=== PATIENT | female | born 1965 | race Caucasian/White ===

== ENCOUNTER 2017-09-30 08:32 | Emergency (ER) | payer MEDICARE, OTHER ==
[~2017-09-30] VITALS: Ht 175.3 cm; Wt 81.0 kg
[~2017-09-30 08:32] MED LIST: BUDE3CAP5 PO; HYDR-3533 PO; METHO500 PO; PENT500C2 PO
[2017-09-30 08:37] VITALS: BP 105/59; PULSE 84; RESP 16; TEMP 98.1; O2SAT 99
[2017-09-30] MEDS ORDERED: PENT500C2 PO (08:51)
[2017-09-30] MEDS ORDERED: ENTO3CAP5 PO (08:51)
[2017-09-30] MEDS ORDERED: SODIUM CHLORID 0.9% 500 ML INJ 500 ML IV ONE (09:00)
[2017-09-30] MEDS ORDERED: ONDANSETRON HCL 4 MG/2 ML VIAL IV PUSH ONE ×2 (09:00→13:15)
[2017-09-30] MEDS ORDERED: DICYCLOMINE HCL 20 MG/2 ML VIAL IM ONE ×2 (09:00→11:45)
--- NOTE | 2017-09-30 09:00 | PD ---
HPI Chief Complaint: Cold / Flu Symptoms Time Seen by Provider: 08:55 Travel History International Travel<30 days: No Contact w/Intl Traveler<30days: No Traveled to known affect area: No History of Present Illness HPI Patient presents with complaints of nausea vomiting and diarrhea for 3 days. Denies any recent travel. Denies any recent antibiotics. Denies any camping. Patient is convinced she has Norovirus. Denies any blood per stool or emesis. Denies sick contacts. Denies new rash. Erratic historian, reports Crohn's disease with frequent diverticulitis treated with steroids. History of heart failure during her which she is not being treated for now. History of obesity. States her abdominal pannus is secondary to with a stillbirth at term. Reports recent neck discomfort with ear congestion which resolved with a quick turn of her neck. PFSH Past Medical History Gastrointestinal Disorders: Yes (Chron's, Colitis) Influenza Vaccination: Yes ?: Not Social History Alcohol Use: No Tobacco Use: Yes Substance Use: No Allergies-Medications (Allergen,Severity, Reaction): Coded Allergies: penicillin G (Unverified Allergy, Severe, Anaphylaxis, 09/30/17) Sulfa (Sulfonamide Antibiotics) (Unverified Adverse Reaction, Severe, Bleeding, 09/30/17) ibuprofen (Unverified Adverse Reaction, Severe, Bleeding, 09/30/17) Uncoded Allergies: RICOTTA CHEESE (Allergy, Severe, Anaphylaxis, 03/11/15) Reported Meds & Prescriptions Reported Meds & Active Scripts Active Reported Pentasa (Mesalamine) 500 Mg Caper 1,000 Mg PO QID Entocort EC (Budesonide) 3 Mg Capdr 3 Mg PO TID Review of Systems General / Constitutional: No: Fever Eyes: No: Visual changes HENT: No: Headaches Cardiovascular: No: Chest Pain or Discomfort Respiratory: No: Shortness of Breath Gastrointestinal: Positive: Nausea, Vomiting, Diarrhea, No: Abdominal Pain Genitourinary: No: Dysuria Musculoskeletal: No: Pain Skin: No Rash Neurologic: No: Weakness Psychiatric: No: Depression Endocrine: No: Polydipsia Hematologic/Lymphatic: No: Easy Bruising Physical Exam Narrative GENERAL: Well-nourished, well-developed patient. SKIN: Focused skin assessment warm/dry. HEAD: Normocephalic. EYES: No scleral icterus. No injection or drainage. NECK: Supple, trachea midline. No JVD or lymphadenopathy. CARDIOVASCULAR: Regular rate and rhythm without murmurs, gallops, or rubs. RESPIRATORY: Breath sounds equal bilaterally. No accessory muscle use. GASTROINTESTINAL: Abdomen soft, non-tender, mildly distended MUSCULOSKELETAL: No cyanosis, or edema. BACK: Nontender without obvious deformity. No CVA tenderness. Data Data Last Documented VS Vital Signs Date Time Temp Pulse Resp B/P (MAP) Pulse Ox O2 Delivery O2 Flow Rate FiO2 09/30/17 13:13 98.4 75 15 93/67 (76) 95 Room Air Orders Orders Sodium Chlorid 0.9% 500 Ml Inj (Ns 500 M (09/30/17 09:00) Ondansetron Inj (Zofran Inj) (09/30/17 09:00) Dicyclomine Inj (Bentyl Inj) (09/30/17 09:00) Urinalysis - C+S If Indicated (09/30/17 10:49) Ct Abd/Pel W Iv Contrast(Rout) (09/30/17 ) Dicyclomine Inj (Bentyl Inj) (09/30/17 11:45) Iohexol 350 Inj (Omnipaque 350 Inj) (09/30/17 12:12) Ondansetron Inj (Zofran Inj) (09/30/17 13:15) Labs Laboratory Tests Test 09/30/17 11:07 Urine Collection Type CLEAN CATCH Urine Color DARK-YELLOW Urine Turbidity CLEAR Urine pH 6.5 Urine Specific Dane 1.025 Urine Protein TRACE mg/dL Urine Glucose (UA) NEG mg/dL Urine Ketones TRACE mg/dL Urine Occult Blood NEG Urine Nitrite NEG Urine Bilirubin NEG Urine Leukocyte Esterase NEG Urine RBC 0-3 /hpf Urine WBC 3-5 /hpf Urine Squamous Epithelial Cells 0-5 /hpf Microscopic Urinalysis Comment CULT NOT INDICATED MDM Medical Decision Making Medical Screen Exam Complete: Yes Emergency Medical Condition: Yes Differential Diagnosis Viral gastroenteritis, Crohn's, UTI Narrative Course Assessment and plan discussed with daughter and at bedside. Urinalysis is normal, patient tolerated fluid challenge without difficulty. Complains of persistent bilateral lower abdominal pain. Last 72 hours Impressions Abdomen/Pelvis CT 09/30/17 0000 Signed Impressions: Service Date/Time: Saturday, September 30, 2017 11:58 - CONCLUSION: 1. Nonspecific colitis involving the transverse colon and proximal descending colon. 2. Hepatic steatosis. 3. Status post cholecystectomy. 4. Multiple bilateral renal masses likely representing cysts. Bilateral renal cortical calculi. Devonte Mcgregor MD Patient states the colitis is long-standing and refuses antibiotics. Diagnosis Primary Impression: Gastroenteritis Additional Impression: Colitis Patient Instructions: General Instructions Additional Instructions: Encouraged a bland high-fiber brat diet. Encouraged fluids. Encouraged to follow-up with PCP. Encouraged to return to emergency room with any onset of new symptoms. Med/Other Pt SpecificInfo: Prescription(s) given Scripts Hyoscyamine (Levsin) 0.125 Mg Tab 0.125 MG PO Q6H for Gastrointestinal disorders, #20 TAB 0 Refills Prov: Matty Wallace MD 09/30/17 Ondansetron Odt (Zofran Odt) 4 Mg Tab 4 MG SL Q6HR Y for Nausea/Vomiting, #20 TAB 0 Refills Prov: Matty Wallace MD 09/30/17 Disposition: 01 DISCHARGE HOME Condition: Good Matty Wallace MD Sep 30, 2017 09:00
[2017-09-30 10:53] VITALS: BP 89/59; PULSE 75; RESP 15; TEMP 98.4; O2SAT 95
[2017-09-30 11:14] LABS: BLOOD, URINE NEG (NEG); GLUCOSE,URINE NEG (NEG); KETONE, URINE TRACE mg/dL (NEG); NITRITE,URINE NEG (NEG); PH, URINE 6.5 (5.0-8.5)
[2017-09-30 11:22] LABS: COMMENT (UR) CULT NOT INDICATED; COMMENT2 (UR) MUCOUS PRESENT; CULTURE IF INDICATED CULT NOT INDICATED; METHOD OF COLLECTION CLEAN CATCH; RBC, URINE 0-3 /hpf (0-3); SQUAMOUS EPITHELIAL CELL URINE 0-5 /hpf (0-5); URINE COLOR DARK-YELLOW (YELLW/STRAW)
[2017-09-30] MEDS ORDERED: IOHEXOL 350 MG/ML 10 ML VIAL (for RAD DIAG) IVCONTRAST ONE (12:12)
[2017-09-30 12:23] VITALS: BP 89/52; PULSE 78; RESP 16; O2SAT 99
--- NOTE | 2017-09-30 12:43 | RADRPT ---
EXAM DATE/TIME: 09/30/2017 11:58 [facility] COMPARISON: No previous studies available for comparison. INDICATIONS : Abdominal pain. IV CONTRAST: 75 cc Omnipaque 350 (iohexol) IV ORAL CONTRAST: No oral contrast ingested. RADIATION DOSE: 18.79 CTDIvol (mGy) MEDICAL HISTORY : Crohn's disease. SURGICAL HISTORY : None. ENCOUNTER: Initial ACUITY: 1 day PAIN SCALE: 8/10 LOCATION: Bilateral lower abdomen, with chills. TECHNIQUE: Volumetric scanning of the abdomen and pelvis was performed. Using automated exposure control and ad justment of the mA and/or kV according to patient size, radiation dose was kept as low as reasonably achievable to obtain optimal diagnostic quality images. DICOM format image data is available electro nically for review and comparison. FINDINGS: LOWER LUNGS: Mild atelectasis at left lung base. LIVER: Diffuse moderate severity hepatic steatosis. No focal mass. Cholecystectomy clips. SPLEEN: Normal size without lesion. PANCREAS: Within normal limits. KIDNEYS: Multiple bilateral renal hypodense masses, likely representing cysts. The largest measures 3 cm and i s seen in the upper pole of the left kidney. 2 coarse cortical calcifications are seen in the lower l eft kidney. Punctate cortical calcification is seen in the midpole of the right kidney. No evidence o f hydronephrosis. No ureteral calculi ADRENAL GLANDS: Within normal limits. VASCULAR: Scattered aortic calcification. Aortic diameter are within normal limits. BOWEL/MESENTERY: Marked circumferential wall thickening and adjacent inflammatory change diffusely at the transverse c olon and proximal descending colon. No evidence of bowel wall pneumatosis. No free air. No free fluid . No bowel dilatation. Appendix within normal limits. ABDOMINAL WALL: 7.9 cm left-sided paramidline anterior abdominal wall fat containing hernia. RETROPERITONEUM: There is no lymphadenopathy. BLADDER: No wall thickening or mass. REPRODUCTIVE: Within normal limits. INGUINAL: There is no lymphadenopathy or hernia. MUSCULOSKELETAL: Within normal limits for patient age. CONCLUSION: 1. Nonspecific colitis involving the transverse colon and proximal descending colon. 2. Hepatic steatosis. 3. Status post cholecystectomy. 4. Multiple bilateral renal masses likely representing cysts. Bilateral renal cortical calculi. Devonte Mcgregor MD on September 30, 2017 at 12:31 Board Certified Radiologist. This report was verified electronically.
[2017-09-30 13:13] VITALS: BP 93/67; PULSE 75; RESP 15; TEMP 98.4; O2SAT 95
[2017-09-30] MEDS ORDERED: ZOFR4TAB3 SL (13:25)
[2017-09-30] MEDS ORDERED: LEVS0.123 PO (13:25)
[2017-09-30] MEDS ORDERED: TRAM50 PO (13:44)
[2017-09-30] MEDS ORDERED: HYDR-3516 PO (13:46)
== END 2017-09-30 13:54 | disposition home or self-care (01) ==
LOC: PHED 08:32
DX: K52.9 Noninfective gastroenteritis and colitis, unspecified (principal); K50.90 Crohn's disease, unspecified, without complications; Z72.0 Tobacco use; Z88.0 Allergy status to penicillin; Z79.899 Other long term (current) drug therapy
CPT/HCPCS: 74177; 81001; 96361; 96372; 96374; 96376; 99285; J0500; J2405; J7040; Q9967

== ENCOUNTER 2017-10-04 10:06 | Observation (INO) | payer MEDICARE, OTHER ==
[~2017-10-04] VITALS: Ht 174 cm; Wt 86.5 kg
[2017-10-04] VITALS (9 sets, daily range): BP systolic 82–96; BP diastolic 53–69; PULSE 75–99; RESP 16–20; TEMP 98–100.7; O2SAT 94–99
[~2017-10-04 10:06] MED LIST changes: -BUDE3CAP5 PO; +ENTO3CAP5 PO; +HYDR-3516 PO; -HYDR-3533 PO; +LEVS0.123 PO; -METHO500 PO; +ZOFR4TAB3 SL
[2017-10-04] MEDS ORDERED: ONDANSETRON HCL 4 MG/2 ML VIAL IV PUSH ONE (10:30)
[2017-10-04] MEDS ORDERED: SODIUM CHLOR 0.9% 1000 ML INJ 1,000 ML IV ONE (10:30)
--- NOTE | 2017-10-04 10:31 | PD ---
HPI Chief Complaint: GI Complaint Time Seen by Provider: 10:17 Travel History International Travel<30 days: No Contact w/Intl Traveler<30days: No Traveled to known affect area: No History of Present Illness HPI 52yo F with PMH of Crohns disease presents to the ED with c/o persistent vomiting and unable to keep anything down for 8 days. Pt was seen on 09/30/17 for vomiting and diarrhea. Pt had CT s/p that showed nonspecific colitis transverse colon and proximal descending colon. Pt was discharged with hyosyamine and zofran. Said she tried taking the medications but could not keep it down. Pt had UA that was negative but no blood work at the time. Still complaining of diffuse abdominal pain for 8 days. Said she has nonbloody loose stools. +Chills but no fever. Said she blacked out during vomiting but did not hit her head. Denies any chest pain, sob, dysuria, hematuria, vaginal bleeding or discharge, focal weakness or numbness. Pt follows with Dr. Lainez. [facility] Past Medical History Gastrointestinal Disorders: Yes (Chron's, Colitis) ?: Not Social History Alcohol Use: No Tobacco Use: Yes Substance Use: No Allergies-Medications (Allergen,Severity, Reaction): Coded Allergies: guaifenesin (Verified Allergy, Severe, Nausea/Vomiting, 09/30/17) penicillin G (Unverified Allergy, Severe, Anaphylaxis, 09/30/17) tramadol (Verified Allergy, Severe, Burning, 09/30/17) Leg burning ciprofloxacin (Verified Allergy, Intermediate, Nausea/Vomiting, 10/04/17) Sulfa (Sulfonamide Antibiotics) (Unverified Adverse Reaction, Severe, Bleeding, 09/30/17) ibuprofen (Unverified Adverse Reaction, Severe, Bleeding, 09/30/17) Uncoded Allergies: RICOTTA CHEESE (Allergy, Severe, Anaphylaxis, 03/11/15) Reported Meds & Prescriptions Reported Meds & Active Scripts Active Hydrocodone-Acetaminophen 5-325 mg Tab 1 Tab PO Q6H PRN Levsin (Hyoscyamine Sulfate) 0.125 Mg Tab 0.125 Mg PO Q6H Zofran Odt (Ondansetron Odt) 4 Mg Tab 4 Mg SL Q6HR PRN Reported Pentasa (Mesalamine) 500 Mg Caper 1,000 Mg PO QID Entocort EC (Budesonide) 3 Mg Capdr 3 Mg PO TID Review of Systems Except as stated in HPI: all other systems reviewed are Neg Physical Exam Narrative GENERAL: 52yo F in mild distress. SKIN: Focused skin assessment warm/dry. HEAD: Atraumatic. Normocephalic. EYES: Pupils equal and round. No scleral icterus. No injection or drainage. CARDIOVASCULAR: Regular rate and rhythm. No murmur appreciated. RESPIRATORY: No accessory muscle use. Clear to auscultation. Breath sounds equal bilaterally. GASTROINTESTINAL: Abdomen soft, +TTP suprapubic, epigastric, left lower abdomen. No rebound tenderness or guarding. MUSCULOSKELETAL: No obvious deformities. No clubbing. No cyanosis. No edema. NEUROLOGICAL: Awake and alert. No obvious cranial nerve deficits. Motor grossly within normal limits. Normal speech. PSYCHIATRIC: Appropriate mood and affect; insight and judgment normal. Data Data Last Documented VS Vital Signs Date Time Temp Pulse Resp B/P (MAP) Pulse Ox O2 Delivery O2 Flow Rate FiO2 10/04/17 12:10 16 10/04/17 11:40 81 96/69 (78) 96 Room Air 10/04/17 10:45 98.7 Orders Orders Complete Blood Count With Diff (10/04/17 10:25) Comprehensive Metabolic Panel (10/04/17 10:25) Lipase (10/04/17 10:25) Prothrombin Time / Inr (Pt) (10/04/17 10:25) Act Partial Throm Time (Ptt) (10/04/17 10:25) Urinalysis - C+S If Indicated (10/04/17 10:25) Electrocardiogram (10/04/17 10:25) Ed Urine Pregnancytest Poc (10/04/17 10:25) Sodium Chlor 0.9% 1000 Ml Inj (Ns 1000 M (10/04/17 10:30) Ondansetron Inj (Zofran Inj) (10/04/17 10:30) Ketorolac Inj (Toradol Inj) (10/04/17 11:15) Potassium Chlor 20 Meq Premix (Kcl 20 Me (10/04/17 12:15) Magnesium (Mg) (10/04/17 12:04) Metoclopramide Inj (Reglan Inj) (10/04/17 12:30) Admit Order (Ed Use Only) (10/04/17 12:23) Labs Laboratory Tests Test 10/04/17 10:47 White Blood Count 8.9 TH/MM3 Red Blood Count 4.45 MIL/MM3 Hemoglobin 12.2 GM/DL Hematocrit 36.9 % Mean Corpuscular Volume 82.8 FL Mean Corpuscular Hemoglobin 27.5 PG Mean Corpuscular Hemoglobin Concent 33.2 % Red Cell Distribution Width 13.4 % Platelet Count 424 TH/MM3 Mean Platelet Volume 6.7 FL Neutrophils (%) (Auto) 70.3 % Lymphocytes (%) (Auto) 16.1 % Monocytes (%) (Auto) 12.8 % Eosinophils (%) (Auto) 0.6 % Basophils (%) (Auto) 0.2 % Neutrophils # (Auto) 6.3 TH/MM3 Lymphocytes # (Auto) 1.4 TH/MM3 Monocytes # (Auto) 1.1 TH/MM3 Eosinophils # (Auto) 0.1 TH/MM3 Basophils # (Auto) 0.0 TH/MM3 CBC Comment DIFF FINAL Differential Comment Prothrombin Time 12.2 SEC Prothromb Time International Ratio 1.1 RATIO Activated Partial Thromboplast Time 23.2 SEC Blood Urea Nitrogen 9 MG/DL Creatinine 0.82 MG/DL Random Glucose 108 MG/DL Total Protein 6.0 GM/DL Albumin 1.8 GM/DL Calcium Level 7.7 MG/DL Alkaline Phosphatase 96 U/L Aspartate Amino Transf (AST/SGOT) 11 U/L Alanine Aminotransferase (ALT/SGPT) 16 U/L Total Bilirubin 0.5 MG/DL Sodium Level 137 MEQ/L Potassium Level 3.0 MEQ/L Chloride Level 102 MEQ/L Carbon Dioxide Level 26.4 MEQ/L Anion Gap 9 MEQ/L Estimat Glomerular Filtration Rate 74 ML/MIN Magnesium Level 2.0 MG/DL Troponin I LESS THAN 0.02 NG/ML Lipase 104 U/L [facility] Medical Decision Making Medical Screen Exam Complete: Yes Emergency Medical Condition: Yes Interpretation(s) EKG: NSR 81bpm. LAD. Mild ST depressionV3-V6. Differential Diagnosis Dehydration vs. sepsis from colitis vs. complications from colitis vs. intractable vomiting. Narrative Course 52yo F with crohns disease here with persistent vomiting even after attempting to take zofran that was prescribed on 09/30/17. Pt failed outpatient therapy. Will obtain labs, IV and given NS IVF, zofran. BP was low last visit as well with systolic in the 80s-low 100s. Labs reviewed, no leukocytosis. H/H normal. Hypokalemia at 3.0. Pt given zofran but states she still cant tolerate PO, so IV KCl ordered. Lipase normal. Troponin negative. Magnesium normal. Pt given toradol for pain which helped with the pain. However, pt still feels nauseous and still unable to tolerate anything PO. Reglan given. This is her second visit for these symptoms and have failed outpatient treatment so will admit for IV hydration and intractable nausea. Discussed with Dr. Faustin and accepted to his service. Diagnosis Primary Impression: Intractable nausea and vomiting Qualified Codes: R11.2 - Nausea with vomiting, unspecified Admitting Information Admitting Physician Requests: Trish Vera DO Oct 04, 2017 10:31
[2017-10-04 10:57] LABS: AUTOMATED NEUTROPHIL # 6.3 TH/MM3 (1.8-7.7); BASOPHIL % 0.2 % (0.0-2.0); EOSINOPHIL # 0.1 TH/MM3 (0-0.4); EOSINOPHIL % 0.6 % (0.0-4.0); HEMATOCRIT 36.9 % (35.0-46.0); HEMO FLAGS DIFF FINAL; LYMPH % 16.1 % (9.0-44.0); LYMPHOCYTE # 1.4 TH/MM3 (1.0-4.8); MEAN CELL VOLUME 82.8 FL (80.0-100.0); MEAN CORPUSCULAR HEMOGLOBIN 27.5 PG (27.0-34.0); MEAN CORPUSCULAR HGB CONC 33.2 % (32.0-36.0); MONO % 12.8 % (0.0-8.0); NEUT % 70.3 % (16.0-70.0); PLATELET COUNT 424 TH/MM3 (150-450); RED BLOOD COUNT 4.45 MIL/MM3 (4.00-5.30); RED CELL DISTRIBUTION WIDTH 13.4 % (11.6-17.2); WHITE BLOOD COUNT 8.9 TH/MM3 (4.0-11.0)
[2017-10-04 11:13] LABS: CHLORIDE 102 MEQ/L (98-107); SODIUM (NA) 137 MEQ/L (136-145)
[2017-10-04] MEDS ORDERED: KETOROLAC TROMETHAMINE 30 MG/ML (IVP) VIAL IV PUSH ONE (11:15)
[2017-10-04 11:17] LABS: ANION GAP 9 MEQ/L (5-15); BICARBONATE 26.4 MEQ/L (21.0-32.0); BLOOD UREA NITROGEN 9 MG/DL (7-18)
[2017-10-04 11:19] LABS: APTT (PATIENT) 23.2 SEC (24.3-30.1); INTERNATIONAL NORMALIZED RATIO 1.1 RATIO; PROTHROMBIN TIME - PATIENT 12.2 SEC (9.8-11.6)
[2017-10-04 11:20] LABS: ALT (GPT) 16 U/L (10-53); AST (GOT) 11 U/L (15-37); GLOMERULAR FILTRATION RATE 74 ML/MIN (>89)
[2017-10-04 11:21] LABS: TOTAL BILIRUBIN ADULT 0.5 MG/DL (0.2-1.0)
[2017-10-04 11:22] LABS: ALKALINE PHOSPHATASE 96 U/L (45-117)
[2017-10-04] MEDS ORDERED: POTASSIUM CHLOR 20 MEQ PREMIX 100 ML IV ONE (12:15)
[2017-10-04] MEDS ORDERED: METOCLOPRAMIDE INJ 10 MG in SODIUM CHLORIDE 0.9% INJ 50 ML IV ONE (12:30)
--- NOTE | 2017-10-04 13:12 | HHI.HP ---
[facility] No Primary Care Physician Admission Diagnosis Intractable vomiting and nausea, hypokalemia Diagnoses: (1) Intractable nausea and vomiting (2) Hypotension (3) History of Crohn's disease Chief Complaint: Intractable nausea and vomiting Travel History International Travel<30 Days: No Contact w/Intl Traveler <30 Da: No Traveled to Known Affected Are: No History of Present Illness 52Year-old female with a history of Crohn disease return to the ED for evaluation of intractable nausea and vomiting along with abdominal pain 8 days duration. She was seen in the ED 09/30/17 for diarrhea and vomiting, and at the time CT was ordered and showed nonspecific colitis as well as colon and proximal descending colon. She was discharged home on Zofran, however patient states this made her nausea worse. She returned today with intractable nausea and vomiting, and states had emesis 8 times per day. She denies any febrile episode Review of Systems Except as stated in HPI: all other systems reviewed are Neg Past Family Social History Past Medical History Crohn disease Colitis Past Surgical History Cholecystectomy Reported Medications Hydrocodone-Acetaminophen 5-325 mg Tab 1 Tab PO Q6H PRN Levsin (Hyoscyamine Sulfate) 0.125 Mg Tab 0.125 Mg PO Q6H Zofran Odt (Ondansetron Odt) 4 Mg Tab 4 Mg SL Q6HR PRN Pentasa (Mesalamine) 500 Mg Caper 1,000 Mg PO QID Entocort EC (Budesonide) 3 Mg Capdr 3 Mg PO TID Allergies: Coded Allergies: guaifenesin (Verified Allergy, Severe, Nausea/Vomiting, 09/30/17) penicillin G (Unverified Allergy, Severe, Anaphylaxis, 09/30/17) tramadol (Verified Allergy, Severe, Burning, 09/30/17) Leg burning ciprofloxacin (Verified Allergy, Intermediate, Nausea/Vomiting, 10/04/17) Sulfa (Sulfonamide Antibiotics) (Unverified Adverse Reaction, Severe, Bleeding, 09/30/17) ibuprofen (Unverified Adverse Reaction, Severe, Bleeding, 09/30/17) Uncoded Allergies: RICOTTA CHEESE (Allergy, Severe, Anaphylaxis, 03/11/15) Family History Mother with a history of hypothyroidism Father from complication of COPD Social History Alcohol Use: No Tobacco Use: Yes Substance Use: No Physical Exam Vital Signs Vital Signs Date Time Temp Pulse Resp B/P (MAP) Pulse Ox O2 Delivery O2 Flow Rate FiO2 10/04/17 12:42 75 16 94/61 (72) 96 Room Air 10/04/17 12:10 16 10/04/17 11:40 81 16 96/69 (78) 96 Room Air 10/04/17 10:45 98.7 89 18 86/62 (70) 95 Room Air 10/04/17 10:08 98.7 99 18 82/53 (63) 97 Physical Exam GENERAL: This is a well-nourished, well-developed patient, in no apparent distress. SKIN: No rashes, ecchymoses or lesions. Cool and dry. HEAD: Atraumatic. Normocephalic. No temporal or scalp tenderness. EYES: Pupils equal round and reactive. Extraocular motions intact. No scleral icterus. No injection or drainage. ENT: Nose without bleeding, purulent drainage or septal hematoma. Throat without erythema, tonsillar hypertrophy or exudate. Uvula midline. Airway patent. NECK: Trachea midline. No JVD or lymphadenopathy. Supple, nontender, no meningeal signs. CARDIOVASCULAR: Regular rate and rhythm without murmurs, gallops, or rubs. RESPIRATORY: Clear to auscultation. Breath sounds equal bilaterally. No wheezes , rales, or rhonchi. GASTROINTESTINAL: Abdomen soft, non-tender, nondistended. No hepato-splenomegaly , or palpable masses. No guarding. MUSCULOSKELETAL: Extremities without clubbing, cyanosis, or edema. No joint tenderness, effusion, or edema noted. No calf tenderness. Negative Homans sign bilaterally. NEUROLOGICAL: Awake and alert. Cranial nerves II through XII intact. Motor and sensory grossly within normal limits. Five out of 5 muscle strength in all muscle groups. Normal speech. Laboratory Laboratory Tests Test 10/04/17 10:47 White Blood Count 8.9 Red Blood Count 4.45 Hemoglobin 12.2 Hematocrit 36.9 Mean Corpuscular Volume 82.8 Mean Corpuscular Hemoglobin 27.5 Mean Corpuscular Hemoglobin Concent 33.2 Red Cell Distribution Width 13.4 Platelet Count 424 Mean Platelet Volume 6.7 Neutrophils (%) (Auto) 70.3 Lymphocytes (%) (Auto) 16.1 Monocytes (%) (Auto) 12.8 Eosinophils (%) (Auto) 0.6 Basophils (%) (Auto) 0.2 Neutrophils # (Auto) 6.3 Lymphocytes # (Auto) 1.4 Monocytes # (Auto) 1.1 Eosinophils # (Auto) 0.1 Basophils # (Auto) 0.0 CBC Comment DIFF FINAL Differential Comment Prothrombin Time 12.2 Prothromb Time International Ratio 1.1 Activated Partial Thromboplast Time 23.2 Blood Urea Nitrogen 9 Creatinine 0.82 Random Glucose 108 Total Protein 6.0 Albumin 1.8 Calcium Level 7.7 Alkaline Phosphatase 96 Aspartate Amino Transf (AST/SGOT) 11 Alanine Aminotransferase (ALT/SGPT) 16 Total Bilirubin 0.5 Sodium Level 137 Potassium Level 3.0 Chloride Level 102 Carbon Dioxide Level 26.4 Anion Gap 9 Estimat Glomerular Filtration Rate 74 Magnesium Level 2.0 Lipase 104 Result Diagram: 10/04/17 1047 10/04/17 1047 Caprini VTE Risk Assessment Caprini VTE Risk Assessment: No/Low Risk (score <= 1) Caprini Risk Assessment Model Point Value = 1 Point Value = 2 Point Value = 3 Point Value = 5 Age 41-60 Minor surgery BMI > 25 kg/m2 Swollen legs Varicose veins or History of unexplained or recurrent spontaneous Oral contraceptives or hormone replacement Sepsis (< 1 month) Serious lung disease, including pneumonia (< 1 month) Abnormal pulmonary function Acute myocardial infarction Congestive heart failure (< 1 month) History of inflammatory bowel disease Medical patient at bed rest Age 61-74 Arthroscopic surgery Major open surgery (> 45 min) Laparoscopic surgery (> 45 min) Malignancy Confined to bed (> 72 hours) Immobilizing plaster cast Central venous access Age >= 75 History of VTE Family history of VTE Factor V Leiden Prothrombin [id number] Lupus anticoagulant Anticardiolipin antibodies Elevated serum homocysteine Heparin-induced thrombocytopenia Other congenital or acquired thrombophilia Stroke (< 1 month) Elective arthroplasty Hip, pelvis, or leg fracture Acute spinal cord injury (< 1 month) Prophylaxis Regimen Total Risk Factor Score Risk Level Prophylaxis Regimen 0-1 Low Early ambulation 2 Moderate Order ONE of the following: *Sequential Compression Device (SCD) *Heparin 5000 units SQ BID 3-4 Higher Order ONE of the following medications: *Heparin 5000 units SQ TID *Enoxaparin/Lovenox 40 mg SQ daily (WT < 150 kg, CrCl > 30 mL/min) *Enoxaparin/Lovenox 30 mg SQ daily (WT < 150 kg, CrCl > 10-29 mL/min) *Enoxaparin/Lovenox 30 mg SQ BID (WT < 150 kg, CrCl > 30 mL/min) AND/OR *Sequential Compression Device (SCD) 5 or more Highest Order ONE of the following medications: *Heparin 5000 units SQ TID (Preferred with Epidurals) *Enoxaparin/Lovenox 40 mg SQ daily (WT < 150 kg, CrCl > 30 mL/min) *Enoxaparin/Lovenox 30 mg SQ daily (WT < 150 kg, CrCl > 10-29 mL/min) *Enoxaparin/Lovenox 30 mg SQ BID (WT < 150 kg, CrCl > 30 mL/min) AND *Sequential Compression Device (SCD) Assessment and Plan Problem List: (1) Intractable nausea and vomiting ICD Code: R11.2 - Nausea with vomiting, unspecified Status: Resolved (2) History of Crohn's disease ICD Code: Z87.19 - Personal history of other diseases of the digestive system Status: Chronic (3) Hypotension ICD Code: I95.9 - Hypotension, unspecified Assessment and Plan 52-year-old female with Intractable nausea and vomiting with abdominal pain Conservative treatment with IV fluid hydration, antiemetic Resume Levsin Pain management accordingly Hypotension Due to volume loss Continue with aggressive IV fluid hydration History of Crohn disease Resume Pentasa (Mesalamine) 500 Mg Caper 1,000 Mg PO QID Hypokalemia Replace electrolyte and monitor GI prophylaxis: PPI DT prophylaxis:b-SCDs Code Status Full code Discussed Condition With Patient, ED physician Problem Qualifiers (1) Intractable nausea and vomiting: Qualified Codes: R11.2 - Nausea with vomiting, unspecified Rayshawn Faustin MD Oct 04, 2017 13:12
[2017-10-04] MEDS ORDERED: ACETAMINOPHEN/HYDROcodone 325 MG/5 MG TAB PO PRN (13:15)
[2017-10-04] MEDS ORDERED: NALOXONE HCL 0.4 MG/ML AMP IV PUSH PRN (13:15)
[2017-10-04] MEDS ORDERED: ACETAMINOPHEN 325 MG TAB PO PRN ×2 (13:15)
[2017-10-04] MEDS ORDERED: SODIUM CHLORIDE 0.9% FLUSH 10 ML FLUSH IV FLUSH PRN (13:15)
[2017-10-04] MEDS ORDERED: ONDANSETRON HCL 4 MG/2 ML VIAL IVP PRN (13:15)
[2017-10-04] MEDS ORDERED: MAGNESIUM HYDROXIDE SUSP 30 ML CUP PO PRN (13:15)
[2017-10-04] MEDS ORDERED: RESP: ALBUTEROL 2.5 MG/IPRATROPIUM 0.5 MG NEB (PRN) NEB (13:15)
[2017-10-04 13:45] LABS: BLOOD, URINE MOD (NEG); GLUCOSE,URINE NEG (NEG); KETONE, URINE TRACE mg/dL (NEG); NITRITE,URINE NEG (NEG)
[2017-10-04 13:52] LABS: METHOD OF COLLECTION VOIDED
[2017-10-04 13:53] LABS: BACTERIA, URINE FEW /hpf; COMMENT (UR) CULT NOT INDICATED; CULTURE IF INDICATED CULT NOT INDICATED; MUCUS URINE MOD /lpf (OCC); RBC, URINE 0-3 /hpf (0-3); URINE COLOR DARK-YELLOW (YELLW/STRAW); WBC, URINE 0-2 /hpf (0-5)
[2017-10-04] MEDS ORDERED: POTASSIUM CHLORIDE 25 MEQ EFFERVESCENT TAB PO ONE (14:00)
[2017-10-04] MEDS: HYOSCYAMINE 0.125 MG TAB PO SCH ×2 (14:43→19:15)
[2017-10-04] MEDS: SODIUM CHLOR 0.9% 1000 ML INJ 1,000 ML IV SCH ×2 (14:44→22:47)
[2017-10-04] MEDS: MESALAMINE 250 MG CAP PO SCH ×2 (17:25→21:00)
[2017-10-04] MEDS: MORPHINE SULFATE 4 MG/ML INJ IV PUSH PRN ×2 (17:32→22:08)
[2017-10-04] MEDS ORDERED: BUDESONIDE 3 MG PO SCH ×2 (18:00)
[2017-10-04] MEDS: SODIUM CHLORIDE 0.9% FLUSH 10 ML FLUSH IV FLUSH SCH (22:08)
[2017-10-05] MEDS: HYOSCYAMINE 0.125 MG TAB PO SCH ×2 (01:15→06:53)
[2017-10-05] MEDS: MORPHINE SULFATE 4 MG/ML INJ IV PUSH PRN ×2 (04:51→09:15)
[2017-10-05] MEDS: SODIUM CHLOR 0.9% 1000 ML INJ 1,000 ML IV SCH (06:53)
[2017-10-05 07:58] LABS: AUTOMATED NEUTROPHIL # 4.6 TH/MM3 (1.8-7.7); BASOPHIL % 0.2 % (0.0-2.0); EOSINOPHIL # 0.1 TH/MM3 (0-0.4); EOSINOPHIL % 1.2 % (0.0-4.0); HEMATOCRIT 31.8 % (35.0-46.0); HEMO FLAGS DIFF FINAL; LYMPHOCYTE # 1.7 TH/MM3 (1.0-4.8); MEAN CELL VOLUME 83.7 FL (80.0-100.0); MEAN CORPUSCULAR HEMOGLOBIN 27.2 PG (27.0-34.0); MEAN CORPUSCULAR HGB CONC 32.5 % (32.0-36.0); MONO % 14.7 % (0.0-8.0); NEUT % 60.9 % (16.0-70.0); PLATELET COUNT 410 TH/MM3 (150-450); RED CELL DISTRIBUTION WIDTH 13.2 % (11.6-17.2); WHITE BLOOD COUNT 7.5 TH/MM3 (4.0-11.0)
[2017-10-05 08:00] VITALS: BP 100/55; PULSE 66; RESP 16; TEMP 99.3; O2SAT 98
[2017-10-05 08:00] LABS: POTASSIUM 3.5 MEQ/L (3.5-5.1)
[2017-10-05 08:18] LABS: BICARBONATE 25.6 MEQ/L (21.0-32.0); CALCIUM-PROTEIN CORRECTED 8.2 MG/DL (8.5-10.1); TOTAL BILIRUBIN ADULT 0.5 MG/DL (0.2-1.0)
[2017-10-05] MEDS ORDERED: PANTOPRAZOLE SODIUM 40 MG VIAL IV PUSH SCH (09:00)
[2017-10-05] MEDS ORDERED: BUDESONIDE PO SCH (09:00)
[2017-10-05] MEDS: SODIUM CHLORIDE 0.9% FLUSH 10 ML FLUSH IV FLUSH SCH (09:00)
[2017-10-05] MEDS: MESALAMINE 250 MG CAP PO SCH (09:05)
--- NOTE | 2017-10-05 10:44 | HHI.PR ---
Subjective Remarks Follow-up intractable nausea and vomiting 10/05/17-patient seen and examined, tolerated clear liquids without any competition nausea and vomiting since admission. Objective Vitals Vital Signs Date Time Temp Pulse Resp B/P (MAP) Pulse Ox O2 Delivery O2 Flow Rate FiO2 10/05/17 08:00 99.3 66 16 100/55 (70) 98 10/05/17 05:51 20 10/04/17 23:59 99.0 85 20 92/62 (72) 95 10/04/17 20:00 100.7 87 18 92/61 (71) 94 10/04/17 15:50 99.1 80 20 92/58 (69) 99 10/04/17 13:37 98.0 80 20 96/56 (69) 95 10/04/17 13:15 77 17 92/63 (73) 96 10/04/17 12:42 75 16 94/61 (72) 96 Room Air 10/04/17 12:10 16 10/04/17 11:40 81 16 96/69 (78) 96 Room Air 10/04/17 10:45 98.7 89 18 86/62 (70) 95 Room Air I/O 10/04/17 10/04/17 10/04/17 10/05/17 10/05/17 10/05/17 07:00 15:00 23:00 07:00 15:00 23:00 Intake Total 1152 ml 1310 ml 1800 ml Output Total 150 ml Balance 1152 ml 1310 ml 1800 ml -150 ml Intake Oral 310 ml 800 ml IV Total 1152 ml 1000 ml 1000 ml Output Urine Total 150 ml # Voids 3 3 # Bowel Movements 2 Result Diagram: 10/05/17 0700 10/05/17 0700 Objective Remarks GENERAL: NAD SKIN: Warm and dry. HEAD: Normocephalic. EYES: No scleral icterus. No injection or drainage. NECK: Supple, trachea midline. No JVD or lymphadenopathy. CARDIOVASCULAR: Regular rate and rhythm without murmurs, gallops, or rubs. RESPIRATORY: Breath sounds equal bilaterally. No accessory muscle use. GASTROINTESTINAL: Abdomen soft, non-tender, nondistended. MUSCULOSKELETAL: No cyanosis, or edema. BACK: Nontender without obvious deformity. No CVA tenderness. A/P Problem List: (1) Intractable nausea and vomiting ICD Code: R11.2 - Nausea with vomiting, unspecified Status: Resolved (2) Hypotension ICD Code: I95.9 - Hypotension, unspecified (3) History of Crohn's disease ICD Code: Z87.19 - Personal history of other diseases of the digestive system Status: Chronic Assessment and Plan 52-year-old female with Intractable nausea and vomiting with abdominal pain-improved Continue Conservative treatment with IV fluid hydration, antiemetic Continue Levsin Pain management accordingly Hypotension Due to volume loss Continue with aggressive IV fluid hydration History of Crohn disease Continue Pentasa (Mesalamine) 500 Mg Caper 1,000 Mg PO QID Hypokalemia Resolved GI prophylaxis: PPI DT prophylaxis:b-SCDs Discharge Planning Discharge patient to home Condition on discharge: Improved Regular Diet as tolerated Ad Judy activity Rx written:None Follow-up with primary care physician in 1week Problem Qualifiers (1) Intractable nausea and vomiting: Qualified Codes: R11.2 - Nausea with vomiting, unspecified Rayshawn Faustin MD Oct 05, 2017 10:44
[2017-10-05] MEDS ORDERED: PROT40TA PO (10:46)
[2017-10-05 12:00] VITALS: BP 99/60; PULSE 71; RESP 16; TEMP 98.8; O2SAT 98
--- NOTE | 2017-10-06 08:41 | EKG ---
Date Performed: 10/04/2017 Time Performed: 10:50:53 PTAGE: 52 years EKG: Sinus rhythm PATTERN CONSISTENT WITH PULMONARY DISEASE LEFT ANTERIOR FASCICULAR BLOCK INFERIOR MYOCARDIAL INFARCT ION ABNORMAL ECG NO PREVIOUS TRACING DOCTOR: Blas Cárdenas Interpretating Date/Time 10/06/2017 08:40:37
== END 2017-10-05 12:14 | disposition home or self-care (01) ==
LOC: PHED 10:06 → PHEDA 12:24 → PH3B 13:23
PROVIDERS: ADMIT Hospitalist; ATTEND Hospitalist
DX: R11.2 Nausea with vomiting, unspecified (principal); R10.84 Generalized abdominal pain; I95.9 Hypotension, unspecified; E87.6 Hypokalemia; I44.4 Left anterior fascicular block; R94.31 Abnormal electrocardiogram [ECG] [EKG]; Z79.899 Other long term (current) drug therapy; Z87.19 Personal history of other diseases of the digestive system; Z72.0 Tobacco use
CPT/HCPCS: 80053; 81001; 83690; 83735; 84484; 84703; 85025; 85610; 85730; 93005; 96361; 96365; 96366; 96368; 96375; 96376; 99285; C9113; G0378; J1885; J2270; J2405; J2765; J3480; J7030

== ENCOUNTER 2017-10-09 11:24 | Inpatient (IN) | payer MEDICARE, OTHER ==
[~2017-10-09 11:24] MED LIST changes: +PROT40TA PO
[2017-10-09 11:32] VITALS: BP 102/89; PULSE 97; RESP 18; TEMP 98.4; O2SAT 99
--- NOTE | 2017-10-09 11:53 | PD ---
HPI Chief Complaint: Abdominal Pain Time Seen by Provider: 11:32 Travel History International Travel<30 days: No Contact w/Intl Traveler<30days: No Traveled to known affect area: No History of Present Illness HPI This 52-year-old female presents with complaint of abdominal pain, vomiting and diarrhea. She says she's been having these symptoms for about 2 weeks. She was admitted to this hospital on the and discharged on the . She had a CT scan on September 30 which showed some nonspecific colitis of the transverse and descending colons. She says she has a history of ulcerative colitis and Crohn's disease for 17 years. This is diagnosed in [place] by endoscopy. She has been on mesalamine and steroids. She says she's been having 2-3 episodes of diarrhea per day and has been vomiting 2-3 times per day. She has had C. difficile in the past. She says that her abdomen has been distended for 8 years since she had a full-term miscarriage. She says that the abdominal pain started 2 weeks ago after vigorous examination in a physician's office [facility] Past Medical History Arthritis: Yes (left foot, knee, hip) Heart Rhythm Problems: No Cancer: No Cardiovascular Problems: Yes High Cholesterol: No Chest Pain: No Congestive Heart Failure: Yes (2006 because doctor gave to much potasium) Cerebrovascular Accident: No Diabetes: No Diminished Hearing: No Endocrine: No Gastrointestinal Disorders: Yes (Crohns, Colitis) GERD: Yes Genitourinary: Yes Hiatal Hernia: No Immune Disorder: No Kidney Stones: Yes Musculoskeletal: Yes Neurologic: Yes Psychiatric: No Reproductive: No Respiratory: No Seizures: Yes (as child) Thyroid Disease: No Ulcer: Yes ?: Not Past Surgical History Abdominal Surgery: Yes (gallbladder removed 2004, ERCP in 2004) AICD: No Arteriovenous Shunt: No Cardiac Surgery: No Cholecystectomy: Yes Ear Surgery: No Endocrine Surgery: No Eye Surgery: No Genitourinary Surgery: No Gynecologic Surgery: Yes (C-sec in 1999 and 2006) Insulin Pump: No Joint Replacement: No Oral Surgery: Yes (T & A when pt was very young) Pacemaker: No Thoracic Surgery: No Tonsillectomy: Yes Other Surgery: Yes Social History Alcohol Use: No Tobacco Use: No (quit 8 days ago) Substance Use: No Allergies-Medications (Allergen,Severity, Reaction): Coded Allergies: guaifenesin (Verified Allergy, Severe, Nausea/Vomiting, 10/09/17) mesalamine (Verified Allergy, Severe, Nausea/Vomiting, 10/09/17) ondansetron (Verified Allergy, Severe, Nausea/Vomiting, 10/09/17) penicillin G (Unverified Allergy, Severe, Anaphylaxis, 10/09/17) tramadol (Verified Allergy, Severe, Burning, 10/09/17) Leg burning ciprofloxacin (Verified Allergy, Intermediate, Nausea/Vomiting, 10/09/17) Sulfa (Sulfonamide Antibiotics) (Unverified Adverse Reaction, Severe, Bleeding, 10/09/17) ibuprofen (Unverified Adverse Reaction, Severe, Bleeding, 10/09/17) Uncoded Allergies: RICOTTA CHEESE (Allergy, Severe, Anaphylaxis, 03/11/15) Reported Meds & Prescriptions Reported Meds & Active Scripts Active Protonix (Pantoprazole Sodium) 40 Mg Tab 40 Mg PO DAILY Hydrocodone-Acetaminophen 5-325 mg Tab 1 Tab PO Q6H PRN Levsin (Hyoscyamine Sulfate) 0.125 Mg Tab 0.125 Mg PO Q6H Zofran Odt (Ondansetron Odt) 4 Mg Tab 4 Mg SL Q6HR PRN Reported Pentasa (Mesalamine) 500 Mg Caper 1,000 Mg PO QID Entocort EC (Budesonide) 3 Mg Capdr 3 Mg PO TID Review of Systems General / Constitutional: No: Fever, Chills Eyes: No: Diploplia, Blurred Vision HENT: No: Headaches, Vertigo Cardiovascular: No: Chest Pain or Discomfort, Palpitations Respiratory: No: Cough, Shortness of Breath Gastrointestinal: Positive: Nausea, Vomiting, Diarrhea, Abdominal Pain Genitourinary: No: Frequency, Dysuria Musculoskeletal: No: Myalgias, Arthralgias Skin: No Rash, No Itching Neurologic: No: Weakness Hematologic/Lymphatic: No: Easy Bruising Physical Exam Narrative GENERAL: Well-developed female SKIN: Focused skin assessment warm/dry. HEAD: Atraumatic. Normocephalic. EYES: Pupils equal and round. No scleral icterus. No injection or drainage. ENT: No nasal bleeding or discharge. Mucous membranes pink and moist. NECK: Trachea midline. No JVD. CARDIOVASCULAR: Regular rate and rhythm. No murmur appreciated. RESPIRATORY: No accessory muscle use. Clear to auscultation. Breath sounds equal bilaterally. GASTROINTESTINAL: Abdomen soft, there is mid abdominal tenderness without guarding or rigidity nondistended. Hepatic and splenic margins not palpable. Bowel sounds present MUSCULOSKELETAL: No obvious deformities. No clubbing. No cyanosis. No edema. NEUROLOGICAL: Awake and alert. No obvious cranial nerve deficits. Motor grossly within normal limits. Normal speech. PSYCHIATRIC: Appropriate mood and affect; Data Data Last Documented VS Vital Signs Date Time Temp Pulse Resp B/P (MAP) Pulse Ox O2 Delivery O2 Flow Rate FiO2 10/09/17 14:22 80 18 100/59 (73) 99 Room Air 10/09/17 11:32 98.4 Orders Orders Complete Blood Count With Diff (10/09/17 11:47) Comprehensive Metabolic Panel (10/09/17 11:47) Lipase (10/09/17 11:47) Urinalysis - C+S If Indicated (10/09/17 11:47) Enteric Path (Stool) (10/09/17 11:47) C Diff Toxin Pcr (10/09/17 11:47) Sodium Chlor 0.9% 1000 Ml Inj (Ns 1000 M (10/09/17 12:00) Prochlorperazine Inj (Compazine Inj) (10/09/17 12:00) Hydromorphone Pf Inj (Dilaudid Pf Inj) (10/09/17 12:00) Potassium Chlor 20 Meq Premix (Kcl 20 Me (10/09/17 13:00) Ct Abd/Pel W Iv Contrast(Rout) (10/09/17 13:17) Potassium Chloride (Kcl) (10/09/17 13:45) Iohexol 350 Inj (Omnipaque 350 Inj) (10/09/17 14:06) Labs Laboratory Tests Test 10/09/17 11:55 White Blood Count 7.1 TH/MM3 Red Blood Count 4.38 MIL/MM3 Hemoglobin 11.6 GM/DL Hematocrit 35.9 % Mean Corpuscular Volume 82.0 FL Mean Corpuscular Hemoglobin 26.5 PG Mean Corpuscular Hemoglobin Concent 32.3 % Red Cell Distribution Width 13.9 % Platelet Count 579 TH/MM3 Mean Platelet Volume 6.8 FL Neutrophils (%) (Auto) 58.0 % Lymphocytes (%) (Auto) 29.5 % Monocytes (%) (Auto) 9.8 % Eosinophils (%) (Auto) 2.1 % Basophils (%) (Auto) 0.6 % Neutrophils # (Auto) 4.2 TH/MM3 Lymphocytes # (Auto) 2.1 TH/MM3 Monocytes # (Auto) 0.7 TH/MM3 Eosinophils # (Auto) 0.1 TH/MM3 Basophils # (Auto) 0.0 TH/MM3 CBC Comment DIFF FINAL Differential Comment Blood Urea Nitrogen 5 MG/DL Creatinine 0.67 MG/DL Random Glucose 102 MG/DL Total Protein 5.5 GM/DL Albumin 1.7 GM/DL Calcium Level 7.6 MG/DL Alkaline Phosphatase 97 U/L Aspartate Amino Transf (AST/SGOT) 13 U/L Alanine Aminotransferase (ALT/SGPT) 19 U/L Total Bilirubin 0.3 MG/DL Sodium Level 137 MEQ/L Potassium Level 2.6 MEQ/L Chloride Level 101 MEQ/L Carbon Dioxide Level 26.7 MEQ/L Anion Gap 9 MEQ/L Estimat Glomerular Filtration Rate 93 ML/MIN Lipase 69 U/L [facility] Medical Decision Making Medical Screen Exam Complete: Yes Emergency Medical Condition: Yes Medical Record Reviewed: Yes Differential Diagnosis Differential includes colitis, ulcerative colitis, Crohn's disease gastroenteritis Narrative Course Hemoglobin is 11.6 with a white count of 7.1. CT scan was repeated and shows marked colitis without abscess or free air involving most of the colon, sparing the cecum and distal sigmoid. Patient will be admitted for further treatment and evaluation. Her potassium is 2.6 Diagnosis Primary Impression: Colitis Additional Impression: Hypokalemia Admitting Information Admitting Physician Requests: Admit Pan He MD Oct 09, 2017 11:53
[2017-10-09] MEDS ORDERED: SODIUM CHLOR 0.9% 1000 ML INJ 1,000 ML IV ONE (12:00)
[2017-10-09] MEDS ORDERED: PROCHLORPERAZINE INJ 10 MG/2 ML VIAL IV PUSH ONE (12:00)
[2017-10-09] MEDS ORDERED: HYDROmorphone HCL PF 0.5 MG/0.5 ML SYRINGE IV PUSH ONE (12:00)
[2017-10-09 12:13] LABS: AUTOMATED NEUTROPHIL # 4.2 TH/MM3 (1.8-7.7); BASOPHIL % 0.6 % (0.0-2.0); EOSINOPHIL # 0.1 TH/MM3 (0-0.4); EOSINOPHIL % 2.1 % (0.0-4.0); HEMATOCRIT 35.9 % (35.0-46.0); HEMO FLAGS DIFF FINAL; LYMPH % 29.5 % (9.0-44.0); LYMPHOCYTE # 2.1 TH/MM3 (1.0-4.8); MEAN CORPUSCULAR HEMOGLOBIN 26.5 PG (27.0-34.0); MEAN CORPUSCULAR HGB CONC 32.3 % (32.0-36.0); MONO % 9.8 % (0.0-8.0); PLATELET COUNT 579 TH/MM3 (150-450); RED BLOOD COUNT 4.38 MIL/MM3 (4.00-5.30); RED CELL DISTRIBUTION WIDTH 13.9 % (11.6-17.2); WHITE BLOOD COUNT 7.1 TH/MM3 (4.0-11.0)
[2017-10-09 12:37] LABS: ALKALINE PHOSPHATASE 97 U/L (45-117); ALT (GPT) 19 U/L (10-53); ANION GAP 9 MEQ/L (5-15); AST (GOT) 13 U/L (15-37); BICARBONATE 26.7 MEQ/L (21.0-32.0); BLOOD UREA NITROGEN 5 MG/DL (7-18); CHLORIDE 101 MEQ/L (98-107); GLOMERULAR FILTRATION RATE 93 ML/MIN (>89); SODIUM (NA) 137 MEQ/L (136-145); TOTAL BILIRUBIN ADULT 0.3 MG/DL (0.2-1.0)
[2017-10-09 12:38] LABS: POTASSIUM 2.6 MEQ/L (3.5-5.1)
[2017-10-09 12:55] VITALS: BP 90/61; PULSE 90; RESP 18; O2SAT 99
[2017-10-09] MEDS ORDERED: POTASSIUM CHLOR 20 MEQ PREMIX 100 ML IV ONE (13:00)
[2017-10-09] MEDS ORDERED: POTASSIUM CHLORIDE 10 MEQ CAP PO ONE (13:45)
[2017-10-09] MEDS ORDERED: IOHEXOL 350 MG/ML 10 ML VIAL (for RAD DIAG) IVCONTRAST ONE (14:06)
[2017-10-09 14:22] VITALS: BP 100/59; PULSE 80; RESP 18; O2SAT 99
--- NOTE | 2017-10-09 14:25 | RADRPT ---
EXAM DATE/TIME: 10/09/2017 13:57 [place] COMPARISON: CT ABDOMEN & PELVIS W CONTRAST, September 30, 2017, 11:58. INDICATIONS : Diffuse abdominal pain with nausea, vomiting and diarrhea. Worseing pain since last recent hospital visit. IV CONTRAST: 95 cc Omnipaque 350 (iohexol) IV ORAL CONTRAST: No oral contrast ingested. RADIATION DOSE: 21.05 CTDIvol (mGy) MEDICAL HISTORY : Crohn's disease. Ulcerative colitis. Renal calculi. SURGICAL HISTORY : Cholecystectomy. section. ENCOUNTER: Sequela ACUITY: 2 weeks PAIN SCALE: 8/10 LOCATION: abdomen TECHNIQUE: Volumetric scanning of the abdomen and pelvis was performed. Using automated exposure control and adjustment of the mA and/or kV according to patient size, radiation dose was kept as low as reasonably achievable to obtain optimal diagnostic quality images. DICOM format image data is av ailable electronically for review and comparison. FINDINGS: The lung base is are clear. There is moderate fatty replacement to the liver. The spleen, pancreas and adrenals unremarkable Right kidney: 2.5 cm cyst upper pole. 3 mm stone midpole. 1 CM cyst lower pole. Left kidney: Multiple cysts in the left kidney, the largest measuring 2.6 cm. 2 areas of parenchymal calcification probably associated associated with renal cyst, Marked colitis beginning in the mid descending colon extending into the sigmoid. There is no free air or free fluid There is no abscess Pelvic contents are unremarkable The abdominal wall contains the small hernia with only fat. CONCLUSION: Marked colitis without abscess or free air involving most of the colon, sparing the cecum and distal sigmoid Marked fatty replacement of the liver Renal cysts bilaterally parenchymal calcifications on the left Progression from 09/30/17. Radu Gonzalez MD FACR on October 09, 2017 at 14:17 Board Certified Radiologist. This report was verified electronically.
[2017-10-09] MEDS ORDERED: NALOXONE HCL 0.4 MG/ML AMP IV PUSH PRN (15:30)
[2017-10-09] MEDS ORDERED: MAGNESIUM HYDROXIDE SUSP 30 ML CUP PO PRN (15:30)
[2017-10-09] MEDS ORDERED: POTASSIUM CHLORIDE 25 MEQ EFFERVESCENT TAB PO ONE (15:30)
[2017-10-09] MEDS ORDERED: ACETAMINOPHEN 325 MG TAB PO PRN ×2 (15:30)
[2017-10-09] MEDS ORDERED: ONDANSETRON HCL 4 MG/2 ML VIAL IVP PRN (15:30)
[2017-10-09] MEDS ORDERED: HYDROmorphone HCL PF 1 MG/ML VIAL IV PUSH PRN (15:30)
[2017-10-09] MEDS ORDERED: SODIUM CHLORIDE 0.9% FLUSH 10 ML FLUSH IV FLUSH PRN (15:30)
--- NOTE | 2017-10-09 15:32 | HHI.HP ---
HPI Service [facility] Primary Care Physician No Primary Care Physician Admission Diagnosis COLITIS, HYPOKALEMIA Diagnoses: (1) Colitis (2) Hypokalemia (3) Hypotension (4) History of Crohn's disease Chief Complaint: Nausea and vomiting along with abdominal pain Travel History International Travel<30 Days: No Contact w/Intl Traveler <30 Da: No Traveled to Known Affected Are: No History of Present Illness 52Year-old female with a history of Crohn disease return to the ED for evaluation of intractable nausea and vomiting along with abdominal pain rated over 7 in intensity. Over the past 10 days, patient has been seen in the ED and subsequently admitted once already in hospital. She was recently discharged on 10/05/17 after a 23 hours observation in stable condition for the above mentioned complaints. Patient states, this time around to discharge she says she has been having 2-3 episodes of diarrhea per day and has been vomiting 2-3 times per day.she complains of being constant pain and requesting more narcotics at this time.She denies any febrile episode during Review of Systems Except as stated in HPI: all other systems reviewed are Neg Past Family Social History Past Medical History Crohn disease Colitis Past Surgical History Cholecystectomy Reported Medications Protonix (Pantoprazole Sodium) 40 Mg Tab 40 Mg PO DAILY Hydrocodone-Acetaminophen 5-325 mg Tab 1 Tab PO Q6H PRN Levsin (Hyoscyamine Sulfate) 0.125 Mg Tab 0.125 Mg PO Q6H Zofran Odt (Ondansetron Odt) 4 Mg Tab 4 Mg SL Q6HR PRN Pentasa (Mesalamine) 500 Mg Caper 1,000 Mg PO QID Entocort EC (Budesonide) 3 Mg Capdr 3 Mg PO TID Allergies: Coded Allergies: guaifenesin (Verified Allergy, Severe, Nausea/Vomiting, 10/09/17) mesalamine (Verified Allergy, Severe, Nausea/Vomiting, 10/09/17) ondansetron (Verified Allergy, Severe, Nausea/Vomiting, 10/09/17) penicillin G (Unverified Allergy, Severe, Anaphylaxis, 10/09/17) tramadol (Verified Allergy, Severe, Burning, 10/09/17) Leg burning ciprofloxacin (Verified Allergy, Intermediate, Nausea/Vomiting, 10/09/17) Sulfa (Sulfonamide Antibiotics) (Unverified Adverse Reaction, Severe, Bleeding, 10/09/17) ibuprofen (Unverified Adverse Reaction, Severe, Bleeding, 10/09/17) Uncoded Allergies: RICOTTA CHEESE (Allergy, Severe, Anaphylaxis, 03/11/15) Family History Mother with a history of hypothyroidism Father from complication of COPD Social History Alcohol Use: No Tobacco Use: Yes Substance Use: No Physical Exam Vital Signs Vital Signs Date Time Temp Pulse Resp B/P (MAP) Pulse Ox O2 Delivery O2 Flow Rate FiO2 10/09/17 15:01 10/09/17 14:22 80 18 100/59 (73) 99 Room Air 10/09/17 12:55 90 18 90/61 (71) 99 Room Air 10/09/17 12:55 18 10/09/17 11:32 98.4 97 18 102/89 (93) 99 Physical Exam GENERAL: This is a well-nourished, well-developed patient, in no apparent distress. SKIN: No rashes, ecchymoses or lesions. Cool and dry. HEAD: Atraumatic. Normocephalic. No temporal or scalp tenderness. EYES: Pupils equal round and reactive. Extraocular motions intact. No scleral icterus. No injection or drainage. ENT: Nose without bleeding, purulent drainage or septal hematoma. Throat without erythema, tonsillar hypertrophy or exudate. Uvula midline. Airway patent. NECK: Trachea midline. No JVD or lymphadenopathy. Supple, nontender, no meningeal signs. CARDIOVASCULAR: Regular rate and rhythm without murmurs, gallops, or rubs. RESPIRATORY: Clear to auscultation. Breath sounds equal bilaterally. No wheezes , rales, or rhonchi. GASTROINTESTINAL: Abdomen soft, non-tender, nondistended. No hepato-splenomegaly , or palpable masses. No guarding. MUSCULOSKELETAL: Extremities without clubbing, cyanosis, or edema. No joint tenderness, effusion, or edema noted. No calf tenderness. Negative Homans sign bilaterally. NEUROLOGICAL: Awake and alert. Cranial nerves II through XII intact. Motor and sensory grossly within normal limits. Five out of 5 muscle strength in all muscle groups. Normal speech. Laboratory Laboratory Tests Test 10/09/17 11:55 White Blood Count 7.1 Red Blood Count 4.38 Hemoglobin 11.6 Hematocrit 35.9 Mean Corpuscular Volume 82.0 Mean Corpuscular Hemoglobin 26.5 Mean Corpuscular Hemoglobin Concent 32.3 Red Cell Distribution Width 13.9 Platelet Count 579 Mean Platelet Volume 6.8 Neutrophils (%) (Auto) 58.0 Lymphocytes (%) (Auto) 29.5 Monocytes (%) (Auto) 9.8 Eosinophils (%) (Auto) 2.1 Basophils (%) (Auto) 0.6 Neutrophils # (Auto) 4.2 Lymphocytes # (Auto) 2.1 Monocytes # (Auto) 0.7 Eosinophils # (Auto) 0.1 Basophils # (Auto) 0.0 CBC Comment DIFF FINAL Differential Comment Blood Urea Nitrogen 5 Creatinine 0.67 Random Glucose 102 Total Protein 5.5 Albumin 1.7 Calcium Level 7.6 Alkaline Phosphatase 97 Aspartate Amino Transf (AST/SGOT) 13 Alanine Aminotransferase (ALT/SGPT) 19 Total Bilirubin 0.3 Sodium Level 137 Potassium Level 2.6 Chloride Level 101 Carbon Dioxide Level 26.7 Anion Gap 9 Estimat Glomerular Filtration Rate 93 Lipase 69 Result Diagram: 10/09/17 1155 10/09/17 115 Caprini VTE Risk Assessment Caprini VTE Risk Assessment: No/Low Risk (score <= 1) Caprini Risk Assessment Model Point Value = 1 Point Value = 2 Point Value = 3 Point Value = 5 Age 41-60 Minor surgery BMI > 25 kg/m2 Swollen legs Varicose veins or History of unexplained or recurrent spontaneous Oral contraceptives or hormone replacement Sepsis (< 1 month) Serious lung disease, including pneumonia (< 1 month) Abnormal pulmonary function Acute myocardial infarction Congestive heart failure (< 1 month) History of inflammatory bowel disease Medical patient at bed rest Age 61-74 Arthroscopic surgery Major open surgery (> 45 min) Laparoscopic surgery (> 45 min) Malignancy Confined to bed (> 72 hours) Immobilizing plaster cast Central venous access Age >= 75 History of VTE Family history of VTE Factor V Leiden Prothrombin [id number] Lupus anticoagulant Anticardiolipin antibodies Elevated serum homocysteine Heparin-induced thrombocytopenia Other congenital or acquired thrombophilia Stroke (< 1 month) Elective arthroplasty Hip, pelvis, or leg fracture Acute spinal cord injury (< 1 month) Prophylaxis Regimen Total Risk Factor Score Risk Level Prophylaxis Regimen 0-1 Low Early ambulation 2 Moderate Order ONE of the following: *Sequential Compression Device (SCD) *Heparin 5000 units SQ BID 3-4 Higher Order ONE of the following medications: *Heparin 5000 units SQ TID *Enoxaparin/Lovenox 40 mg SQ daily (WT < 150 kg, CrCl > 30 mL/min) *Enoxaparin/Lovenox 30 mg SQ daily (WT < 150 kg, CrCl > 10-29 mL/min) *Enoxaparin/Lovenox 30 mg SQ BID (WT < 150 kg, CrCl > 30 mL/min) AND/OR *Sequential Compression Device (SCD) 5 or more Highest Order ONE of the following medications: *Heparin 5000 units SQ TID (Preferred with Epidurals) *Enoxaparin/Lovenox 40 mg SQ daily (WT < 150 kg, CrCl > 30 mL/min) *Enoxaparin/Lovenox 30 mg SQ daily (WT < 150 kg, CrCl > 10-29 mL/min) *Enoxaparin/Lovenox 30 mg SQ BID (WT < 150 kg, CrCl > 30 mL/min) AND *Sequential Compression Device (SCD) Assessment and Plan Problem List: (1) Colitis ICD Code: K52.9 - Noninfective gastroenteritis and colitis, unspecified Status: Acute (2) History of Crohn's disease ICD Code: Z87.19 - Personal history of other diseases of the digestive system Status: Chronic (3) Hypotension ICD Code: I95.9 - Hypotension, unspecified (4) Hypokalemia ICD Code: E87.6 - Hypokalemia Status: Acute Assessment and Plan 52-year-old female with Intractable nausea and vomiting with abdominal pain Colitis CT abdomen and pelvis noted and review by me with finding of marked colitis without abscess or free air elbow involving mostly the colon Will hold on starting any antibiotic however will consult gastroenterology due to patient's history of Crohn disease and recurrent exacerbation of colitis Conservative treatment with IV fluid hydration, antiemetic Pain management accordingly Hypotension Continue with aggressive IV fluid hydration History of Crohn disease Resume Pentasa (Mesalamine) 500 Mg Caper 1,000 Mg PO QID Hypokalemia Replace electrolyte and monitor GI prophylaxis: PPI DT prophylaxis:b-SCDs Code Status Full code Discussed Condition With Patient, ED physician Rayshawn Faustin MD Oct 09, 2017 15:32
[2017-10-09 16:00] VITALS: BP 103/64; PULSE 93; RESP 16; TEMP 99.2; O2SAT 98
[2017-10-09] MEDS: SODIUM CHLOR 0.9% 1000 ML INJ 1,000 ML IV SCH (16:31)
[2017-10-09] MEDS: HYDROmorphone HCL PF 1 MG/ML VIAL IV PUSH PRN (16:40)
[2017-10-09] MEDS: MESALAMINE 250 MG CAP PO SCH ×2 (16:51→21:06)
[2017-10-09] MEDS ORDERED: PROCHLORPERAZINE MALEATE 5 MG TAB PO PRN (17:00)
[2017-10-09] MEDS: PROCHLORPERAZINE INJ 10 MG/2 ML VIAL IV PUSH PRN (17:19)
[2017-10-09] MEDS ORDERED: ENTOCORT 3 MG PO SCH (18:00)
[2017-10-09 19:57] LABS: GLUCOSE,URINE NEG (NEG); KETONE, URINE NEG (NEG); NITRITE,URINE NEG (NEG)
[2017-10-09 20:00] VITALS: BP_SYST 52; BP_SYST 92; BP_DIAS 52; PULSE 75; RESP 18; TEMP 98.6; O2SAT 96
[2017-10-09 20:00] LABS: BLOOD, URINE TRACE (NEG)
[2017-10-09 20:06] LABS: URINE COLOR YELLOW (YELLW/STRAW)
[2017-10-09 20:07] LABS: COMMENT (UR) CULT NOT INDICATED; CULTURE IF INDICATED CULT NOT INDICATED; RBC, URINE 0-3 /hpf (0-3); SQUAMOUS EPITHELIAL CELL URINE 0-5 /hpf (0-5); WBC, URINE 0-2 /hpf (0-5)
[2017-10-09] MEDS: DOCUSATE SODIUM 50 MG/SENNA 8.6 MG TAB PO SCH (21:00)
[2017-10-09] MEDS: SODIUM CHLORIDE 0.9% FLUSH 10 ML FLUSH IV FLUSH SCH (21:06)
[2017-10-10] VITALS: BP 109/61; PULSE 84; RESP 19; TEMP 97.5; O2SAT 97
[2017-10-10] MEDS: PROCHLORPERAZINE INJ 10 MG/2 ML VIAL IV PUSH PRN ×4 (00:03→20:49)
[2017-10-10] MEDS: HYDROmorphone HCL PF 1 MG/ML VIAL IV PUSH PRN ×5 (00:08→21:31)
[2017-10-10] MEDS: SODIUM CHLOR 0.9% 1000 ML INJ 1,000 ML IV SCH ×4 (00:12→23:46)
[2017-10-10 08:27] VITALS: BP 95/65; PULSE 80; RESP 16; TEMP 95.7; O2SAT 96
[2017-10-10] MEDS: SODIUM CHLORIDE 0.9% FLUSH 10 ML FLUSH IV FLUSH SCH ×2 (09:00→20:49)
[2017-10-10] MEDS: DOCUSATE SODIUM 50 MG/SENNA 8.6 MG TAB PO SCH (09:00)
[2017-10-10] MEDS ORDERED: ENTOCORT 3 MG PO SCH ×2 (09:00→12:00)
[2017-10-10] MEDS: MESALAMINE 250 MG CAP PO SCH ×4 (09:11→20:48)
[2017-10-10 09:18] LABS: AUTOMATED NEUTROPHIL # 3.7 TH/MM3 (1.8-7.7); BASOPHIL % 0.4 % (0.0-2.0); EOSINOPHIL # 0.1 TH/MM3 (0-0.4); EOSINOPHIL % 2.3 % (0.0-4.0); HEMATOCRIT 32.8 % (35.0-46.0); HEMO FLAGS DIFF FINAL; LYMPH % 31.8 % (9.0-44.0); LYMPHOCYTE # 2.1 TH/MM3 (1.0-4.8); MEAN CELL VOLUME 84.3 FL (80.0-100.0); MEAN CORPUSCULAR HEMOGLOBIN 27.5 PG (27.0-34.0); MEAN CORPUSCULAR HGB CONC 32.6 % (32.0-36.0); MONO % 9.4 % (0.0-8.0); NEUT % 56.1 % (16.0-70.0); PLATELET COUNT 468 TH/MM3 (150-450); RED CELL DISTRIBUTION WIDTH 14.2 % (11.6-17.2); WHITE BLOOD COUNT 6.5 TH/MM3 (4.0-11.0)
[2017-10-10 10:06] LABS: BICARBONATE 26.2 MEQ/L (21.0-32.0); TOTAL BILIRUBIN ADULT 0.3 MG/DL (0.2-1.0)
[2017-10-10 10:07] LABS: CALCIUM-PROTEIN CORRECTED 8.1 MG/DL (8.5-10.1)
[2017-10-10 10:10] LABS: POTASSIUM 2.8 MEQ/L (3.5-5.1)
[2017-10-10] MEDS ORDERED: CALCIUM GLUCONATE 500 MG TAB PO SCH (10:45)
--- NOTE | 2017-10-10 10:46 | HHI.PR ---
Subjective Remarks In follow-up for abdominal pain. Patient with known inflammatory bowel disease and colitis. Patient reports improvement with pain with IV Dilaudid Objective Vitals Vital Signs Date Time Temp Pulse Resp B/P (MAP) Pulse Ox O2 Delivery O2 Flow Rate FiO2 10/10/17 08:27 95.7 80 16 95/65 (75) 96 10/10/17 00:00 97.5 84 19 109/61 (77) 97 10/09/17 20:00 98.6 75 18 92/52 (65) 96 10/09/17 20:00 98.6 75 18 92/52 (65) 96 10/09/17 16:00 99.2 93 16 103/64 (77) 98 10/09/17 15:01 10/09/17 14:22 80 18 100/59 (73) 99 Room Air 10/09/17 12:55 90 18 90/61 (71) 99 Room Air 10/09/17 12:55 18 10/09/17 11:32 98.4 97 18 102/89 (93) 99 I/O 10/09/17 10/09/17 10/09/17 10/10/17 10/10/17 10/10/17 07:00 15:00 23:00 07:00 15:00 23:00 Intake Total 1000 ml 320 ml 1645 ml 300 ml Output Total 600 ml Balance 1000 ml 320 ml 1045 ml 300 ml Intake Oral 120 ml 120 ml IV Total 1000 ml 200 ml 1525 ml 300 ml Output Urine Total 600 ml # Voids 2 2 # Bowel Movements 1 2 Result Diagram: 10/10/17 0910 10/10/17 0910 Imaging Last Impressions Abdomen/Pelvis CT 10/09/17 1317 Signed Impressions: Service Date/Time: Monday, October 09, 2017 13:57 - CONCLUSION: Marked colitis without abscess or free air involving most of the colon, sparing the cecum and distal sigmoid Marked fatty replacement of the liver Renal cysts bilaterally parenchymal calcifications on the left Progression from 09/30/17. Radu Gonzalez MD FACR Objective Remarks GENERAL: This is a well-nourished, well-developed patient, in no apparent distress. CARDIOVASCULAR: Regular rate and rhythm without murmurs, gallops, or rubs. RESPIRATORY: Clear to auscultation. Breath sounds equal bilaterally. No wheezes , rales, or rhonchi. GASTROINTESTINAL: Abdomen soft, mildly tender, nondistended, hypoactive bowel sounds MUSCULOSKELETAL: Extremities without clubbing, cyanosis, or edema. NEURO: Alert & Oriented x4 to person, place, time, situation. Moves all ext x4 A/P Problem List: (1) Colitis ICD Code: K52.9 - Noninfective gastroenteritis and colitis, unspecified Status: Acute Plan: Continue IV Dilaudid IV fluids Clear liquid diet Alinia every 12 Follow stool studies gi consult pending (2) Hypokalemia ICD Code: E87.6 - Hypokalemia Status: Acute Plan: Potassium 2.8 today, we'll check mag and continue to replace (3) Hypotension ICD Code: I95.9 - Hypotension, unspecified Plan: am cortisol ivf (4) History of Crohn's disease ICD Code: Z87.19 - Personal history of other diseases of the digestive system Status: Chronic Plan: on levsin pentasa budesonide Annel Kelly MD Oct 10, 2017 10:46
[2017-10-10 12:01] LABS: C. DIFF EPI 027 PRESUMPTIVE NEGATIVE (NEGATIVE)
[2017-10-10] MEDS ORDERED: NITAZOXANIDE 500 MG TAB PO SCH ×2 (13:00→15:00)
[2017-10-10] MEDS: CALCIUM CARBONATE 1.25 GM (CA 500 MG) TAB PO SCH (13:41)
[2017-10-10] MEDS: POTASSIUM CHLORIDE 10 MEQ CONTROLLED RELEASE TAB PO ONE ×2 (16:45→18:12)
[2017-10-10] MEDS ORDERED: MAGNESIUM SULFATE 1 GM PREMIX 100 ML IV ONE (16:45)
[2017-10-10] MEDS: POTASSIUM CHLORIDE 10 MEQ CONTROLLED RELEASE TAB PO SCH (20:48)
--- NOTE | 2017-10-10 21:24 | MB ---
cc: FAWAD MCQUEEN MD Corrected Copy: 10/11/17 DATE OF CONSULTATION 10/10/[address] Kelly REASON FOR REFERRAL Diarrhea, nausea and vomiting. HISTORY OF PRESENT ILLNESS Thank you for the consultation. A pleasant 52-year-old lady who has history of Crohn'S disease and Crohn'S colitis. The patient had been seen in the GI office about a month ago. She was doing okay and she came complaining of nausea, vomiting and abdominal discomfort with diarrhea in the last 5-7 days. Her symptoms started about 10 days ago, came to the hospital. In the emergency room was done was put in observation. She was stable and she was discharged, but then she came back because of 2-3 episodes of the diarrhea with vomiting. She denied any other complaint. No hematemesis. No hematochezia. This is new onset of her symptom in the last week or so. The patient laying in bed comfortably. She complained of general abdominal ache but no other issues that can report at this time. PAST MEDICAL HISTORY 1. Crohn's colitis 2. Cholecystectomy 3. Hypothyroidism 4. Chronic obstructive pulmonary disease MEDICATIONS Listed in the chart. ALLERGIES Multiple including MESALAMINE ZOFRAN PENICILLIN TRAMADOL CIPRO SULFA IBUPROFEN RICOTTA CHEESE FAMILY HISTORY Significant for hypothyroidism and COPD. SOCIAL HISTORY Positive for tobacco, no alcohol or drugs. PHYSICAL EXAMINATION GENERAL: Alert, [id number] acute distress. VITAL SIGNS: Stable. No fever. HEENT: Pupils round, reactive to light. NECK: Supple. CHEST: Clear to auscultation and percussion. CARDIAC: Regular rate and rhythm. No murmur or gallop. ABDOMEN: Soft, mild discomfort throughout the abdomen, obese. Positive bowel sounds. No masses. EXTREMITIES: No edema, clubbing or cyanosis. NEUROLOGIC: Intact. PSYCHIATRIC: Psychologically appropriate. LABORATORY DATA White count 6.5, hemoglobin 10.7, platelet 468, sodium 142, potassium 2.9, BUN six, creatinine 0.64. Liver function tests are normal. Lipase 69. IMAGING STUDIES CT scan showed mild colitis without abscess or free air involving most of the colon sparing the cecum and distal sigmoid. Fatty replacement of the liver. ASSESSMENT/PLAN A 52-year-old lady with Crohn's colitis. The patient had nausea, vomiting and diarrhea most likely gastroenteritis unlikely to be Crohn's disease exacerbation with the nausea, vomiting and acute NSAIDS. We will plan on getting stool cultures for C diff and we will see how she is doing. If the patient continues to have symptoms then we might need to do a colonoscopy. Meanwhile we will continue supportive care. Continue medication. She is already on medication for Crohn's disease where she is taking mesalamine. We might consider antibiotic such as Flagyl if there is any suspicion for bacterial infection. We will see how she is doing tomorrow. We will replace her potassium. Further plan to follow. MD TJ Truong/ /7:22 PM /8:26 AM
[2017-10-10] MEDS ORDERED: POTASSIUM CHLORIDE 25 MEQ EFFERVESCENT TAB PO ONE (22:45)
[2017-10-11 00:12] VITALS: BP 85/63; PULSE 78; RESP 20; TEMP 98.7; O2SAT 94
[2017-10-11] MEDS: POTASSIUM CHLOR 20 MEQ PREMIX 100 ML IV SCH ×2 (03:30→05:30)
[2017-10-11 06:42] LABS: AUTOMATED NEUTROPHIL # 3.7 TH/MM3 (1.8-7.7); BASOPHIL % 0.4 % (0.0-2.0); EOSINOPHIL # 0.1 TH/MM3 (0-0.4); EOSINOPHIL % 1.7 % (0.0-4.0); HEMATOCRIT 30.3 % (35.0-46.0); HEMO FLAGS DIFF FINAL; LYMPH % 26.6 % (9.0-44.0); LYMPHOCYTE # 1.5 TH/MM3 (1.0-4.8); MEAN CELL VOLUME 82.8 FL (80.0-100.0); MEAN CORPUSCULAR HGB CONC 32.6 % (32.0-36.0); MONO % 9.1 % (0.0-8.0); NEUT % 62.2 % (16.0-70.0); PLATELET COUNT 384 TH/MM3 (150-450); RED BLOOD COUNT 3.66 MIL/MM3 (4.00-5.30); RED CELL DISTRIBUTION WIDTH 13.5 % (11.6-17.2); WHITE BLOOD COUNT 5.8 TH/MM3 (4.0-11.0)
[2017-10-11 07:26] LABS: BICARBONATE 23.1 MEQ/L (21.0-32.0)
[2017-10-11 07:35] LABS: POTASSIUM 2.9 MEQ/L (3.5-5.1)
[2017-10-11 07:55] LABS: CALCIUM-PROTEIN CORRECTED 8.2 MG/DL (8.5-10.1)
[2017-10-11 08:00] VITALS: BP 117/73; PULSE 83; RESP 16; TEMP 98.7; O2SAT 97
[2017-10-11] MEDS: POTASSIUM CHLORIDE 10 MEQ CONTROLLED RELEASE TAB PO SCH (08:03)
[2017-10-11] MEDS: CALCIUM CARBONATE 1.25 GM (CA 500 MG) TAB PO SCH (08:09)
[2017-10-11] MEDS ORDERED: NITAZOXANIDE 500 MG TAB PO SCH (09:00)
[2017-10-11] MEDS: MESALAMINE 250 MG CAP PO SCH (09:36)
[2017-10-11] MEDS ORDERED: PROM25TA10 PO (10:46)
[2017-10-11] MEDS ORDERED: ALIN500T PO (10:46)
--- NOTE | 2017-10-11 10:47 | HHI.DCPOC ---
Discharge Care Plan Diagnosis: (1) History of Crohn's disease (2) Hypokalemia Goals to Promote Your Health * To prevent worsening of your condition and complications * To maintain your health at the optimal level Directions to Meet Your Goals Take your medications as prescribed Follow your dietary instruction Follow activity as directed Keep your appointments as scheduled Take your immunizations and boosters as scheduled If your symptoms worsen call your PCP, if no PCP go to Urgent Care Center or Emergency Room Smoking is Dangerous to Your Health. Avoid second hand smoke Call the 24-hour hour crisis hotline for domestic abuse at Annel Kelly MD Oct 11, 2017 10:47
--- NOTE | 2017-10-11 10:50 | HHI.DS ---
cc: Jamar Wilson MD Discharge Summary Admission Date Oct 10, 2017 at 10:38 Discharge Date: Oct 11, 2017 Admitting Diagnosis COLITIS, HYPOKALEMIA (1) Colitis ICD Code: K52.9 - Noninfective gastroenteritis and colitis, unspecified Status: Acute (2) Hypokalemia ICD Code: E87.6 - Hypokalemia Status: Acute (3) Hypotension ICD Code: I95.9 - Hypotension, unspecified (4) History of Crohn's disease ICD Code: Z87.19 - Personal history of other diseases of the digestive system Status: Chronic Procedures none Brief History - From Admission 52Year-old female with a history of Crohn disease return to the ED for evaluation of intractable nausea and vomiting along with abdominal pain rated over 7 in intensity. Over the past 10 days, patient has been seen in the ED and subsequently admitted once already in hospital. She was recently discharged on 10/05/17 after a 23 hours observation in stable condition for the above mentioned complaints. Patient states, this time around to discharge she says she has been having 2-3 episodes of diarrhea per day and has been vomiting 2-3 times per day.she complains of being constant pain and requesting more narcotics at this time.She denies any febrile episode during CBC/BMP: 10/11/17 0555 10/11/17 0555 Significant Findings Laboratory Tests Test 10/09/17 11:55 10/09/17 19:45 10/09/17 23:10 10/10/17 09:10 Mean Corpuscular Hemoglobin 26.5 PG (27.0-34.0) Platelet Count 579 TH/MM3 (150-450) 468 TH/MM3 (150-450) Mean Platelet Volume 6.8 FL (7.0-11.0) 6.2 FL (7.0-11.0) Monocytes (%) (Auto) 9.8 % (0.0-8.0) 9.4 % (0.0-8.0) Blood Urea Nitrogen 5 MG/DL (7-18) 6 MG/DL (7-18) Total Protein 5.5 GM/DL (6.4-8.2) 4.9 GM/DL (6.4-8.2) Albumin 1.7 GM/DL (3.4-5.0) 1.5 GM/DL (3.4-5.0) Calcium Level 7.6 MG/DL (8.5-10.1) 6.9 MG/DL (8.5-10.1) Aspartate Amino Transf (AST/SGOT) 13 U/L (15-37) Potassium Level 2.6 MEQ/L (3.5-5.1) 2.8 MEQ/L (3.5-5.1) Lipase 69 U/L (73-393) Urine Specific [place] GREATER THAN 1.035 Urine Occult Blood TRACE (NEG) Red Blood Count 3.90 MIL/MM3 (4.00-5.30) Hemoglobin 10.7 GM/DL (11.6-15.3) Hematocrit 32.8 % (35.0-46.0) Chloride Level 108 MEQ/L (98-107) Protein Corrected Calcium 8.1 MG/DL (8.5-10.1) Test 10/11/17 05:55 Red Blood Count 3.66 MIL/MM3 (4.00-5.30) Hemoglobin 9.9 GM/DL (11.6-15.3) Hematocrit 30.3 % (35.0-46.0) Mean Platelet Volume 6.8 FL (7.0-11.0) Monocytes (%) (Auto) 9.1 % (0.0-8.0) Blood Urea Nitrogen 5 MG/DL (7-18) Creatinine 0.43 MG/DL (0.50-1.00) Total Protein 4.3 GM/DL (6.4-8.2) Calcium Level 6.7 MG/DL (8.5-10.1) Potassium Level 2.9 MEQ/L (3.5-5.1) Chloride Level 109 MEQ/L (98-107) Protein Corrected Calcium 8.2 MG/DL (8.5-10.1) Imaging Last Impressions Abdomen/Pelvis CT 10/09/17 3917 Signed Impressions: Service Date/Time: Monday, October 09, 2017 13:57 - CONCLUSION: Marked colitis without abscess or free air involving most of the colon, sparing the cecum and distal sigmoid Marked fatty replacement of the liver Renal cysts bilaterally parenchymal calcifications on the left Progression from 09/30/17. Radu Gonzalez MD FACR PE at Discharge GENERAL: This is a well-nourished, well-developed patient, in no apparent distress. CARDIOVASCULAR: Regular rate and rhythm without murmurs, gallops, or rubs. RESPIRATORY: Clear to auscultation. Breath sounds equal bilaterally. No wheezes , rales, or rhonchi. GASTROINTESTINAL: Abdomen soft, mildly tender, nondistended, hypoactive bowel sounds MUSCULOSKELETAL: Extremities without clubbing, cyanosis, or edema. NEURO: Alert & Oriented x4 to person, place, time, situation. Moves all ext x4 Pt update on day of discharge Patient seen today in follow-up for colitis. Feeling better Patient has refused her potassium. Tolerating current diet. Discharge plans discussed with patient, spouse and nursing team Hospital Course Page is a 52-year-old female with known history of inflammatory bowel disease/ Crohn's. Patient had a flare of abdominal pain with inflammation. She was treated for colitis with antibiotics. She had some significant hypokalemia but refused multiple times to take potassium saying that it was induced by her steroid. Patient actually did well and continue with hydration measures and supportive care addition to her medical treatment plans. She was discharged home Pt Condition on Discharge: Good Discharge Disposition: Discharge Home Discharge Time: <= 30 minutes Discharge Instructions DIET: Follow Instructions for: As Tolerated, No Restrictions Activities you can perform: Regular-No Restrictions Follow up Referrals: Gastroenterology - 1 Week with Jaamr Wilson MD New Medications: Promethazine (Phenergan) 25 Mg Tablet 25 MG PO Q6H PRN for NAUSEA OR VOMITING, #90 TAB 0 Refills Nitazoxanide (Alinia) 500 Mg Tab 500 MG PO Q12HR for Infection, #14 TAB Continued Medications: Budesonide DR (Entocort EC) 3 Mg Capdr 3 MG PO TID, #90 CAP 0 Refills Hydrocodone-Acetaminophen (Hydrocodone-Acetaminophen) 5-325 mg Tab 1 TAB PO Q6H PRN for PAIN, #20 TAB 0 Refills Hyoscyamine (Levsin) 0.125 Mg Tab 0.125 MG PO Q6H for Gastrointestinal disorders, #20 TAB 0 Refills Mesalamine ER (Pentasa) 500 Mg Caper 1000 MG PO QID for Ulcerative Colitis, CAP 0 Refills Ondansetron Odt (Zofran Odt) 4 Mg Tab 4 MG SL Q6HR PRN for Nausea/Vomiting, #20 TAB 0 Refills Pantoprazole (Protonix) 40 Mg Tab 40 MG PO DAILY for Reflux, #30 TAB 3 Refills Annel Kelly MD Oct 11, 2017 10:50
[2017-10-11] MEDS ORDERED: POTASSIUM CHLORIDE 10 MEQ CONTROLLED RELEASE TAB PO SCH ×2 (21:00)
== END 2017-10-11 12:05 | disposition home or self-care (01) | DRG 392 ==
LOC: PHED 11:24 → PHEDA 14:36 → INTOOBSV 14:36 → PH3B 15:04 → OBSVTOIN 10-10 10:38
PROVIDERS: ADMIT Hospitalist; ATTEND Hospitalist
DX: K52.9 Noninfective gastroenteritis and colitis, unspecified (principal); I95.9 Hypotension, unspecified; K50.10 Crohn's disease of large intestine without complications; J44.9 Chronic obstructive pulmonary disease, unspecified; E03.9 Hypothyroidism, unspecified; E87.6 Hypokalemia; Z87.891 Personal history of nicotine dependence
CPT/HCPCS: 74177; 80048; 80053; 81001; 82533; 83690; 83735; 84155; 84443; 85025; 87493; 87506; 96361; 96365; 96366; 96375; J1170; J0348; J0780; J3475; J3480; J7030; Q9967

== ENCOUNTER 2017-11-22 14:47 | Inpatient (IN) | payer MEDICARE, OTHER ==
[~2017-11-22] VITALS: Ht 172.7 cm; Wt 89.5 kg
[2017-11-22] VITALS (14 sets, daily range): BP systolic 91–104; BP diastolic 50–71; PULSE 90–109; RESP 18–22; TEMP 97.8–98.7; O2SAT 98–100
[~2017-11-22 14:47] MED LIST changes: +ALIN500T PO; +PROM25TA10 PO
[2017-11-22] MEDS ORDERED: PENT500C2 PO (17:08)
--- NOTE | 2017-11-22 17:08 | PD ---
HPI Chief Complaint: General Weakness Time Seen by Provider: 16:59 Travel History International Travel<30 days: No Contact w/Intl Traveler<30days: No Traveled to known affect area: No History of Present Illness HPI The patient was seen and examined in the presence of the nurse. This patient has been having abdominal pain and nausea and bloating. She has history of Crohn's disease. She was in the office of who called me and referred her here. He recommended admitting her for IV fluid hydration and nausea control and he will need to do scoping of her in the hospital. He says she is not able to do bowel prep outpatient. Symptoms severity is moderate. Duration one week. No alleviating factors. Symptoms exacerbated by her chronic inflammatory bowel disease PFSH Past Medical History Arthritis: Yes (left foot, knee, hip) Heart Rhythm Problems: No Cancer: No Cardiovascular Problems: Yes High Cholesterol: No Chest Pain: No Congestive Heart Failure: Yes Cerebrovascular Accident: No Diabetes: No Diminished Hearing: No Endocrine: No Gastrointestinal Disorders: Yes (Crohns, Colitis) GERD: Yes Genitourinary: Yes Hiatal Hernia: No Immune Disorder: No Kidney Stones: Yes Musculoskeletal: Yes Neurologic: Yes Psychiatric: No Reproductive: No Respiratory: No Immunizations Current: Yes Seizures: Yes (as child) Thyroid Disease: No Ulcer: Yes Tetanus Vaccination: > 5 Years Influenza Vaccination: Yes ?: Not Past Surgical History Abdominal Surgery: Yes (gallbladder removed 2004, ERCP in 2004) AICD: No Arteriovenous Shunt: No Cardiac Surgery: No Cholecystectomy: Yes Ear Surgery: No Endocrine Surgery: No Eye Surgery: No Genitourinary Surgery: No Gynecologic Surgery: Yes (C-sec in 1999 and 2006) Insulin Pump: No Joint Replacement: No Oral Surgery: Yes (T & A teeth) Pacemaker: No Thoracic Surgery: No Tonsillectomy: Yes Other Surgery: Yes Social History Alcohol Use: No Tobacco Use: No (quit 8 days ago) Substance Use: No Allergies-Medications (Allergen,Severity, Reaction): Coded Allergies: guaifenesin (Verified Allergy, Severe, Nausea/Vomiting, 11/22/17) mesalamine (Verified Allergy, Severe, Nausea/Vomiting, 11/22/17) ondansetron (Verified Allergy, Severe, Nausea/Vomiting, 11/22/17) penicillin G (Unverified Allergy, Severe, Anaphylaxis, 11/22/17) tramadol (Verified Allergy, Severe, Burning, 11/22/17) Leg burning ciprofloxacin (Verified Allergy, Intermediate, Nausea/Vomiting, 11/22/17) Sulfa (Sulfonamide Antibiotics) (Unverified Adverse Reaction, Severe, Bleeding, 11/22/17) ibuprofen (Unverified Adverse Reaction, Severe, Bleeding, 11/22/17) Uncoded Allergies: RICOTTA CHEESE (Allergy, Severe, Anaphylaxis, 03/11/15) Reported Meds & Prescriptions Reported Meds & Active Scripts Active Reported Entocort EC (Budesonide) 3 Mg Capdr 9 Mg PO DAILY Review of Systems General / Constitutional: No: Fever Eyes: No: Visual changes HENT: No: Headaches Cardiovascular: No: Chest Pain or Discomfort Respiratory: No: Shortness of Breath Gastrointestinal: Positive: Nausea, Abdominal Pain Genitourinary: No: Dysuria Musculoskeletal: No: Pain Skin: No Rash Neurologic: No: Weakness Psychiatric: No: Depression Endocrine: No: Polydipsia Hematologic/Lymphatic: No: Easy Bruising Physical Exam Narrative GENERAL: Pale, Well-nourished, well-developed patient with abdominal pain and nausea . SKIN: Focused skin assessment reveals no rash and nodules. Skin is Warm and dry. HEAD: Atraumatic. Normocephalic. EYES: Pupils equal and round. No scleral icterus. No injection or drainage. ENT: No nasal bleeding or discharge. Mucous membranes pink and moist. NECK: Trachea midline. No JVD. CARDIOVASCULAR: Regular rate and rhythm. No murmur appreciated. RESPIRATORY: No accessory muscle use. Clear to auscultation. Breath sounds equal bilaterally. GASTROINTESTINAL: Abdomen soft, non-tender, nondistended. Hepatic and splenic margins not palpable. MUSCULOSKELETAL: No obvious deformities. No clubbing. No cyanosis. Mild symmetric feet and ankle edema . NEUROLOGICAL: Awake and alert. No obvious cranial nerve deficits. Motor grossly within normal limits. Normal speech. PSYCHIATRIC: Appropriate mood and affect; insight and judgment normal. Data Data Last Documented VS Vital Signs Date Time Temp Pulse Resp B/P (MAP) Pulse Ox O2 Delivery O2 Flow Rate FiO2 11/22/17 18:10 100 20 104/67 (79) 99 Room Air 11/22/17 15:33 98.0 Orders Orders Complete Blood Count With Diff (11/22/17 17:03) Comprehensive Metabolic Panel (11/22/17 17:03) Lipase (11/22/17 17:03) Iv Access Insert/Monitor (11/22/17 17:03) Ecg Monitoring (11/22/17 17:03) Oximetry (11/22/17 17:03) NPO (11/22/17 17:03) Ondansetron Inj (Zofran Inj) (11/22/17 17:15) Sodium Chloride 0.9% Flush (Ns Flush) (11/22/17 17:15) Sodium Chlor 0.9% 1000 Ml Inj (Ns 1000 M (11/22/17 17:15) Type And Screen (11/22/17 18:03) Sodium Chlor 0.9% 1000 Ml Inj (Ns 1000 M (11/22/17 18:15) Admit Order (Ed Use Only) (11/22/17 18:13) Labs Laboratory Tests Test 11/22/17 17:00 White Blood Count 13.5 TH/MM3 Red Blood Count 3.02 MIL/MM3 Hemoglobin 7.0 GM/DL Hematocrit 22.6 % Mean Corpuscular Volume 74.6 FL Mean Corpuscular Hemoglobin 23.1 PG Mean Corpuscular Hemoglobin Concent 31.0 % Red Cell Distribution Width 19.0 % Platelet Count 761 TH/MM3 Mean Platelet Volume 6.8 FL Neutrophils (%) (Auto) 64.8 % Lymphocytes (%) (Auto) 22.0 % Monocytes (%) (Auto) 9.2 % Eosinophils (%) (Auto) 3.1 % Basophils (%) (Auto) 0.9 % Neutrophils # (Auto) 8.8 TH/MM3 Lymphocytes # (Auto) 3.0 TH/MM3 Monocytes # (Auto) 1.2 TH/MM3 Eosinophils # (Auto) 0.4 TH/MM3 Basophils # (Auto) 0.1 TH/MM3 CBC Comment AUTO DIFF Blood Urea Nitrogen 11 MG/DL Creatinine 0.81 MG/DL Random Glucose 95 MG/DL Total Protein 6.4 GM/DL Albumin 1.4 GM/DL Calcium Level 8.3 MG/DL Alkaline Phosphatase 116 U/L Aspartate Amino Transf (AST/SGOT) 22 U/L Alanine Aminotransferase (ALT/SGPT) 24 U/L Total Bilirubin 0.2 MG/DL Sodium Level 129 MEQ/L Potassium Level 3.2 MEQ/L Chloride Level 92 MEQ/L Carbon Dioxide Level 29.5 MEQ/L Anion Gap 8 MEQ/L Estimat Glomerular Filtration Rate 75 ML/MIN Lipase 285 U/L MDM Medical Decision Making Medical Screen Exam Complete: Yes Emergency Medical Condition: Yes Medical Record Reviewed: Yes Differential Diagnosis Crohn's disease flare, ileus, colitis Narrative Course I have reviewed the patient's electronic medical record. Her labs are reviewed. As well as CT from 6 weeks ago. Her last hemoglobin was 10 IV placed I gave her IV Zofran and 1 L normal saline IV bolus Computer listed an allergy to Zofran. I discussed this with her. It caused her diarrhea once but she did not have allergy and she will take it now Abdomen is soft and benign without rebound or guarding CBC shows hemoglobin of 7.0 Metabolic profile shows hypokalemia and hyponatremia LFTs are normal Lipase is normal Blood pressure dropped down to 78 systolic upon arrival Patient has hypotension with GI bleed and anemia I gave her a liter of normal saline IV Blood pressure came up to 100 I'm giving her 2 units of emergency release blood Giving her a second liter normal saline IV Case reviewed with social services manager Dr. Leonardo who will admit and needs transfer to the main hospital ICU I'm paging GI physician to make them aware the situation Critical Care Narrative Aggregate critical care time was 50 minutes. Time to perform other separately billable procedures was not included in the critical care time. My time did not include minutes spent treating any other patients simultaneously or on activities that did not directly contribute to the patient's treatment. The services I provided to this patient were to treat and/or prevent clinically significant deterioration that could result in: Cardiopulmonary arrest, hemorrhagic shock I provided critical care services requiring my management, as noted below: Chart data review, documentation time, medication orders and management, vital sign assessments/reviewing monitor data, ordering and reviewing lab tests, ordering and interpreting/reviewing x-rays and diagnostic studies, care of the patient and discussion of the patient with the admitting physicians. Diagnosis Primary Impression: GI bleed Qualified Codes: K62.5 - Hemorrhage of anus and rectum Additional Impressions: Anemia Qualified Codes: D64.9 - Anemia, unspecified Colitis Hypotension Qualified Codes: I95.9 - Hypotension, unspecified Admitting Information Admitting Physician Requests: Admit Gilbert Puri MD Nov 22, 2017 17:07
[2017-11-22] MEDS ORDERED: ONDANSETRON HCL 4 MG/2 ML VIAL IVP ONE (17:15)
[2017-11-22] MEDS ORDERED: SODIUM CHLORIDE 0.9% FLUSH 10 ML FLUSH IV FLUSH PRN (17:15)
[2017-11-22] MEDS ORDERED: SODIUM CHLOR 0.9% 1000 ML INJ 1,000 ML IV ONE ×2 (17:15→18:15)
[2017-11-22 17:36] LABS: CHLORIDE 92 MEQ/L (98-107); SODIUM (NA) 129 MEQ/L (136-145)
[2017-11-22 17:39] LABS: CALCIUM 8.3 MG/DL (8.5-10.1)
[2017-11-22 17:40] LABS: ALBUMIN 1.4 GM/DL (3.4-5.0); BICARBONATE 29.5 MEQ/L (21.0-32.0); BLOOD UREA NITROGEN 11 MG/DL (7-18); GLUCOSE,RANDOM 95 MG/DL (74-106); LIPASE 285 U/L (73-393)
[2017-11-22 17:41] LABS: AUTOMATED NEUTROPHIL # 8.8 TH/MM3 (1.8-7.7); BASOPHIL # 0.1 TH/MM3 (0-0.2); BASOPHIL % 0.9 % (0.0-2.0); EOSINOPHIL # 0.4 TH/MM3 (0-0.4); EOSINOPHIL % 3.1 % (0.0-4.0); HEMATOCRIT 22.6 % (35.0-46.0); MEAN CELL VOLUME 74.6 FL (80.0-100.0); MEAN CORPUSCULAR HEMOGLOBIN 23.1 PG (27.0-34.0); MEAN PLATELET VOLUME 6.8 FL (7.0-11.0); MONO % 9.2 % (0.0-8.0); MONOCYTE # 1.2 TH/MM3 (0-0.9); NEUT % 64.8 % (16.0-70.0); PLATELET COUNT 761 TH/MM3 (150-450); RED BLOOD COUNT 3.02 MIL/MM3 (4.00-5.30); WHITE BLOOD COUNT 13.5 TH/MM3 (4.0-11.0)
[2017-11-22 17:43] LABS: ALT (GPT) 24 U/L (10-53); AST (GOT) 22 U/L (15-37); CREATININE 0.81 MG/DL (0.50-1.00); GLOMERULAR FILTRATION RATE 75 ML/MIN (>89)
[2017-11-22 17:44] LABS: TOTAL BILIRUBIN ADULT 0.2 MG/DL (0.2-1.0)
[2017-11-22 17:45] LABS: TOTAL PROTEIN 6.4 GM/DL (6.4-8.2)
[2017-11-22 17:46] LABS: ALKALINE PHOSPHATASE 116 U/L (45-117)
[2017-11-22 18:48] LABS: STOMATOCYTES 1+ (NORMAL)
--- NOTE | 2017-11-22 20:44 | HHI.HP ---
HPI Service Critical Care Medicine Primary Care Physician Dionna Angulo MD Admission Diagnosis GI bleed, colitis,anemia,hypotension Diagnosis: Travel History International Travel<30 Days: No Contact w/Intl Traveler <30 Da: No Traveled to Known Affected Are: No History of Present Illness 52-year-old very pleasant female presents for evaluation of abdominal pain and nausea and bloating. She has history of Crohn's disease. She was in the office of referred her to emergency department. He recommended admitting her for IV fluid hydration and nausea control and he will need to do scoping of her in the hospital. He says she is not able to do bowel prep outpatient. Due to severe dehydration borderline anemia, and requirement of blood transfusions the patient has been admitted to ICU. Review of Systems Constitutional: COMPLAINS OF: Diaphoretic episodes, DENIES: Fatigue, Fever, Weight gain, Weight loss, Chills, Dizziness, Change in appetite, Night Sweats Endocrine: DENIES: Abnorml menstrual pattern, Heat/cold intolerance, Polydipsia , Polyuria, Polyphagia Eyes: DENIES: Blurred vision, Diplopia, Eye inflammation, Eye pain, Vision loss , Photosensitivity, Double Vision Ears, nose, mouth, throat: DENIES: Tinnitus, Hearing loss, Vertigo, Nasal discharge, Oral lesions, Throat pain, Hoarseness, Ear Pain, Running Nose, Epistaxis, Sinus Pain, Toothache, Odynophagia Respiratory: DENIES: Apneas, Cough, Snoring, Wheezing, Hemoptysis, Sputum production, Shortness of breath Cardiovascular: DENIES: Chest pain, Palpitations, Syncope, Dyspnea on Exertion , PND, Lower Extremity Edema, Orthopnea, Claudication Gastrointestinal: COMPLAINS OF: Abdominal pain, Bloody stools, Nausea, Vomiting , Anorexia, DENIES: Black stools, Constipation, Diarrhea, Difficulty Swallowing Genitourinary: DENIES: Abnormal vaginal bleeding, Dysmenorrhea, Dyspareunia, Sexual dysfunction, Urinary frequency, Urinary incontinence, Urgency, Hematuria , Dysuria, Nocturia, Vaginal discharge Musculoskeletal: DENIES: Joint pain, Muscle aches, Stiffness, Joint Swelling, Back pain, Neck pain Integumentary: DENIES: Abnormal pigmentation, Pruritus, Rash, Nail changes, Breast masses, Breast skin changes, Nipple discharge Hematologic/lymphatic: DENIES: Bruising, Lymphadenopathy Immunologic/allergic: DENIES: Eczema, Urticaria Neurologic: DENIES: Abnormal gait, Headache, Localized weakness, Paresthesias, Seizures, Speech Problems, Tremor, Poor Balance Psychiatric: DENIES: Anxiety, Confusion, Mood changes, Depression, Hallucinations, Agitation, Suicidal Ideation, Homicidal Ideation, Delusions Past Family Social History Allergies: Coded Allergies: guaifenesin (Verified Allergy, Severe, Nausea/Vomiting, 11/22/17) mesalamine (Verified Allergy, Severe, Nausea/Vomiting, 11/22/17) ondansetron (Verified Allergy, Severe, Nausea/Vomiting, 11/22/17) penicillin G (Unverified Allergy, Severe, Anaphylaxis, 11/22/17) tramadol (Verified Allergy, Severe, Burning, 11/22/17) Leg burning ciprofloxacin (Verified Allergy, Intermediate, Nausea/Vomiting, 11/22/17) Sulfa (Sulfonamide Antibiotics) (Unverified Adverse Reaction, Severe, Bleeding, 11/22/17) ibuprofen (Unverified Adverse Reaction, Severe, Bleeding, 11/22/17) Uncoded Allergies: RICOTTA CHEESE (Allergy, Severe, Anaphylaxis, 03/11/15) Past Medical History Crohn disease Colitis Past Surgical History Cholecystectomy Reported Medications Reported Meds & Active Scripts Active Reported Pentasa (Mesalamine) 500 Mg Caper 1,000 Mg PO QID Entocort EC (Budesonide) 3 Mg Capdr 9 Mg PO DAILY Active Ordered Medications Current Medications Medications (Trade) Dose Ordered Sig/June Route PRN Reason Start Time Stop Time Status Last Admin Dose Admin Sodium Chloride (NS Flush) 2 ml UNSCH PRN IV FLUSH FLUSH AFTER USING IV ACCESS 11/22/17 17:15 Patient Own Medication PT OWN MED: (Budeson... DAILY PO 11/23/17 09:00 Mesalamine (Pentasa Sr) 1,000 mg QID PO 11/22/17 21:00 Sodium Chloride 1,000 ml @ 124 mls/hr Q8H4M IV 11/22/17 21:00 Sodium Chloride (NS Flush) 2 ml UNSCH PRN IV FLUSH FLUSH AFTER USING IV ACCESS 11/22/17 20:45 Sodium Chloride (NS Flush) 2 ml BID IV FLUSH 11/22/17 21:00 Acetaminophen (Tylenol) 650 mg Q6H PRN PO PAIN 1-5 AND/OR FEVER >101F 11/22/17 20:45 Morphine Sulfate (Morphine Inj) 2 mg Q2H PRN IV PAIN 6-10 11/22/17 21:00 Famotidine (Pepcid Inj) 20 mg Q12HR IV PUSH 11/22/17 21:00 Ondansetron HCl (Zofran Inj) 4 mg Q6H PRN IV PUSH NAUSEA OR VOMITING 11/22/17 20:45 Zolpidem Tartrate (Ambien) 5 mg HS PRN PO INSOMNIA 11/22/17 20:45 Albuterol/ Ipratropium (Duoneb Neb) 1 ampule Q2HR NEB PRN INH WHEEZING 11/22/17 20:45 Miscellaneous Information 1 Q361D XX 11/22/17 20:45 Chlorhexidine Gluconate (Chlorhexidine 2% Cloth) 3 pack Taper DAILY@04 TOP 11/23/17 04:00 11/19/18 03:59 Chlorhexidine Gluconate (Chlorhexidine 2% Cloth) 3 pack UNSCH PRN TOP HYGIENIC CARE 11/22/17 20:45 Senna/Docusate Sodium (Licha-Colace) 1 tab BID PO 11/22/17 21:00 Magnesium Hydroxide (Milk Of Magnesia Liq) 30 ml Q12H PRN PO Mild constipation 11/22/17 20:45 Sennosides (Senokot) 17.2 mg Q12H PRN PO Moderate constipation 11/22/17 20:45 Bisacodyl (Dulcolax Supp) 10 mg DAILY PRN RECTAL SEVERE CONSITIPATION 11/22/17 20:45 Lactulose (Lactulose Liq) 30 ml DAILY PRN PO SEVERE CONSITIPATION 11/22/17 20:45 Family History Mother with a history of hypothyroidism Father from complication of COPD Social History Alcohol Use: No Tobacco Use: Yes Substance Use: No Physical Exam Vital Signs Vital Signs Date Time Temp Pulse Resp B/P (MAP) Pulse Ox O2 Delivery O2 Flow Rate FiO2 11/22/17 19:50 11/22/17 19:43 98.5 11/22/17 19:29 98 18 94/71 98 11/22/17 18:58 98.6 101 18 103/50 (67) 100 Room Air 11/22/17 18:58 98.6 101 18 103/50 100 11/22/17 18:39 98.5 102 18 98/58 100 11/22/17 18:33 98.5 101 18 100/60 (73) 100 Room Air 11/22/17 18:24 98.5 101 18 100/60 100 11/22/17 18:19 98.6 105 18 104/67 100 11/22/17 18:10 100 20 104/67 (79) 99 Room Air 11/22/17 17:09 100 Room Air 11/22/17 17:00 104 18 91/59 (70) 100 Room Air 11/22/17 17:00 103 18 100 Room Air 11/22/17 15:33 98.0 109 20 99 Physical Exam GENERAL: Pale, Well-nourished, well-developed patient with abdominal pain and nausea . SKIN: Focused skin assessment reveals no rash and nodules. Skin is Warm and dry. HEAD: Atraumatic. Normocephalic. EYES: Pupils equal and round. No scleral icterus. No injection or drainage. ENT: No nasal bleeding or discharge. Mucous membranes pink and moist. NECK: Trachea midline. No JVD. CARDIOVASCULAR: Regular rate and rhythm. No murmur appreciated. RESPIRATORY: No accessory muscle use. Clear to auscultation. Breath sounds equal bilaterally. GASTROINTESTINAL: Abdomen soft, non-tender, nondistended. Hepatic and splenic margins not palpable. MUSCULOSKELETAL: No obvious deformities. No clubbing. No cyanosis. Mild symmetric feet and ankle edema . NEUROLOGICAL: Awake and alert. No obvious cranial nerve deficits. Motor grossly within normal limits. Normal speech. Laboratory Laboratory Tests Test 11/22/17 17:00 White Blood Count 13.5 Red Blood Count 3.02 Hemoglobin 7.0 Hematocrit 22.6 Mean Corpuscular Volume 74.6 Mean Corpuscular Hemoglobin 23.1 Mean Corpuscular Hemoglobin Concent 31.0 Red Cell Distribution Width 19.0 Platelet Count 761 Mean Platelet Volume 6.8 Neutrophils (%) (Auto) 64.8 Lymphocytes (%) (Auto) 22.0 Monocytes (%) (Auto) 9.2 Eosinophils (%) (Auto) 3.1 Basophils (%) (Auto) 0.9 Neutrophils # (Auto) 8.8 Lymphocytes # (Auto) 3.0 Monocytes # (Auto) 1.2 Eosinophils # (Auto) 0.4 Basophils # (Auto) 0.1 CBC Comment AUTO DIFF Differential Comment AUTO DIFF CONFIRMED Platelet Estimate HIGH Ovalocytes Stomatocytes 1+ Blood Urea Nitrogen 11 Creatinine 0.81 Random Glucose 95 Total Protein 6.4 Albumin 1.4 Calcium Level 8.3 Alkaline Phosphatase 116 Aspartate Amino Transf (AST/SGOT) 22 Alanine Aminotransferase (ALT/SGPT) 24 Total Bilirubin 0.2 Sodium Level 129 Potassium Level 3.2 Chloride Level 92 Carbon Dioxide Level 29.5 Anion Gap 8 Estimat Glomerular Filtration Rate 75 Lipase 285 Result Diagram: 11/22/17169911/22/171699 Septic Shock Reassessment Septic shock perfusion: reassessment completed Caprini VTE Risk Assessment Caprini VTE Risk Assessment: Mod/High Risk (score >= 2) VTE Pharm Contraindication: Hemorrhage Caprini Risk Assessment Model Point Value = 1 Point Value = 2 Point Value = 3 Point Value = 5 Age 41-60 Minor surgery BMI > 25 kg/m2 Swollen legs Varicose veins or History of unexplained or recurrent spontaneous Oral contraceptives or hormone replacement Sepsis (< 1 month) Serious lung disease, including pneumonia (< 1 month) Abnormal pulmonary function Acute myocardial infarction Congestive heart failure (< 1 month) History of inflammatory bowel disease Medical patient at bed rest Age 61-74 Arthroscopic surgery Major open surgery (> 45 min) Laparoscopic surgery (> 45 min) Malignancy Confined to bed (> 72 hours) Immobilizing plaster cast Central venous access Age >= 75 History of VTE Family history of VTE Factor V Leiden Prothrombin [id number] Lupus anticoagulant Anticardiolipin antibodies Elevated serum homocysteine Heparin-induced thrombocytopenia Other congenital or acquired thrombophilia Stroke (< 1 month) Elective arthroplasty Hip, pelvis, or leg fracture Acute spinal cord injury (< 1 month) Prophylaxis Regimen Total Risk Factor Score Risk Level Prophylaxis Regimen 0-1 Low Early ambulation 2 Moderate Order ONE of the following: *Sequential Compression Device (SCD) *Heparin 5000 units SQ BID 3-4 Higher Order ONE of the following medications: *Heparin 5000 units SQ TID *Enoxaparin/Lovenox 40 mg SQ daily (WT < 150 kg, CrCl > 30 mL/min) *Enoxaparin/Lovenox 30 mg SQ daily (WT < 150 kg, CrCl > 10-29 mL/min) *Enoxaparin/Lovenox 30 mg SQ BID (WT < 150 kg, CrCl > 30 mL/min) AND/OR *Sequential Compression Device (SCD) 5 or more Highest Order ONE of the following medications: *Heparin 5000 units SQ TID (Preferred with Epidurals) *Enoxaparin/Lovenox 40 mg SQ daily (WT < 150 kg, CrCl > 30 mL/min) *Enoxaparin/Lovenox 30 mg SQ daily (WT < 150 kg, CrCl > 10-29 mL/min) *Enoxaparin/Lovenox 30 mg SQ BID (WT < 150 kg, CrCl > 30 mL/min) AND *Sequential Compression Device (SCD) Assessment and Plan Assessment and Plan Bright red blood per rectum - Crohn's disease exacerbation - Treatment per gastroenterology - Mesalamine outpatient dose - Nothing by mouth Anemia - Blood loss anemia - Transfuse to keep hemoglobin above 8 - Series of H&H Hyponatremia - Severe dehydration - Aggressive IV fluid replacement DVT GI prophylaxis - Teds SCDs - No pharmacological DVT prophylaxis due to active GI bleed - Protonix IV twice a day Critical Care: The total critical care time was 35 minutes. Time to perform other separately billable procedures was not included in the critical care time. Noe Leonardo MD Nov 22, 2017 20:44
[2017-11-22] MEDS ORDERED: RESP: ALBUTEROL 2.5 MG/IPRATROPIUM 0.5 MG NEB (PRN) INH (20:45)
[2017-11-22] MEDS ORDERED: MISCELLANEOUS NURSING INFORMATION XX SCH (20:45)
[2017-11-22] MEDS ORDERED: ONDANSETRON HCL 4 MG/2 ML VIAL IV PUSH PRN (20:45)
[2017-11-22] MEDS ORDERED: MAGNESIUM HYDROXIDE SUSP 30 ML CUP PO PRN (20:45)
[2017-11-22] MEDS ORDERED: CHLORHEXIDINE GLUCONATE 2 % 1 PACK (2 CLOTHS) TOP PRN (20:45)
[2017-11-22] MEDS ORDERED: BISACODYL 10 MG SUPP RECTAL PRN (20:45)
[2017-11-22] MEDS ORDERED: SENNOSIDES 8.6 MG TAB PO PRN (20:45)
[2017-11-22] MEDS ORDERED: LACTULOSE SYRUP 20 GM/30 ML CUP PO PRN (20:45)
[2017-11-22] MEDS: DOCUSATE SODIUM 50 MG/SENNA 8.6 MG TAB PO SCH (21:00)
[2017-11-22] MEDS: SODIUM CHLOR 0.9% 1000 ML INJ 1,000 ML IV SCH (21:00)
[2017-11-22] MEDS: SODIUM CHLORIDE 0.9% FLUSH 10 ML FLUSH IV FLUSH SCH (21:00)
[2017-11-22] MEDS ORDERED: FAMOTIDINE 20 MG/2 ML VIAL IV PUSH SCH (21:00)
[2017-11-22] MEDS: MESALAMINE 250 MG CAP PO SCH (21:00)
[2017-11-22] MEDS: PANTOPRAZOLE SODIUM 40 MG VIAL IV PUSH SCH (23:00)
[2017-11-23] VITALS (12 sets, daily range): BP systolic 87–97; BP diastolic 53–56; PULSE 81–95; RESP 16–23; TEMP 97.8–99.1; O2SAT 95–100
[2017-11-23] MEDS: MORPHINE SULFATE 2 MG/ML INJ IV PRN ×2 (02:43→13:11)
[2017-11-23] MEDS: CHLORHEXIDINE GLUCONATE 2 % 1 PACK (2 CLOTHS) TOP SCH (04:00)
[2017-11-23 04:24] LABS: AUTOMATED NEUTROPHIL # 5.5 TH/MM3 (1.8-7.7); BASOPHIL # 0.1 TH/MM3 (0-0.2); BASOPHIL % 0.9 % (0.0-2.0); EOSINOPHIL # 0.4 TH/MM3 (0-0.4); HEMATOCRIT 23.8 % (35.0-46.0); HEMOGLOBIN 7.9 GM/DL (11.6-15.3); MEAN CELL VOLUME 77.5 FL (80.0-100.0); MEAN CORPUSCULAR HEMOGLOBIN 25.7 PG (27.0-34.0); MEAN CORPUSCULAR HGB CONC 33.1 % (32.0-36.0); MEAN PLATELET VOLUME 6.2 FL (7.0-11.0); MONO % 10.9 % (0.0-8.0); NEUT % 61.2 % (16.0-70.0); PLATELET COUNT 447 TH/MM3 (150-450); RED BLOOD COUNT 3.07 MIL/MM3 (4.00-5.30)
[2017-11-23 04:48] LABS: BICARBONATE 27.8 MEQ/L (21.0-32.0); CALCIUM 6.4 MG/DL (8.5-10.1); CALCIUM-PROTEIN CORRECTED 7.6 MG/DL (8.5-10.1); CREATININE 0.59 MG/DL (0.50-1.00); MAGNESIUM 1.4 MG/DL (1.5-2.5); PHOSPHORUS 3.1 MG/DL (2.5-4.9); TOTAL BILIRUBIN ADULT 0.4 MG/DL (0.2-1.0); TOTAL PROTEIN 4.6 GM/DL (6.4-8.2)
[2017-11-23] MEDS ORDERED: GLUCAGON 1 MG/ML VIAL OTHER PRN (07:30)
[2017-11-23] MEDS ORDERED: MAGNESIUM SULFATE INJ 2 GM in SODIUM CHLORIDE 0.9% INJ 96 ML IV PRN (07:30)
[2017-11-23] MEDS ORDERED: POTASSIUM PHOSPHATE MONOBASIC 500 MG TAB PO/TUBE PRN (07:30)
[2017-11-23] MEDS ORDERED: POTASSIUM CHLORIDE 25 MEQ EFFERVESCENT TAB PO PRN (07:30)
[2017-11-23] MEDS ORDERED: POTASSIUM PHOSPHATE MONOBASIC 500 MG TAB PO PRN (07:30)
[2017-11-23] MEDS ORDERED: SODIUM PHOSPHATE INJ 30 MMOL in SODIUM CHLOR 0.9% 250 ML INJ 240 ML IV PRN (07:30)
[2017-11-23] MEDS ORDERED: MAGNESIUM SULFATE INJ 4 GM in SODIUM CHLORIDE 0.9% INJ 92 ML IV PRN (07:30)
[2017-11-23] MEDS ORDERED: POTASSIUM CHLOR 40 MEQ PREMIX 100 ML IV PRN ×2 (07:30)
[2017-11-23] MEDS ORDERED: POTASSIUM CHLOR 20 MEQ PREMIX 100 ML IV PRN (07:30)
[2017-11-23] MEDS ORDERED: DEXTROSE 50% IN WATER 50 ML VIAL(D50) IV PUSH PRN (07:30)
[2017-11-23] MEDS ORDERED: MAGNESIUM OXIDE 400 MG TAB PO PRN (07:30)
--- NOTE | 2017-11-23 07:35 | HHI.CCPN ---
Subjective Remarks/Hospital Course 52-year-old very pleasant female presents for evaluation of abdominal pain and nausea and bloating. She has history of Crohn's disease. She was in the office of referred her to emergency department. He recommended admitting her for IV fluid hydration and nausea control and he will need to do scoping of her in the hospital. He says she is not able to do bowel prep outpatient. Due to severe dehydration borderline anemia, and requirement of blood transfusions the patient has been admitted to ICU. 11/23 Patient is lying in bed in NAD. On room air oxygen. s/p 2units PRBC transfusion in ED. Objective Vital Signs Date Time Temp Pulse Resp B/P (MAP) Pulse Ox O2 Delivery O2 Flow Rate FiO2 11/23/17 02:00 88 11/23/17 00:00 99.0 20 97/53 (68) 96 11/22/17 18:58 Room Air Result Diagram: 11/23/17 0350 11/23/17 0350 Other Results Laboratory Tests Test 11/22/17 17:00 11/22/17 20:40 11/23/17 03:50 White Blood Count 13.5 TH/MM3 9.0 TH/MM3 Red Blood Count 3.02 MIL/MM3 3.07 MIL/MM3 Hemoglobin 7.0 GM/DL 7.9 GM/DL Hematocrit 22.6 % 23.8 % Mean Corpuscular Volume 74.6 FL 77.5 FL Mean Corpuscular Hemoglobin 23.1 PG 25.7 PG Mean Corpuscular Hemoglobin Concent 31.0 % 33.1 % Red Cell Distribution Width 19.0 % 19.0 % Platelet Count 761 TH/MM3 447 TH/MM3 Mean Platelet Volume 6.8 FL 6.2 FL Neutrophils (%) (Auto) 64.8 % 61.2 % Lymphocytes (%) (Auto) 22.0 % 22.0 % Monocytes (%) (Auto) 9.2 % 10.9 % Eosinophils (%) (Auto) 3.1 % 5.0 % Basophils (%) (Auto) 0.9 % 0.9 % Neutrophils # (Auto) 8.8 TH/MM3 5.5 TH/MM3 Lymphocytes # (Auto) 3.0 TH/MM3 2.0 TH/MM3 Monocytes # (Auto) 1.2 TH/MM3 1.0 TH/MM3 Eosinophils # (Auto) 0.4 TH/MM3 0.4 TH/MM3 Basophils # (Auto) 0.1 TH/MM3 0.1 TH/MM3 CBC Comment AUTO DIFF DIFF FINAL Differential Comment AUTO DIFF CONFIRMED Platelet Estimate HIGH Ovalocytes Stomatocytes 1+ Blood Urea Nitrogen 11 MG/DL 9 MG/DL Creatinine 0.81 MG/DL 0.59 MG/DL Random Glucose 95 MG/DL 77 MG/DL Total Protein 6.4 GM/DL 4.6 GM/DL Albumin 1.4 GM/DL 1.0 GM/DL Calcium Level 8.3 MG/DL 6.4 MG/DL Alkaline Phosphatase 116 U/L 87 U/L Aspartate Amino Transf (AST/SGOT) 22 U/L 18 U/L Alanine Aminotransferase (ALT/SGPT) 24 U/L 21 U/L Total Bilirubin 0.2 MG/DL 0.4 MG/DL Sodium Level 129 MEQ/L 138 MEQ/L Potassium Level 3.2 MEQ/L 2.8 MEQ/L Chloride Level 92 MEQ/L 103 MEQ/L Carbon Dioxide Level 29.5 MEQ/L 27.8 MEQ/L Anion Gap 8 MEQ/L 7 MEQ/L Estimat Glomerular Filtration Rate 75 ML/MIN 108 ML/MIN Lipase 285 U/L Nasal Screen MRSA (PCR) MRSA NOT DETECTED Phosphorus Level 3.1 MG/DL Magnesium Level 1.4 MG/DL Protein Corrected Calcium 7.6 MG/DL Objective Remarks GENERAL: Pale, Well-nourished, well-developed patient with abdominal pain and nausea . SKIN: Focused skin assessment reveals no rash and nodules. Skin is Warm and dry. HEAD: Atraumatic. Normocephalic. EYES: Pupils equal and round. No scleral icterus. No injection or drainage. ENT: No nasal bleeding or discharge. Mucous membranes pink and moist. NECK: Trachea midline. No JVD. CARDIOVASCULAR: Regular rate and rhythm. No murmur appreciated. RESPIRATORY: No accessory muscle use. Clear to auscultation. Breath sounds equal bilaterally. GASTROINTESTINAL: Abdomen soft, non-tender, nondistended. Hepatic and splenic margins not palpable. MUSCULOSKELETAL: No obvious deformities. No clubbing. No cyanosis. Mild symmetric feet and ankle edema . NEUROLOGICAL: Awake and alert. No obvious cranial nerve deficits. Motor grossly within normal limits. Normal speech. A/P Assessment and Plan Crohn's disease exacerbation Anemia Hyponatremia Dehydration Leukocytosis..trending down Plan Neuro: Awake and alert Pulm: Oxygen PRN keep sat >92% CV: Monitor HR and BP keep MAP>65mmHg Continue with IVF. : Monitor renal function, electrolytes replacement per protocol. Will need K, Mag replacement today. Decrease IVF NS@75ml/hr GI: Keep NPO, continue with Protonix 40mg BID. For possible colonoscopy today Check CT abdomen/pelvis ID: Monitor for signs of infections ( Fever, WBC) Heme: Monitor CBC s/p transfusion 2units PRBC in ED ENdo: SSI if needed for glycemic control GI Prophylaxis- on Prootnix DVT prophylaxis- SCD, not on chemical AC due to anemia /GI bleed Level 3 Abel Weinberg MD Nov 23, 2017 07:35
[2017-11-23] MEDS: INSULIN NovoLIN REGULAR SUPPLEMENTAL SCALE SQ SCH ×4 (08:00→20:00)
[2017-11-23] MEDS ORDERED: DIATRIZOATE MEGLUM/DIATRIZOATE SOD 9 ML CUP PO ONE (08:30)
[2017-11-23] MEDS: DOCUSATE SODIUM 50 MG/SENNA 8.6 MG TAB PO SCH ×2 (09:00→21:00)
[2017-11-23] MEDS: SODIUM CHLORIDE 0.9% FLUSH 10 ML FLUSH IV FLUSH SCH (09:00)
[2017-11-23] MEDS: BUDESONIDE 3 MG PO SCH (09:00)
[2017-11-23] MEDS ORDERED: IOHEXOL 350 MG/ML 10 ML VIAL (for RAD DIAG) IVCONTRAST ONE (09:50)
--- NOTE | 2017-11-23 10:01 | RADRPT ---
EXAM DATE/TIME: 11/23/2017 09:34 [facility] COMPARISON: CT ABDOMEN & PELVIS W CONTRAST, October 09, 2017, 13:57. INDICATIONS : Abdominal pain, history of Crohn's disease and colitis IV CONTRAST: 95 cc Omnipaque 350 (iohexol) IV ORAL CONTRAST: No oral contrast ingested. RADIATION DOSE: 13.95 CTDIvol (mGy) MEDICAL HISTORY : Congestive heart failure. Crohns disease. SURGICAL HISTORY : Cholecystectomy. ENCOUNTER: Initial ACUITY: 1 day PAIN SCALE: 5/10 LOCATION: diffuse abdomen TECHNIQUE: Volumetric scanning of the abdomen and pelvis was performed. Using automated exposure control and ad justment of the mA and/or kV according to patient size, radiation dose was kept as low as reasonably achievable to obtain optimal diagnostic quality images. DICOM format image data is available electro nically for review and comparison. FINDINGS: LOWER LUNGS: The visualized lower lungs are clear except for scarring and or atelectasis left lung base. LIVER: Homogeneous density without lesion. There is no dilation of the biliary tree. No calcified gallston es. There is severe hepatic steatosis. Patient is status post cholecystectomy. SPLEEN: Normal size without lesion. PANCREAS: Within normal limits. KIDNEYS: Normal in size and shape. There is no solid mass or hydronephrosis. Multiple bilateral renal cysts a re again noted. There are stable calcifications in the left kidney. ADRENAL GLANDS: Within normal limits. VASCULAR: There is no aortic aneurysm. BOWEL/MESENTERY: No oral contrast was given limiting the sensitivity of the exam. There is fairly diffuse mild wall th ickening involving the colon with multiple loops of nondilated air containing small bowel. There monica ral air-fluid levels with no free air. There is small amount of fluid in the right side of the pelvis . ABDOMINAL WALL: Within normal limits. RETROPERITONEUM: There is no lymphadenopathy. BLADDER: No wall thickening or mass. REPRODUCTIVE: Within normal limits. INGUINAL: There is no lymphadenopathy or hernia. MUSCULOSKELETAL: Within normal limits for patient age. CONCLUSION: 1. Abnormal nonobstructive bowel gas pattern with fairly diffuse colonic thickening. There is small a mount of fluid in the right side of the pelvis. 2. Severe hepatic steatosis. 3. Stable appearance of kidneys with cysts and calcifications the left kidney. 4. Status post cholecystectomy. Jorge Pardo MD on November 23, 2017 at 9:53 Board Certified Radiologist. This report was verified electronically.
--- NOTE | 2017-11-23 10:48 | PD.CONS ---
HPI History of Present Illness This is a 52 year old female with hx Crohn's sent by Dr Wilson after seeing him in the office. She has been having abd pain, nausea, vomiting and diarrhea for the last 2 months. She cites having had norovirus at one point but cannot provide further details or how this was verified. She admits BRBPR when she wipes, cannot provide further details. SHe admits loss 40lbs in 2 months. She was evaluated by our service 10/10/17 and stool studies at that admission were negative for enteric pathogens. CT 10/09/[address] 11/23/17 shows abnormal nonobstructive bowel gas pattern with colonic thickening, small amt fluid right side pelvis, fatty liver. She takes pentasa QID, and entocort for her Crohn's. She last had EGD and colonoscopy she thinks 2011 in [place] , EGD no abnormal findings and colonoscopy showed Crohn's and polyps. Limited historian. (Mary Jane Villanueva) PFSH Past Medical History ?CHF Crohn's hip dysplasia OA Past Surgical History cholecystectomy ERCP 2004 dental surgery tonsillectomty (Mary Jane Villanueva) Coded Allergies: guaifenesin (Verified Allergy, Severe, Nausea/Vomiting, 11/22/17) mesalamine (Verified Allergy, Severe, Nausea/Vomiting, 11/22/17) ondansetron (Verified Allergy, Severe, Nausea/Vomiting, 11/22/17) penicillin G (Unverified Allergy, Severe, Anaphylaxis, 11/22/17) tramadol (Verified Allergy, Severe, Burning, 11/22/17) Leg burning ciprofloxacin (Verified Allergy, Intermediate, Nausea/Vomiting, 11/22/17) Sulfa (Sulfonamide Antibiotics) (Unverified Adverse Reaction, Severe, Bleeding, 11/22/17) ibuprofen (Unverified Adverse Reaction, Severe, Bleeding, 11/22/17) Uncoded Allergies: RICOTTA CHEESE (Allergy, Severe, Anaphylaxis, 03/11/15) Family History none Social History denies toxic habits (Mary Jane Villanueva) Review of Systems Constitutional: COMPLAINS OF: Weight loss Endocrine: DENIES: Polydipsia Eyes: DENIES: Blurred vision Ears, nose, mouth, throat: DENIES: Hearing loss Respiratory: DENIES: Cough Cardiovascular: DENIES: Chest pain Gastrointestinal: COMPLAINS OF: Abdominal pain, Bloody stools, Diarrhea, Nausea , Vomiting, DENIES: Black stools, Constipation, Hematemesis Genitourinary: DENIES: Hematuria Musculoskeletal: DENIES: Muscle aches Integumentary: DENIES: Abnormal pigmentation Hematologic/lymphatic: DENIES: Bruising Immunologic/allergic: DENIES: Eczema Neurologic: DENIES: Abnormal gait Psychiatric: DENIES: Confusion (Mary Jane Villanueva) GI Exam Vitals I&O Vital Signs Date Time Temp Pulse Resp B/P (MAP) Pulse Ox O2 Delivery O2 Flow Rate FiO2 11/23/17 07:54 99 21 11/23/17 06:00 81 11/23/17 04:00 97.8 81 16 87/54 (65) 98 11/23/17 02:00 88 11/23/17 00:00 88 11/23/17 00:00 99.0 95 20 97/53 (68) 96 11/23/17 00:00 97.9 88 20 97/53 (68) 95 11/22/17 22:00 90 11/22/17 22:00 97.8 98 22 99/63 98 11/22/17 21:00 90 11/22/17 20:38 98.7 98 20 99/53 (68) 98 11/22/17 19:50 11/22/17 19:43 98.5 11/22/17 19:29 98 18 94/71 98 11/22/17 18:58 98.6 101 18 103/50 (67) 100 Room Air 11/22/17 18:58 98.6 101 18 103/50 100 11/22/17 18:39 98.5 102 18 98/58 100 11/22/17 18:33 98.5 101 18 100/60 (73) 100 Room Air 11/22/17 18:24 98.5 101 18 100/60 100 11/22/17 18:19 98.6 105 18 104/67 100 11/22/17 18:10 100 20 104/67 (79) 99 Room Air 11/22/17 17:09 100 Room Air 11/22/17 17:00 104 18 91/59 (70) 100 Room Air 11/22/17 17:00 103 18 100 Room Air 11/22/17 15:33 98.0 109 20 99 I/O 11/22/17 11/22/17 11/22/17 11/23/17 11/23/17 11/23/17 07:00 15:00 23:00 07:00 15:00 23:00 Intake Total 1030 ml 1710 ml Output Total 250 ml Balance 1030 ml 1460 ml Intake IV Total 1000 ml 1260 ml Packed Cells 400 ml Blood Product IV Normal Saline Flush 30 ml 50 ml Output Urine Total 250 ml # Bowel Movements 6 Imaging Last Impressions Abdomen/Pelvis CT 11/23/17 0000 Signed Impressions: Service Date/Time: November 09:34 - CONCLUSION: 1. Abnormal nonobstructive bowel gas pattern with fairly diffuse colonic thickening. There is small amount of fluid in the right side of the pelvis. 2. Severe hepatic steatosis. 3. Stable appearance of kidneys with cysts and calcifications the left kidney. 4. Status post cholecystectomy. Jorge Pardo MD Laboratory Test 11/22/17 17:00 11/22/17 20:40 11/23/17 03:50 White Blood Count 13.5 TH/MM3 9.0 TH/MM3 Red Blood Count 3.02 MIL/MM3 3.07 MIL/MM3 Hemoglobin 7.0 GM/DL 7.9 GM/DL Hematocrit 22.6 % 23.8 % Mean Corpuscular Volume 74.6 FL 77.5 FL Mean Corpuscular Hemoglobin 23.1 PG 25.7 PG Mean Corpuscular Hemoglobin Concent 31.0 % 33.1 % Red Cell Distribution Width 19.0 % 19.0 % Platelet Count 761 TH/MM3 447 TH/MM3 Mean Platelet Volume 6.8 FL 6.2 FL Neutrophils (%) (Auto) 64.8 % 61.2 % Lymphocytes (%) (Auto) 22.0 % 22.0 % Monocytes (%) (Auto) 9.2 % 10.9 % Eosinophils (%) (Auto) 3.1 % 5.0 % Basophils (%) (Auto) 0.9 % 0.9 % Neutrophils # (Auto) 8.8 TH/MM3 5.5 TH/MM3 Lymphocytes # (Auto) 3.0 TH/MM3 2.0 TH/MM3 Monocytes # (Auto) 1.2 TH/MM3 1.0 TH/MM3 Eosinophils # (Auto) 0.4 TH/MM3 0.4 TH/MM3 Basophils # (Auto) 0.1 TH/MM3 0.1 TH/MM3 CBC Comment AUTO DIFF DIFF FINAL Differential Comment AUTO DIFF CONFIRMED Platelet Estimate HIGH Ovalocytes Stomatocytes 1+ Blood Urea Nitrogen 11 MG/DL 9 MG/DL Creatinine 0.81 MG/DL 0.59 MG/DL Random Glucose 95 MG/DL 77 MG/DL Total Protein 6.4 GM/DL 4.6 GM/DL Albumin 1.4 GM/DL 1.0 GM/DL Calcium Level 8.3 MG/DL 6.4 MG/DL Alkaline Phosphatase 116 U/L 87 U/L Aspartate Amino Transf (AST/SGOT) 22 U/L 18 U/L Alanine Aminotransferase (ALT/SGPT) 24 U/L 21 U/L Total Bilirubin 0.2 MG/DL 0.4 MG/DL Sodium Level 129 MEQ/L 138 MEQ/L Potassium Level 3.2 MEQ/L 2.8 MEQ/L Chloride Level 92 MEQ/L 103 MEQ/L Carbon Dioxide Level 29.5 MEQ/L 27.8 MEQ/L Anion Gap 8 MEQ/L 7 MEQ/L Estimat Glomerular Filtration Rate 75 ML/MIN 108 ML/MIN Lipase 285 U/L Nasal Screen MRSA (PCR) MRSA NOT DETECTED Phosphorus Level 3.1 MG/DL Magnesium Level 1.4 MG/DL Protein Corrected Calcium 7.6 MG/DL Physical Examination HEENT: PERRL; normocephalic; atraumatic; no jaundice. CHEST: CTA CARDIAC: RRR ABDOMEN: Soft, mildly distended, nontender; no hepatosplenomegaly; bowel sounds are present in all four quadrants. EXTREMITIES: No clubbing, cyanosis, RLE edema SKIN: Normal; no rash; no jaundice. 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 hx crohn's, on pentasa and entocort. flareup vs infectious cause. questionable hx norovirus, do not see this in EMR. CT 10/09/17 showed colitis; CT 11/23/17 shows abnormal gas pattern, no obstruction, diffuse colonic thickening. last colonoscopy and EGD 2011 findings Crohn's, polyps. - BRBPR - report of this, pt admits seeing some blood on wipe after BM, no further details. - anemia - hypochromic, microcytic, hgb 7 on admission and up to 7.9 s/p 1 x PRBC PLAN - EGD/colonoscopy tomorrow - obtain consent - clear liquids today - mg citrate prep - NPO after MN - IV solumedrol - stool studies & c diff - monitor labs - further recs to follow This pt seen by myself and Dr Rausch and this note is on her behalf (Mary Jane Villanueva) Physician Comments seen, examined agree with above (Nano Rausch MD) Mary Jane Villanueva Nov 23, 2017 10:48 Nano Rausch MD Nov 23, 2017 17:03
[2017-11-23] MEDS: PANTOPRAZOLE SODIUM 40 MG VIAL IV PUSH SCH ×2 (11:00→22:53)
[2017-11-23] MEDS: POTASSIUM CHLOR 20 MEQ PREMIX 100 ML IV PRN (11:20)
[2017-11-23] MEDS: methylPREDNISolone SOD SUCC 40 MG/1 ML VIAL IV PUSH SCH (12:18)
[2017-11-23] MEDS: MESALAMINE 250 MG CAP PO SCH ×3 (12:18→21:00)
[2017-11-23] MEDS ORDERED: BISACODYL EC 5 MG TABEC PO ONE (14:30)
[2017-11-23] MEDS ORDERED: MAGNESIUM CITRATE SOLN 300 ML BTL PO ONE ×2 (16:00→18:00)
[2017-11-24] VITALS (11 sets, daily range): BP systolic 95–102; BP diastolic 52–57; PULSE 85–108; RESP 21–38; TEMP 98.5–99.2; O2SAT 96–100
[2017-11-24] MEDS: ZOLPIDEM TARTRATE 5 MG TAB PO PRN ×2 (01:41→21:32)
[2017-11-24] MEDS: MORPHINE SULFATE 2 MG/ML INJ IV PRN ×3 (01:46→21:33)
[2017-11-24] MEDS: CHLORHEXIDINE GLUCONATE 2 % 1 PACK (2 CLOTHS) TOP SCH (04:00)
[2017-11-24] MEDS: INSULIN NovoLIN REGULAR SUPPLEMENTAL SCALE SQ SCH ×4 (08:00→23:28)
--- NOTE | 2017-11-24 08:10 | HHI.CCPN ---
Subjective Remarks/Hospital Course 52-year-old very pleasant female presents for evaluation of abdominal pain and nausea and bloating. She has history of Crohn's disease. She was in the office of referred her to emergency department. He recommended admitting her for IV fluid hydration and nausea control and he will need to do scoping of her in the hospital. He says she is not able to do bowel prep outpatient. Due to severe dehydration borderline anemia, and requirement of blood transfusions the patient has been admitted to ICU. 11/23 Patient is lying in bed in NAD. On room air oxygen. s/p 2units PRBC transfusion in ED. 11/24 No events overnight. Patient refused labs this morning . For panendoscopy today. Afebrile. Objective Vital Signs Date Time Temp Pulse Resp B/P (MAP) Pulse Ox O2 Delivery O2 Flow Rate FiO2 11/24/17 06:00 85 11/24/17 04:00 98.8 22 95/52 (66) 96 11/23/17 07:54 21 11/22/17 18:58 Room Air Intake and Output 11/24/17 11/24/17 11/25/17 08:00 16:00 00:00 Intake Total 1970 ml Output Total 450 ml Balance 1520 ml Result Diagram: 11/23/17 0350 11/23/17 0350 Other Results Laboratory Tests Test 11/23/17 14:25 11/23/17 15:06 11/23/17 18:23 Stool C. difficile Toxin (PCR) NEGATIVE Stl C. difficile Toxin Epiderm 027 PRESUMPTIVE NEGATIVE Phosphorus Level 1.9 MG/DL Erythrocyte Sedimentation Rate 30 mm/hr Imaging Last Impressions Abdomen/Pelvis CT 11/23/17 0000 Signed Impressions: Service Date/Time: November 09:34 - CONCLUSION: 1. Abnormal nonobstructive bowel gas pattern with fairly diffuse colonic thickening. There is small amount of fluid in the right side of the pelvis. 2. Severe hepatic steatosis. 3. Stable appearance of kidneys with cysts and calcifications the left kidney. 4. Status post cholecystectomy. Jorge Pardo MD Objective Remarks GENERAL: Patient is lying in bed in NAD SKIN: Focused skin assessment reveals no rash and nodules. Skin is Warm and dry. HEAD: Atraumatic. Normocephalic. EYES: Pupils equal and round. No scleral icterus. No injection or drainage. ENT: No nasal bleeding or discharge. Mucous membranes pink and moist. NECK: Trachea midline. No JVD. CARDIOVASCULAR: Regular rate and rhythm. No murmur appreciated. RESPIRATORY: No accessory muscle use. Clear to auscultation. Breath sounds equal bilaterally. GASTROINTESTINAL: Abdomen soft, non-tender, nondistended. Hepatic and splenic margins not palpable. MUSCULOSKELETAL: No obvious deformities. No clubbing. No cyanosis. Mild symmetric feet and ankle edema . NEUROLOGICAL: Awake and alert. No obvious cranial nerve deficits. Motor grossly within normal limits. Normal speech. A/P Assessment and Plan Crohn's disease exacerbation Anemia Hyponatremia Dehydration Leukocytosis..trending down Plan Neuro: Awake and alert Pulm: Oxygen PRN keep sat >92% CV: Monitor HR and BP keep MAP>65mmHg Continue with IVF. : Monitor renal function, electrolytes replacement per protocol. Will need K, Mag replacement today. IVF NS@75ml/hr GI: Keep NPO, continue with Protonix 40mg BID. For panendoscopy today On Mesalamine and Solumederol 40mg daily for her Crohn disease CT abdomen/pelvis: Abnormal nonobstructive bowel gas pattern with fairly diffuse colonic thickening. There is small amount of fluid in the right side of the pelvis. Severe hepatic steatosis. 3. Stable appearance of kidneys with cysts and calcifications the left kidney. Status post cholecystectomy. ID: Monitor for signs of infections ( Fever, WBC) Heme: Monitor CBC s/p transfusion 2units PRBC in ED ENdo: SSI if needed for glycemic control GI Prophylaxis- on Prootnix DVT prophylaxis- SCD, not on chemical AC due to anemia /GI bleed Patient refused labs this morning Level 2 Abel Weinberg MD Nov 24, 2017 08:10
[2017-11-24] MEDS: MESALAMINE 250 MG CAP PO SCH ×3 (09:00→21:32)
[2017-11-24] MEDS: BUDESONIDE 3 MG PO SCH (09:00)
[2017-11-24] MEDS: DOCUSATE SODIUM 50 MG/SENNA 8.6 MG TAB PO SCH ×2 (09:00→21:00)
[2017-11-24] MEDS: SODIUM CHLORIDE 0.9% FLUSH 10 ML FLUSH IV FLUSH SCH ×3 (11:43→21:37)
[2017-11-24] MEDS: methylPREDNISolone SOD SUCC 40 MG/1 ML VIAL IV PUSH SCH (11:44)
[2017-11-24] MEDS: PANTOPRAZOLE SODIUM 40 MG VIAL IV PUSH SCH ×2 (11:45→23:22)
[2017-11-24 12:56] LABS: AUTOMATED NEUTROPHIL # 9.4 TH/MM3 (1.8-7.7); BASOPHIL # 0.1 TH/MM3 (0-0.2); BASOPHIL % 0.6 % (0.0-2.0); EOSINOPHIL # 0.3 TH/MM3 (0-0.4); EOSINOPHIL % 2.1 % (0.0-4.0); HEMATOCRIT 29.3 % (35.0-46.0); HEMOGLOBIN 9.4 GM/DL (11.6-15.3); LYMPH % 16.8 % (9.0-44.0); LYMPHOCYTE # 2.3 TH/MM3 (1.0-4.8); MEAN CELL VOLUME 80.2 FL (80.0-100.0); MEAN CORPUSCULAR HEMOGLOBIN 25.7 PG (27.0-34.0); MEAN CORPUSCULAR HGB CONC 32.1 % (32.0-36.0); MONO % 11.2 % (0.0-8.0); MONOCYTE # 1.5 TH/MM3 (0-0.9); NEUT % 69.3 % (16.0-70.0); PLATELET COUNT 518 TH/MM3 (150-450); RED BLOOD COUNT 3.66 MIL/MM3 (4.00-5.30); RED CELL DISTRIBUTION WIDTH 19.7 % (11.6-17.2); WHITE BLOOD COUNT 13.6 TH/MM3 (4.0-11.0)
[2017-11-24 13:17] LABS: BICARBONATE 19.6 MEQ/L (21.0-32.0); CALCIUM 6.3 MG/DL (8.5-10.1); CREATININE 0.87 MG/DL (0.50-1.00); MAGNESIUM 2.1 MG/DL (1.5-2.5); PHOSPHORUS 1.3 MG/DL (2.5-4.9)
[2017-11-24 13:36] LABS: TOTAL PROTEIN 6.3 GM/DL (6.4-8.2)
[2017-11-24 14:20] LABS: CALCIUM-PROTEIN CORRECTED 6.7 MG/DL (8.5-10.1)
[2017-11-24] MEDS ORDERED: CALCIUM GLUCONATE INJ 1 GM in SODIUM CHLORIDE 0.9% INJ 100 ML IV ONE (14:30)
[2017-11-24 15:41] LABS: ANA SCREEN POS (NEG)
[2017-11-24] MEDS: POTASSIUM CHLOR 20 MEQ PREMIX 100 ML IV PRN ×2 (16:44→20:59)
[2017-11-24] MEDS: POTASSIUM PHOSPHATE INJ 30 MMOL in SODIUM CHLOR 0.9% 250 ML INJ 250 ML IV PRN (16:45)
[2017-11-24] MEDS: SODIUM CHLOR 0.9% 1000 ML INJ 1,000 ML IV SCH (19:23)
--- NOTE | 2017-11-24 22:21 | HHI.GIFU ---
GI Follow-up Note Consult Follow-up Subjective: Patient , was scheduled for egd/colonoscopy, came to GI lab, she refused scopes today, she statesd she wanted to get stronger .She also is requesting to go home .She was advised that at this time I do not think she is stable.Length discussion about necessity of egd/choloscopy.Nausea, vomiting improved.diarrhea better.complaining of dry skin, itchy skin on her legs Objective: PHYSICAL EXAMINATION: Vitals signs stable No fever HEENT: Pupils round and reactive to light; normocephalic; atraumatic; no jaundice. Throat is clear, pale NECK: Neck is supple, no JVD, no lymphadenopathy. CHEST: Chest is clear to auscultation and percussion. CARDIAC: Regular rate and rhythm with no murmur gallop or rubs. ABDOMEN: Soft, nondistended, nontender; no hepatosplenomegaly; bowel sounds are present in all four quadrants. EXTREMITIES: No clubbing, cyanosis, or edema. SKIN: Normal; rash on lowe extremities; no jaundice. 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 Available Data (labs, X- Rays, Procedues) : Laboratory Tests Test 11/23/17 03:50 11/23/17 14:25 11/23/17 15:06 11/23/17 18:23 White Blood Count 9.0 TH/MM3 Red Blood Count 3.07 MIL/MM3 Hemoglobin 7.9 GM/DL Hematocrit 23.8 % Mean Corpuscular Volume 77.5 FL Mean Corpuscular Hemoglobin 25.7 PG Mean Corpuscular Hemoglobin Concent 33.1 % Red Cell Distribution Width 19.0 % Platelet Count 447 TH/MM3 Mean Platelet Volume 6.2 FL Neutrophils (%) (Auto) 61.2 % Lymphocytes (%) (Auto) 22.0 % Monocytes (%) (Auto) 10.9 % Eosinophils (%) (Auto) 5.0 % Basophils (%) (Auto) 0.9 % Neutrophils # (Auto) 5.5 TH/MM3 Lymphocytes # (Auto) 2.0 TH/MM3 Monocytes # (Auto) 1.0 TH/MM3 Eosinophils # (Auto) 0.4 TH/MM3 Basophils # (Auto) 0.1 TH/MM3 CBC Comment DIFF FINAL Differential Comment Blood Urea Nitrogen 9 MG/DL Creatinine 0.59 MG/DL Random Glucose 77 MG/DL Total Protein 4.6 GM/DL Albumin 1.0 GM/DL Calcium Level 6.4 MG/DL Phosphorus Level 3.1 MG/DL 1.9 MG/DL Magnesium Level 1.4 MG/DL Alkaline Phosphatase 87 U/L Aspartate Amino Transf (AST/SGOT) 18 U/L Alanine Aminotransferase (ALT/SGPT) 21 U/L Total Bilirubin 0.4 MG/DL Sodium Level 138 MEQ/L Potassium Level 2.8 MEQ/L Chloride Level 103 MEQ/L Carbon Dioxide Level 27.8 MEQ/L Anion Gap 7 MEQ/L Estimat Glomerular Filtration Rate 108 ML/MIN Protein Corrected Calcium 7.6 MG/DL Stool C. difficile Toxin (PCR) NEGATIVE Stl C. difficile Toxin Epiderm 027 PRESUMPTIVE NEGATIVE Erythrocyte Sedimentation Rate 30 mm/hr Anti-Nuclear Antibody Screen POS Test 11/24/17 12:15 White Blood Count 13.6 TH/MM3 Red Blood Count 3.66 MIL/MM3 Hemoglobin 9.4 GM/DL Hematocrit 29.3 % Mean Corpuscular Volume 80.2 FL Mean Corpuscular Hemoglobin 25.7 PG Mean Corpuscular Hemoglobin Concent 32.1 % Red Cell Distribution Width 19.7 % Platelet Count 518 TH/MM3 Mean Platelet Volume 6.0 FL Neutrophils (%) (Auto) 69.3 % Lymphocytes (%) (Auto) 16.8 % Monocytes (%) (Auto) 11.2 % Eosinophils (%) (Auto) 2.1 % Basophils (%) (Auto) 0.6 % Neutrophils # (Auto) 9.4 TH/MM3 Lymphocytes # (Auto) 2.3 TH/MM3 Monocytes # (Auto) 1.5 TH/MM3 Eosinophils # (Auto) 0.3 TH/MM3 Basophils # (Auto) 0.1 TH/MM3 CBC Comment DIFF FINAL Differential Comment Blood Urea Nitrogen 8 MG/DL Creatinine 0.87 MG/DL Random Glucose 95 MG/DL Total Protein 6.3 GM/DL Calcium Level 6.3 MG/DL Phosphorus Level 1.3 MG/DL Magnesium Level 2.1 MG/DL Sodium Level 139 MEQ/L Potassium Level 3.1 MEQ/L Chloride Level 107 MEQ/L Carbon Dioxide Level 19.6 MEQ/L Anion Gap 12 MEQ/L Estimat Glomerular Filtration Rate 69 ML/MIN Protein Corrected Calcium 6.7 MG/DL ASSESSMENT/PLAN: anemia most likely Crohn's disease severe colitis, most likely secondary Crohn's disease nausea, vomiting resolved weight loss, dehydration sectary the above Recommendations egd/colon if agrees in vs op, in patient recommended fu stool studies Solumedrol iv tsh, celiac panel supportive care It was a pleasure seeing eKlly Garsia. Thank you for this consult. Entered by: Nano Guillermo MD Nov 24, 2017 22:21
[2017-11-25] VITALS (12 sets, daily range): BP systolic 88–103; BP diastolic 54–59; PULSE 78–106; RESP 17–27; TEMP 98.4–99.7; O2SAT 96–100
[2017-11-25] MEDS: POTASSIUM CHLOR 20 MEQ PREMIX 100 ML IV PRN ×2 (01:05→04:40)
[2017-11-25] MEDS: MORPHINE SULFATE 2 MG/ML INJ IV PRN ×3 (01:06→17:02)
[2017-11-25] MEDS: CHLORHEXIDINE GLUCONATE 2 % 1 PACK (2 CLOTHS) TOP SCH (03:23)
[2017-11-25] MEDS: INSULIN NovoLIN REGULAR SUPPLEMENTAL SCALE SQ SCH ×5 (03:35→20:00)
[2017-11-25 05:42] LABS: BASOPHIL # 0.1 TH/MM3 (0-0.2); BASOPHIL % 0.6 % (0.0-2.0); EOSINOPHIL # 0.2 TH/MM3 (0-0.4); EOSINOPHIL % 1.6 % (0.0-4.0); HEMOGLOBIN 8.8 GM/DL (11.6-15.3); LYMPH % 17.5 % (9.0-44.0); LYMPHOCYTE # 2.3 TH/MM3 (1.0-4.8); MEAN CORPUSCULAR HEMOGLOBIN 25.4 PG (27.0-34.0); MEAN CORPUSCULAR HGB CONC 31.4 % (32.0-36.0); MEAN PLATELET VOLUME 6.1 FL (7.0-11.0); MONO % 10.6 % (0.0-8.0); MONOCYTE # 1.4 TH/MM3 (0-0.9); NEUT % 69.7 % (16.0-70.0); PLATELET COUNT 415 TH/MM3 (150-450); RED BLOOD COUNT 3.45 MIL/MM3 (4.00-5.30)
[2017-11-25 06:13] LABS: BICARBONATE 19.4 MEQ/L (21.0-32.0); CALCIUM 5.9 MG/DL (8.5-10.1); CREATININE 0.72 MG/DL (0.50-1.00); MAGNESIUM 1.8 MG/DL (1.5-2.5); PHOSPHORUS 1.6 MG/DL (2.5-4.9)
[2017-11-25 06:30] LABS: TOTAL PROTEIN 5.2 GM/DL (6.4-8.2)
[2017-11-25 06:36] LABS: CALCIUM-PROTEIN CORRECTED 6.7 MG/DL (8.5-10.1)
[2017-11-25] MEDS: DOCUSATE SODIUM 50 MG/SENNA 8.6 MG TAB PO SCH ×2 (08:01→20:43)
[2017-11-25] MEDS: MESALAMINE 250 MG CAP PO SCH ×4 (08:45→21:00)
[2017-11-25] MEDS: methylPREDNISolone SOD SUCC 40 MG/1 ML VIAL IV PUSH SCH ×2 (08:45→20:48)
[2017-11-25] MEDS: SODIUM CHLORIDE 0.9% FLUSH 10 ML FLUSH IV FLUSH SCH ×2 (08:46→20:46)
[2017-11-25] MEDS: BUDESONIDE 3 MG PO SCH (09:00)
[2017-11-25] MEDS: PANTOPRAZOLE SODIUM 40 MG VIAL IV PUSH SCH ×2 (09:56→23:00)
[2017-11-25] MEDS: ACETAMINOPHEN 325 MG TAB PO PRN ×3 (09:56→23:59)
--- NOTE | 2017-11-25 13:09 | HHI.GIFU ---
Subjective Remarks Pt resting in bed, in no apparent distress. Denies nausea, vomiting. Reports BM an hour ago, improvement in stool consistency since being started on steroids. Denies blood in stool. Pt still refusing any GI procedures while inpatient. States she wants to go home. (Marcia Rodriguez) Objective Vitals I&O Vital Signs Date Time Temp Pulse Resp B/P (MAP) Pulse Ox O2 Delivery O2 Flow Rate FiO2 11/25/17 08:00 99.0 101 20 91/54 (66) 99 11/25/17 06:00 97 11/25/17 04:00 100 11/25/17 04:00 98.8 100 26 99/55 (70) 98 11/25/17 02:00 100 11/25/17 01:11 16 11/25/17 00:00 98.7 95 17 88/59 (69) 96 11/25/17 00:00 95 11/24/17 22:00 94 11/24/17 20:00 98.9 96 30 97/56 (70) 98 11/24/17 20:00 96 11/24/17 18:00 96 11/24/17 18:00 99.1 96 25 100 11/24/17 16:00 98.5 96 30 102/55 (71) 99 11/24/17 16:00 96 11/24/17 14:00 102 I/O 11/24/17 11/24/17 11/24/17 11/25/17 11/25/17 11/25/17 06:59 14:59 22:59 06:59 14:59 22:59 Intake Total 1970 ml 1760 ml 1700 ml Output Total 450 ml Balance 1520 ml 1760 ml 1700 ml Intake Oral 150 ml 650 ml 1440 ml IV Total 1820 ml 1110 ml 260 ml Output Urine Total 250 ml Stool Total 200 ml # Voids 2 # Bowel Movements 6 Laboratory Laboratory Tests Test 11/25/17 03:37 White Blood Count 13.0 Red Blood Count 3.45 Hemoglobin 8.8 Hematocrit 28.0 Mean Corpuscular Volume 81.0 Mean Corpuscular Hemoglobin 25.4 Mean Corpuscular Hemoglobin Concent 31.4 Red Cell Distribution Width 20.0 Platelet Count 415 Mean Platelet Volume 6.1 Neutrophils (%) (Auto) 69.7 Lymphocytes (%) (Auto) 17.5 Monocytes (%) (Auto) 10.6 Eosinophils (%) (Auto) 1.6 Basophils (%) (Auto) 0.6 Neutrophils # (Auto) 9.0 Lymphocytes # (Auto) 2.3 Monocytes # (Auto) 1.4 Eosinophils # (Auto) 0.2 Basophils # (Auto) 0.1 CBC Comment DIFF FINAL Differential Comment Blood Urea Nitrogen 8 Creatinine 0.72 Random Glucose 77 Total Protein 5.2 Calcium Level 5.9 Phosphorus Level 1.6 Magnesium Level 1.8 Sodium Level 140 Potassium Level 3.5 Chloride Level 110 Carbon Dioxide Level 19.4 Anion Gap 11 Estimat Glomerular Filtration Rate 86 Protein Corrected Calcium 6.7 Vitamin B12 Level 1649 Thyroid Stimulating Hormone 3rd Gen 4.870 Date/Time Source Procedure Growth Status 11/23/17 18:40 Stool Stool Cryptosporidium Exam Pending Received 11/23/17 18:40 Stool Stool Giardia Antigen (PIETER) Pending Received Imaging Last Impressions Abdomen/Pelvis CT 11/23/17 0000 Signed Impressions: Service Date/Time: November 09:34 - CONCLUSION: 1. Abnormal nonobstructive bowel gas pattern with fairly diffuse colonic thickening. There is small amount of fluid in the right side of the pelvis. 2. Severe hepatic steatosis. 3. Stable appearance of kidneys with cysts and calcifications the left kidney. 4. Status post cholecystectomy. Jorge Pardo MD Physical Exam HEENT: Normocephalic; atraumatic CHEST: Even/unlabored CARDIAC: RRR ABDOMEN: Distended, soft, mild diffuse tenderness, bowel sounds active EXTREMITIES: No clubbing, cyanosis, or edema. SKIN: Normal; no rash; no jaundice. 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 (Marcia Rodriguez) Assessment and Plan Plan ASSESSMENT - Crohn's disease- acute flare- on Pentasa and Entocort outpatient. Last colonoscopy in 2011, findings consistent with Crohns. Pts initial complaints included nausea, vomiting, abdominal pain and diarrhea. Today she denies any N/V. Abdominal pain is improving, still mild tenderness with palpation. Reports stool consistency is improving since starting steroids. Recommended EGD and colonoscopy, pt refused both procedures stating she would like to have them done outpatient when she is rehydrated. Dr. Rausch spoke with the pt in length regarding risks of not having procedures done. Pt verbalizes understanding of risks. On Sulumedrol - Diarrhea- most likely secondary to Crohns flare. Stool culture negative for enteric pathogens. C. Diff negative. Cryptosporidium and Giardia pending. TSH elevated- 4.8. - BRBPR - reports of some on toilet paper after wiping, denies any more episodes since being in the hospital. - Anemia - Microcytic, hypochromic. H/H currently 8.8/28 S/P 2 U PRBCs transfused Nov 22. CT abdomen and pelvis W IV contrast (11/23) noted --> Abdominal nonobstructive bowel gas pattern with fairy diffuse colonic thickening. There is small amount of fluid in the right side of the pelvis. Severe hepatic steatosis. Stable appearance of kidneys with cysts and calcifications in the left kidney. Status post cholecystectomy. PLAN - Continue Solumedrol - Monitor stool count - Notify GI of any active GI bleeding - Please notify GI if pt decides to have EGD/colonoscopy - Giardia and Cryptosporidium pending - Monitor H/H - Transfuse as needed - Continue Protonix - Supportive care Pt has been seen and examined by myself and Dr. Rausch and this note is written on her behalf (Marcia Rodriguez) Physician Comments seen, examined agree with above MRA abdomen/pelvis -evaluate vasculitis , mesenteric ischemia may agree with egd/colon on Monday we will review chart from office elevated KECIA-await final results hepatic steatosis we will send liver work-up (Nano Rausch MD) Marcia Rodriguez Nov 25, 2017 13:09 Nano Rausch MD Nov 25, 2017 17:28
[2017-11-25] MEDS ORDERED: CALCIUM GLUCONATE INJ 2 GM in SODIUM CHLORIDE 0.9% INJ 100 ML IV ONE (17:30)
[2017-11-25] MEDS ORDERED: POTASSIUM CHLORIDE 10 MEQ CONTROLLED RELEASE TAB PO ONE (17:30)
[2017-11-25] MEDS ORDERED: RESP: ALBUTEROL 2.5 MG/3 ML NEB (PRN) NEB (17:30)
[2017-11-25] MEDS ORDERED: ALBUMIN 5% INJ 500 ML IV ONE (17:30)
--- NOTE | 2017-11-25 17:42 | HHI.CCPN ---
Subjective Remarks/Hospital Course 52-year-old very pleasant female presents for evaluation of abdominal pain and nausea and bloating. She has history of Crohn's disease. She was in the office of referred her to emergency department. He recommended admitting her for IV fluid hydration and nausea control and he will need to do scoping of her in the hospital. He says she is not able to do bowel prep outpatient. Due to severe dehydration borderline anemia, and requirement of blood transfusions the patient has been admitted to ICU. 11/23 Patient is lying in bed in NAD. On room air oxygen. s/p 2units PRBC transfusion in ED. 11/24 No events overnight. Patient refused labs this morning . For panendoscopy today. Afebrile. Subjective 11/25: Resting in bed in no acute distress. On 2 L nasal cannula. Plan for endoscopy on Monday. Complaining of anxiety. Requesting CT brain. Objective Vital Signs Date Time Temp Pulse Resp B/P (MAP) Pulse Ox O2 Delivery O2 Flow Rate FiO2 11/25/17 08:00 99.0 101 20 91/54 (66) 99 11/23/17 07:54 21 11/22/17 18:58 Room Air Intake and Output 11/25/17 11/25/17 11/26/17 08:00 16:00 00:00 Intake Total 1440 ml Balance 1440 ml Result Diagram: 11/25/17 0337 11/25/17 0337 Other Results Microbiology Date/Time Source Procedure Growth Status 11/23/17 18:40 Stool Stool Cryptosporidium Exam Pending Received 11/23/17 18:40 Stool Stool Giardia Antigen (PIETER) Pending Received Imaging Last Impressions Abdomen/Pelvis CT 11/23/17 0000 Signed Impressions: Service Date/Time: November 09:34 - CONCLUSION: 1. Abnormal nonobstructive bowel gas pattern with fairly diffuse colonic thickening. There is small amount of fluid in the right side of the pelvis. 2. Severe hepatic steatosis. 3. Stable appearance of kidneys with cysts and calcifications the left kidney. 4. Status post cholecystectomy. Jorge Pardo MD Objective Remarks GENERAL: 52-year-old female currently resting in bed in no acute distress SKIN: Warm and dry. No rash HEAD: Atraumatic. Normocephalic. EYES: Pupils equal and round about 3 Ríos's bilaterally and reactive. No scleral icterus. No injection or drainage. ENT: No nasal bleeding or discharge. Mucous membranes pink and moist. NECK: Trachea midline. No JVD. CARDIOVASCULAR: Regular rate and rhythm. No murmur appreciated. RESPIRATORY: No accessory muscle use. Clear to auscultation. Breath sounds equal bilaterally. GASTROINTESTINAL: Abdomen soft, non-tender, nondistended. Hepatic and splenic margins not palpable. MUSCULOSKELETAL: No obvious deformities. No significant peripheral edema. NEUROLOGICAL: Awake and alert. No obvious cranial nerve deficits. Motor grossly within normal limits. Normal speech. A/P Assessment and Plan Neuro/Psych: Anxiety disorder NOS Acetaminophen 650 mg by mouth every 6 hours fever/pain 1-5 Currently on morphine sulfate 2 mg every 2 hours. Pain Awake and alert Psychiatry consulted by my colleague CT brain ordered Pulm: Oxygen PRN keep sat >92% Incentive spirometry while awake CV: Monitor HR and BP keep MAP>65mmHg Continue with IVF. FEN/Renal/: Hypocalcemia Hypophosphatemia Left renal cyst/calcification 2 g calcium gluconate, 30 mmol sodium phosphate and 2 g mag sulfate IV 1 now. Follow-up electrolytes in a.m. Monitor urine output Accurate I's and O's IVF NS@75ml/hr GI: Crohn's disease exacerbation Hepatic steatosis Hypoalbuminemia Continue pantoprazole 40mg BID. For panendoscopy on Monday 11/27 On Mesalamine 1 g 4 times a day and methylprednisolone 40mg twice daily for her Crohn disease Also on budesonide 9 mg daily/home medication CT abdomen/pelvis: Abnormal nonobstructive bowel gas pattern with fairly diffuse colonic thickening. There is small amount of fluid in the right side of the pelvis. Severe hepatic steatosis. 3. Stable appearance of kidneys with cysts and calcifications left kidney. Status post cholecystectomy. ID: Monitor for signs of infections ( Fever, WBC) Heme: Leukocytosis Normocytic anemia Monitor CBC s/p transfusion 2units PRBC in ED No indications for transfusion of blood proximal at this time Endo: Elevated TSH Sliding scale insulin with Novulin R with Accu-Cheks to maintain euglycemia/low regimen every 4 hours TSH is 4.87. Check free T4/T3 MSK: Osteoarthritis Hip dysplasia PT evaluate and treat GI Prophylaxis- on pantoprazole twice a day DVT prophylaxis- SCD, not on pharmacological anticoagulation due to anemia /GI bleed Level 2 Rafi Leon MD Nov 25, 2017 17:42
[2017-11-25] MEDS ORDERED: SODIUM PHOSPHATE INJ 30 MMOL in SODIUM CHLOR 0.9% 250 ML INJ 250 ML IV ONE (18:00)
[2017-11-25] MEDS: MAGNESIUM SULFATE 1 GM PREMIX 100 ML IV SCH ×2 (19:00→19:31)
[2017-11-25 19:03] LABS: FERRITIN 10 NG/ML (8-252)
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
[2017-11-25] MEDS: SODIUM CHLOR 0.9% 1000 ML INJ 1,000 ML IV SCH (22:03)
--- NOTE | 2017-11-25 23:30 | RADRPT ---
EXAM DATE/TIME: 11/25/2017 23:18 [facility] COMPARISON: No previous studies available for comparison. INDICATIONS : Altered mental status. RADIATION DOSE: 35.61 CTDIvol (mGy) MEDICAL HISTORY : Hypertension. SURGICAL HISTORY : None. ENCOUNTER: Initial ACUITY: 1 day PAIN SCALE: 0/10 LOCATION: cranial TECHNIQUE: Multiple contiguous axial images were obtained of the head. Using automated exposure control and adj ustment of the mA and/or kV according to patient size, radiation dose was kept as low as reasonably a chievable to obtain optimal diagnostic quality images. DICOM format image data is available electro nically for review and comparison. FINDINGS: CEREBRUM: The ventricles are normal for age. No evidence of midline shift, mass lesion, hemorrhage or acute in farction. No extra-axial fluid collections are seen. POSTERIOR FOSSA: The cerebellum and brainstem are intact. The 4th ventricle is midline. The cerebellopontine angle i s unremarkable. EXTRACRANIAL: The visualized portion of the orbits is intact. Chronic sinus disease in the left maxillary sinus. SKULL: The calvaria is intact. No evidence of skull fracture. CONCLUSION: Normal examination for a patient of this age. Chronic left maxillary sinus disease. Jaswinder Dao MD on November 25, 2017 at 23:28 Board Certified Radiologist. This report was verified electronically.
[2017-11-26] VITALS (16 sets, daily range): BP systolic 94–109; BP diastolic 55–66; PULSE 73–105; RESP 18–25; TEMP 97.8–98.7; O2SAT 97–100
[2017-11-26] MEDS: INSULIN NovoLIN REGULAR SUPPLEMENTAL SCALE SQ SCH ×6 (04:00→20:00)
[2017-11-26] MEDS: CHLORHEXIDINE GLUCONATE 2 % 1 PACK (2 CLOTHS) TOP SCH (04:00)
[2017-11-26] MEDS: SODIUM CHLOR 0.9% 1000 ML INJ 1,000 ML IV SCH ×2 (04:32→11:23)
[2017-11-26 05:03] LABS: AUTOMATED NEUTROPHIL # 5.6 TH/MM3 (1.8-7.7); BASOPHIL % 0.4 % (0.0-2.0); EOSINOPHIL % 0.1 % (0.0-4.0); HEMATOCRIT 22.8 % (35.0-46.0); HEMOGLOBIN 7.4 GM/DL (11.6-15.3); LYMPH % 17.4 % (9.0-44.0); LYMPHOCYTE # 1.3 TH/MM3 (1.0-4.8); MEAN CELL VOLUME 80.1 FL (80.0-100.0); MEAN CORPUSCULAR HEMOGLOBIN 26.1 PG (27.0-34.0); MEAN CORPUSCULAR HGB CONC 32.6 % (32.0-36.0); MEAN PLATELET VOLUME 6.3 FL (7.0-11.0); MONO % 7.2 % (0.0-8.0); MONOCYTE # 0.5 TH/MM3 (0-0.9); NEUT % 74.9 % (16.0-70.0); PLATELET COUNT 393 TH/MM3 (150-450); RED BLOOD COUNT 2.85 MIL/MM3 (4.00-5.30); RED CELL DISTRIBUTION WIDTH 20.7 % (11.6-17.2); WHITE BLOOD COUNT 7.5 TH/MM3 (4.0-11.0)
[2017-11-26 05:42] LABS: BICARBONATE 21.8 MEQ/L (21.0-32.0); CALCIUM 5.9 MG/DL (8.5-10.1); CREATININE 0.6 MG/DL (0.50-1.00); FREE T3 1.01 PG/ML (2.18-3.98); FREE T4 0.9 NG/DL (0.76-1.46); MAGNESIUM 1.9 MG/DL (1.5-2.5); PHOSPHORUS 2.2 MG/DL (2.5-4.9); TOTAL BILIRUBIN ADULT 0.1 MG/DL (0.2-1.0); TOTAL PROTEIN 4.8 GM/DL (6.4-8.2)
[2017-11-26 05:52] LABS: CALCIUM-PROTEIN CORRECTED 6.9 MG/DL (8.5-10.1)
[2017-11-26] MEDS: methylPREDNISolone SOD SUCC 40 MG/1 ML VIAL IV PUSH SCH ×2 (08:15→20:57)
[2017-11-26] MEDS: MESALAMINE 250 MG CAP PO SCH ×4 (08:15→20:58)
[2017-11-26] MEDS: SODIUM CHLORIDE 0.9% FLUSH 10 ML FLUSH IV FLUSH SCH ×2 (08:15→20:57)
[2017-11-26] MEDS: DOCUSATE SODIUM 50 MG/SENNA 8.6 MG TAB PO SCH ×2 (08:17→20:58)
[2017-11-26] MEDS ORDERED: ALBUMIN 5% INJ 500 ML IV ONE (08:30)
[2017-11-26] MEDS: BUDESONIDE 3 MG PO SCH (09:00)
[2017-11-26] MEDS: PANTOPRAZOLE SODIUM 40 MG VIAL IV PUSH SCH ×2 (09:21→09:27)
[2017-11-26] MEDS: MORPHINE SULFATE 2 MG/ML INJ IV PRN ×4 (09:22→21:10)
[2017-11-26] MEDS: POTASSIUM PHOSPHATE INJ 30 MMOL in SODIUM CHLOR 0.9% 250 ML INJ 250 ML IV PRN (10:11)
--- NOTE | 2017-11-26 10:40 | HHI.GIFU ---
Subjective Remarks Pt resting in bed, in no apparent distress. States diarrhea now only once a day. Still refusing EGD/colonoscopy tomorrow. States she wants to leave. (Marcia Rodriguez) Objective Vitals I&O Vital Signs Date Time Temp Pulse Resp B/P (MAP) Pulse Ox O2 Delivery O2 Flow Rate FiO2 11/26/17 06:00 73 11/26/17 04:00 98.2 84 25 95/55 (68) 100 11/26/17 04:00 84 11/26/17 02:00 88 11/26/17 01:19 100 21 11/26/17 00:00 97.8 87 24 94/60 (71) 99 11/26/17 00:00 87 11/25/17 22:00 78 11/25/17 20:00 78 11/25/17 20:00 99.1 85 27 102/59 (73) 100 11/25/17 18:00 106 11/25/17 16:00 98.4 99 21 103/56 (72) 97 11/25/17 16:00 99 11/25/17 14:00 95 11/25/17 12:00 96 11/25/17 12:00 99.7 96 20 102/58 (73) 98 I/O 11/25/17 11/25/17 11/25/17 11/26/17 11/26/17 11/26/17 07:00 15:00 23:00 07:00 15:00 23:00 Intake Total 1700 ml 950 ml 1606 ml Output Total 5 ml Balance 1700 ml 945 ml 1606 ml Intake Oral 1440 ml 480 ml 650 ml IV Total 260 ml 470 ml 956 ml Stool Total 5 ml # Voids 2 5 5 # Bowel Movements 6 4 Laboratory Laboratory Tests Test 11/25/17 16:40 11/26/17 04:05 Random Cortisol 5.3 White Blood Count 7.5 Red Blood Count 2.85 Hemoglobin 7.4 Hematocrit 22.8 Mean Corpuscular Volume 80.1 Mean Corpuscular Hemoglobin 26.1 Mean Corpuscular Hemoglobin Concent 32.6 Red Cell Distribution Width 20.7 Platelet Count 393 Mean Platelet Volume 6.3 Neutrophils (%) (Auto) 74.9 Lymphocytes (%) (Auto) 17.4 Monocytes (%) (Auto) 7.2 Eosinophils (%) (Auto) 0.1 Basophils (%) (Auto) 0.4 Neutrophils # (Auto) 5.6 Lymphocytes # (Auto) 1.3 Monocytes # (Auto) 0.5 Eosinophils # (Auto) 0.0 Basophils # (Auto) 0.0 CBC Comment DIFF FINAL Differential Comment Blood Urea Nitrogen 8 Creatinine 0.60 Random Glucose 126 Total Protein 4.8 Albumin 1.0 Calcium Level 5.9 Phosphorus Level 2.2 Magnesium Level 1.9 Alkaline Phosphatase 94 Aspartate Amino Transf (AST/SGOT) 16 Alanine Aminotransferase (ALT/SGPT) 24 Total Bilirubin 0.1 Sodium Level 138 Potassium Level 3.4 Chloride Level 109 Carbon Dioxide Level 21.8 Anion Gap 7 Estimat Glomerular Filtration Rate 106 Protein Corrected Calcium 6.9 Free Thyroxine 0.90 Free Triiodothyronine (T3) pg/dL 1.01 Date/Time Source Procedure Growth Status 11/23/17 18:40 Stool Stool Cryptosporidium Exam Pending Received 11/23/17 18:40 Stool Stool Giardia Antigen (PIETER) Pending Received Imaging Last Impressions Head CT 11/25/17 0000 Signed Impressions: Service Date/Time: Saturday, November 25, 2017 23:18 - CONCLUSION: Normal examination for a patient of this age. Chronic left maxillary sinus disease. Jaswinder Dao MD Abdomen/Pelvis CT 11/23/17 0000 Signed Impressions: Service Date/Time: November 09:34 - CONCLUSION: 1. Abnormal nonobstructive bowel gas pattern with fairly diffuse colonic thickening. There is small amount of fluid in the right side of the pelvis. 2. Severe hepatic steatosis. 3. Stable appearance of kidneys with cysts and calcifications the left kidney. 4. Status post cholecystectomy. Jorge Pardo MD Physical Exam HEENT: Normocephalic; atraumatic CHEST: Even/unlabored CARDIAC: RRR ABDOMEN: Distended, soft, nontender, bowel sounds active EXTREMITIES: No clubbing, cyanosis, or edema. SKIN: Normal; no rash; no jaundice. REGIONAL PSYCHIATRIC DIRECTOR: No focal deficits; alert and oriented times three. (Marcia Rodriguez) Assessment and Plan Plan ASSESSMENT - Crohn's disease- acute flare- on Pentasa and Entocort outpatient. Last colonoscopy in 2011, findings consistent with Crohns. Pts initial complaints included nausea, vomiting, abdominal pain and diarrhea. Today she denies any N/V. Abdominal pain is improving, still mild tenderness with palpation. Reports stool consistency is improving since starting steroids. Recommended EGD and colonoscopy, pt refused both procedures stating she would like to have them done outpatient when she is rehydrated. Dr. Rausch spoke with the pt in length regarding risks of not having procedures done. Pt verbalizes understanding of risks. On Sulumedrol - Diarrhea- most likely secondary to Crohns flare. Stool culture negative for enteric pathogens. C. Diff negative. Cryptosporidium and Giardia pending. TSH elevated- 4.8. - BRBPR - reports of some on toilet paper after wiping, denies any more episodes since being in the hospital. - Anemia - Microcytic, hypochromic. H/H currently 8.8/28 S/P 2 U PRBCs transfused Nov 22. CT abdomen and pelvis W IV contrast (11/23) noted --> Abdominal nonobstructive bowel gas pattern with fairy diffuse colonic thickening. There is small amount of fluid in the right side of the pelvis. Severe hepatic steatosis. Stable appearance of kidneys with cysts and calcifications in the left kidney. Status post cholecystectomy. (11/26)- Pt has no GI complaints at this time- states diarrhea now only once a day and becoming more formed. Still refusing EGD/colonoscopy tomorrow. KECIA positive- titer, pattern and interpretation pending. ASMA, AMA celiac pane, IgA, hepatitis panel still pending. H/H dropped to 7.4/22.8. PT denies BRBPR and melena, still refusing procedures. PLAN - Continue Solumedrol - Monitor stool count - Notify GI of any active GI bleeding - Please notify GI if pt decides to have EGD/colonoscopy - Giardia and Cryptosporidium pending - Monitor H/H - Transfuse as needed - Continue Protonix - Supportive care Pt has been seen and examined by myself and Dr. Rausch and this note is written on her behalf (Marcia Rodriguez) Physician Comments seen, examined increase in pedal edema -echocardiogram flight of ideas, muscle weakness,occasional numbness neuro consult please egd/colon when ready albumin iv one dose of Lasix 10 mg vitamin levels (Nano Rausch MD) Marcia Rodriguez Nov 26, 2017 10:40 Nano Rausch MD Nov 26, 2017 15:07
[2017-11-26] MEDS ORDERED: MAGNESIUM SULFATE 1 GM PREMIX 100 ML IV ONE (13:45)
--- NOTE | 2017-11-26 13:51 | HHI.CCPN ---
Subjective Remarks/Hospital Course 52-year-old very pleasant female presents for evaluation of abdominal pain and nausea and bloating. She has history of Crohn's disease. She was in the office of referred her to emergency department. He recommended admitting her for IV fluid hydration and nausea control and he will need to do scoping of her in the hospital. He says she is not able to do bowel prep outpatient. Due to severe dehydration borderline anemia, and requirement of blood transfusions the patient has been admitted to ICU. 11/23 Patient is lying in bed in NAD. On room air oxygen. s/p 2units PRBC transfusion in ED. 11/24 No events overnight. Patient refused labs this morning . For panendoscopy today. Afebrile. 11/25: Resting in bed in no acute distress. On 2 L nasal cannula. Plan for endoscopy on Monday. Complaining of anxiety. Requesting CT brain. Subjective 11/26: Currently on room air. Plan for MRA abdomen today. 4 bowel movement overnight. Currently having left leg pain replaced. CT brain revealed no acute intracranial findings overnight. Started on quetiapine tonight per psychiatric recommendations. Objective Vital Signs Date Time Temp Pulse Resp B/P (MAP) Pulse Ox O2 Delivery O2 Flow Rate FiO2 11/26/17 06:00 73 11/26/17 04:00 98.2 25 95/55 (68) 100 11/26/17 01:19 21 11/22/17 18:58 Room Air Intake and Output 11/26/17 11/26/17 11/27/17 08:00 16:00 00:00 Intake Total 1606 ml Balance 1606 ml Result Diagram: 11/26/17 0405 11/26/17 0405 Other Results Microbiology Date/Time Source Procedure Growth Status 11/23/17 18:40 Stool Stool Cryptosporidium Exam Pending Received 11/23/17 18:40 Stool Stool Giardia Antigen (PIETER) Pending Received Imaging Last Impressions Head CT 11/25/17 0000 Signed Impressions: Service Date/Time: Saturday, November 25, 2017 23:18 - CONCLUSION: Normal examination for a patient of this age. Chronic left maxillary sinus disease. Jaswinder Dao MD Abdomen/Pelvis CT 11/23/17 0000 Signed Impressions: Service Date/Time: November 09:34 - CONCLUSION: 1. Abnormal nonobstructive bowel gas pattern with fairly diffuse colonic thickening. There is small amount of fluid in the right side of the pelvis. 2. Severe hepatic steatosis. 3. Stable appearance of kidneys with cysts and calcifications the left kidney. 4. Status post cholecystectomy. Jorge Pardo MD Objective Remarks GENERAL: 52-year-old female currently resting in bed in no acute distress SKIN: Warm and dry. No rash HEAD: Atraumatic. Normocephalic. EYES: Pupils equal and round about 3 millimeters bilaterally and reactive. No scleral icterus. No injection or drainage. ENT: No nasal bleeding or discharge. Mucous membranes pink and moist. NECK: Trachea midline. No JVD. CARDIOVASCULAR: Regular rate and rhythm. No murmur appreciated. RESPIRATORY: No accessory muscle use. Clear to auscultation. Breath sounds equal bilaterally. GASTROINTESTINAL: Abdomen soft, non-tender, nondistended. Hepatic and splenic margins not palpable. MUSCULOSKELETAL: No obvious deformities. No significant peripheral edema. NEUROLOGICAL: Awake and alert. No obvious cranial nerve deficits. Motor grossly within normal limits. Normal speech. A/P Assessment and Plan Neuro/Psych: Anxiety disorder NOS Acetaminophen 650 mg by mouth every 6 hours fever/pain 1-5 Currently on morphine sulfate 2 mg every 2 hours. Pain Awake and alert Psychiatry consulted by my colleague. Possible ICU delirium. We'll start on quetiapine [address] brain 11/25 revealed left ethmoid sinusitis otherwise no acute intracranial abnormalities Pulm: Oxygen PRN keep sat >92% Incentive spirometry while awake CV: Monitor HR and BP keep MAP>65mmHg Continue with IVF. Normal saline at 75 cc an hour FEN/Renal/: Hypocalcemia Hypophosphatemia Left renal cyst/calcification 1 g calcium chloride, 30 mmol potassium phosphate and 1 g mag sulfate IV 1 now. Follow-up electrolytes in a.m. Monitor urine output Accurate I's and O's IVF NS@75ml/hr GI: Crohn's disease exacerbation Hepatic steatosis Hypoalbuminemia Continue pantoprazole 40mg BID. Currently refusing panendoscopy. Staying now she'll do it as an outpatient "next Monday" 12/04 Follow-up on MRA abdomen ordered 11/25 On Mesalamine 1 g 4 times a day and methylprednisolone 40mg twice daily for her Crohn disease Also on budesonide 9 mg daily/home medication CT abdomen/pelvis: Abnormal nonobstructive bowel gas pattern with fairly diffuse colonic thickening. There is small amount of fluid in the right side of the pelvis. Severe hepatic steatosis. 3. Stable appearance of kidneys with cysts and calcifications left kidney. Status post cholecystectomy. ID: Monitor for signs of infections ( Fever, WBC) Heme: Leukocytosis Normocytic anemia Monitor CBC s/p transfusion 2units PRBC in ED No indications for transfusion of blood proximal at this time Endo: Elevated TSH KECIA positive. Pending confirmatory results Sliding scale insulin with Novulin R with Accu-Cheks to maintain euglycemia/low regimen every 4 hours TSH is 4.87. Free T4 normal. Low free T3. Likely benefit from low-dose levothyroxine 25 mg daily. MSK: Osteoarthritis Hip dysplasia PT evaluate and treat GI Prophylaxis- on pantoprazole twice a day DVT prophylaxis- SCD, not on pharmacological anticoagulation due to anemia /GI bleed Level 2. Patient is stable from a critical care medicine standpoint. Assign care to hospitalist in a.m. 11/27. Transfer from ICU. Rafi Leon MD Nov 26, 2017 13:51
[2017-11-26] MEDS ORDERED: CALCIUM CHLORIDE INJ 1 GM in SODIUM CHLORIDE 0.9% INJ 100 ML IV ONE (15:00)
[2017-11-26] MEDS ORDERED: FUROSEMIDE 20 MG TAB PO ONE (15:30)
[2017-11-26] MEDS: ALBUMIN 25% INJ 100 ML IV SCH (20:57)
[2017-11-26] MEDS: QUEtiapine FUMARATE 25 MG TAB PO SCH (20:58)
[2017-11-27] VITALS (11 sets, daily range): BP systolic 98–121; BP diastolic 54–70; PULSE 73–106; RESP 16–34; TEMP 98.3–98.8; O2SAT 94–100
[2017-11-27] MEDS: PANTOPRAZOLE SODIUM 40 MG VIAL IV PUSH SCH ×3 (00:34→20:14)
[2017-11-27] MEDS: SODIUM CHLOR 0.9% 1000 ML INJ 1,000 ML IV SCH (00:35)
[2017-11-27] MEDS: CHLORHEXIDINE GLUCONATE 2 % 1 PACK (2 CLOTHS) TOP SCH (04:00)
[2017-11-27] MEDS: INSULIN NovoLIN REGULAR SUPPLEMENTAL SCALE SQ SCH ×5 (04:00→20:00)
[2017-11-27 07:10] LABS: ALBUMIN 1.7 GM/DL (3.4-5.0); BICARBONATE 21.1 MEQ/L (21.0-32.0); CALCIUM 6.6 MG/DL (8.5-10.1); CREATININE 0.53 MG/DL (0.50-1.00); DIRECT BILIRUBIN ADULT 0.1 MG/DL (0.0-0.2); INDIRECT BILIRUBIN 0.1 MG/DL (0.0-0.8); MAGNESIUM 2.1 MG/DL (1.5-2.5); PHOSPHORUS 1.7 MG/DL (2.5-4.9); TOTAL BILIRUBIN ADULT 0.2 MG/DL (0.2-1.0); TOTAL PROTEIN 5.4 GM/DL (6.4-8.2)
[2017-11-27 07:12] LABS: AUTOMATED NEUTROPHIL # 5.6 TH/MM3 (1.8-7.7); BASOPHIL % 0.1 % (0.0-2.0); EOSINOPHIL % 0.1 % (0.0-4.0); HEMATOCRIT 23.5 % (35.0-46.0); HEMOGLOBIN 7.6 GM/DL (11.6-15.3); LYMPH % 17.2 % (9.0-44.0); LYMPHOCYTE # 1.3 TH/MM3 (1.0-4.8); MEAN CELL VOLUME 80.5 FL (80.0-100.0); MEAN CORPUSCULAR HEMOGLOBIN 26.2 PG (27.0-34.0); MEAN CORPUSCULAR HGB CONC 32.5 % (32.0-36.0); MEAN PLATELET VOLUME 6.6 FL (7.0-11.0); MONOCYTE # 0.5 TH/MM3 (0-0.9); NEUT % 75.6 % (16.0-70.0); PLATELET COUNT 442 TH/MM3 (150-450); RED BLOOD COUNT 2.92 MIL/MM3 (4.00-5.30); RED CELL DISTRIBUTION WIDTH 20.5 % (11.6-17.2); WHITE BLOOD COUNT 7.4 TH/MM3 (4.0-11.0)
[2017-11-27 08:12] LABS: CALCIUM-PROTEIN CORRECTED 7.4 MG/DL (8.5-10.1)
--- NOTE | 2017-11-27 08:26 | HHI.CCPN ---
Subjective Remarks/Hospital Course 52-year-old very pleasant female presents for evaluation of abdominal pain and nausea and bloating. She has history of Crohn's disease. She was in the office of referred her to emergency department. He recommended admitting her for IV fluid hydration and nausea control and he will need to do scoping of her in the hospital. He says she is not able to do bowel prep outpatient. Due to severe dehydration borderline anemia, and requirement of blood transfusions the patient has been admitted to ICU. 11/23 Patient is lying in bed in NAD. On room air oxygen. s/p 2units PRBC transfusion in ED. 11/24 No events overnight. Patient refused labs this morning . For panendoscopy today. Afebrile. 11/25: Resting in bed in no acute distress. On 2 L nasal cannula. Plan for endoscopy on Monday. Complaining of anxiety. Requesting CT brain. Subjective 11/26: Currently on room air. Plan for MRA abdomen today. 4 bowel movement overnight. Currently having left leg pain replaced. CT brain revealed no acute intracranial findings overnight. Started on quetiapine tonight per psychiatric recommendations. 11/27/17. Lying in bed, no acute distress, MRA abdomen pending. Hb 7.6 today. Abdominal pain improving Objective Vital Signs Date Time Temp Pulse Resp B/P (MAP) Pulse Ox O2 Delivery O2 Flow Rate FiO2 11/27/17 08:00 92 11/27/17 08:00 98.4 23 112/70 (84) 99 11/26/17 19:06 21 Intake and Output 11/27/17 11/27/17 11/28/17 08:00 16:00 00:00 Intake Total 240 ml Balance 240 ml Result Diagram: 11/27/17 0430 11/27/17 0430 Imaging Last Impressions Head CT 11/25/17 0000 Signed Impressions: Service Date/Time: Saturday, November 25, 2017 23:18 - CONCLUSION: Normal examination for a patient of this age. Chronic left maxillary sinus disease. Jaswinder Dao MD Abdomen/Pelvis CT 11/23/17 0000 Signed Impressions: Service Date/Time: November 09:34 - CONCLUSION: 1. Abnormal nonobstructive bowel gas pattern with fairly diffuse colonic thickening. There is small amount of fluid in the right side of the pelvis. 2. Severe hepatic steatosis. 3. Stable appearance of kidneys with cysts and calcifications the left kidney. 4. Status post cholecystectomy. Jorge Pardo MD Objective Remarks GENERAL: 52-year-old female currently resting in bed in no acute distress SKIN: Warm and dry. No rash HEAD: Atraumatic. Normocephalic. EYES: Pupils equal and round about 3 millimeters bilaterally and reactive. No scleral icterus. No injection or drainage. ENT: No nasal bleeding or discharge. Mucous membranes pink and moist. NECK: Trachea midline. No JVD. CARDIOVASCULAR: Regular rate and rhythm. No murmur appreciated. RESPIRATORY: No accessory muscle use. Clear to auscultation. Breath sounds equal bilaterally. GASTROINTESTINAL: Abdomen soft, non-tender, nondistended. Hepatic and splenic margins not palpable. MUSCULOSKELETAL: No obvious deformities. No significant peripheral edema. NEUROLOGICAL: Awake and alert. No obvious cranial nerve deficits. Motor grossly within normal limits. Normal speech. A/P Assessment and Plan Neuro/Psych: Anxiety disorder NOS Acetaminophen 650 mg by mouth every 6 hours fever/pain 1-5 Currently on morphine sulfate 2 mg every 2 hours. Pain Awake and alert Psychiatry consulted. Possible ICU delirium. Started on quetiapine [address] brain 11/25 revealed left ethmoid sinusitis otherwise no acute intracranial abnormalities Pulm: Oxygen PRN keep sat >92% Incentive spirometry while awake CV: Monitor HR and BP keep MAP>65mmHg Continue with IVF. Normal saline at 75 cc an hour FEN/Renal/: Hypocalcemia Hypophosphatemia Left renal cyst/calcification s/p 1 g calcium chloride, 30 mmol potassium phosphate and 1 g mag sulfate IV 1 now. Follow-up electrolytes in a.m. Monitor urine output Accurate I's and O's IVF NS@75ml/hr GI: Crohn's disease exacerbation Hepatic steatosis Hypoalbuminemia Continue pantoprazole 40mg BID. Currently refusing panendoscopy. Staying now she'll do it as an outpatient "next Monday" 12/04 Follow-up on MRA abdomen ordered 11/25, not done yet On Mesalamine 1 g 4 times a day and methylprednisolone 40mg twice daily for her Crohn disease Also on budesonide 9 mg daily/home medication CT abdomen/pelvis: Abnormal nonobstructive bowel gas pattern with fairly diffuse colonic thickening. There is small amount of fluid in the right side of the pelvis. Severe hepatic steatosis. 3. Stable appearance of kidneys with cysts and calcifications left kidney. Status post cholecystectomy. ID: Monitor for signs of infections ( Fever, WBC) Heme: Leukocytosis Normocytic anemia Monitor CBC s/p transfusion 2units PRBC in ED No indications for transfusion of blood proximal at this time Endo: Elevated TSH KECIA positive. Pending confirmatory results Sliding scale insulin with Novolin R with Accu-Cheks to maintain euglycemia/low regimen every 4 hours TSH is 4.87. Free T4 normal. Low free T3. Likely benefit from low-dose levothyroxine 25 mg daily. MSK: Osteoarthritis Hip dysplasia PT evaluate and treat GI Prophylaxis- on pantoprazole twice a day DVT prophylaxis- SCD, not on pharmacological anticoagulation due to anemia /GI bleed Level 2. Patient is stable from a critical care medicine standpoint. Hospitalist for 11/27. Transfer from ICU when bed available. Paul Wells MD Nov 27, 2017 08:26
[2017-11-27] MEDS: MORPHINE SULFATE 2 MG/ML INJ IV PRN ×6 (08:42→23:25)
[2017-11-27] MEDS: methylPREDNISolone SOD SUCC 40 MG/1 ML VIAL IV PUSH SCH ×2 (08:43→20:13)
[2017-11-27] MEDS: MESALAMINE 250 MG CAP PO SCH ×4 (08:43→20:14)
[2017-11-27] MEDS: ALBUMIN 25% INJ 100 ML IV SCH ×2 (08:43→20:13)
[2017-11-27] MEDS: SODIUM CHLORIDE 0.9% FLUSH 10 ML FLUSH IV FLUSH SCH ×2 (08:44→20:13)
[2017-11-27] MEDS: BUDESONIDE 3 MG PO SCH (08:44)
[2017-11-27] MEDS: DOCUSATE SODIUM 50 MG/SENNA 8.6 MG TAB PO SCH ×2 (08:44→20:14)
[2017-11-27 09:01] LABS: BANDS 19 % (0-6); LYMPHOCYTES 10 % (9-44); MONOCYTES 5 % (0-8); MYELOCYTES 1 % (0-0); NEUTROPHIL # MANUAL DIFF 6.3 TH/MM3 (1.8-7.7); POLYCHROMASIA 2.3 % (0.0-1.9); POLYS (SEG NEUTROPHILS) 65 % (16-70)
[2017-11-27 09:02] LABS: ACANTHOCYTES OCC (NORMAL); TOXIC GRANULATION 1+ (NORMAL)
[2017-11-27] MEDS: SODIUM CHLORIDE 0.9% FLUSH 10 ML FLUSH IV FLUSH PRN (10:39)
[2017-11-27 10:46] LABS: HEPATITIS A AB IGM NEGATIVE (NEGATIVE); HEPATITIS B CORE AB IGM NEGATIVE (NEGATIVE); HEPATITIS B SURFACE ANTIGEN NEGATIVE (NEGATIVE); HEPATITIS C AB IgG NEGATIVE (NEGATIVE)
[2017-11-27] MEDS ORDERED: GADODIAMIDE PF 287 MG/ML 10 ML VIAL (for RAD MRI) IV PUSH ONE (13:28)
--- NOTE | 2017-11-27 14:52 | RADRPT ---
EXAM DATE/TIME: 11/27/2017 11:12 [facility] COMPARISON: CT ABDOMEN & PELVIS W CONTRAST, November 23, 2017, 9:34. INDICATIONS : Abdominal pain. Vasculitis. CONTRAST: 30 cc Omniscan (gadodiamide) IV MEDICAL HISTORY : Crohn's disease. SURGICAL HISTORY : Cholecystectomy. Tonsillectomy. Left foot. ENCOUNTER: Initial ACUITY: 1 week PAIN SCORE: 4/10 LOCATION: abdomen TECHNIQUE: Bolus infused MR angiography was performed. The data was postprocessed with a variety of visualizati on algorithms including full-volume maximum-intensity projection, multiplanar sliding thin slab refor mation, and curved planar reformation. FINDINGS: ABDOMINAL AORTA: The lumen is smooth without significant narrowing or aneurysmal dilatation. The proximal celiac and s uperior mesenteric arteries are patent and normal in diameter. RENAL ARTERIES: There are solitary renal arteries bilaterally. No evidence of ostial or segmental stenosis. KIDNEYS: There is symmetric renal size. There is homogeneous enhancement in the parenchyma. There are simple cysts within the kidneys bilaterally. BIFURCATION: Normal. RIGHT PELVIS: The right common iliac, internal iliac, and external iliac vessels are patent without luminal irregul arity. LEFT PELVIS: The left common iliac, internal iliac, and external iliac vessels are patent and without luminal irre gularity. RETROPERITONEUM: The adrenal glands are unremarkable. No adenopathy seen. CONCLUSION: 1. The celiac SMA and DEEPTI are well visualized in their proximal segments and are widely patent. 2. The limited portion of colon visualized appears diffusely thickening suggesting a colitis Watson Gonzalez MD on November 27, 2017 at 14:46 Board Certified Radiologist. This report was verified electronically.
--- NOTE | 2017-11-27 15:09 | ECHRPT ---
Indication: Pedal Edema CONCLUSIONS The left ventricular systolic function is normal with an estimated ejection fraction in the range of 60-65%. Normal left ventricular size. Wall thickness is normal. No regional wall motion abnormalities are present. Trace mitral valve regurgitation. BP: 121 / 58 HR: 97 Rhythm: MEASUREMENTS (Male / Female) Normal Values Technical Quality:Excellent 2D ECHO LV Diastolic Diameter PLAX 4.5 cm 4.2 - 5.9 / 3.9 - 5.3 cm LV Systolic Diameter PLAX 3.0 cm IVS Diastolic Thickness 0.9 cm 0.6 - 1.0 / 0.6 - 0.9 cm LVPW Diastolic Thickness 0.9 cm 0.6 - 1.0 / 0.6 - 0.9 cm LV Relative Wall Thickness 0.4 RV Internal Dim ED PLAX 2.5 cm LVOT Diameter 2.1 cm LA Systolic Diameter LX 3.3 cm 3.0 - 4.0 / 2.7 - 3.8 cm LV Ejection Fraction MOD 4C 63.6 % LV Cardiac Index MOD 4C 3219.5 cm/minm LV Ejection Fraction 4C AL 64.6 % LV Cardiac Index 4C AL 3385.3 cm/minm M-MODE Aortic Root Diameter MM 3.1 cm AV Cusp Separation MM 1.7 cm DOPPLER AV Peak Velocity 147.0 cm/s AV Peak Gradient 8.6 mmHg LVOT Peak Velocity 108.0 cm/s LVOT Peak Gradient 4.7 mmHg AV Area Cont Eq pk 2.5 cm MV Area PHT 4.9 cm Mitral E Point Velocity 103.0 cm/s Mitral A Point Velocity 77.5 cm/s Mitral E to A Ratio 1.3 LV E' Lateral Velocity 15.3 cm/s Mitral E to LV E' Lateral Ratio 6.7 LV E' Septal Velocity 11.9 cm/s Mitral E to LV E' Septal Ratio 8.7 PV Peak Velocity 106.0 cm/s PV Peak Gradient 4.5 mmHg FINDINGS LEFT VENTRICLE The left ventricular systolic function is normal with an estimated ejection fraction in the range of 60-65%. Normal left ventricular size. Wall thickness is normal. No regional wall motion abnormalities are present. RIGHT VENTRICLE Normal right ventricular size and systolic function. LEFT ATRIUM The left atrial size is normal. RIGHT ATRIUM The right atrial size is normal. ATRIAL SEPTUM Normal atrial septal thickness without atrial level shunting by limited color doppler interrogation. AORTA The aortic root and proximal ascending aorta are normal in size on limited imaging. MITRAL VALVE Structurally normal mitral valve. Trace mitral valve regurgitation. AORTIC VALVE Trileaflet aortic valve. No aortic valve stenosis or regurgitation. TRICUSPID VALVE Structurally normal tricuspid valve. No tricuspid valve stenosis or regurgitation. PULMONARY VALVE The pulmonary valve is not well visualized. VESSELS The inferior vena cava is normal in size. PERICARDIUM No pericardial effusion. Walker Matute MD (Electronically Signed) Final Date:27 November 2017 15:09
[2017-11-27 15:26] LABS: ANA PATTERN DIFFUSE
--- NOTE | 2017-11-27 15:42 | HHI.GIFU ---
Subjective Remarks Pt on bedside commode. Reports resolution of diarrhea. She is angry that she is still in the hospital and has not been released to go home. Per pt she wants to start taking Entocort, she is aware hospital does not have this medication in stock and she plans on her bringing it in. Tolerating diet. Denies nausea, vomiting, abdominal pain. (Marcia Rodriguez) Objective Vitals I&O Vital Signs Date Time Temp Pulse Resp B/P (MAP) Pulse Ox O2 Delivery O2 Flow Rate FiO2 11/27/17 08:00 92 11/27/17 08:00 98.4 92 23 112/70 (84) 99 11/27/17 07:37 98 11/27/17 06:00 73 11/27/17 04:00 98.3 97 17 121/58 (79) 100 11/27/17 04:00 97 11/27/17 02:00 97 11/27/17 00:00 95 11/27/17 00:00 98.5 95 16 100/63 (75) 99 11/26/17 22:00 90 11/26/17 21:15 18 11/26/17 20:00 105 11/26/17 20:00 98.4 105 18 109/61 (77) 100 11/26/17 19:06 99 21 11/26/17 18:00 82 11/26/17 16:00 89 11/26/17 16:00 89 24 100 I/O 11/26/17 11/26/17 11/26/17 11/27/17 11/27/17 11/27/17 07:00 15:00 23:00 07:00 15:00 23:00 Intake Total 1606 ml 580 ml 240 ml Balance 1606 ml 580 ml 240 ml Intake Oral 650 ml 480 ml 240 ml IV Total 956 ml 100 ml # Voids 5 2 2 # Bowel Movements 4 1 2 Laboratory Laboratory Tests Test 11/26/17 19:40 11/27/17 04:30 25-Hydroxy Vitamin D Total 12.0 White Blood Count 7.4 Red Blood Count 2.92 Hemoglobin 7.6 Hematocrit 23.5 Mean Corpuscular Volume 80.5 Mean Corpuscular Hemoglobin 26.2 Mean Corpuscular Hemoglobin Concent 32.5 Red Cell Distribution Width 20.5 Platelet Count 442 Mean Platelet Volume 6.6 Neutrophils (%) (Auto) 75.6 Lymphocytes (%) (Auto) 17.2 Monocytes (%) (Auto) 7.0 Eosinophils (%) (Auto) 0.1 Basophils (%) (Auto) 0.1 Neutrophils # (Auto) 5.6 Lymphocytes # (Auto) 1.3 Monocytes # (Auto) 0.5 Eosinophils # (Auto) 0.0 Basophils # (Auto) 0.0 CBC Comment AUTO DIFF Differential Total Cells Counted 100 Neutrophils % (Manual) 65 Band Neutrophils % 19 Lymphocytes % 10 Monocytes % 5 Neutrophils # (Manual) 6.3 Myelocytes 1 Differential Comment FINAL DIFF MANUAL Toxic Granulation 1+ Platelet Estimate NORMAL Platelet Morphology Comment NORMAL Polychromasia 2.3 Acanthocytes OCC Blood Urea Nitrogen 6 Creatinine 0.53 Random Glucose 93 Total Protein 5.4 Albumin 1.7 Calcium Level 6.6 Phosphorus Level 1.7 Magnesium Level 2.1 Alkaline Phosphatase 96 Aspartate Amino Transf (AST/SGOT) 14 Alanine Aminotransferase (ALT/SGPT) 24 Total Bilirubin 0.2 Direct Bilirubin 0.1 Sodium Level 140 Potassium Level 3.7 Chloride Level 111 Carbon Dioxide Level 21.1 Anion Gap 8 Estimat Glomerular Filtration Rate 122 Protein Corrected Calcium 7.4 Indirect Bilirubin 0.1 Date/Time Source Procedure Growth Status 11/23/17 18:40 Stool Stool Cryptosporidium Exam - Final NEGATIVE - NO CRYPTOSPORIDIUM ANTIGEN... Complete 11/23/17 18:40 Stool Stool Giardia Antigen (PIETER) - Final NEGATIVE - NO GIARDIA ANTIGEN DETECTE... Complete Imaging Last Impressions Abdomen Magnetic Resonance Angio 11/27/17 0000 Signed Impressions: Service Date/Time: Monday, November 27, 2017 11:12 - CONCLUSION: 1. The celiac SMA and DEEPTI are well visualized in their proximal segments and are widely patent. 2. The limited portion of colon visualized appears diffusely thickening suggesting a colitis Watson Gonzalez MD Head CT 11/25/17 0000 Signed Impressions: Service Date/Time: Saturday, November 25, 2017 23:18 - CONCLUSION: Normal examination for a patient of this age. Chronic left maxillary sinus disease. Jaswinder Dao MD Abdomen/Pelvis CT 11/23/17 0000 Signed Impressions: Service Date/Time: November 09:34 - CONCLUSION: 1. Abnormal nonobstructive bowel gas pattern with fairly diffuse colonic thickening. There is small amount of fluid in the right side of the pelvis. 2. Severe hepatic steatosis. 3. Stable appearance of kidneys with cysts and calcifications the left kidney. 4. Status post cholecystectomy. Jorge Pardo MD Physical Exam HEENT: Normocephalic; atraumatic CHEST: Even/unlabored CARDIAC: RRR ABDOMEN: Distended, soft, nontender, bowel sounds active EXTREMITIES: No clubbing, cyanosis, or edema. SKIN: Normal; no rash; no jaundice. FURNACE TENDER: No focal deficits; alert and oriented times three. (Marcia Rodriguez ROTARY ENGRAVER) Assessment and Plan Plan ASSESSMENT - Crohn's disease- acute flare- on Pentasa and Entocort outpatient. Last colonoscopy in 2011, findings consistent with Crohns. Pts initial complaints included nausea, vomiting, abdominal pain and diarrhea. Today she denies any N/V. Abdominal pain is improving, still mild tenderness with palpation. Reports stool consistency is improving since starting steroids. Recommended EGD and colonoscopy, pt refused both procedures stating she would like to have them done outpatient when she is rehydrated. Dr. Rausch spoke with the pt in length regarding risks of not having procedures done. Pt verbalizes understanding of risks. On Sulumedrol - Diarrhea- most likely secondary to Crohns flare. Stool culture negative for enteric pathogens. C. Diff negative. Cryptosporidium and Giardia pending. TSH elevated- 4.8. - BRBPR - reports of some on toilet paper after wiping, denies any more episodes since being in the hospital. - Anemia - Microcytic, hypochromic. H/H currently 8.8/28 S/P 2 U PRBCs transfused Nov 22. CT abdomen and pelvis W IV contrast (11/23) noted --> Abdominal nonobstructive bowel gas pattern with fairy diffuse colonic thickening. There is small amount of fluid in the right side of the pelvis. Severe hepatic steatosis. Stable appearance of kidneys with cysts and calcifications in the left kidney. Status post cholecystectomy. (11/26)- Pt has no GI complaints at this time- states diarrhea now only once a day and becoming more formed. Still refusing EGD/colonoscopy tomorrow. KECIA positive- titer, pattern and interpretation pending. ASMA, AMA celiac pane, IgA, hepatitis panel still pending. H/H dropped to 7.4/22.8. PT denies BRBPR and melena, still refusing procedures. (11/27)- Diarrhea resolved. MRA abdomen W contrast (11/27) --> The celiac SMA and DEEPTI are well visualized in their proximal segments and are widely patent. The limited portion of colon visualized appears diffusely thickening suggesting a colitis. Pt still refusing procedures, no GI complaints. She states her will be bringing in her Entocort because she does not want to be on Solumedrol anymore. KECIA positive- titer 1:40. Celiac panel , AMA, ASMA pending. PLAN - Continue Solumedrol - Monitor stool count - Notify GI of any active GI bleeding - Please notify GI if pt decides to have EGD/colonoscopy - Monitor H/H - Transfuse as needed - Continue Protonix - Supportive care Pt has been seen and examined by myself and Dr. Jacobs and this note is written on his behalf (Marcia Rodriguez) Physician Comments Patient seen and examined Agree with above Continue with current supportive care Monitor labs (Yonny Jacobs MD) Marcia Rodriguez Nov 27, 2017 15:42 Yonny Jacobs MD Nov 28, 2017 01:32
[2017-11-27] MEDS: QUEtiapine FUMARATE 25 MG TAB PO SCH (20:14)
[2017-11-28] VITALS (13 sets, daily range): BP systolic 94–115; BP diastolic 50–66; PULSE 69–108; RESP 16–20; TEMP 98.3–99.3; O2SAT 95–100
[2017-11-28] MEDS: SODIUM CHLOR 0.9% 1000 ML INJ 1,000 ML IV SCH ×2 (03:23→08:54)
[2017-11-28] MEDS: MORPHINE SULFATE 2 MG/ML INJ IV PRN ×3 (03:23→22:32)
[2017-11-28] MEDS: CHLORHEXIDINE GLUCONATE 2 % 1 PACK (2 CLOTHS) TOP SCH ×2 (03:23→20:37)
[2017-11-28] MEDS: INSULIN NovoLIN REGULAR SUPPLEMENTAL SCALE SQ SCH ×5 (03:33→20:00)
[2017-11-28 03:50] LABS: ENDOMYSIAL AB SCREEN ND (NEGATIVE); ENDOMYSIAL AB TITER ND (<1:5)
[2017-11-28] MEDS: ALBUMIN 25% INJ 100 ML IV SCH ×2 (08:51→22:29)
[2017-11-28] MEDS: methylPREDNISolone SOD SUCC 40 MG/1 ML VIAL IV PUSH SCH ×2 (08:51→20:39)
[2017-11-28] MEDS: BUDESONIDE 3 MG PO SCH (08:53)
[2017-11-28] MEDS: MESALAMINE 250 MG CAP PO SCH ×4 (08:53→22:28)
[2017-11-28] MEDS: DOCUSATE SODIUM 50 MG/SENNA 8.6 MG TAB PO SCH ×2 (08:53→20:37)
[2017-11-28] MEDS: SODIUM CHLORIDE 0.9% FLUSH 10 ML FLUSH IV FLUSH SCH ×2 (09:00→21:00)
[2017-11-28] MEDS: PANTOPRAZOLE SODIUM 40 MG VIAL IV PUSH SCH ×2 (11:00→22:29)
--- NOTE | 2017-11-28 12:09 | HHI.CCPN ---
Subjective Remarks/Hospital Course 52-year-old very pleasant female presents for evaluation of abdominal pain and nausea and bloating. She has history of Crohn's disease. She was in the office of referred her to emergency department. He recommended admitting her for IV fluid hydration and nausea control and he will need to do scoping of her in the hospital. He says she is not able to do bowel prep outpatient. Due to severe dehydration borderline anemia, and requirement of blood transfusions the patient has been admitted to ICU. 11/23 Patient is lying in bed in NAD. On room air oxygen. s/p 2units PRBC transfusion in ED. 11/24 No events overnight. Patient refused labs this morning . For panendoscopy today. Afebrile. 11/25: Resting in bed in no acute distress. On 2 L nasal cannula. Plan for endoscopy on Monday. Complaining of anxiety. Requesting CT brain. Subjective 11/26: Currently on room air. Plan for MRA abdomen today. 4 bowel movement overnight. Currently having left leg pain replaced. CT brain revealed no acute intracranial findings overnight. Started on quetiapine tonight per psychiatric recommendations. 11/27/17. Lying in bed, no acute distress, MRA abdomen pending. Hb 7.6 today. Abdominal pain improving 11/28/17: Abdominal pain and diarrhea is improving. Patient received IV Solu- Medrol in the morning but willing to take now. Hemoglobin ordered pending Objective Vital Signs Date Time Temp Pulse Resp B/P (MAP) Pulse Ox O2 Delivery O2 Flow Rate FiO2 11/28/17 06:00 86 11/28/17 04:00 98.7 16 100/58 (72) 97 11/26/17 19:06 21 Intake and Output 11/28/17 11/28/17 11/29/17 08:00 16:00 00:00 Intake Total 2110 ml Balance 2110 ml Result Diagram: 11/27/17 0430 11/27/17 0430 Imaging Last Impressions Head CT 11/25/17 0000 Signed Impressions: Service Date/Time: Saturday, November 25, 2017 23:18 - CONCLUSION: Normal examination for a patient of this age. Chronic left maxillary sinus disease. Jaswinder Dao MD Abdomen/Pelvis CT 11/23/17 0000 Signed Impressions: Service Date/Time: November 09:34 - CONCLUSION: 1. Abnormal nonobstructive bowel gas pattern with fairly diffuse colonic thickening. There is small amount of fluid in the right side of the pelvis. 2. Severe hepatic steatosis. 3. Stable appearance of kidneys with cysts and calcifications the left kidney. 4. Status post cholecystectomy. Jorge Pardo MD Objective Remarks GENERAL: 52-year-old female currently resting in bed in no acute distress SKIN: Warm and dry. No rash HEAD: Atraumatic. Normocephalic. EYES: Pupils equal and round about 3 millimeters bilaterally and reactive. No scleral icterus. No injection or drainage. ENT: No nasal bleeding or discharge. Mucous membranes pink and moist. NECK: Trachea midline. No JVD. CARDIOVASCULAR: Regular rate and rhythm. No murmur appreciated. RESPIRATORY: No accessory muscle use. Clear to auscultation. Breath sounds equal bilaterally. GASTROINTESTINAL: Abdomen soft, non-tender, nondistended. Hepatic and splenic margins not palpable. MUSCULOSKELETAL: No obvious deformities. No significant peripheral edema. NEUROLOGICAL: Awake and alert. No obvious cranial nerve deficits. Motor grossly within normal limits. Normal speech. A/P Assessment and Plan Neuro/Psych: Anxiety disorder NOS Acetaminophen 650 mg by mouth every 6 hours fever/pain 1-5 Currently on morphine sulfate 2 mg every 2 hours. Pain Psychiatry consulted. Possible ICU delirium. Started on quetiapine [address] brain 11/25 revealed left ethmoid sinusitis otherwise no acute intracranial abnormalities Pulm: Oxygen PRN keep sat >92% Incentive spirometry while awake CV: Monitor HR and BP keep MAP>65mmHg Continue with IVF. Normal saline at 75 cc an hour FEN/Renal/: Hypocalcemia Hypophosphatemia Left renal cyst/calcification s/p 1 g calcium chloride, 30 mmol potassium phosphate and 1 g mag sulfate IV 1 now. Follow-up electrolytes in a.m. Monitor urine output Accurate I's and O's IVF NS@75ml/hr GI: Crohn's disease exacerbation Hepatic steatosis Hypoalbuminemia Continue pantoprazole 40mg BID. On Mesalamine 1 g 4 times a day and methylprednisolone 40mg twice daily for her Crohn disease Also on budesonide 9 mg daily/home medication Currently refusing panendoscopy. Staying now she'll do it as an outpatient "next Monday" 1/22 Follow-up on MRA abdomen ordered 11/25, done yesterday no evidence of mesenteric ischemia CT abdomen/pelvis: Abnormal nonobstructive bowel gas pattern with fairly diffuse colonic thickening. There is small amount of fluid in the right side of the pelvis. Severe hepatic steatosis. Stable appearance of kidneys with cysts and calcifications left kidney. Status post cholecystectomy. ID: Monitor for signs of infections ( Fever, WBC) Heme: Leukocytosis Normocytic anemia Monitor CBC s/p transfusion 2units PRBC in ED No indications for transfusion of blood products at this time Endo: Elevated TSH KECIA positive. Sliding scale insulin with Novolin R with Accu-Cheks to maintain euglycemia/low regimen every 4 hours TSH is 4.87. Free T4 normal. Low free T3. Likely benefit from low-dose levothyroxine 25 mg daily. MSK: Osteoarthritis Hip dysplasia PT evaluate and treat GI Prophylaxis- on pantoprazole twice a day DVT prophylaxis- SCD, not on pharmacological anticoagulation due to anemia /GI bleed Level 2. Patient is stable from a critical care medicine standpoint. Hospitalist consult ordered for 11/27. Transfer from ICU when bed available. Paul Wells MD Nov 28, 2017 12:09
--- NOTE | 2017-11-28 12:41 | HHI.PYPN ---
Subjective Remarks Patient was seen today for psychiatric reevaluation. Patient was found in the ICU, no agitation, no behavioral dysregulation observed, however the patient is very talkative, at times becomes very disorganized, she is states that she wants to live this floor because her and the nurses have a constipation against her to keep her here. He says that the nurse gave her medication for abdominal pain "but I don't know if she really gave some kind of poison and I am very concerned". Patient reports poor sleep, decreased level of concentration, but denies anhedonia, denies hopelessness, denies helplessness, she appears to be confused and internally stimulated, but she is oriented 3. As per conversation with nursing charge, the patient has been making multiple accusatory statements, talking nonsense, very disorganized. However the patient has not been agitated or aggressive. She is compliant with medications , no significant side effects. Review of Systems Except as stated in HPI: all other systems reviewed are Neg Mental Status Examination Appearance: Appropriate Consciousness: Alert Orientation: Person, Place, Date/Time Speech: Unremarkable Language: Adequate Fund of Knowledge: Inadequate Attention and Concentration: Adequate Memory: Impaired Mood: Sad Affect: Labile Thought Process & Associations: Tangential Thought Content: Appropriate Hallucination Type: None Delusion Type: Paranoid Suicidal Ideation: No Suicidal Plan: No Suicidal Intention: No Homicidal Ideation: No Homicidal Plan: No Homicidal Intention: No Insight: Fair Judgment: Impulsive Results Labs Date/Time Source Procedure Growth Status 11/23/17 18:40 Stool Stool Cryptosporidium Exam - Final NEGATIVE - NO CRYPTOSPORIDIUM ANTIGEN... Complete 11/23/17 18:40 Stool Stool Giardia Antigen (PIETER) - Final NEGATIVE - NO GIARDIA ANTIGEN DETECTE... Complete Vitals/IOs Vital Signs Date Time Temp Pulse Resp B/P (MAP) Pulse Ox O2 Delivery O2 Flow Rate FiO2 11/28/17 12:00 98.5 11/28/17 06:00 86 11/28/17 04:00 16 97 11/26/17 19:06 21 Intake and Output 11/28/17 11/28/17 11/29/17 08:00 16:00 00:00 Intake Total 2110 ml Balance 2110 ml Assessment & Plan Problem List: (1) Delirium due to general medical condition ICD Codes: F05 - Delirium due to known physiological condition (2) GI bleed ICD Codes: K92.2 - Gastrointestinal hemorrhage, unspecified Status: Acute Assessment & Plan: Patient continues to be disorganized, paranoid, will increase Seroquel to 50 g twice a day. I will follow up. Source of psychosis unclear at the moment. Steroids might be related with this presentation. Assessment & Plan Estimated LOS: days Justification for Cont. Inpt. Patient may need psychiatric admission and psychosis persist beyond medical clearance. Problem Qualifiers (1) GI bleed: Qualified Codes: K62.5 - Hemorrhage of anus and rectum Ino Carrasco MD Nov 28, 2017 12:41
[2017-11-28 12:47] LABS: SMOOTH MUSCLE TOTAL AUTOABS Negative (Negative)
[2017-11-28] MEDS: SODIUM CHLORIDE 0.9% FLUSH 10 ML FLUSH IV FLUSH PRN (13:07)
[2017-11-28 14:10] LABS: ALPHA-1-ANTITRYPSIN 173 mg/dL (100 - 190)
[2017-11-28] MEDS: QUEtiapine FUMARATE 25 MG TAB PO SCH (20:40)
[2017-11-29] VITALS (11 sets, daily range): BP systolic 108–128; BP diastolic 58–72; PULSE 78–97; RESP 16–20; TEMP 98–99.6; O2SAT 95–100
[2017-11-29] MEDS: MORPHINE SULFATE 2 MG/ML INJ IV PRN ×6 (01:46→22:51)
[2017-11-29] MEDS ORDERED: ACETAMINOPHEN/HYDROcodone 325 MG/5 MG TAB PO ONE (02:30)
--- NOTE | 2017-11-29 02:59 | RADRPT ---
EXAM DATE/TIME: 11/29/2017 02:38 [facility] COMPARISON: No previous studies available for comparison. INDICATIONS : Right elbow pain, no known trauma. MEDICAL HISTORY : None. SURGICAL HISTORY : None. ENCOUNTER: Initial ACUITY: 1 day PAIN SCORE: 10/10 LOCATION: Right elbow FINDINGS: No fractures seen. The elbow is normally aligned. There is minimal hypertrophic change of the posteri or olecranon. A significant effusion is not seen. There is soft tissue swelling seen at the dorsal as pect of the elbow which can suggest olecranon bursitis. CONCLUSION: Soft tissue swelling posteriorly which could represent olecranon bursitis. Russell Rudd MD on November 29, 2017 at 2:56 Board Certified Radiologist. This report was verified electronically.
[2017-11-29] MEDS: INSULIN NovoLIN REGULAR SUPPLEMENTAL SCALE SQ SCH ×6 (04:00→20:00)
[2017-11-29] MEDS: SODIUM CHLOR 0.9% 1000 ML INJ 1,000 ML IV SCH (04:58)
[2017-11-29] MEDS: BUDESONIDE 3 MG PO SCH (08:05)
[2017-11-29] MEDS: MESALAMINE 250 MG CAP PO SCH ×4 (08:06→22:49)
[2017-11-29] MEDS: QUEtiapine FUMARATE 25 MG TAB PO SCH ×3 (08:06→22:49)
[2017-11-29] MEDS: ALBUMIN 25% INJ 100 ML IV SCH (08:06)
[2017-11-29] MEDS: methylPREDNISolone SOD SUCC 40 MG/1 ML VIAL IV PUSH SCH (08:07)
[2017-11-29] MEDS: DOCUSATE SODIUM 50 MG/SENNA 8.6 MG TAB PO SCH ×2 (08:09→21:00)
--- NOTE | 2017-11-29 10:47 | HHI.PR ---
Subjective Remarks Patient reports feeling 10 times better since receiving the transfusion overnight. She refused Solu-Medrol. States she is having normal bowel movements. She is still refusing endoscopy. She states she will have it done as outpatient. Patient complaint of right upper extremity pain and swelling today. Labs pending this morning. Objective Vitals Vital Signs Date Time Temp Pulse Resp B/P (MAP) Pulse Ox O2 Delivery O2 Flow Rate FiO2 11/29/17 08:59 98.7 85 20 114/67 (83) 98 11/29/17 06:46 98.8 95 16 108/66 98 11/29/17 06:44 98.3 78 18 98 11/29/17 03:59 99.2 96 18 110/65 98 11/29/17 03:40 98.5 97 20 114/67 97 11/29/17 01:15 98.0 87 18 110/58 (75) 100 11/28/17 22:19 99.3 88 16 104/66 98 11/28/17 20:46 99.1 86 18 106/60 (75) 100 11/28/17 18:53 99.1 88 18 94/50 100 11/28/17 18:20 98.9 94 18 101/59 99 11/28/17 16:41 98.3 108 20 115/58 (77) 96 11/28/17 12:50 98.7 102 20 112/53 (72) 100 11/28/17 12:00 98.5 I/O 11/28/17 11/28/17 11/28/17 11/29/17 11/29/17 11/29/17 07:00 15:00 23:00 07:00 15:00 23:00 Intake Total 2110 ml 410 ml 1640 ml Balance 2110 ml 410 ml 1640 ml Intake Oral 960 ml 240 ml IV Total 1150 ml 100 ml Packed Cells 400 ml 400 ml Blood Product IV Normal Saline Flush 10 ml 900 ml # Voids 5 1 5 # Bowel Movements 4 2 2 Result Diagram: 11/28/17 1335 11/27/17 0430 Objective Remarks GENERAL: Obese female, in no apparent distress. CARDIOVASCULAR: Normal rate and regular rhythm without murmurs, gallops, or rubs. RESPIRATORY: Good respiratory efforts. Breath sounds equal and clear to auscultation bilaterally. GASTROINTESTINAL: Abdomen soft, non-tender, non-distended. Normal active bowel sounds MUSCULOSKELETAL: Right upper extremity is swollen from below the wrist up to above the elbow joint. It is tender to palpation. Range of motion somewhat limited secondary to pain NEURO: Alert & Oriented x4 to person, place, time, situation. Moves all ext x4. Generalized weakness PSYCH: Calm A/P Assessment and Plan 52-year-old female admitted with GI bleeding, colitis likely related to Crohn's disease, hypotension: Crohn's disease exacerbation Hepatic steatosis Hypoalbuminemia GI following - Patient is refusing Solu-Medrol. Discontinue. She resumed her home dose Entocort. On Mesalamine 1 g 4 times a day for her Crohn disease Also on budesonide 9 mg daily/home medication Currently refusing panendoscopy. Patient states she will have the procedure outpatient. Follow-up on MRA abdomen ordered 11/25, done yesterday no evidence of mesenteric ischemia CT abdomen/pelvis: Abnormal nonobstructive bowel gas pattern with fairly diffuse colonic thickening. There is small amount of fluid in the right side of the pelvis. Severe hepatic steatosis. Stable appearance of kidneys with cysts and calcifications left kidney. Status post cholecystectomy. 11/29 symptoms resolved. Continue home dose medications. Delirium: Probably related to steroids. - Appreciate psychiatry following. - Started on quetiapine [address] brain 11/25 revealed left ethmoid sinusitis otherwise no acute intracranial abnormalities 11/29 mental status seems to have returned to baseline. Solu-Medrol discontinued. Right upper extremity swelling and pain: - X-ray negative for fracture, questionable olecranon bursitis. Unclear if she had IV infiltration. - Obtain right upper extremity Doppler to rule out DVT. Coy wrap to help with swelling. - Pain control. Hypocalcemia Hypophosphatemia Left renal cyst/calcification s/p 1 g calcium chloride, 30 mmol potassium phosphate Follow-up electrolytes. Labs pending. Monitor urine output Leukocytosis Normocytic anemia Monitor CBC s/p transfusion 2units PRBC in ED No indications for transfusion of blood products at this time Elevated TSH KECIA positive. Sliding scale insulin with Novolin R with Accu-Cheks to maintain euglycemia/low regimen every 4 hours TSH is 4.87. Free T4 normal. Low free T3. Advise outpatient repeat thyroid studies. Osteoarthritis Hip dysplasia Continue physical therapy. GI Prophylaxis-switch to Pepcid twice a day. Patient reports a history of colitis with PPI. DVT prophylaxis- SCD, not on pharmacological anticoagulation due to anemia /GI bleed Discharge Planning PT to re eval. to see if the patient can go home with HH PT vs rehab. If hemoglobin remains stable tomorrow, will probably be ready for discharge. Jose Alfredo Carr MD Nov 29, 2017 10:47
[2017-11-29] MEDS: SODIUM CHLORIDE 0.9% FLUSH 10 ML FLUSH IV FLUSH SCH ×2 (11:42→22:50)
--- NOTE | 2017-11-29 12:31 | HHI.GIFU ---
Subjective Remarks Pt resting in bed in NAD. c/o RUE pain and swelling. No GI complaints. says her diarrhea is improved, abd pain imiproved. Taking entocort from home. her hgb dropped last night and she is s/p 1 unit blood. She still refuses EGD and colonoscopy (Mary Jane Villanueva) Objective Vitals I&O Vital Signs Date Time Temp Pulse Resp B/P (MAP) Pulse Ox O2 Delivery O2 Flow Rate FiO2 11/29/17 12:22 99.1 95 20 120/62 (81) 99 11/29/17 11:10 98 11/29/17 08:59 98.7 85 20 114/67 (83) 98 11/29/17 08:06 18 11/29/17 06:46 98.8 95 16 108/66 98 11/29/17 06:44 98.3 78 18 98 11/29/17 03:59 99.2 96 18 110/65 98 11/29/17 03:40 98.5 97 20 114/67 97 11/29/17 01:15 98.0 87 18 110/58 (75) 100 11/28/17 22:19 99.3 88 16 104/66 98 11/28/17 20:46 99.1 86 18 106/60 (75) 100 11/28/17 18:53 99.1 88 18 94/50 100 11/28/17 18:20 98.9 94 18 101/59 99 11/28/17 16:41 98.3 108 20 115/58 (77) 96 11/28/17 12:50 98.7 102 20 112/53 (72) 100 I/O 11/28/17 11/28/17 11/28/17 11/29/17 11/29/17 11/29/17 07:00 15:00 23:00 07:00 15:00 23:00 Intake Total 2110 ml 410 ml 1640 ml Balance 2110 ml 410 ml 1640 ml Intake Oral 960 ml 240 ml IV Total 1150 ml 100 ml Packed Cells 400 ml 400 ml Blood Product IV Normal Saline Flush 10 ml 900 ml # Voids 5 1 5 # Bowel Movements 4 2 2 Laboratory Laboratory Tests Test 11/28/17 13:35 Hemoglobin 6.9 Date/Time Source Procedure Growth Status 11/23/17 18:40 Stool Stool Cryptosporidium Exam - Final NEGATIVE - NO CRYPTOSPORIDIUM ANTIGEN... Complete 11/23/17 18:40 Stool Stool Giardia Antigen (PIETER) - Final NEGATIVE - NO GIARDIA ANTIGEN DETECTE... Complete Imaging Last Impressions Elbow X-Ray 11/29/17 0000 Signed Impressions: Service Date/Time: Wednesday, November 29, 2017 02:38 - CONCLUSION: Soft tissue swelling posteriorly which could represent olecranon bursitis. Russell Rudd MD Abdomen Magnetic Resonance Angio 11/27/17 0000 Signed Impressions: Service Date/Time: Monday, November 27, 2017 11:12 - CONCLUSION: 1. The celiac SMA and DEEPTI are well visualized in their proximal segments and are widely patent. 2. The limited portion of colon visualized appears diffusely thickening suggesting a colitis Watson Gonzalez MD Head CT 11/25/17 0000 Signed Impressions: Service Date/Time: Saturday, November 25, 2017 23:18 - CONCLUSION: Normal examination for a patient of this age. Chronic left maxillary sinus disease. Jaswinder Dao MD Abdomen/Pelvis CT 11/23/17 0000 Signed Impressions: Service Date/Time: November 09:34 - CONCLUSION: 1. Abnormal nonobstructive bowel gas pattern with fairly diffuse colonic thickening. There is small amount of fluid in the right side of the pelvis. 2. Severe hepatic steatosis. 3. Stable appearance of kidneys with cysts and calcifications the left kidney. 4. Status post cholecystectomy. Jorge Pardo MD Physical Exam HEENT: Normocephalic; atraumatic CHEST: Even/unlabored CARDIAC: RRR ABDOMEN: Distended, soft, nontender, bowel sounds active EXTREMITIES: No clubbing, cyanosis, or edema. SKIN: Normal; no rash; no jaundice. LMFT: alert, seems mildly confused (Mary Jane VillanuevaP) Assessment and Plan Plan ASSESSMENT - Crohn's disease- acute flare- on Pentasa and Entocort outpatient. Last colonoscopy in 2011, findings consistent with Crohns. Pts initial complaints included nausea, vomiting, abdominal pain and diarrhea. Today she denies any N/V. Abdominal pain is improving, still mild tenderness with palpation. Reports stool consistency is improving since starting steroids. Recommended EGD and colonoscopy, pt refused both procedures stating she would like to have them done outpatient when she is rehydrated. Dr. Rausch spoke with the pt in length regarding risks of not having procedures done. Pt verbalizes understanding of risks. On Sulumedrol - Diarrhea- most likely secondary to Crohns flare. Stool culture negative for enteric pathogens. C. Diff negative. Cryptosporidium and Giardia pending. TSH elevated- 4.8. - BRBPR - reports of some on toilet paper after wiping, denies any more episodes since being in the hospital. - Anemia - Microcytic, hypochromic. H/H currently 8.8/28 S/P 2 U PRBCs transfused Nov 22. CT abdomen and pelvis W IV contrast (11/23) noted --> Abdominal nonobstructive bowel gas pattern with fairy diffuse colonic thickening. There is small amount of fluid in the right side of the pelvis. Severe hepatic steatosis. Stable appearance of kidneys with cysts and calcifications in the left kidney. Status post cholecystectomy. (11/26)- Pt has no GI complaints at this time- states diarrhea now only once a day and becoming more formed. Still refusing EGD/colonoscopy tomorrow. KECIA positive- titer, pattern and interpretation pending. ASMA, AMA celiac pane, IgA, hepatitis panel still pending. H/H dropped to 7.4/22.8. PT denies BRBPR and melena, still refusing procedures. (11/27)- Diarrhea resolved. MRA abdomen W contrast (11/27) --> The celiac SMA and DEEPTI are well visualized in their proximal segments and are widely patent. The limited portion of colon visualized appears diffusely thickening suggesting a colitis. Pt still refusing procedures, no GI complaints. She states her will be bringing in her Entocort because she does not want to be on Solumedrol anymore. KECIA positive- titer 1:40. Celiac panel , AMA, ASMA pending. 11/29/17 - Pt with no GI complaints. On entocort from home. Still refusing procedures. decrease Hgb last night was 6.9, s/p 1 x PRBC, will check HH. PLAN - rck HH - Continue Solumedrol - Monitor stool count - Notify GI of any active GI bleeding - Please notify GI if pt decides to have EGD/colonoscopy - Monitor H/H - Transfuse as needed - Continue Protonix - Supportive care Pt has been seen and examined by myself and Dr. Jacobs and this note is written on his behalf (Mary Jane Villanueva) Physician Comments Patient seen and examined Agree with above Continue with current supportive care Monitor labs Not much to add at this point from a GI standpoint therefore we will sign off Please reconsult as needed (Yonny Jacobs MD) Mary Jane Villanueva Nov 29, 2017 12:31 Yonny Jacobs MD Nov 29, 2017 23:46
[2017-11-29 14:44] LABS: AUTOMATED NEUTROPHIL # 6.1 TH/MM3 (1.8-7.7); BASOPHIL % 0.3 % (0.0-2.0); EOSINOPHIL % 0.4 % (0.0-4.0); HEMATOCRIT 29.6 % (35.0-46.0); LYMPH % 19.8 % (9.0-44.0); LYMPHOCYTE # 1.7 TH/MM3 (1.0-4.8); MEAN CELL VOLUME 80.3 FL (80.0-100.0); MEAN CORPUSCULAR HEMOGLOBIN 27.2 PG (27.0-34.0); MEAN CORPUSCULAR HGB CONC 33.9 % (32.0-36.0); MEAN PLATELET VOLUME 6.6 FL (7.0-11.0); MONO % 7.1 % (0.0-8.0); MONOCYTE # 0.6 TH/MM3 (0-0.9); NEUT % 72.4 % (16.0-70.0); PLATELET COUNT 327 TH/MM3 (150-450); RED BLOOD COUNT 3.69 MIL/MM3 (4.00-5.30); RED CELL DISTRIBUTION WIDTH 19.3 % (11.6-17.2); WHITE BLOOD COUNT 8.4 TH/MM3 (4.0-11.0)
--- NOTE | 2017-11-29 14:48 | RADRPT ---
EXAM DATE/TIME: 11/29/2017 13:58 [facility] COMPARISON: No previous studies available for comparison. INDICATIONS : Right arm swelling. MEDICAL HISTORY : Ulcers. Gastroesophageal reflux disease. CHF. UTI. Kidney stones. Arthritis. Osteoporosis. SURGICAL HISTORY : Tonsillectomy. Cholecystectomy. Blood transfusions. ENCOUNTER: Initial ACUITY: 2 day PAIN SCORE: 10/10 LOCATION: Right arm. FINDINGS: There are abnormal intraluminal echoes within the distal cephalic vein and in the distal basilic vein . These vessels also demonstrate lack of normal blood flow. The remaining veins of the right upper ex tremity including the internal jugular vein are patent. CONCLUSION: 1. There is venous thrombosis of the distal right cephalic and basilic veins. 2. The deep veins of the right upper extremity including the internal jugular vein are patent. Russell Antoine MD on November 29, 2017 at 14:43 Board Certified Radiologist. This report was verified electronically.
[2017-11-29 15:07] LABS: ALBUMIN 3.1 GM/DL (3.4-5.0); BICARBONATE 22.6 MEQ/L (21.0-32.0); CALCIUM 6.1 MG/DL (8.5-10.1); CREATININE 0.51 MG/DL (0.50-1.00)
[2017-11-29 15:11] LABS: TOTAL PROTEIN 6.1 GM/DL (6.4-8.2)
[2017-11-29 15:26] LABS: CALCIUM-PROTEIN CORRECTED 6.6 MG/DL (8.5-10.1)
[2017-11-29] MEDS ORDERED: CALCIUM GLUCONATE INJ 1 GM in SODIUM CHLORIDE 0.9% INJ 90 ML IV ONE (16:30)
[2017-11-29 19:51] LABS: CERULOPLASMIN 17 mg/dL (18-53)
[2017-11-29] MEDS: ACETAMINOPHEN/HYDROcodone 325 MG/5 MG TAB PO PRN (19:56)
[2017-11-29] MEDS ORDERED: CALCIUM CARBONATE 500 MG CHEWABLE TAB CHEW SCH (21:00)
[2017-11-29] MEDS: FAMOTIDINE 20 MG TAB PO SCH (22:49)
[2017-11-29] MEDS: CHLORHEXIDINE GLUCONATE 2 % 1 PACK (2 CLOTHS) TOP SCH (22:51)
[2017-11-30 00:13] VITALS: BP 118/78; PULSE 94; RESP 17; TEMP 98.9; O2SAT 96
[2017-11-30] MEDS: INSULIN NovoLIN REGULAR SUPPLEMENTAL SCALE SQ SCH ×6 (04:00→20:00)
[2017-11-30 04:56] VITALS: BP 119/63; PULSE 90; RESP 17; TEMP 100.1; O2SAT 96
[2017-11-30] MEDS: MORPHINE SULFATE 2 MG/ML INJ IV PRN ×4 (05:50→18:34)
[2017-11-30 07:42] LABS: HEMATOCRIT 31.5 % (35.0-46.0); HEMOGLOBIN 10.5 GM/DL (11.6-15.3); MEAN CELL VOLUME 80.3 FL (80.0-100.0); MEAN CORPUSCULAR HEMOGLOBIN 26.7 PG (27.0-34.0); MEAN CORPUSCULAR HGB CONC 33.3 % (32.0-36.0); MEAN PLATELET VOLUME 6.6 FL (7.0-11.0); PLATELET COUNT 365 TH/MM3 (150-450); RED BLOOD COUNT 3.92 MIL/MM3 (4.00-5.30); RED CELL DISTRIBUTION WIDTH 19.1 % (11.6-17.2); WHITE BLOOD COUNT 10.5 TH/MM3 (4.0-11.0)
[2017-11-30 07:59] LABS: BICARBONATE 22.3 MEQ/L (21.0-32.0); CALCIUM 6.3 MG/DL (8.5-10.1); CREATININE 0.45 MG/DL (0.50-1.00)
[2017-11-30] MEDS: ACETAMINOPHEN/HYDROcodone 325 MG/5 MG TAB PO PRN ×2 (08:02→15:24)
[2017-11-30 08:15] LABS: TOTAL PROTEIN 5.5 GM/DL (6.4-8.2)
[2017-11-30 08:42] VITALS: BP 128/78; PULSE 91; RESP 20; TEMP 99.2; O2SAT 98
[2017-11-30] MEDS: MESALAMINE 250 MG CAP PO SCH ×4 (08:58→21:54)
[2017-11-30] MEDS: BUDESONIDE 3 MG PO SCH (09:00)
[2017-11-30] MEDS ORDERED: CALCIUM CARBONATE 1.25 GM (CA 500 MG) TAB PO SCH (09:00)
[2017-11-30] MEDS ORDERED: POTASSIUM CHLORIDE 10 MEQ CONTROLLED RELEASE TAB PO ONE (09:00)
[2017-11-30] MEDS: FAMOTIDINE 20 MG TAB PO SCH ×2 (09:00→21:54)
[2017-11-30] MEDS: DOCUSATE SODIUM 50 MG/SENNA 8.6 MG TAB PO SCH ×2 (09:00→21:56)
[2017-11-30] MEDS: QUEtiapine FUMARATE 25 MG TAB PO SCH ×2 (09:00→21:56)
[2017-11-30] MEDS ORDERED: CALCIUM GLUCONATE INJ 1 GM in SODIUM CHLORIDE 0.9% INJ 90 ML IV ONE (10:00)
[2017-11-30 11:56] VITALS: BP 106/55; PULSE 96; RESP 20; TEMP 100.3; O2SAT 99
[2017-11-30] MEDS: SODIUM CHLORIDE 0.9% FLUSH 10 ML FLUSH IV FLUSH SCH ×2 (12:31→21:55)
--- NOTE | 2017-11-30 13:21 | HHI.PR ---
Subjective Remarks Patient reports she is feeling better. Right arm swelling is about the same. She states she is overdue for vitamin B-12 that she normally gets outpatient. She reports her pain is not controlled and is requesting Lortab 7.5. She states she is unable to take oral potassium replacement. Patient is refusing SNF placement. She wants to return home. Objective Vitals Vital Signs Date Time Temp Pulse Resp B/P (MAP) Pulse Ox O2 Delivery O2 Flow Rate FiO2 11/30/17 11:56 100.3 96 20 106/55 (72) 99 11/30/17 08:42 99.2 91 20 128/78 (95) 98 11/30/17 04:56 100.1 90 17 119/63 (81) 96 11/30/17 00:13 98.9 94 17 118/78 (91) 96 11/29/17 20:31 95 21 11/29/17 20:30 99.6 95 17 128/71 (90) 96 11/29/17 15:38 99.5 85 20 114/72 (86) 98 11/29/17 14:10 18 I/O 11/29/17 11/29/17 11/29/17 11/30/17 11/30/17 11/30/17 07:00 15:00 23:00 07:00 15:00 23:00 Intake Total 1640 ml 720 ml 100 ml 720 ml Balance 1640 ml 720 ml 100 ml 720 ml Intake Oral 240 ml 720 ml 720 ml IV Total 100 ml 100 ml Packed Cells 400 ml Blood Product IV Normal Saline Flush 900 ml # Voids 5 4 7 # Bowel Movements 2 1 4 Result Diagram: 11/30/17 0610 11/30/17 0610 Objective Remarks GENERAL: Obese female, in no apparent distress. CARDIOVASCULAR: Normal rate and regular rhythm without murmurs, gallops, or rubs. RESPIRATORY: Good respiratory efforts. Breath sounds equal and clear to auscultation bilaterally. GASTROINTESTINAL: Abdomen soft, non-tender, non-distended. Normal active bowel sounds MUSCULOSKELETAL: Right upper extremity is swollen from below the wrist up to above the elbow joint. It is tender to palpation. Range of motion somewhat limited secondary to pain NEURO: Alert & Oriented x4 to person, place, time, situation. Moves all ext x4. Generalized weakness PSYCH: Calm A/P Assessment and Plan 52-year-old female admitted with GI bleeding, colitis likely related to Crohn's disease, hypotension: Crohn's disease exacerbation Hepatic steatosis Hypoalbuminemia GI following - Patient is refusing Solu-Medrol which was discontinued she resumed her home dose Entocort. On Mesalamine 1 g 4 times a day for her Crohn disease Also on budesonide 9 mg daily/home medication Currently refusing panendoscopy. Patient states she will have the procedure outpatient. Follow-up on MRA abdomen ordered 11/25, done yesterday no evidence of mesenteric ischemia CT abdomen/pelvis: Abnormal nonobstructive bowel gas pattern with fairly diffuse colonic thickening. There is small amount of fluid in the right side of the pelvis. Severe hepatic steatosis. Stable appearance of kidneys with cysts and calcifications left kidney. Status post cholecystectomy. 11/29 symptoms resolved. Continue home dose medications. Delirium: Probably related to steroids. - Appreciate psychiatry following. - Started on quetiapine [address] brain 11/25 revealed left ethmoid sinusitis otherwise no acute intracranial abnormalities 11/29 mental status seems to have returned to baseline. Solu-Medrol discontinued. Right upper extremity superficial thrombosis/phlebitis: Likely secondary to IV catheter. - X-ray negative for fracture, questionable olecranon bursitis. - Right upper extremity ultrasound revealed basilic and cephalic vein thrombosis. - Pain control. - Keep arm elevated and wrapped to help with swelling. Hypocalcemia Hypokalemia - Replace potassium and calcium. - Continue to monitor. Leukocytosis Normocytic anemia Monitor CBC s/p transfusion total of 3 units. H&H stable. Continue to monitor Elevated TSH KECIA positive. Sliding scale insulin with Novolin R with Accu-Cheks to maintain euglycemia/low regimen every 4 hours TSH is 4.87. Free T4 normal. Low free T3. Advise outpatient repeat thyroid studies. Osteoarthritis Hip dysplasia Continue physical therapy. - Pain control GI Prophylaxis-switch to Pepcid twice a day. Patient reports a history of colitis with PPI. DVT prophylaxis- SCD, not on pharmacological anticoagulation due to anemia /GI bleed Discharge Planning Colorectal electrolytes. Probable discharge tomorrow. Jose Alfredo Carr MD Nov 30, 2017 13:21
[2017-11-30] MEDS: POTASSIUM CHLOR 20 MEQ PREMIX 100 ML IV SCH ×2 (15:24→23:41)
[2017-11-30] MEDS: CALCIUM CARBONATE 500 MG CHEWABLE TAB CHEW SCH ×2 (15:25→21:55)
[2017-11-30 15:51] VITALS: BP 123/62; PULSE 99; RESP 20; TEMP 99.3; O2SAT 99
[2017-11-30] MEDS ORDERED: CYANOCOBALAMIN 1000 MCG/ML VIAL IM ONE (16:15)
[2017-11-30] MEDS ORDERED: POTASSIUM CHLORIDE 10 MEQ CONTROLLED RELEASE TAB PO SCH (21:00)
[2017-11-30 21:15] VITALS: BP 115/68; PULSE 93; RESP 18; TEMP 99.5; O2SAT 98
[2017-11-30] MEDS: ACETAMINOPHEN/HYDROcodone 325 MG/7.5 MG TAB PO PRN (21:58)
[2017-12-01] VITALS: BP 118/65; PULSE 89; RESP 19; TEMP 99; O2SAT 99
[2017-12-01 03:51] LABS: MITOCHONDRIAL ABS LESS THAN 20.0 U (<=20.0)
[2017-12-01] MEDS: CHLORHEXIDINE GLUCONATE 2 % 1 PACK (2 CLOTHS) TOP SCH (04:00)
[2017-12-01] MEDS: INSULIN NovoLIN REGULAR SUPPLEMENTAL SCALE SQ SCH ×4 (04:00→11:43)
[2017-12-01 04:30] VITALS: BP 114/64; PULSE 80; RESP 17; TEMP 98.1; O2SAT 99
[2017-12-01] MEDS: MORPHINE SULFATE 2 MG/ML INJ IV PRN ×2 (04:30→09:24)
[2017-12-01] MEDS: ACETAMINOPHEN/HYDROcodone 325 MG/7.5 MG TAB PO PRN ×2 (07:46→14:36)
[2017-12-01 08:00] VITALS: BP 126/74; PULSE 93; RESP 19; TEMP 98.4; O2SAT 100
--- NOTE | 2017-12-01 08:42 | HHI.FF ---
Face to Face Verification Diagnosis: (1) GI bleed (2) Hypotension (3) Delirium due to general medical condition (4) History of Crohn's disease (5) Colitis (6) Anemia Physical Therapy Order: Evaluate and Treat, Improve ambulation, Strength and gait training Home Health Nursing Order: Medical education Signs/symptoms of disease process Nursing assessment with vital signs I have seen patient Kelly Garsia on 12/01/17. My clinical findings support the need for the requested home health care services because: Deconditioned w/ increased weakness Need for psychosocial assistance I certify that my clinical findings support that this patient is homebound because: Need for psychosocial assistance Jose Alfredo Carr MD Dec 01, 2017 08:42
[2017-12-01] MEDS: SODIUM CHLORIDE 0.9% FLUSH 10 ML FLUSH IV FLUSH SCH (09:00)
[2017-12-01] MEDS: BUDESONIDE 3 MG PO SCH (09:00)
[2017-12-01] MEDS: DOCUSATE SODIUM 50 MG/SENNA 8.6 MG TAB PO SCH (09:00)
[2017-12-01] MEDS: FAMOTIDINE 20 MG TAB PO SCH (09:00)
[2017-12-01 09:07] LABS: HEMOGLOBIN 10.1 GM/DL (11.6-15.3); MEAN CELL VOLUME 80.4 FL (80.0-100.0); MEAN CORPUSCULAR HGB CONC 33.6 % (32.0-36.0); MEAN PLATELET VOLUME 6.5 FL (7.0-11.0); PLATELET COUNT 390 TH/MM3 (150-450); RED BLOOD COUNT 3.73 MIL/MM3 (4.00-5.30); RED CELL DISTRIBUTION WIDTH 19.6 % (11.6-17.2); WHITE BLOOD COUNT 10.2 TH/MM3 (4.0-11.0)
[2017-12-01] MEDS: POTASSIUM CHLOR 20 MEQ PREMIX 100 ML IV SCH (09:23)
[2017-12-01] MEDS: MESALAMINE 250 MG CAP PO SCH ×2 (09:40→13:26)
[2017-12-01] MEDS: CALCIUM CARBONATE 500 MG CHEWABLE TAB CHEW SCH (09:42)
[2017-12-01 09:49] LABS: CALCIUM 7.1 MG/DL (8.5-10.1); CREATININE 0.4 MG/DL (0.50-1.00)
[2017-12-01 10:25] LABS: CALCIUM-PROTEIN CORRECTED 8.2 MG/DL (8.5-10.1)
[2017-12-01] MEDS ORDERED: HYDR-3580 PO (11:42)
[2017-12-01] MEDS ORDERED: FAMO20TA2 PO (11:42)
[2017-12-01] MEDS ORDERED: Calcium Carbonate Chew CHEW (11:42)
--- NOTE | 2017-12-01 11:43 | HHI.DS ---
Discharge Summary Admission Date Nov 22, 2017 at 18:14 Discharge Date: Dec 01, 2017 Admitting Diagnosis GI bleed, colitis,anemia,hypotension (1) GI bleed ICD Code: K92.2 - Gastrointestinal hemorrhage, unspecified Status: Acute (2) Hypotension ICD Code: I95.9 - Hypotension, unspecified (3) Delirium due to general medical condition ICD Code: F05 - Delirium due to known physiological condition (4) History of Crohn's disease ICD Code: Z87.19 - Personal history of other diseases of the digestive system Status: Chronic (5) Colitis ICD Code: K52.9 - Noninfective gastroenteritis and colitis, unspecified Status: Acute (6) Anemia ICD Code: D64.9 - Anemia, unspecified Status: Acute Procedures None Brief History - From Admission 52-year-old very pleasant female presents for evaluation of abdominal pain and nausea and bloating. She has history of Crohn's disease. She was in the office of referred her to emergency department. He recommended admitting her for IV fluid hydration and nausea control and he will need to do scoping of her in the hospital. He says she is not able to do bowel prep outpatient. Due to severe dehydration borderline anemia, and requirement of blood transfusions the patient has been admitted to ICU. CBC/BMP: 12/01/17 0730 12/01/17 0730 Significant Findings Laboratory Tests Test 11/28/17 13:35 11/29/17 14:10 11/30/17 06:10 12/01/17 07:30 Hemoglobin 6.9 GM/DL (11.6-15.3) 10.0 GM/DL (11.6-15.3) 10.5 GM/DL (11.6-15.3) 10.1 GM/DL (11.6-15.3) Red Blood Count 3.69 MIL/MM3 (4.00-5.30) 3.92 MIL/MM3 (4.00-5.30) 3.73 MIL/MM3 (4.00-5.30) Hematocrit 29.6 % (35.0-46.0) 31.5 % (35.0-46.0) 30.0 % (35.0-46.0) Red Cell Distribution Width 19.3 % (11.6-17.2) 19.1 % (11.6-17.2) 19.6 % (11.6-17.2) Mean Platelet Volume 6.6 FL (7.0-11.0) 6.6 FL (7.0-11.0) 6.5 FL (7.0-11.0) Neutrophils (%) (Auto) 72.4 % (16.0-70.0) Blood Urea Nitrogen 5 MG/DL (7-18) 4 MG/DL (7-18) 5 MG/DL (7-18) Total Protein 6.1 GM/DL (6.4-8.2) 5.5 GM/DL (6.4-8.2) 5.0 GM/DL (6.4-8.2) Albumin 3.1 GM/DL (3.4-5.0) Calcium Level 6.1 MG/DL (8.5-10.1) 6.3 MG/DL (8.5-10.1) 7.1 MG/DL (8.5-10.1) Potassium Level 3.1 MEQ/L (3.5-5.1) 2.9 MEQ/L (3.5-5.1) 3.1 MEQ/L (3.5-5.1) Chloride Level 109 MEQ/L (98-107) 108 MEQ/L (98-107) Protein Corrected Calcium 6.6 MG/DL (8.5-10.1) 7.0 MG/DL (8.5-10.1) 8.2 MG/DL (8.5-10.1) Mean Corpuscular Hemoglobin 26.7 PG (27.0-34.0) Creatinine 0.45 MG/DL (0.50-1.00) 0.40 MG/DL (0.50-1.00) PE at Discharge GENERAL: Obese female, in no apparent distress. CARDIOVASCULAR: Normal rate and regular rhythm without murmurs, gallops, or rubs. RESPIRATORY: Good respiratory efforts. Breath sounds equal and clear to auscultation bilaterally. GASTROINTESTINAL: Abdomen soft, non-tender, non-distended. Normal active bowel sounds MUSCULOSKELETAL: Right upper extremity is swollen from below the wrist up to above the elbow joint. It is tender to palpation. Range of motion somewhat limited secondary to pain NEURO: Alert & Oriented x4 to person, place, time, situation. Moves all ext x4. Generalized weakness PSYCH: Calm Pt update on day of discharge Patient reports she is feeling okay. Right upper extremity swelling less tight. Wants to go home today. Hospital Course 52-year-old female admitted with GI bleeding, colitis likely related to Crohn's disease, hypotension. Evaluation and treatment course detailed below: Crohn's disease exacerbation Hepatic steatosis Hypoalbuminemia GI following - Patient was initially started on Solu-Medrol which she later refused. Home dose Entocort resumed. GI symptoms resolved. Continue on Mesalamine 1 g 4 times a day for her Crohn disease Also on budesonide 9 mg daily/home medication Patient was followed by GI. She refused panendoscopy. Patient states she will have the procedure outpatient. MRA abdomen showed no evidence of mesenteric ischemia CT abdomen/pelvis: Abnormal nonobstructive bowel gas pattern with fairly diffuse colonic thickening. There is small amount of fluid in the right side of the pelvis. Severe hepatic steatosis. Stable appearance of kidneys with cysts and calcifications left kidney. Status post cholecystectomy. The patient's GI symptoms resolved. She refused panendoscopy and reports she will have them done outpatient. Delirium: Probably related to steroids. -Patient was followed by psychiatry. CT brain 11/25 revealed left ethmoid sinusitis otherwise no acute intracranial abnormalities. She was started on Seroquel which the patient refused after a couple of doses. Solu-Medrol was discontinued and her symptoms completely resolved. Right upper extremity superficial thrombosis/phlebitis: Likely secondary to IV catheter. - X-ray negative for fracture, questionable olecranon bursitis. - Right upper extremity ultrasound revealed basilic and cephalic vein thrombosis. - Pain control. -Advised patient to keep arm elevated and wrapped to help with swelling. - Aspirin contraindicated given evidence of GI bleed. Hypocalcemia Hypokalemia -Electrolytes were replaced aggressively. Elevated TSH KECIA positive. TSH is 4.87. Free T4 normal. Low free T3. Advise outpatient repeat thyroid studies. Osteoarthritis Hip dysplasia Continue physical therapy. - Pain control Pt Condition on Discharge: Good Discharge Disposition: Disch w/ Home Health Serv Discharge Time: > 30 minutes Discharge Instructions DIET: Follow Instructions for: Heart Healthy Diet Activities you can perform: Regular-No Restrictions Other Activity Instructions: Use assistive device Follow up Referrals: Appointment for Follow Up Gastroenterology PCP Follow-up - 1 Week PCP Follow-up New Medications: Famotidine (Famotidine) 20 Mg Tab 20 MG PO BID, #60 TAB Hydrocodone/Acetaminophen (Hydrocodone-Acetamin 7.5-325) 7.5 Mg-325 Mg Tablet 1 TAB PO Q6H PRN for PAIN GREATER THAN 5, #20 [Calcium Carbonate Chew] () 500 MG CHEW 1000 MG CHEW Q12HR, #10 Continued Medications: Budesonide DR (Entocort EC) 3 Mg Capdr 9 MG PO DAILY, #90 CAP 0 Refills Mesalamine ER (Pentasa) 500 Mg Caper 1000 MG PO QID for Ulcerative Colitis, CAP 0 Refills Jose Alfredo Carr MD Dec 01, 2017 11:43
[2017-12-01 13:53] LABS: CRYOGLOBULIN QUALITATIVE NEGATIVE (NEGATIVE)
== END 2017-12-01 16:26 | disposition home health service (06) | DRG 386 ==
LOC: PHED 14:47 → PHEDA 18:14 → HIMW 20:25 → N05A 11-28 12:09
PROVIDERS: ADMIT Family Medicine; ATTEND Family Medicine
PROC: 30233N1 Transfusion of Nonautologous Red Blood Cells into Peripheral Vein, Percutaneous Approach (ICD-10-PCS; principal; 2017-11-22)
DX: K50.90 Crohn's disease, unspecified, without complications (principal); E87.1 Hypo-osmolality and hyponatremia; I95.9 Hypotension, unspecified; F05 Delirium due to known physiological condition; T38.0X5A Adverse effect of glucocorticoids and synthetic analogues, initial encounter; K76.0 Fatty (change of) liver, not elsewhere classified; I82.611 Acute embolism and thrombosis of superficial veins of right upper extremity; I80.8 Phlebitis and thrombophlebitis of other sites; T80.1XXA Vascular complications following infusion, transfusion and therapeutic injection, initial encounter; K62.5 Hemorrhage of anus and rectum; E88.09 Other disorders of plasma-protein metabolism, not elsewhere classified; D50.0 Iron deficiency anemia secondary to blood loss (chronic); E86.0 Dehydration; E87.6 Hypokalemia; E66.9 Obesity, unspecified; Z68.30 Body mass index [BMI] 30.0-30.9, adult; M16.10 Unilateral primary osteoarthritis, unspecified hip; R63.4 Abnormal weight loss; F41.9 Anxiety disorder, unspecified; E83.51 Hypocalcemia; E83.39 Other disorders of phosphorus metabolism; R76.8 Other specified abnormal immunological findings in serum; Z53.29 Procedure and treatment not carried out because of patient's decision for other reasons; Z72.0 Tobacco use
CPT/HCPCS: 36430; 70450; 73070; 74177; 76937; 80048; 80053; 80074; 80076; 82103; 82180; 82306; 82390; 82533; 82595; 82607; 82728; 82784; 82948; 83516; 83520; 83690; 83735; 84100; 84155; 84252; 84425; 84439; 84443; 84446; 84481; 84590; 84702; 85007; 85018; 85025; 85027; 85652; 86038; 86039; 86255; 86850; 86900; 86901; 86920; 87328; 87329; 87493; 87506; 87641; 93306; 93971; 94150; 96361; 96374; 99211; A9579; C8900; C9113; G0463; J0610; J2270; J2405; J2920; J3420; J3475; J3480; J7030; J7050; P9016; P9045; P9047; Q9963; Q9967

== ENCOUNTER 2017-12-05 09:02 | Emergency (ER) | payer MEDICARE, OTHER ==
[~2017-12-05] VITALS: Ht 172.7 cm; Wt 81.0 kg
[~2017-12-05 09:02] MED LIST changes: -ALIN500T PO; +Calcium Carbonate Chew CHEW; +FAMO20TA2 PO; -HYDR-3516 PO; +HYDR-3580 PO; -LEVS0.123 PO; -PROM25TA10 PO; -PROT40TA PO; -ZOFR4TAB3 SL
[2017-12-05 09:13] VITALS: BP 104/51; PULSE 96; RESP 20; TEMP 98.3; O2SAT 100
[2017-12-05 10:26] LABS: AUTOMATED NEUTROPHIL # 4.7 TH/MM3 (1.8-7.7); BASOPHIL % 0.4 % (0.0-2.0); EOSINOPHIL % 0.5 % (0.0-4.0); HEMATOCRIT 27.4 % (35.0-46.0); HEMOGLOBIN 9.1 GM/DL (11.6-15.3); LYMPH % 18.4 % (9.0-44.0); LYMPHOCYTE # 1.3 TH/MM3 (1.0-4.8); MEAN CELL VOLUME 81.9 FL (80.0-100.0); MEAN CORPUSCULAR HEMOGLOBIN 27.2 PG (27.0-34.0); MEAN CORPUSCULAR HGB CONC 33.1 % (32.0-36.0); MEAN PLATELET VOLUME 6.8 FL (7.0-11.0); MONOCYTE # 0.8 TH/MM3 (0-0.9); NEUT % 68.7 % (16.0-70.0); PLATELET COUNT 446 TH/MM3 (150-450); RED BLOOD COUNT 3.34 MIL/MM3 (4.00-5.30); RED CELL DISTRIBUTION WIDTH 22.1 % (11.6-17.2); WHITE BLOOD COUNT 6.8 TH/MM3 (4.0-11.0)
[2017-12-05 10:47] LABS: ALKALINE PHOSPHATASE 129 U/L (45-117); TOTAL BILIRUBIN ADULT 0.7 MG/DL (0.2-1.0); TOTAL PROTEIN 5.9 GM/DL (6.4-8.2)
[2017-12-05 10:56] LABS: ALBUMIN 2.2 GM/DL (3.4-5.0); ALT (GPT) 40 U/L (10-53); AST (GOT) 51 U/L (15-37); BICARBONATE 23.8 MEQ/L (21.0-32.0); BLOOD UREA NITROGEN 7 MG/DL (7-18); CALCIUM 7.9 MG/DL (8.5-10.1); CHLORIDE 103 MEQ/L (98-107); CREATININE 0.52 MG/DL (0.50-1.00); GLOMERULAR FILTRATION RATE 125 ML/MIN (>89); GLUCOSE,RANDOM 98 MG/DL (74-106); SODIUM (NA) 137 MEQ/L (136-145)
[2017-12-05 11:25] VITALS: PULSE 78; RESP 18; O2SAT 100
--- NOTE | 2017-12-05 11:38 | PD ---
HPI Chief Complaint: Pain: Acute or Chronic Time Seen by Provider: 09:19 Travel History International Travel<30 days: No Contact w/Intl Traveler<30days: No Traveled to known affect area: No History of Present Illness HPI 52-year-old female complains of right wrist pain. She reports a history of erythema about the wrist where she is noted to have a history of superficial thrombophlebitis. She denies fever. She reports the pain to be severe and throbbing. She was recently discharged following admission for pain colitis leading to an ultrasound of the right upper extremity the diagnosis described. She reports history of Crohn's disease and inability to take NSAIDs and aspirin at home. Pain is constant. It is moderately severe. Worse with palpation. PFSH Past Medical History Hx Anticoagulant Therapy: No Arthritis: Yes (left foot, knee, hip) Heart Rhythm Problems: No Cancer: No Cardiovascular Problems: Yes High Cholesterol: No Chest Pain: No Congestive Heart Failure: Yes Cerebrovascular Accident: No Diabetes: No Diminished Hearing: No Endocrine: No Gastrointestinal Disorders: Yes (Crohns, Colitis) GERD: Yes Genitourinary: Yes Hiatal Hernia: No Hypertension: No Immune Disorder: No Implanted Vascular Access Dvce: No Kidney Stones: Yes Medical other: Yes (anemia) Musculoskeletal: Yes Neurologic: Yes Psychiatric: No Reproductive: No Respiratory: No Immunizations Current: Yes Seizures: Yes (as child) Thyroid Disease: No Ulcer: Yes Tetanus Vaccination: < 5 Years Influenza Vaccination: Yes ?: Not Past Surgical History Abdominal Surgery: Yes (gallbladder removed 2004, ERCP in 2004) AICD: No Arteriovenous Shunt: No Cardiac Surgery: No Cholecystectomy: Yes Ear Surgery: No Endocrine Surgery: No Eye Surgery: No Genitourinary Surgery: No Gynecologic Surgery: Yes (C-sec in 1999 and 2006) Hysterectomy: Yes Insulin Pump: No Joint Replacement: No Neurologic Surgery: No Oral Surgery: Yes (T & A teeth) Pacemaker: No Thoracic Surgery: No Tonsillectomy: Yes Other Surgery: Yes Social History Alcohol Use: No Tobacco Use: No (quit 4 months ago) Substance Use: No Allergies-Medications (Allergen,Severity, Reaction): Coded Allergies: guaifenesin (Verified Allergy, Severe, Nausea/Vomiting, 11/22/17) mesalamine (Verified Allergy, Severe, Nausea/Vomiting, 11/22/17) ondansetron (Verified Allergy, Severe, Nausea/Vomiting, 11/22/17) penicillin G (Unverified Allergy, Severe, Anaphylaxis, 11/22/17) tramadol (Verified Allergy, Severe, Burning, 11/22/17) Leg burning ciprofloxacin (Verified Allergy, Intermediate, Nausea/Vomiting, 11/22/17) Sulfa (Sulfonamide Antibiotics) (Unverified Adverse Reaction, Severe, Bleeding, 11/22/17) ibuprofen (Unverified Adverse Reaction, Severe, Bleeding, 11/22/17) Uncoded Allergies: RICOTTA CHEESE (Allergy, Severe, Anaphylaxis, 03/11/15) Reported Meds & Prescriptions Reported Meds & Active Scripts Active Keflex (Cephalexin) 500 Mg Cap 500 Mg PO Q8H Famotidine 20 Mg Tab 20 Mg PO BID [Calcium Carbonate Chew] 500 MG Chew 1,000 Mg CHEW Q12HR Hydrocodone-Acetamin 7.5-325 (Hydrocodone/Acetaminophen) 7.5 Mg-325 Mg Tablet 1 Tab PO Q6H PRN Reported Pentasa (Mesalamine) 500 Mg Caper 1,000 Mg PO QID Entocort EC (Budesonide) 3 Mg Capdr 9 Mg PO DAILY Review of Systems Except as stated in HPI: all other systems reviewed are Neg General / Constitutional: No: Fever Physical Exam Narrative GENERAL: 52-year-old female pleasant well-nourished well-developed SKIN: Warm and dry. HEAD: Atraumatic. Normocephalic. EYES: Pupils equal and round. No scleral icterus. No injection or drainage. ENT: No nasal bleeding or discharge. Mucous membranes pink and moist. NECK: Trachea midline. No JVD. CARDIOVASCULAR: Regular rate and rhythm. RESPIRATORY: No accessory muscle use. Clear to auscultation. Breath sounds equal bilaterally. GASTROINTESTINAL: Abdomen soft, non-tender, nondistended. Hepatic and splenic margins not palpable. MUSCULOSKELETAL: Extremities without clubbing, cyanosis, or edema. No obvious deformities. Left upper extremity demonstrates confluent cellulitis from the proximal forearm through the proximal hand with erythema predominantly along the ulnar and dorsal aspects. NEUROLOGICAL: Awake and alert. No obvious cranial nerve deficits. Motor grossly within normal limits. Five out of 5 muscle strength in the arms and legs. Normal speech. PSYCHIATRIC: Appropriate mood and affect; insight and judgment normal. Data Data Last Documented VS Vital Signs Date Time Temp Pulse Resp B/P (MAP) Pulse Ox O2 Delivery O2 Flow Rate FiO2 12/05/17 11:25 78 18 100 12/05/17 09:13 98.3 104/51 (68) Vital signs reviewed Orders Orders Complete Blood Count With Diff (12/05/17 09:38) Comprehensive Metabolic Panel (12/05/17 09:38) Ed Discharge Order (12/05/17 11:31) Cephalexin (Keflex) (12/05/17 11:45) Oxycodone-Acetamin 7.5-325 Mg (Percocet (12/05/17 11:45) Labs Laboratory Tests Test 12/05/17 09:50 White Blood Count 6.8 TH/MM3 Red Blood Count 3.34 MIL/MM3 Hemoglobin 9.1 GM/DL Hematocrit 27.4 % Mean Corpuscular Volume 81.9 FL Mean Corpuscular Hemoglobin 27.2 PG Mean Corpuscular Hemoglobin Concent 33.1 % Red Cell Distribution Width 22.1 % Platelet Count 446 TH/MM3 Mean Platelet Volume 6.8 FL Neutrophils (%) (Auto) 68.7 % Lymphocytes (%) (Auto) 18.4 % Monocytes (%) (Auto) 12.0 % Eosinophils (%) (Auto) 0.5 % Basophils (%) (Auto) 0.4 % Neutrophils # (Auto) 4.7 TH/MM3 Lymphocytes # (Auto) 1.3 TH/MM3 Monocytes # (Auto) 0.8 TH/MM3 Eosinophils # (Auto) 0.0 TH/MM3 Basophils # (Auto) 0.0 TH/MM3 CBC Comment DIFF FINAL Differential Comment Blood Urea Nitrogen 7 MG/DL Creatinine 0.52 MG/DL Random Glucose 98 MG/DL Total Protein 5.9 GM/DL Albumin 2.2 GM/DL Calcium Level 7.9 MG/DL Alkaline Phosphatase 129 U/L Aspartate Amino Transf (AST/SGOT) 51 U/L Alanine Aminotransferase (ALT/SGPT) 40 U/L Total Bilirubin 0.7 MG/DL Sodium Level 137 MEQ/L Potassium Level 3.6 MEQ/L Chloride Level 103 MEQ/L Carbon Dioxide Level 23.8 MEQ/L Anion Gap 10 MEQ/L Estimat Glomerular Filtration Rate 125 ML/MIN MDM Medical Decision Making Medical Screen Exam Complete: Yes Emergency Medical Condition: Yes Medical Record Reviewed: Yes Differential Diagnosis Cellulitis, superficial thrombophlebitis, DVT, chronic pain Narrative Course The blood work is essentially unremarkable. There does appear to be a mild cellulitis about the right upper extremity where we know there is to be a superficial thrombophlebitis. I discussed with the patient had no treatment remedies. Unfortunately due to her history of Crohn's disease she cannot take NSAIDs or aspirin and experiences only minimal relief with Tylenol. Short course of opioids could predispose the patient to dependence type situation however single dose here is not unreasonable. Workup today is specifically as follows: CBC & BMP Diagram 12/05/17 09:50 Total Protein 5.9 #L, Albumin 2.2 L, Calcium Level 7.9 L, Alkaline Phosphatase 129 H, Aspartate Amino Transf (AST/SGOT) 51 H, Alanine Aminotransferase (ALT/ SGPT) 40, Total Bilirubin 0.7 Diagnosis Primary Impression: Cellulitis Qualified Codes: L03.113 - Cellulitis of right upper limb Additional Impression: Superficial thrombophlebitis Qualified Codes: I80.8 - Phlebitis and thrombophlebitis of other sites Med/Other Pt SpecificInfo: Prescription(s) given Scripts Cephalexin (Keflex) 500 Mg Cap 500 MG PO Q8H for Infection, #30 CAP 0 Refills Prov: Watson Diaz MD 12/05/17 Disposition: 01 DISCHARGE HOME Condition: Stable Watson Diaz MD Dec 05, 2017 11:38
[2017-12-05] MEDS ORDERED: CEPH-460 PO (11:41)
[2017-12-05] MEDS ORDERED: CEPHALEXIN MONOHYDRATE 500 MG CAP PO ONE (11:45)
[2017-12-05] MEDS ORDERED: oxyCODONE/ACETAMINOPHEN 7.5 MG/325 MG TAB PO ONE (11:45)
== END 2017-12-05 13:00 | disposition home or self-care (01) ==
LOC: NEPE 09:02
DX: L03.113 Cellulitis of right upper limb (principal); I80.8 Phlebitis and thrombophlebitis of other sites; K50.90 Crohn's disease, unspecified, without complications; K21.9 Gastro-esophageal reflux disease without esophagitis; I50.9 Heart failure, unspecified; Z87.891 Personal history of nicotine dependence
CPT/HCPCS: 80053; 85025; 99283

== ENCOUNTER 2017-12-09 10:41 | Emergency (ER) | payer MEDICARE, OTHER ==
[~2017-12-09] VITALS: Ht 175.3 cm; Wt 75.0 kg
[~2017-12-09 10:41] MED LIST changes: +CEPH-460 PO
[2017-12-09 10:46] VITALS: BP 96/51; PULSE 101; RESP 14; TEMP 98.3; O2SAT 99
[2017-12-09 11:02] VITALS: BP 99/61; PULSE 85; RESP 25; TEMP 98.1; O2SAT 99
[2017-12-09] MEDS ORDERED: MORPHINE SULFATE 4 MG/ML INJ IV PUSH ONE (11:15)
[2017-12-09] MEDS ORDERED: SODIUM CHLORIDE 0.9% FLUSH 10 ML FLUSH IV FLUSH PRN (11:15)
[2017-12-09] MEDS ORDERED: PROCHLORPERAZINE INJ 10 MG/2 ML VIAL IV PUSH ONE (11:15)
[2017-12-09] MEDS ORDERED: FUROSEMIDE 40 MG/4 ML VIAL IV PUSH ONE (11:15)
--- NOTE | 2017-12-09 11:19 | PD ---
HPI Chief Complaint: Edema Time Seen by Provider: 11:05 Travel History International Travel<30 days: No Contact w/Intl Traveler<30days: No Traveled to known affect area: No History of Present Illness HPI The patient is a 52-year-old female who presents to the emergency department via EMS for swelling and edema to the right arm. The patient states she was recently hospitalized, required a blood transfusion for Crohn's disease with hemorrhage and bleeding. The patient states while she was receiving a blood transfusion the attempted to place something to the IV "ALUM", and states that there apparently was a reaction, the patient did not tolerate that medicine well. The patient then complain of swelling to the right upper extremity and had an ultrasound which revealed thrombophlebitis. The patient was advised she cannot have aspirin or anticoagulant secondary to her bleeding. The patient was advised to have symptomatic treatment, elevate, apply heat to the affected area. The patient's subsequent discharged home, however, came back to the emergency department several days later was diagnosed with cellulitis of the right arm. The patient was placed on Keflex at that time and administered 1 dose of Percocet for pain. However, the patient now states she has increasing redness along the radial aspect, extensor surface, the right forearm. The patient now states that she has metal flakes coming out of the scan, took a picture with her friend. The patient also states she was advised to come back Monday to have an upper GI series by her previous hospitalist. The patient denies any current abdominal pain, does have mild nausea. She denies any chest pain or shortness of breath. PFSH Past Medical History Hx Anticoagulant Therapy: No Arthritis: Yes (left foot, knee, hip) Heart Rhythm Problems: No Cancer: No Cardiovascular Problems: Yes High Cholesterol: No Chest Pain: No Congestive Heart Failure: Yes Cerebrovascular Accident: No Diabetes: No Diminished Hearing: No Endocrine: No Gastrointestinal Disorders: Yes (Crohns, Colitis) GERD: Yes Genitourinary: Yes Hiatal Hernia: No Hypertension: No Immune Disorder: No Implanted Vascular Access Dvce: No Kidney Stones: Yes Musculoskeletal: Yes Neurologic: Yes Psychiatric: No Reproductive: No Respiratory: No Immunizations Current: Yes Seizures: Yes (as child) Thyroid Disease: No Ulcer: Yes ?: Not Past Surgical History Abdominal Surgery: Yes (gallbladder removed 2004, ERCP in 2004) AICD: No Arteriovenous Shunt: No Cardiac Surgery: No Cholecystectomy: Yes Ear Surgery: No Endocrine Surgery: No Eye Surgery: No Genitourinary Surgery: No Gynecologic Surgery: Yes (C-sec in 1999 and 2006) Hysterectomy: Yes Insulin Pump: No Joint Replacement: No Neurologic Surgery: No Oral Surgery: Yes (T & A teeth) Pacemaker: No Thoracic Surgery: No Tonsillectomy: Yes Other Surgery: Yes Social History Alcohol Use: No Tobacco Use: No Substance Use: No Allergies-Medications (Allergen,Severity, Reaction): Coded Allergies: guaifenesin (Verified Allergy, Severe, Nausea/Vomiting, 12/09/17) mesalamine (Verified Allergy, Severe, Nausea/Vomiting, 12/09/17) ondansetron (Verified Allergy, Severe, Nausea/Vomiting, 12/09/17) penicillin G (Unverified Allergy, Severe, Anaphylaxis, 12/09/17) tramadol (Verified Allergy, Severe, Burning, 12/09/17) Leg burning ciprofloxacin (Verified Allergy, Intermediate, Nausea/Vomiting, 12/09/17) Sulfa (Sulfonamide Antibiotics) (Unverified Adverse Reaction, Severe, Bleeding, 12/09/17) ibuprofen (Unverified Adverse Reaction, Severe, Bleeding, 12/09/17) Uncoded Allergies: RICOTTA CHEESE (Allergy, Severe, Anaphylaxis, 03/11/15) Reported Meds & Prescriptions Reported Meds & Active Scripts Active Famotidine 20 Mg Tab 20 Mg PO BID [Calcium Carbonate Chew] 500 MG Chew 1,000 Mg CHEW Q12HR Hydrocodone-Acetamin 7.5-325 (Hydrocodone/Acetaminophen) 7.5 Mg-325 Mg Tablet 1 Tab PO Q6H PRN Reported Pentasa (Mesalamine) 500 Mg Caper 1,000 Mg PO QID Entocort EC (Budesonide) 3 Mg Capdr 9 Mg PO DAILY Review of Systems Except as stated in HPI: all other systems reviewed are Neg General / Constitutional: No: Fever Cardiovascular: No: Chest Pain or Discomfort Respiratory: No: Shortness of Breath Gastrointestinal: Positive: Nausea, No: Vomiting, Abdominal Pain Musculoskeletal: Positive: Edema, Pain Skin: Positive Other (patient states she has metal flakes coming out of her skin.) Physical Exam Narrative GENERAL: Awake, alert, pleasant 52-year-old female who appears her stated age and is in no acute respiratory distress. SKIN: Focused skin assessment warm/dry. HEAD: Atraumatic. Normocephalic. EYES: Pupils equal and round. No scleral icterus. No injection or drainage. ENT: No nasal bleeding or discharge. Mucous membranes pink and moist. NECK: Trachea midline. No JVD. CARDIOVASCULAR: Regular rate and rhythm. No murmur appreciated. RESPIRATORY: No accessory muscle use. Clear to auscultation. Breath sounds equal bilaterally. GASTROINTESTINAL: Abdomen soft, non-tender, nondistended. MUSCULOSKELETAL: Dependent pitting edema from the knees inferiorly bilaterally. Mild edema noted over the extensor surface of the right forearm which courses just distal from the antecubital fossa down to the right wrist. Mild tenderness. I cannot visualize any actual metal flakes. Positive right radial pulse. NEUROLOGICAL: Awake and alert. No obvious cranial nerve deficits. Motor grossly within normal limits. Normal speech. Nonfocal. PSYCHIATRIC: Odd affect. Data Data Last Documented VS Vital Signs Date Time Temp Pulse Resp B/P (MAP) Pulse Ox O2 Delivery O2 Flow Rate FiO2 12/09/17 13:09 95 16 102/63 (76) 98 Room Air 12/09/17 11:02 98.1 Orders Orders Complete Blood Count With Diff (12/09/17 11:06) Comprehensive Metabolic Panel (12/09/17 11:06) Lipase (12/09/17 11:06) Lactic Acid (12/09/17 11:06) Prothrombin Time / Inr (Pt) (12/09/17 11:06) Act Partial Throm Time (Ptt) (12/09/17 11:06) Iv Access Insert/Monitor (12/09/17 11:06) Ecg Monitoring (12/09/17 11:06) Oximetry (12/09/17 11:06) Morphine Inj (Morphine Inj) (12/09/17 11:15) Sodium Chloride 0.9% Flush (Ns Flush) (12/09/17 11:15) Electrocardiogram (12/09/17 11:06) Furosemide Inj (Lasix Inj) (12/09/17 11:15) Prochlorperazine Inj (Compazine Inj) (12/09/17 11:15) Call Poison Control (12/09/17 11:19) Chest, Single Ap (12/09/17 ) Coy Bandage (12/09/17 12:07) Potassium Chloride (Kcl) (12/09/17 12:30) Potassium Chlor 20 Meq Premix (Kcl 20 Me (12/09/17 12:30) Potassium Chlor 20 Meq Premix (Kcl 20 Me (12/09/17 13:00) Promethazine (Phenergan) (12/09/17 13:45) Labs Laboratory Tests Test 12/09/17 11:25 White Blood Count 5.3 TH/MM3 Red Blood Count 3.68 MIL/MM3 Hemoglobin 9.8 GM/DL Hematocrit 30.1 % Mean Corpuscular Volume 81.9 FL Mean Corpuscular Hemoglobin 26.7 PG Mean Corpuscular Hemoglobin Concent 32.6 % Red Cell Distribution Width 24.5 % Platelet Count 613 TH/MM3 Mean Platelet Volume 6.3 FL Neutrophils (%) (Auto) 63.7 % Lymphocytes (%) (Auto) 26.4 % Monocytes (%) (Auto) 9.2 % Eosinophils (%) (Auto) 0.2 % Basophils (%) (Auto) 0.5 % Neutrophils # (Auto) 3.4 TH/MM3 Lymphocytes # (Auto) 1.4 TH/MM3 Monocytes # (Auto) 0.5 TH/MM3 Eosinophils # (Auto) 0.0 TH/MM3 Basophils # (Auto) 0.0 TH/MM3 CBC Comment DIFF FINAL Differential Comment Prothrombin Time 13.2 SEC Prothromb Time International Ratio 1.3 RATIO Activated Partial Thromboplast Time 25.3 SEC Blood Urea Nitrogen 8 MG/DL Creatinine 0.56 MG/DL Random Glucose 86 MG/DL Total Protein 6.9 GM/DL Albumin 2.4 GM/DL Calcium Level 8.0 MG/DL Alkaline Phosphatase 146 U/L Aspartate Amino Transf (AST/SGOT) 26 U/L Alanine Aminotransferase (ALT/SGPT) 32 U/L Total Bilirubin 0.6 MG/DL Sodium Level 137 MEQ/L Potassium Level 2.7 MEQ/L Chloride Level 103 MEQ/L Carbon Dioxide Level 25.2 MEQ/L Anion Gap 9 MEQ/L Estimat Glomerular Filtration Rate 115 ML/MIN Lactic Acid Level 2.0 mmol/L Lipase 76 U/L MDM Medical Decision Making Medical Screen Exam Complete: Yes Emergency Medical Condition: Yes Medical Record Reviewed: Yes Interpretation(s) EKG reveals normal sinus rhythm with a rate in 91. Low QRS voltage noted. Laboratory Tests Test 1/27/18 11:25 White Blood Count 5.3 TH/MM3 Red Blood Count 3.68 MIL/MM3 Hemoglobin 9.8 GM/DL Hematocrit 30.1 % Mean Corpuscular Volume 81.9 FL Mean Corpuscular Hemoglobin 26.7 PG Mean Corpuscular Hemoglobin Concent 32.6 % Red Cell Distribution Width 24.5 % Platelet Count 613 TH/MM3 Mean Platelet Volume 6.3 FL Neutrophils (%) (Auto) 63.7 % Lymphocytes (%) (Auto) 26.4 % Monocytes (%) (Auto) 9.2 % Eosinophils (%) (Auto) 0.2 % Basophils (%) (Auto) 0.5 % Neutrophils # (Auto) 3.4 TH/MM3 Lymphocytes # (Auto) 1.4 TH/MM3 Monocytes # (Auto) 0.5 TH/MM3 Eosinophils # (Auto) 0.0 TH/MM3 Basophils # (Auto) 0.0 TH/MM3 CBC Comment DIFF FINAL Differential Comment Prothrombin Time 13.2 SEC Prothromb Time International Ratio 1.3 RATIO Activated Partial Thromboplast Time 25.3 SEC Blood Urea Nitrogen 8 MG/DL Creatinine 0.56 MG/DL Random Glucose 86 MG/DL Total Protein 6.9 GM/DL Albumin 2.4 GM/DL Calcium Level 8.0 MG/DL Alkaline Phosphatase 146 U/L Aspartate Amino Transf (AST/SGOT) 26 U/L Alanine Aminotransferase (ALT/SGPT) 32 U/L Total Bilirubin 0.6 MG/DL Sodium Level 137 MEQ/L Potassium Level 2.7 MEQ/L Chloride Level 103 MEQ/L Carbon Dioxide Level 25.2 MEQ/L Anion Gap 9 MEQ/L Estimat Glomerular Filtration Rate 115 ML/MIN Lactic Acid Level 2.0 mmol/L Lipase 76 U/L Differential Diagnosis Differential diagnosis includes hypoalbuminemia, hyponatremia, volume overload, thrombophlebitis, medication side effect, cellulitis, infected wound. Narrative Course IV was established, labs are drawn and sent, and the patient was placed on cardiac telemetry monitoring and continuous pulse oximetry monitoring. Poison control was notified in regards to possible medication side effect with metal flakes on the right forearm. Nursing staff discussed the patient with poison control who states they do not suspect a significant heavy metal poisoning, the patient can follow up outpatient for 24-hour urine heavy metal screen with her primary physician. The patient is reevaluated 11:40 AM, requested ice water. The patient's potassium is 2.7, I originally ordered IV and oral replacement. However, the patient states she cannot tolerate oral potassium either the liquid or pill form, she requests the IV form. Therefore, the patient was ordered IV potassium chloride, however, she was advised it would take several hours to get the potassium chloride intravenously. The patient's albumin is 2.4 , may be contributing to her edema. Sodium is normal. Chest x-rays clear. The patient is advised to follow-up with her director environmental. The patient states that she has nausea and vomiting but taken oral potassium. Therefore, I ordered IV potassium. I placed an ultrasound-guided IV in the left upper extremity proximal to the ACF to help with the burning. However, the patient continued to complain of burning, therefore, we will try the oral route. Procedures Procedure Narrative I placed a 20-gauge ultrasound-guided IV in the left upper extremity with a linear probe. I placed a 1.88 inch 20-gauge IV, there was good blood return and the IV flowed easily. The patient tolerated the procedure without difficulty and there is no obvious complications. Diagnosis Primary Impression: Nausea and vomiting Qualified Codes: R11.2 - Nausea with vomiting, unspecified Additional Impressions: Hypokalemia Thrombophlebitis Patient Instructions: General Instructions Additional Instructions: Please provide the patient a copy of her records at discharge. Follow-up with her director environmental. Return if symptoms worsen or progress. Med/Other Pt SpecificInfo: Prescription(s) given Scripts Potassium Chloride ER (K-Tab) 20 Meq Tab 20 MEQ PO DAILY for Electrolyte Replacement for 4 Days, #4 TAB 0 Refills Prov: Timothy Elizabeth MD 12/09/17 Promethazine (Phenergan) 25 Mg Tablet 25 MG PO Q6H Y for NAUSEA OR VOMITING, #12 TAB 0 Refills Prov: Timothy Elizabeth MD 12/09/17 Disposition: 01 DISCHARGE HOME Condition: Stable Timothy Elizabeth MD Dec 09, 2017 11:19
[2017-12-09 11:32] VITALS: O2SAT 99
[2017-12-09 11:52] LABS: AUTOMATED NEUTROPHIL # 3.4 TH/MM3 (1.8-7.7); BASOPHIL % 0.5 % (0.0-2.0); EOSINOPHIL % 0.2 % (0.0-4.0); HEMATOCRIT 30.1 % (35.0-46.0); HEMOGLOBIN 9.8 GM/DL (11.6-15.3); LYMPH % 26.4 % (9.0-44.0); LYMPHOCYTE # 1.4 TH/MM3 (1.0-4.8); MEAN CELL VOLUME 81.9 FL (80.0-100.0); MEAN CORPUSCULAR HEMOGLOBIN 26.7 PG (27.0-34.0); MEAN CORPUSCULAR HGB CONC 32.6 % (32.0-36.0); MEAN PLATELET VOLUME 6.3 FL (7.0-11.0); MONO % 9.2 % (0.0-8.0); MONOCYTE # 0.5 TH/MM3 (0-0.9); NEUT % 63.7 % (16.0-70.0); PLATELET COUNT 613 TH/MM3 (150-450); RED BLOOD COUNT 3.68 MIL/MM3 (4.00-5.30); RED CELL DISTRIBUTION WIDTH 24.5 % (11.6-17.2); WHITE BLOOD COUNT 5.3 TH/MM3 (4.0-11.0)
[2017-12-09 12:00] LABS: INTERNATIONAL NORMALIZED RATIO 1.3 RATIO; PROTHROMBIN TIME - PATIENT 13.2 SEC (9.8-11.6)
--- NOTE | 2017-12-09 12:16 | RADRPT ---
EXAM DATE/TIME: 12/09/2017 11:48 [facility] COMPARISON: No previous studies available for comparison. INDICATIONS : Shortness of breath. MEDICAL HISTORY : None. SURGICAL HISTORY : None. ENCOUNTER: Initial ACUITY: 3 days PAIN SCORE: Non-responsive. LOCATION: chest FINDINGS: Single AP view of the chest. The lungs are clear. Cardiomediastinal silhouette within normal limits. No evidence of pleural effusion or pneumothorax. CONCLUSION: No acute cardiopulmonary disease identified. Devonte Mcgregor MD on December 09, 2017 at 12:13 Board Certified Radiologist. This report was verified electronically.
[2017-12-09 12:19] LABS: ALBUMIN 2.4 GM/DL (3.4-5.0); ALT (GPT) 32 U/L (10-53); AST (GOT) 26 U/L (15-37); BICARBONATE 25.2 MEQ/L (21.0-32.0); BLOOD UREA NITROGEN 8 MG/DL (7-18); CHLORIDE 103 MEQ/L (98-107); CREATININE 0.56 MG/DL (0.50-1.00); GLOMERULAR FILTRATION RATE 115 ML/MIN (>89); GLUCOSE,RANDOM 86 MG/DL (74-106); LIPASE 76 U/L (73-393); SODIUM (NA) 137 MEQ/L (136-145)
[2017-12-09 12:23] LABS: ALKALINE PHOSPHATASE 146 U/L (45-117); TOTAL BILIRUBIN ADULT 0.6 MG/DL (0.2-1.0); TOTAL PROTEIN 6.9 GM/DL (6.4-8.2)
[2017-12-09] MEDS ORDERED: POTASSIUM CHLOR 20 MEQ PREMIX 100 ML IV ONE ×2 (12:30→13:00)
[2017-12-09] MEDS ORDERED: POTASSIUM CHLORIDE 20 MEQ CONTROLLED RELEASE TAB PO ONE (12:30)
[2017-12-09 13:09] VITALS: BP 102/63; PULSE 95; RESP 16; O2SAT 98
[2017-12-09] MEDS ORDERED: PROMETHAZINE HCL 25 MG TAB PO ONE (13:45)
[2017-12-09] MEDS ORDERED: POTA1TAB4 PO (14:58)
[2017-12-09] MEDS ORDERED: PROM25TA10 PO (14:58)
[2017-12-09 15:28] VITALS: BP 122/61
--- NOTE | 2017-12-10 12:25 | EKG ---
Date Performed: 12/09/2017 Time Performed: 11:28:33 PTAGE: 52 years EKG: Sinus rhythm POSSIBLE LEFT ATRIAL ENLARGEMENT MARKED LEFT AXIS DEVIATION POSSIBLE RIGHT VENTRICULAR CONDUCTION DE LAY POSSIBLE ANTERIOR MYOCARDIAL INFARCTION Pattern consistent with pulmonary disease Since the prior tracing, there has been no significant change ABNORMAL ECG PREVIOUS TRACING : 10/04/2017 10.50 DOCTOR: Dameon Larson Interpretating Date/Time 12/10/2017 12:22:26
== END 2017-12-09 15:33 | disposition home or self-care (01) ==
LOC: NEPC 10:41
DX: R11.2 Nausea with vomiting, unspecified (principal); E87.6 Hypokalemia; I80.8 Phlebitis and thrombophlebitis of other sites; K50.90 Crohn's disease, unspecified, without complications
CPT/HCPCS: 71045; 80053; 83605; 83690; 85025; 85610; 85730; 93005; 96365; 96375; 99285; J0780; J1940; J2270; J3480; Q0169

== ENCOUNTER 2018-06-01 12:04 | Observation (INO) ==
--- NOTE | 2018-06-01 13:25 | ED ---
HPI General Chief complaint: GI Bleed Stated complaint: Sent by Primary Soham Mercedes Time Seen by Provider: 06/01/18 13:10 Source: patient Mode of arrival: ambulatory Limitations: no limitations History of Present Illness HPI narrative: 52yo F with PMH of Crohn's disease was sent to the ED by primary care physician because her hemoglobin was low at 7. Pt had routine blood work drawn 2 days ago. Has been having blood in stool for 2 weeks. Denies any fever , chest pain, sob, n/v, abdominal pain, focal weakness or numbness. 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 Follows with Dr. Lainez. Last colonoscopy was 2 years ago. Related Data Home Medications Medication Instructions Recorded Confirmed budesonide [Entocort EC] 9 mg PO DAILY 06/01/18 06/01/18 hydrocodone-acetaminophen [Fate] 1 tab PO Q6H PRN 06/01/18 06/01/18 mesalamine [Pentasa] 1,000 mg PO QID 06/01/18 06/01/18 Allergies Allergy/AdvReac Type Severity Reaction Status Date / Time guaifenesin Allergy Severe Nausea/Vomi Verified 06/01/18 16:08 ting ondansetron Allergy Severe Nausea/Vomi Verified 06/01/18 16:08 ting penicillin G Allergy Severe Anaphylaxis Verified 06/01/18 16:08 tramadol Allergy Severe Burning Verified 06/01/18 16:08 ciprofloxacin Allergy Intermediate Nausea/Vomi Verified 06/01/18 16:08 ting ibuprofen AdvReac Severe Bleeding Verified 06/01/18 16:08 Sulfa (Sulfonamide AdvReac Severe Bleeding Verified 06/01/18 16:08 Antibiotics) PROTONIX Allergy Severe Diarrhea Uncoded 06/01/18 12:19 RICOTTA CHEESE Allergy Severe Anaphylaxis Uncoded 06/01/18 12:19 Review of Systems ROS Unobtainable All other systems reviewed negative except as stated in HPI PMFSH Family History Family History Other Ulcerative colitis Social History Social History Substance History: No History of Abuse Second Hand Smoke Exposure: No Smoking Status: Former smoker How Often Do You Have a Drink Containing Alcohol: Never Recent Travel in [facility] within the Last 8 Weeks: No Recent Out of Country Travel within the Last 8 Weeks: No Immunization History Tetanus Immunization: Unsure Hx Influenza Vaccine This Season: Yes Exam Narrative Exam Narrative: GENERAL: 52yo F not in distress. SKIN: Focused skin assessment warm/dry. HEAD: Atraumatic. Normocephalic. EYES: Pupils equal and round. No scleral icterus. No injection or drainage. ENT: No nasal bleeding or discharge. Mucous membranes pink and moist. NECK: Trachea midline. No JVD. CARDIOVASCULAR: Mildly tachycardic. No murmur appreciated. RESPIRATORY: No accessory muscle use. Clear to auscultation. Breath sounds equal bilaterally. GASTROINTESTINAL: Abdomen soft, non-tender, nondistended. MUSCULOSKELETAL: No obvious deformities. No clubbing. No cyanosis. No edema. No ttp bilateral ankles on exam. FROM in both ankles. DP 2+. Sensation intact. NEUROLOGICAL: Awake and alert. No obvious cranial nerve deficits. Motor grossly within normal limits. Normal speech. PSYCHIATRIC: Appropriate mood and affect; insight and judgment normal. Procedures Hemaprompt Stool Procedural Steps Taken: specimen placed in appropriate test area Hemaprompt Stool Result: positive Course Initial Documented Vital Signs Temperature 98.8 F 06/01/18 12:20 Pulse Rate 104 H 06/01/18 12:20 Respiratory Rate 16 06/01/18 12:20 Blood Pressure 87/65 L 06/01/18 12:20 Pulse Oximetry 97 06/01/18 12:20 Last Documented Vital Signs Temperature 99.0 F 06/01/18 20:00 Pulse Rate 81 06/01/18 20:00 Respiratory Rate 18 06/01/18 20:00 Blood Pressure 94/51 L 06/01/18 20:00 Pulse Oximetry 96 06/01/18 20:00 Medical Decision Making [facility] Narrative Medical decision making narrative: 52yo F was sent here from primary care for low hemoglobin and GI bleed. Pt's initial blood pressure was low in triage but improved in the medical bed. Still mildly tachycardic. However, she is asymptomatic. Hemoccult positive. Will check blood and start pt on protonix drip for GI bleed. Pt was not given protonix since she said it makes her GI bleed worst. Labs reviewed, mild leukocytosis at 12.5. H/H low at 7.2/23.2. Elevated platelet at 559,000. Last hemoglobin was 9.8. Mild hyponatremia at 132. Pt is having active bleeding and tachycardia so will give 1 unit of PRBC and admit for observation overnight. Pt does have pain with walking but do not feel that patient has a fracture base on physical exam and no history of trauma. May need further evaluation as outpatient and physical therapy. Discussed with Dr. Ríos and accepted to his service. Differential Diagnosis Differential Diagnosis: GI bleed secondary to colitis vs. hemorrhoid vs. AV malformation vs. polyps Lab Data Result diagrams: 06/01/18 13:50 06/01/18 13:50 Lab Results 06/01/18 06/01/18 06/01/18 Range/Units 13:50 13:50 13:50 CBC w Diff Slide review pending WBC 12.5 H (4.0-11.0) th/mm3 RBC 3.85 L (4.00-5.30) mil/mm3 Hgb 7.2 L (11.6-15.3) gm/dL Hct 23.2 L (35.0-46.0) % MCV 60.3 L (80.0-100.0) fL MCH 18.8 L (27.0-34.0) pg MCHC 31.1 L (32.0-36.0) % RDW 19.5 H (11.6-17.2) % Plt Count 559 H (150-450) th/mm3 MPV 6.6 L (7.0-11.0) fL Neut % (Auto) 77.7 H (16.0-70.0) % Lymph % (Auto) 12.3 (9.0-44.0) % [place] % (Auto) 7.8 (0.0-8.0) % Eos % (Auto) 1.8 (0.0-4.0) % Baso % (Auto) 0.4 (0.0-2.0) % Neut # (Auto) 9.7 H (1.8-7.7) th/mm3 Lymph # (Auto) 1.5 (1.0-4.8) th/mm3 [place] # (Auto) 1.0 H (0.0-0.9) th/mm3 Eos # (Auto) 0.2 (0.0-0.4) th/mm3 Baso # (Auto) 0.1 (0.0-0.2) th/mm3 WBC Differential . Diff Scan Auto diff confirmed Differential Comment . Platelet Estimate High H (Normal) Platelet Morphology Normal (Normal) Ovalocytes 1+ H (None) Keratocytes Occ H (None) PT 10.7 (9.8-11.6) sec INR 1.1 Ratio APTT 22.2 L (24.3-30.1) sec Sodium 132 L (136-145) meq/L Potassium 4.0 (3.5-5.1) meq/L Chloride 100 (98-107) meq/L Carbon Dioxide 25.3 (21.0-32.0) meq/L Anion Gap 7 (5-15) meq/L BUN 12 (7-18) mg/dL Creatinine 0.72 (0.50-1.00) mg/dL Estimated GFR 86 L (>89) mL/min Random Glucose 111 H (74-106) mg/dL Calcium 8.5 (8.5-10.1) mg/dL Urine Color (Yellw/Straw) Urine Clarity (Clear) Urine pH (5.0-8.5) Ur Specific [place] (1.002-1.035) Urine Protein (Neg-Trace) mg/dL Urine Glucose (UA) (Negative) mg/dL Urine Ketones (Negative) mg/dL Urine Occult Blood (Negative) Urine Nitrate (Negative) Urine Bilirubin (Negative) Urine Urobilinogen (Less than 2) mg/dL Ur Leukocyte Esterase (Negative) Urine RBC (0-3) /hpf Urine WBC (0-5) /hpf Ur Squamous Epith Cells (0-5) /hpf Micro UA Comment Urine Culture Comments Blood Type Antibody Screen MTS Gel Crossmatch 06/01/18 06/01/18 06/01/18 Range/Units 13:50 13:50 16:54 CBC w Diff WBC (4.0-11.0) th/mm3 RBC (4.00-5.30) mil/mm3 Hgb (11.6-15.3) gm/dL Hct (35.0-46.0) % MCV (80.0-100.0) fL MCH (27.0-34.0) pg MCHC (32.0-36.0) % RDW (11.6-17.2) % Plt Count (150-450) th/mm3 MPV (7.0-11.0) fL Neut % (Auto) (16.0-70.0) % Lymph % (Auto) (9.0-44.0) % [place] % (Auto) (0.0-8.0) % Eos % (Auto) (0.0-4.0) % Baso % (Auto) (0.0-2.0) % Neut # (Auto) (1.8-7.7) th/mm3 Lymph # (Auto) (1.0-4.8) th/mm3 [place] # (Auto) (0.0-0.9) th/mm3 Eos # (Auto) (0.0-0.4) th/mm3 Baso # (Auto) (0.0-0.2) th/mm3 WBC Differential Diff Scan Differential Comment Platelet Estimate (Normal) Platelet Morphology (Normal) Ovalocytes (None) Keratocytes (None) PT (9.8-11.6) sec INR Ratio APTT (24.3-30.1) sec Sodium (136-145) meq/L Potassium (3.5-5.1) meq/L Chloride (98-107) meq/L Carbon Dioxide (21.0-32.0) meq/L Anion Gap (5-15) meq/L BUN (7-18) mg/dL Creatinine (0.50-1.00) mg/dL Estimated GFR (>89) mL/min Random Glucose (74-106) mg/dL Calcium (8.5-10.1) mg/dL Urine Color Yellow (Yellw/Straw) Urine Clarity Clear (Clear) Urine pH 6.5 (5.0-8.5) Ur Specific [place] 1.015 (1.002-1.035) Urine Protein Negative (Neg-Trace) mg/dL Urine Glucose (UA) Negative (Negative) mg/dL Urine Ketones Negative (Negative) mg/dL Urine Occult Blood Negative (Negative) Urine Nitrate Negative (Negative) Urine Bilirubin Negative (Negative) Urine Urobilinogen 0.2 (Less than 2) mg/dL Ur Leukocyte Esterase Trace H (Negative) Urine RBC 0-3 (0-3) /hpf Urine WBC 5-8 H (0-5) /hpf Ur Squamous Epith Cells 0-5 (0-5) /hpf Micro UA Comment Culture not ind Urine Culture Comments Culture not ind Blood Type A Positive Antibody Screen Negative MTS Gel Crossmatch See Detail Discharge Plan Discharge Disposition Patient Disposition: 30 Still Patient Physicians Team ED Provider: Trish Pineda Primary Care Provider: UNKNOWN, Attending Provider: Milo Ríos Status ED Status: Left Department Discharge Information Discharge Date/Time: 06/01/18 15:53
[2018-06-01 13:59] LABS: Baso # (Auto) 0.1 th/mm3 (0.0-0.2); Baso % (Auto) 0.4 % (0.0-2.0); Eos # (Auto) 0.2 th/mm3 (0.0-0.4); Eos % (Auto) 1.8 % (0.0-4.0); Hematocrit 23.2 % (35.0-46.0); Hemoglobin 7.2 gm/dL (11.6-15.3); Lymph # (Auto) 1.5 th/mm3 (1.0-4.8); Lymph % (Auto) 12.3 % (9.0-44.0); Mean Corpuscular HGB Conc 31.1 % (32.0-36.0); Mean Corpuscular Hemoglobin 18.8 pg (27.0-34.0); Mean Corpuscular Volume 60.3 fL (80.0-100.0); Mean Platelet Volume 6.6 fL (7.0-11.0); Mono % (Auto) 7.8 % (0.0-8.0); Neut # (Auto) 9.7 th/mm3 (1.8-7.7); Neut % (Auto) 77.7 % (16.0-70.0); Platelet Count 559 th/mm3 (150-450); Red Blood Count 3.85 mil/mm3 (4.00-5.30); Red Cell Distribution Width 19.5 % (11.6-17.2); White Blood Count 12.5 th/mm3 (4.0-11.0)
[2018-06-01] MEDS ORDERED: Pantoprazole Inj 80 MG in Sodium Chlor 0.9% Inj 100 ML IV.CONT SCH ×2 (14:00→15:00)
[2018-06-01 14:06] LABS: Calcium 8.5 mg/dL (8.5-10.1)
[2018-06-01 14:07] LABS: Carbon Dioxide 25.3 meq/L (21.0-32.0)
[2018-06-01 14:08] LABS: Activated Partial Thrombo Time 22.2 sec (24.3-30.1); INR 1.1 Ratio; Prothrombin Time 10.7 sec (9.8-11.6)
[2018-06-01 14:30] LABS: Ovalocytes 1+
[2018-06-01 14:31] LABS: Platelet Morphology Normal (Normal)
[2018-06-01] MEDS ORDERED: Sodium Chlor 0.9% Inj 250 ML IV.SIG SCH (15:00)
[2018-06-01] MEDS ORDERED: Acetaminophen 325 MG Tablet PO PRN (15:43)
--- NOTE | 2018-06-01 15:54 | P.HP ---
History of Present Illness Primary Care Physician: UNKNOWN History of Present Illness: 52-year-old female with history of Crohn's disease and clubfoot presents to the ER after being sent by her primary care doctor for treatment of anemia. The cascade of events began 2 weeks ago when she was prescribed Tylenol 3 4 worsening left foot pain. The Tylenol 3 made her constipated which aggravated her hemorrhoids and flared up her Crohn's disease. She had GI bleeding for approximately 1 week which resolved approximately 1 week ago. During her episode of bleeding she contacted her primary care and was fit into an appointment today. One lab work was reviewed she had a hemoglobin of 7 and it was suggested that she come to the ER for blood transfusion. She only complains of generalized weakness at this point, denies any bleeding. Review of Systems Constitutional: Denies anorexia, Denies body ache(s), Denies chills, Denies daytime sleepiness, Denies excessive sweating, Denies fatigue, Denies fever(s), Denies headache(s), Denies increased appetite, Denies lack of energy, Denies malaise, Denies night sweats, Denies weakness, Denies weight gain, Denies weight loss, Denies other Eyes: Denies blind spots, Denies blurry vision, Denies bulging eyes, Denies change in vision, Denies double vision, Denies discharge, Denies dry eyes, Denies floaters, Denies irritation, Denies itchy eyes, Denies loss of vision, Denies pain, Denies requires corrective lenses, Denies sensitivity to light, Denies other Ears, Nose, Mouth, and Throat: Denies abnormal hearing, Denies bleeding gums, Denies bad breath, Denies change in voice, Denies dental pain, Denies difficulty swallowing, Denies dizziness, Denies dry mouth, Denies ear discharge , Denies ear pain, Denies facial pain, Denies headache(s), Denies hearing loss, Denies hoarseness, Denies lip swelling, Denies nosebleed, Denies mouth lesions, Denies mouth pain, Denies nasal congestion, Denies nasal discharge, Denies nasal obstruction, Denies nasal trauma, Denies neck lump, Denies neck pain, Denies nose pain, Denies pain with swallowing, Denies poor balance, Denies post nasal drip, Denies ringing in the ears, Denies sinus pain, Denies sinus pressure , Denies sore throat, Denies throat swelling, Denies tongue swelling, Denies other Cardiovascular: Denies chest pain, Denies chest pain at rest, Denies chest pain with activity, Denies excessive sweating, Denies fainting, Denies fast heart rate, Denies foot swelling, Denies generalized swelling, Denies irregular heart rhythm, Denies leg pain with activity, Denies leg sores, Denies leg swelling, Denies lightheadedness, Denies radiating jaw, neck or arm pain, Denies rapid, pounding, or irregular heartbeat, Denies shortness of breath, Denies shortness of breath with activity, Denies shortness of breath when lying down, Denies shortness of breath causing sudden awakening, Denies slow heart rate, Denies other Respiratory: Denies change in phlegm color, Denies chest congestion, Denies cough, Denies coughing up blood, Denies excessive phlegm production, Denies pain on inspiration, Denies pain with cough, Denies shortness of breath, Denies shortness of breath with activity, Denies snoring, Denies stridor, Denies wheezing, Denies other Gastrointestinal: Denies black, tarry stools, Denies bloating, Denies bright, red blood in stools Genitourinary: Denies abnormal periods, Denies abnormal vaginal bleeding, Denies absent period, Denies bleeding between periods, Denies blood in urine, Denies difficulty starting urination, Denies difficulty urinating, Denies dribbling after urination, Denies frequent nighttime urination, Denies genital itching, Denies genital lesions, Denies heavy periods, Denies hot flashes, Denies light periods, Denies nipple discharge, Denies painful intercourse, Denies painful periods, Denies painful urination, Denies pelvic pain, Denies prolapse symptoms, Denies sexual problems, Denies side pain, Denies urinary incontinence, Denies urinary urgency, Denies vaginal discharge, Denies vaginal dryness, Denies vaginal odor, Denies vaginal itching, Denies other Musculoskeletal: Reports deformity, Reports joint pain Neurologic: Denies abnormal hearing, Denies abnormal movements, Denies abnormal speech, Denies abnormal walking, Denies behavioral changes, Denies burning sensations, Denies confusion, Denies dizziness, Denies fainting, Denies frequent falls, Denies headache(s), Denies lack of coordination, Denies localized weakness, Denies loss of vision, Denies memory loss, Denies numbness, Denies other visual disturbances, Denies radiating pain, Denies restless legs, Denies convulsions, Denies seizure-like activity, Denies sensory deficit, Denies tingling, Denies tingling/numbness/burning sensations, Denies tremor(s), Denies unsteadiness, Denies weakness, Denies other PMFSH - History History Provided By: Patient - Medical History Medical History: Medical History (Last Updated 06/01/18 @ 13:45 by Nina Alves, RN) Arthritis Bunion of left foot delivery delivered Cholecystectomy planned Crohn's disease - Surgical History Surgical History: Surgical History (Last Updated 06/01/18 @ 13:45 by Nina Alves, RN) Hx of tonsillectomy - Family History Family History: Family History (Last Updated 06/01/18 @ 15:50 by Milo Ríos MD) Other Ulcerative colitis - Tobacco History Smoking Status: Former smoker - Alcohol History How Often Do You Have a Drink Containing Alcohol: Never - Substance Use History Substance History: No History of Abuse - Travel History Recent Travel in the [place] Within the Last 8 Weeks: No Recent Travel Out of the Country Within the Last 8 Weeks: No - Immunization History Tetanus Immunization: Unsure Hx Influenza Vaccine This Season: Yes Medications and Allergies Active Medications: Active Medications Acetaminophen (Tylenol) 650 mg PO Q4H PRN PRN Reason: Temp > 100.4 Al Hydroxide/Mg Hydroxide (Milk Of Divina Liradha) 30 ml PO Q12H PRN PRN Reason: Mild Constipation Sodium Chloride (Ns Inj) 250 mls @ 15 mls/hr IV.SIG ONCE TIARA Stop: 06/02/18 07:39 Pantoprazole Sodium 80 mg/ (Sodium Chloride) 100 mls @ 10 mls/hr IV.CONT Q10H TIARA Last Admin: 06/01/18 15:05 Dose: Not Given Non-Formulary Medication (Budesonide [Entocort Ec]) 9 mg PO DAILY [facility] Non-Formulary Medication (Mesalamine [Pentasa]) 500 mg PO QID TIARA Ondansetron HCl (Zofran Inj) 4 mg IV.PUSH Q6H PRN PRN Reason: NAUSEA OR VOMITING Sodium Chloride (Ns Flush) 2 ml IV.FLUSH PRN PRN PRN Reason: FLUSH AFTER USING IV ACCESS Temazepam (Restoril) 15 mg PO HS PRN PRN Reason: INSOMNIA Allergies Allergy/AdvReac Type Severity Reaction Status Date / Time guaifenesin Allergy Severe Nausea/Vomi Verified 06/01/18 12:19 ting mesalamine Allergy Severe Nausea/Vomi Verified 06/01/18 12:19 ting ondansetron Allergy Severe Nausea/Vomi Verified 06/01/18 12:19 ting penicillin G Allergy Severe Anaphylaxis Unverified 06/01/18 12:19 tramadol Allergy Severe Burning Verified 06/01/18 12:19 ciprofloxacin Allergy Intermediate Nausea/Vomi Verified 06/01/18 12:19 ting ibuprofen AdvReac Severe Bleeding Unverified 06/01/18 12:19 Sulfa (Sulfonamide AdvReac Severe Bleeding Unverified 06/01/18 12:19 Antibiotics) PROTONIX Allergy Severe Diarrhea Uncoded 06/01/18 12:19 RICOTTA CHEESE Allergy Severe Anaphylaxis Uncoded 06/01/18 12:19 Home Medications Medication Instructions Recorded Confirmed Type acetaminophen-codeine 1 tab PO Q4-6H PRN 06/01/18 06/01/18 History [Tylenol-Codeine #3] budesonide [Entocort EC] 9 mg PO DAILY 06/01/18 06/01/18 History mesalamine [Pentasa] 500 mg PO QID 06/01/18 06/01/18 History Exam Vital signs: Vital Signs 06/01/18 12:20 06/01/18 12:23 06/01/18 13:21 Temperature 98.8 F Pulse Rate 104 H 100 H 100 H Respiratory Rate 16 18 Blood Pressure 87/65 L 117/57 L Pulse Oximetry 97 100 100 06/01/18 15:17 Temperature Pulse Rate Respiratory Rate Blood Pressure 113/62 Pulse Oximetry Intake & Output 05/31/18 06/01/18 06/01/18 18:59 06:59 18:59 Weight 74.5 kg Narrative: GENERAL: Alert and oriented 3, intelligent, talkative, no distress SKIN: Warm and dry. HEAD: Atraumatic. Normocephalic. EYES: Pupils equal and round. No scleral icterus. No injection or drainage. ENT: No nasal bleeding or discharge. Mucous membranes pink and moist. NECK: Trachea midline. No JVD. CARDIOVASCULAR: Regular rate and rhythm. RESPIRATORY: No accessory muscle use. Clear to auscultation. Breath sounds equal bilaterally. GASTROINTESTINAL: Abdomen soft, non-tender, nondistended. Hepatic and splenic margins not palpable. MUSCULOSKELETAL: Extremities without clubbing, cyanosis, or edema. Chronic left flatfoot (clubfoot deformity) NEUROLOGICAL: Awake and alert. No obvious cranial nerve deficits. Motor grossly within normal limits. Five out of 5 muscle strength in the arms and legs. Normal speech. PSYCHIATRIC: Appropriate mood and affect; insight and judgment normal. Results - Labs CBC & Chem 7: 06/01/18 13:50 06/01/18 13:50 Labs: Laboratory Results - last 24 hr 06/01/18 06/01/18 06/01/18 13:50 13:50 13:50 CBC w Diff Slide review pending WBC 12.5 H RBC 3.85 L Hgb 7.2 L Hct 23.2 L MCV 60.3 L MCH 18.8 L MCHC 31.1 L RDW 19.5 H Plt Count 559 H MPV 6.6 L Neut % (Auto) 77.7 H Lymph % (Auto) 12.3 [place] % (Auto) 7.8 Eos % (Auto) 1.8 Baso % (Auto) 0.4 Neut # (Auto) 9.7 H Lymph # (Auto) 1.5 [place] # (Auto) 1.0 H Eos # (Auto) 0.2 Baso # (Auto) 0.1 WBC Differential . Diff Scan Auto diff confirmed Differential Comment . Platelet Estimate High H Platelet Morphology Normal Ovalocytes 1+ H Keratocytes Occ H PT 10.7 INR 1.1 APTT 22.2 L Sodium 132 L Potassium 4.0 Chloride 100 Carbon Dioxide 25.3 Anion Gap 7 BUN 12 Creatinine 0.72 Estimated GFR 86 L Random Glucose 111 H Calcium 8.5 Blood Type Antibody Screen MTS Gel Crossmatch 06/01/18 06/01/18 13:50 13:50 CBC w Diff WBC RBC Hgb Hct MCV MCH MCHC RDW Plt Count MPV Neut % (Auto) Lymph % (Auto) [place] % (Auto) Eos % (Auto) Baso % (Auto) Neut # (Auto) Lymph # (Auto) [place] # (Auto) Eos # (Auto) Baso # (Auto) WBC Differential Diff Scan Differential Comment Platelet Estimate Platelet Morphology Ovalocytes Keratocytes PT INR APTT Sodium Potassium Chloride Carbon Dioxide Anion Gap BUN Creatinine Estimated GFR Random Glucose Calcium Blood Type A Positive Antibody Screen Negative MTS Gel Crossmatch See Detail Caprini VTE Risk Assessment Caprini VTE Risk Assessment: Moderate/High Risk (score >= 2) VTE Pharmacological Exception Reason: High risk for bleeding Caprini Risk Assessment Model: Point Value = 1 Point Value = 2 Point Value = 3 Point Value = 5 Age 41-60 Minor surgery BMI > 25 kg/m2 Swollen legs Varicose veins or History of unexplained or recurrent spontaneous Oral contraceptives or hormone replacement Sepsis (< 1 month) Serious lung disease, including pneumonia (< 1 month) Abnormal pulmonary function Acute myocardial infarction Congestive heart failure (< 1 month) History of inflammatory bowel disease Medical patient at bed rest Age 61-74 Arthroscopic surgery Major open surgery (> 45 min) Laparoscopic surgery (> 45 min) Malignancy Confined to bed (> 72 hours) Immobilizing plaster cast Central venous access Age >= 75 History of VTE Family history of VTE Factor V Leiden Prothrombin [id number] Lupus anticoagulant Anticardiolipin antibodies Elevated serum homocysteine Heparin-induced thrombocytopenia Other congenital or acquired thrombophilia Stroke (< 1 month) Elective arthroplasty Hip, pelvis, or leg fracture Acute spinal cord injury (< 1 month) Prophylaxis Regimen: Total Risk Factor Score Risk Level Prophylaxis Regimen 0-1 Low Early ambulation 2 Moderate Order ONE of the following: *Sequential Compression Device (SCD) *Heparin 5000 units SQ BID 3-4 Higher Order ONE of the following medications: *Heparin 5000 units SQ TID *Enoxaparin/Lovenox 40 mg SQ daily (WT < 150 kg, CrCl > 30 mL/min) *Enoxaparin/Lovenox 30 mg SQ daily (WT < 150 kg, CrCl > 10-29 mL/min) *Enoxaparin/Lovenox 30 mg SQ BID (WT < 150 kg, CrCl > 30 mL/min) AND/OR *Sequential Compression Device (SCD) 5 or more Highest Order ONE of the following medications: *Heparin 5000 units SQ TID (Preferred with Epidurals) *Enoxaparin/Lovenox 40 mg SQ daily (WT < 150 kg, CrCl > 30 mL/min) *Enoxaparin/Lovenox 30 mg SQ daily (WT < 150 kg, CrCl > 10-29 mL/min) *Enoxaparin/Lovenox 30 mg SQ BID (WT < 150 kg, CrCl > 30 mL/min) AND *Sequential Compression Device (SCD) Assessment and Plan - Plan Anemia Hemoglobin of 7.2 following GI bleeding which stopped 1 week ago Patient complains of generalized weakness and screening lab work revealed anemia at primary care office visit Transfused 2 units overnight Recheck CBC in the a.m. 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
[2018-06-01] MEDS: Morphine Inj 4 MG/ML Vial IV.PUSH PRN ×2 (16:29→22:42)
[2018-06-01] MEDS ORDERED: Mesalamine 250 MG Capsule ER PO SCH (18:00)
[2018-06-01] MEDS: Mesalamine 250 MG Capsule ER PO SCH ×2 (18:13→21:09)
[2018-06-01 19:03] LABS: Bilirubin,Urine Negative (Negative); Clarity,Urine Clear (Clear); Color,Urine Yellow (Yellw/Straw); Glucose,Urine (UA) Negative (Negative); Leukocyte Esterase,Urine Trace (Negative); Nitrite,Urine Negative (Negative); PH,Urine 6.5 (5.0-8.5); Specific Gravity,Urine 1.015 (1.002-1.035); Urobilinogen,Urine 0.2 mg/dL (Less than 2)
[2018-06-01 19:10] LABS: RBC,Urine 0-3 /hpf (0-3); Squamous Epithelial Cell,Urine 0-5 /hpf (0-5)
[2018-06-01] MEDS: Temazepam 15 MG Capsule PO PRN (21:09)
[2018-06-02] MEDS: Morphine Inj 4 MG/ML Vial IV.PUSH PRN (03:34)
[2018-06-02 06:28] LABS: Hematocrit 26.3 % (35.0-46.0); Hemoglobin 7.8 gm/dL (11.6-15.3); Mean Corpuscular Hemoglobin 19.1 pg (27.0-34.0); Mean Corpuscular Volume 64.1 fL (80.0-100.0); Mean Platelet Volume 6.7 fL (7.0-11.0); Platelet Count 524 th/mm3 (150-450); Red Blood Count 4.09 mil/mm3 (4.00-5.30); Red Cell Distribution Width 20.5 % (11.6-17.2); White Blood Count 10.3 th/mm3 (4.0-11.0)
[2018-06-02 06:33] LABS: Mean Corpuscular HGB Conc 29.8 % (32.0-36.0)
[2018-06-02 06:36] LABS: Potassium 3.5 meq/L (3.5-5.1)
[2018-06-02 06:39] LABS: Calcium 8.1 mg/dL (8.5-10.1); Carbon Dioxide 25.6 meq/L (21.0-32.0)
[2018-06-02] MEDS ORDERED: Sodium Chlor 0.9% Inj 250 ML IV.SIG SCH (08:00)
[2018-06-02] MEDS: ENTOCORT 9 MG PO SCH (08:38)
[2018-06-02] MEDS: Mesalamine 250 MG Capsule ER PO SCH ×4 (08:40→22:41)
[2018-06-02] MEDS ORDERED: ENTOCORT 9 MG PO SCH (09:00)
[2018-06-02 14:01] LABS: Hematocrit 23.8 % (35.0-46.0); Hemoglobin 7.3 gm/dL (11.6-15.3)
--- NOTE | 2018-06-02 15:18 | P.PN ---
Subjective Interval history: Patient has developed diarrhea following blood transfusion. She complains of sacroiliac joint pain but declines offer of steroids due to potential aggravation of her Crohn's disease. Physical Exam Vital signs: Vital Signs 06/01/18 15:17 06/01/18 16:00 06/01/18 17:22 Temperature 101.7 F H 100.6 F H Pulse Rate 100 H 97 H Respiratory Rate 18 18 Blood Pressure 113/62 110/65 116/69 Pulse Oximetry 95 97 06/01/18 17:39 06/01/18 19:58 06/01/18 20:00 Temperature 101.8 F H 99.0 F Pulse Rate 91 H 81 Respiratory Rate 18 18 Blood Pressure 109/65 94/51 L Pulse Oximetry 100 96 96 06/02/18 00:00 06/02/18 07:35 06/02/18 07:41 Temperature 98.7 F 100.3 F H Pulse Rate 82 96 H Respiratory Rate 18 20 Blood Pressure 92/63 L 99/59 L Pulse Oximetry 99 95 93 L 06/02/18 08:00 06/02/18 11:32 06/02/18 15:09 Temperature 99.6 F 99.2 F Pulse Rate 93 H 91 H Respiratory Rate 16 20 20 Blood Pressure 102/56 L 104/58 L Pulse Oximetry 96 96 Intake & Output 06/01/18 06/02/18 06/02/18 18:59 06:59 18:59 Intake Total 240 / 240 Balance 240 / 240 Weight 74.5 kg 74.3 kg Intake: Oral 240 / 240 Intake (Blood Product) Amt 0 / 0 Rbc As-3 Leukoreduced Unit 0 / 0 [id number] Other: # Voids 1 7 Date of Last Bowel Movement 06/01/18 06/01/18 Narrative: GENERAL: Alert and oriented 3, talkative SKIN: Warm and dry. HEAD: Normocephalic. EYES: No scleral icterus. No injection or drainage. NECK: Supple, trachea midline. No JVD or lymphadenopathy. CARDIOVASCULAR: Regular rate and rhythm without murmurs, gallops, or rubs. RESPIRATORY: Breath sounds equal bilaterally. No accessory muscle use. GASTROINTESTINAL: Abdomen soft, non-tender, nondistended. MUSCULOSKELETAL: No cyanosis, or edema. Flatfoot deformity of left foot BACK: Nontender without obvious deformity. No CVA tenderness. Sacroiliac tenderness Results - Labs CBC & Chem 7: 06/02/18 13:55 06/02/18 06:09 Laboratory Results - last 24 hr 06/01/18 06/01/18 06/01/18 13:50 13:50 16:54 WBC RBC Hgb Hct MCV MCH MCHC RDW Plt Count MPV Sodium Potassium Chloride Carbon Dioxide Anion Gap BUN Creatinine Estimated GFR Random Glucose Calcium Urine Color Yellow Urine Clarity Clear Urine pH 6.5 Ur Specific [place] 1.015 Urine Protein Negative Urine Glucose (UA) Negative Urine Ketones Negative Urine Occult Blood Negative Urine Nitrate Negative Urine Bilirubin Negative Urine Urobilinogen 0.2 Ur Leukocyte Esterase Trace H Urine RBC 0-3 Urine WBC 5-8 H Ur Squamous Epith Cells 0-5 Micro UA Comment Culture not ind Urine Culture Comments Culture not ind Blood Type A Positive Antibody Screen Negative MTS Gel Crossmatch See Detail 06/02/18 06/02/18 06/02/18 06:09 06:09 13:55 WBC 10.3 RBC 4.09 Hgb 7.8 L 7.3 L Hct 26.3 L 23.8 L MCV 64.1 L D MCH 19.1 L MCHC 29.8 L RDW 20.5 H Plt Count 524 H MPV 6.7 L Sodium 135 L Potassium 3.5 Chloride 101 Carbon Dioxide 25.6 Anion Gap 8 BUN 7 Creatinine 0.78 Estimated GFR 78 L Random Glucose 135 H Calcium 8.1 L Urine Color Urine Clarity Urine pH Ur Specific [place] Urine Protein Urine Glucose (UA) Urine Ketones Urine Occult Blood Urine Nitrate Urine Bilirubin Urine Urobilinogen Ur Leukocyte Esterase Urine RBC Urine WBC Ur Squamous Epith Cells Micro UA Comment Urine Culture Comments Blood Type Antibody Screen MTS Gel Crossmatch 06/02/18 14:10 WBC RBC Hgb Hct MCV MCH MCHC RDW Plt Count MPV Sodium Potassium Chloride Carbon Dioxide Anion Gap BUN Creatinine Estimated GFR Random Glucose Calcium Urine Color Urine Clarity Urine pH Ur Specific [place] Urine Protein Urine Glucose (UA) Urine Ketones Urine Occult Blood Urine Nitrate Urine Bilirubin Urine Urobilinogen Ur Leukocyte Esterase Urine RBC Urine WBC Ur Squamous Epith Cells Micro UA Comment Urine Culture Comments Blood Type Antibody Screen MTS Gel Crossmatch See Detail Assessment and Plan - Plan Anemia Hemoglobin of 7.2 on admission, 7.8 following first unit, repeat hemoglobin this afternoon was 7.3 Transfused 2 additional units overnight Recheck CBC in the a.m. GI bleed, Crohn's disease GI bleeding caused from constipation secondary to Tylenol 3 Bleeding resolved 1 week ago, no bleeding currently Patient is established with Diarrhea Following blood transfusions, patient blames transfusions mixed with her Crohn' s disease Patient has a history of Clostridium difficile Screen for C. 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 difficile toxin screen is negative
[2018-06-03] MEDS: metroNIDAZOLE 500 MG Tablet PO SCH ×2 (02:56→06:37)
[2018-06-03] MEDS: Temazepam 15 MG Capsule PO PRN (03:05)
[2018-06-03 06:25] LABS: Hematocrit 30.3 % (35.0-46.0); Hemoglobin 9.2 gm/dL (11.6-15.3); Mean Platelet Volume 6.3 fL (7.0-11.0); Platelet Count 576 th/mm3 (150-450); Red Blood Count 4.59 mil/mm3 (4.00-5.30); Red Cell Distribution Width 23.6 % (11.6-17.2); White Blood Count 11.3 th/mm3 (4.0-11.0)
[2018-06-03 06:27] LABS: Mean Corpuscular HGB Conc 30.3 % (32.0-36.0)
[2018-06-03 06:36] LABS: Potassium 3.4 meq/L (3.5-5.1)
[2018-06-03 06:42] LABS: Carbon Dioxide 23.2 meq/L (21.0-32.0)
[2018-06-03] MEDS: ENTOCORT 9 MG PO SCH (09:24)
[2018-06-03] MEDS: Mesalamine 250 MG Capsule ER PO SCH ×2 (09:24→13:30)
[2018-06-03 10:22] VITALS: RESP 18; TEMP 99.4
[2018-06-03 12:54] VITALS: BP 125/75; PULSE 97; O2SAT 100
--- NOTE | 2018-06-03 12:57 | P.DCO ---
- Physical Therapy Order: Evaluate and treat - Home Health Nursing Order: Medical education, Signs/symptoms of disease process, Nursing assessment with vital signs - Certification I have seen patient Kelly Garsia on 06/03/18. My clinical findings support the need for the requested home health care services because: Limited mobility due to disease progression, Deconditioned with increased weakness, Medication compliance is questionable, Limited ability to care for self, High risk of falls I certify that my clinical findings support that this patient is homebound because: Unsteady gait/balance, Unsafe to leave home unassisted, Unable to use public transportation
[2018-06-03] MEDS ORDERED: Morphine Sulfate Inj 2 MG/ML Vial IV.PUSH PRN (13:03)
--- NOTE | 2018-06-03 13:07 | P.DS ---
Date of admission: 06/01/18 15:09 Primary care physician: UNKNOWN Brief History from admission: 52-year-old female with history of Crohn's disease and clubfoot presents to the ER after being sent by her primary care doctor for treatment of anemia. The cascade of events began 2 weeks ago when she was prescribed Tylenol 3 4 worsening left foot pain. The Tylenol 3 made her constipated which aggravated her hemorrhoids and flared up her Crohn's disease. She had GI bleeding for approximately 1 week which resolved approximately 1 week ago. During her episode of bleeding she contacted her primary care and was fit into an appointment today. One lab work was reviewed she had a hemoglobin of 7 and it was suggested that she come to the ER for blood transfusion. She only complains of generalized weakness at this point, denies any bleeding. DS: Diagnosis - Discharge Diagnosis (1) Anemia Status: Acute (2) C. difficile diarrhea Status: Acute (3) Crohn disease Status: Acute (4) Arthritis Status: Acute DS: Medications - Discharge Medications Prescriptions: vancomycin 125 mg PO QID 14 Days each DS: Summary Hospital Course: 52-year-old female admitted for generalized weakness secondary to anemia. Her anemia was secondary to a flareup of Crohn's disease, she had bleeding 2 weeks ago but the bleeding stopped 1 week prior to admission. Follow-up with her primary care physician revealed the presence of anemia. She received 3 units of packed red blood cells while hospitalized in her hemoglobin is currently 9.6. She has no source of bleeding at this time so that levels expected to be stable. Recommended home health care check her blood work in 5-7 days to verify stability. During her hospitalization, after receiving blood transfusions, she developed diarrhea. Diarrhea was sent for C. difficile toxin came back positive. She has a distant history of being positive for C. difficile that her presentation to the hospital was not for that reason. She had a few episodes of diarrhea yesterday but today she has started forming solid stools. Given her p.o. vancomycin, due to her ability to form solid stools she can be discharged with bone infection potential. She will be followed by home health care nursing to monitor this condition. - Time Spent with Patient Total time spent providing and/or coordinating discharge services: - Quality: VTE Deep Vein Thrombosis/Pulmonary Embolism Present on Admission: No Exam Vital signs: Vital Signs 06/02/18 15:09 06/02/18 16:30 06/02/18 17:36 Temperature 99.2 F 99.4 F Pulse Rate 91 H 80 93 H Respiratory Rate 20 16 18 Blood Pressure 104/58 L 99/72 L 100/88 Pulse Oximetry 96 06/02/18 19:43 06/02/18 20:00 06/03/18 00:00 Temperature 97.3 F L 98.9 F Pulse Rate 80 82 Respiratory Rate 20 20 Blood Pressure 102/72 103/76 Pulse Oximetry 94 L 99 99 06/03/18 07:40 06/03/18 08:00 06/03/18 12:00 Temperature 99.4 F 99.4 F Pulse Rate 94 H 97 H Respiratory Rate 18 18 Blood Pressure 104/70 125/75 Pulse Oximetry 96 95 100 Intake & Output 06/02/18 06/03/18 06/03/18 18:59 06:59 18:59 Intake Total 960 / 960 640 / 640 Output Total 4 / 4 Balance 960 / 960 636 / 636 Weight 74.3 kg Intake: Oral 960 / 960 240 / 240 Intake (Blood Product) Amt 0 / 0 400 / 400 Rbc As-3 Leukoreduced Unit 0 / 0 400 / 400 [id number] Output: Urine 4 / 4 Other: # Voids 5 Date of Last Bowel Movement 06/01/18 # Bowel Movements 5 4 Results Procedures completed during hospitalization: none Labs on day of discharge: Labs from last 24 hours 06/03/18 06/03/18 06/02/18 06:16 06:16 20:33 WBC 11.3 H RBC 4.59 Hgb 9.2 L Hct 30.3 L MCV 66.0 L MCH 20.0 L MCHC 30.3 L RDW 23.6 H D Plt Count 576 H MPV 6.3 L Sodium 133 L Potassium 3.4 L Chloride 101 Carbon Dioxide 23.2 Anion Gap 9 BUN 8 Creatinine 0.73 Estimated GFR 84 L Random Glucose 120 H Calcium 8.0 L Stl C.difficile Tox PCR Positive H St C. diff Tox Epid 027 Negative MTS Gel Crossmatch 06/02/18 06/02/18 06/02/18 15:11 14:10 13:55 WBC RBC Hgb 7.3 L Hct 23.8 L MCV MCH MCHC RDW Plt Count MPV Sodium Potassium Chloride Carbon Dioxide Anion Gap BUN Creatinine Estimated GFR Random Glucose Calcium Stl C.difficile Tox PCR St C. diff Tox Epid 027 MTS Gel Crossmatch See Detail See Detail 06/01/18 13:50 WBC RBC Hgb Hct MCV MCH MCHC RDW Plt Count MPV Sodium Potassium Chloride Carbon Dioxide Anion Gap BUN Creatinine Estimated GFR Random Glucose Calcium Stl C.difficile Tox PCR St C. diff Tox Epid 027 MTS Gel Crossmatch See Detail Discharge Plan - Discharge Disposition Patient Disposition: Disch W/Home Health Service - Discharge Condition Condition: Fair - Discharge Order Discharge Orders: Discharge Order (Routine); Ordered 06/03/18 Ordered By: Milo Ríos - Physicians Team Primary Care Provider: UNKNOWN, Attending Provider: Milo Ríos
== END 2018-06-03 17:43 | disposition home health service (06) ==
LOC: PH3 12:04 → PHED 12:04 → PHEDA 12:04 → PH3 15:42
PROVIDERS: ADMIT Family Medicine; ATTEND Family Medicine

== ENCOUNTER 2018-06-07 16:30 | Observation (INO) ==
[2018-06-07] MEDS ORDERED: Acetaminophen 325 MG Tablet PO ONE (17:17)
--- NOTE | 2018-06-07 17:56 | ED ---
HPI General Chief complaint: Skin/Abscess/Foreign Body Stated complaint: lesion forearm Time Seen by Provider: 06/07/18 16:58 Source: patient Limitations: no limitations History of Present Illness HPI narrative: Patient is a 52-year-old female, past medical history significant for Crohn's disease on steroids, and recent Clostridium difficile infection, started on vancomycin approximately 2 days ago, who presents with complaint of skin lesions that she noticed since starting the vancomycin. She denies fever and chills. MD complaint: abscess/boil and lesion Onset (ago): day(s) Location: generalized Severity: moderate Quality: aching Pain Consistency: constant Relieving factors: none Exacerbating factors: palpation Context: recent antibiotic Associated symptoms: denies other symptoms Treatments prior to arrival: none Related Data Home Medications Medication Instructions Recorded Confirmed budesonide [Entocort EC] 9 mg PO DAILY 06/01/18 06/01/18 hydrocodone-acetaminophen [Wickett] 1 tab PO Q6H PRN 06/01/18 06/01/18 mesalamine [Pentasa] 1,000 mg PO QID 06/01/18 06/01/18 acetaminophen-codeine 1 tab PO Q4-6H PRN 06/07/18 06/07/18 [Tylenol-Codeine #3] Previous Rx's Medication Instructions Recorded vancomycin 125 mg PO QID 14 Days each 06/03/18 Allergies Allergy/AdvReac Type Severity Reaction Status Date / Time guaifenesin Allergy Severe Nausea/Vomi Verified 06/07/18 16:39 ting ondansetron Allergy Severe Nausea/Vomi Verified 06/07/18 16:39 ting penicillin G Allergy Severe Anaphylaxis Verified 06/07/18 16:39 tramadol Allergy Severe Burning Verified 06/07/18 16:39 ciprofloxacin Allergy Intermediate Nausea/Vomi Verified 06/07/18 16:39 ting ibuprofen AdvReac Severe Bleeding Verified 06/07/18 16:39 Sulfa (Sulfonamide AdvReac Severe Bleeding Verified 06/07/18 16:39 Antibiotics) PROTONIX Allergy Severe Diarrhea Uncoded 06/07/18 16:39 RICOTTA CHEESE Allergy Severe Anaphylaxis Uncoded 06/07/18 16:39 Review of Systems Except as stated in HPI: all other systems reviewed are negative Constitutional Denies chills and Denies fever(s) Eyes Denies blurry vision, Denies dry eyes and Denies itchy eyes ENT Denies bleeding gums, Denies epistaxis, Denies nasal congestion, Denies nose pain, Denies sore throat, Denies throat swelling and Denies tongue swelling Cardiovascular Denies chest pain Respiratory Denies dyspnea Gastrointestinal Denies abdominal pain and Denies vomiting Genitourinary Denies dysuria Musculoskeletal Denies back pain Integumentary/Breasts Reports new lesions Neurologic Denies headache(s) Psychiatric Denies confusion Endocrine Denies fatigue Hematologic/Lymphatic Denies easy bruising [facility] Medical History Medical History Hx of Clostridium difficile infection (Acute) Hx-TIA (transient ischemic attack) (Acute) Hx of Crohn's disease (Acute) Bunion of left foot (Acute) Arthritis (Acute) delivery delivered (Acute) Cholecystectomy planned (Acute) Crohn's disease (Acute) Surgical History Surgical History Hx of foot surgery (Acute) Hx of section (Acute) History of ERCP (Acute) Hx of cholecystectomy (Acute) Hx of tonsillectomy (Acute) Family History Family History Other Ulcerative colitis Social History Social History Substance History: No History of Abuse Second Hand Smoke Exposure: No Smoking Status: Former smoker How Often Do You Have a Drink Containing Alcohol: Never Recent Travel in [place] within the Last 8 Weeks: No Recent Out of Country Travel within the Last 8 Weeks: No Immunization History Tetanus Immunization: <5 Years Hx Influenza Vaccine This Season: No Exam Narrative Exam Narrative: GENERAL: Appears older than stated age SKIN: Focused skin assessment warm/dry. Multiple areas of swelling and erythema over her hands and forearms. Singular large tense bulla on right forearm with surrounding erythema. HEAD: Atraumatic. Normocephalic. EYES: Pupils equal and round. No scleral icterus. No injection or drainage. No conjunctivitis. ENT: No nasal bleeding or discharge. Mucous membranes pink and moist. Singular ulcer to left side of lower lip. No intraoral lesions. NECK: Trachea midline. No JVD. CARDIOVASCULAR: Regular rate and rhythm. No murmur appreciated. RESPIRATORY: No accessory muscle use. Clear to auscultation. Breath sounds equal bilaterally. GASTROINTESTINAL: Abdomen soft, non-tender, nondistended. Hepatic and splenic margins not palpable. MUSCULOSKELETAL: No obvious deformities. No clubbing. No cyanosis. No edema. NEUROLOGICAL: Awake and alert. No obvious cranial nerve deficits. Motor grossly within normal limits. Normal speech. PSYCHIATRIC: Appropriate mood and affect; insight and judgment normal. Course Initial Documented Vital Signs Temperature 99.4 F 06/07/18 16:32 Pulse Rate 98 H 06/07/18 16:32 Respiratory Rate 16 06/07/18 16:32 Blood Pressure 112/63 06/07/18 16:32 Pulse Oximetry 97 06/07/18 16:32 Last Documented Vital Signs Temperature 98.9 F 06/07/18 17:45 Pulse Rate 86 06/07/18 17:45 Respiratory Rate 18 06/07/18 17:45 Blood Pressure 106/65 06/07/18 17:45 Pulse Oximetry 96 06/07/18 17:45 Medical Decision Making [facility] Narrative Medical decision making narrative: Patient is a 52-year-old female, past medical history significant for Crohn's disease on chronic steroids and recent diagnosis of C. difficile infection, for which she was started on oral vancomycin 2 days ago. She comes in today complaining of lesions to her extremities with a large, tense bulla on her right forearm. Nikolsky sign is negative. Vital signs are stable and there is no evidence of this drug reaction affecting her airway. Labs reveal elevation of acute phase reactants. I spoke to Dr. Machado, the hospitalist on-call, who agrees to observation admission of this patient. Differential Diagnosis Differential Diagnosis: Differential diagnosis as including but not limited to adverse drug reaction, Radu Delvis syndrome, pemphigus vulgaris, bullous pemphigoid, contact dermatitis, spider bite. Medical Records Medical records reviewed: Yes I reviewed the patient's medical records. Lab Data Lab results reviewed: Yes I reviewed the patient's lab results. Lab results narrative: Labs remarkable for the anemia that is at baseline. Elevation of the acute phase reactants. Result diagrams: 06/07/18 17:15 06/07/18 17:15 Lab Results 06/07/18 06/07/18 06/07/18 Range/Units 17:15 17:15 17:15 CBC w Diff Slide review pending WBC 6.9 (4.0-11.0) th/mm3 RBC 4.19 (4.00-5.30) mil/mm3 Hgb 8.6 L (11.6-15.3) gm/dL Hct 27.0 L (35.0-46.0) % MCV 64.5 L (80.0-100.0) fL MCH 20.5 L (27.0-34.0) pg MCHC 31.8 L (32.0-36.0) % RDW 25.2 H (11.6-17.2) % Plt Count 603 H (150-450) th/mm3 MPV 6.6 L (7.0-11.0) fL Neut % (Auto) 80.1 H (16.0-70.0) % Lymph % (Auto) 10.1 (9.0-44.0) % [place] % (Auto) 9.2 H (0.0-8.0) % Eos % (Auto) 0.5 (0.0-4.0) % Baso % (Auto) 0.1 (0.0-2.0) % Neut # (Auto) 5.6 (1.8-7.7) th/mm3 Lymph # (Auto) 0.7 L (1.0-4.8) th/mm3 [place] # (Auto) 0.6 (0.0-0.9) th/mm3 Eos # (Auto) 0.0 (0.0-0.4) th/mm3 Baso # (Auto) 0.0 (0.0-0.2) th/mm3 WBC Differential Manual diff final Seg Neuts % (Manual) 67 (16-70) % Band Neuts % (Manual) 11 H (0-6) % Lymphocytes % (Manual) 12 (9-44) % Monocytes % (Manual) 10 H (0-8) % Abs Neuts (Manual) 5.4 (1.8-7.7) th/mm3 Differential Comment . Platelet Estimate High H (Normal) Platelet Morphology Normal (Normal) Ovalocytes 1+ H (None) ESR 86 H (0-20) mm/hr Sodium 133 L (136-145) meq/L Potassium 3.2 L (3.5-5.1) meq/L Chloride 101 (98-107) meq/L Carbon Dioxide 25.4 (21.0-32.0) meq/L Anion Gap 7 (5-15) meq/L BUN 9 (7-18) mg/dL Creatinine 0.49 L (0.50-1.00) mg/dL Estimated GFR Greater than 89 (>89) mL/min Random Glucose 123 H (74-106) mg/dL Calcium 8.3 L (8.5-10.1) mg/dL Total Bilirubin 0.2 (0.2-1.0) mg/dL AST 29 (15-37) U/L ALT 24 (10-53) U/L Alkaline Phosphatase 71 (45-117) U/L C-Reactive Protein 16.60 H (0.00-0.30) mg/dL Total Protein 7.2 (6.4-8.2) g/dL Albumin 1.7 L (3.4-5.0) g/dL Discharge Plan Discharge Disposition Patient Disposition: 30 Still Patient Discharge Condition Condition: Fair Discharge Details Diagnosis: Adverse drug reaction Physicians Team ED Provider: Penny Rhoades Primary Care Provider: UNKNOWN, Rxs /Orders / Referrals /Forms Prescriptions: No Action budesonide [Entocort EC] 3 mg Capsule,Delayed,Extend.Release 9 mg PO DAILY RF: 0 hydrocodone-acetaminophen [Wickett] 7.5-325 mg Tablet 1 tab PO Q6H PRN (Reason: Pain in foot ) RF: 0 mesalamine [Pentasa] 500 mg Capsule, Extended Release 1,000 mg PO QID RF: 0 vancomycin 500 mg Recon Soln 125 mg PO QID 14 Days RF: 0 acetaminophen-codeine [Tylenol-Codeine #3] 300-30 mg Tablet 1 tab PO Q4-6H PRN (Reason: Acute Pain) RF: 0 Discharge Interventions Interventions: Vital Signs Last Done: 06/07/18 17:45 Status ED Status: With Doctor
[2018-06-07 18:01] LABS: Chloride 101 meq/L (98-107); Potassium 3.2 meq/L (3.5-5.1); Sodium 133 meq/L (136-145)
[2018-06-07 18:04] LABS: Calcium 8.3 mg/dL (8.5-10.1)
[2018-06-07 18:05] LABS: Albumin 1.7 g/dL (3.4-5.0); Anion Gap 7 meq/L (5-15); Blood Urea Nitrogen 9 mg/dL (7-18); Carbon Dioxide 25.4 meq/L (21.0-32.0); Glucose,Random 123 mg/dL (74-106)
[2018-06-07 18:08] LABS: Alanine Aminotransferase 24 U/L (10-53); Aspartate Aminotransferase 29 U/L (15-37); Glomerular Filtration Rate Greater Than 89 mL/min (>89)
[2018-06-07 18:09] LABS: Total Protein 7.2 g/dL (6.4-8.2)
[2018-06-07 18:11] LABS: Alkaline Phosphatase 71 U/L (45-117)
[2018-06-07 18:20] LABS: Baso % (Auto) 0.1 % (0.0-2.0); Eos % (Auto) 0.5 % (0.0-4.0); Hemoglobin 8.6 gm/dL (11.6-15.3); Lymph # (Auto) 0.7 th/mm3 (1.0-4.8); Lymph % (Auto) 10.1 % (9.0-44.0); Mean Corpuscular HGB Conc 31.8 % (32.0-36.0); Mean Corpuscular Hemoglobin 20.5 pg (27.0-34.0); Mean Corpuscular Volume 64.5 fL (80.0-100.0); Mean Platelet Volume 6.6 fL (7.0-11.0); Mono # (Auto) 0.6 th/mm3 (0.0-0.9); Mono % (Auto) 9.2 % (0.0-8.0); Neut # (Auto) 5.6 th/mm3 (1.8-7.7); Neut % (Auto) 80.1 % (16.0-70.0); Platelet Count 603 th/mm3 (150-450); Red Blood Count 4.19 mil/mm3 (4.00-5.30); Red Cell Distribution Width 25.2 % (11.6-17.2); White Blood Count 6.9 th/mm3 (4.0-11.0)
[2018-06-07 19:11] LABS: Lymphocytes 12 % (9-44); Monocytes 10 % (0-8)
[2018-06-07 19:12] LABS: Ovalocytes 1+; Platelet Morphology Normal (Normal)
[2018-06-07] MEDS ORDERED: Bisacodyl 10 MG Supp RECTAL PRN (20:02)
[2018-06-07] MEDS ORDERED: Temazepam 15 MG Capsule PO PRN (20:02)
[2018-06-07] MEDS: Sod Chloride 0.9% Inj 1,000 ML IV.CONT SCH (21:32)
[2018-06-07] MEDS: metroNIDAZOLE 500 MG Tablet PO SCH (21:33)
[2018-06-07] MEDS: Senna/Docusate Sodium 8.6/50 MG Tablet PO SCH (21:38)
[2018-06-08 05:44] LABS: Baso # (Auto) 0.1 th/mm3 (0.0-0.2); Baso % (Auto) 1.1 % (0.0-2.0); Eos # (Auto) 0.1 th/mm3 (0.0-0.4); Eos % (Auto) 0.9 % (0.0-4.0); Hemoglobin 8.4 gm/dL (11.6-15.3); Lymph # (Auto) 1.2 th/mm3 (1.0-4.8); Lymph % (Auto) 19.7 % (9.0-44.0); Mean Corpuscular Hemoglobin 19.6 pg (27.0-34.0); Mean Corpuscular Volume 65.3 fL (80.0-100.0); Mean Platelet Volume 6.2 fL (7.0-11.0); Mono # (Auto) 0.8 th/mm3 (0.0-0.9); Mono % (Auto) 12.8 % (0.0-8.0); Neut % (Auto) 65.5 % (16.0-70.0); Platelet Count 640 th/mm3 (150-450); Red Blood Count 4.29 mil/mm3 (4.00-5.30); Red Cell Distribution Width 24.9 % (11.6-17.2); White Blood Count 6.2 th/mm3 (4.0-11.0)
[2018-06-08 05:50] LABS: Chloride 102 meq/L (98-107); Sodium 135 meq/L (136-145)
[2018-06-08 05:51] LABS: Mean Corpuscular HGB Conc 30.1 % (32.0-36.0)
[2018-06-08 05:56] LABS: Albumin 1.6 g/dL (3.4-5.0); Anion Gap 8 meq/L (5-15); Calcium 8.2 mg/dL (8.5-10.1); Glucose,Random 96 mg/dL (74-106)
[2018-06-08] MEDS: metroNIDAZOLE 500 MG Tablet PO SCH ×2 (05:56→06:05)
[2018-06-08 05:57] LABS: Blood Urea Nitrogen 8 mg/dL (7-18)
[2018-06-08 05:59] LABS: Aspartate Aminotransferase 21 U/L (15-37)
[2018-06-08 06:00] LABS: Alanine Aminotransferase 20 U/L (10-53); Glomerular Filtration Rate Greater Than 89 mL/min (>89)
[2018-06-08 06:01] LABS: Total Protein 6.7 g/dL (6.4-8.2)
[2018-06-08 06:02] LABS: Alkaline Phosphatase 67 U/L (45-117)
[2018-06-08] MEDS: Sod Chloride 0.9% Inj 1,000 ML IV.CONT SCH ×3 (06:06→17:27)
[2018-06-08 06:27] LABS: Ovalocytes 1+; Tear Drop Cells 1+
[2018-06-08 06:28] LABS: Dimorphic RBC Present
--- NOTE | 2018-06-08 06:36 | XR ---
EXAM DATE: 06/08/2018 6:32 AM EDT AGE/SEX: 52 years / Female INDICATIONS: Left ankle pain for 1 month with no known injury CLINICAL DATA: This is the patient's initial encounter. Patient reports that signs and symptoms have been present for 1 month and indicates a pain score of 8/10. MEDICAL/SURGICAL HISTORY: None. None. COMPARISON: POI, MR FOOT W/O CONTRAST, LEFT, 08/09/2016. . FINDINGS: Bony structures are intact and in normal alignment. Joints are intact without dislocation or signifi cant arthropathy. Osseous density is normal. 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 So ft tissues are unremarkable. No radiopaque foreign bodies seen. CONCLUSION: 1. No acute abnormality. Electronically signed by: Andres Hathaway MD 06/08/2018 6:35 AM EDT
--- NOTE | 2018-06-08 06:37 | XR ---
EXAM DATE: 06/08/2018 6:33 AM EDT AGE/SEX: 52 years / Female INDICATIONS: Right ankle pain for 1 month with no known injury CLINICAL DATA: This is the patient's initial encounter. Patient reports that signs and symptoms have been present for 1 month and indicates a pain score of 8/10. MEDICAL/SURGICAL HISTORY: None. None. COMPARISON: No prior exams available for comparison. FINDINGS: Bony structures are intact and in normal alignment. Joints are intact without dislocation or signifi cant arthropathy. Osseous density is normal. Plantar calcaneal spurring. Soft tissues are unremarkab le. No radiopaque foreign bodies seen. CONCLUSION: 1. Plantar calcaneal spurring. 2. Otherwise, unremarkable radiographs of the right ankle. Electronically signed by: Andres Hathaway MD 06/08/2018 6:36 AM EDT
--- NOTE | 2018-06-08 08:57 | P.HP ---
History of Present Illness Primary Care Physician: UNKNOWN Chief Complaint: Skin complaint History of Present Illness: This is a 52-year-old female with history of Crohn's disease who presented to the ER with complaints of right forearm pain and redness. Patient was recently admitted to the hospital for anemia 06/01-06/03. She had GI bleeding with hemoglobin around 7. Was given 2 units of PRBC and sent home. Patient states that her right forearm started out in the hospital as a bug bite and became more red and swollen over the course of the last week. Patient also complains of multiple areas of erythema including her bilateral lower ankles as well as her left hand. It should be noted that patient was recently diagnosed with C. difficile, started on vancomycin p.o. and has taken it x 4 days. She denies any recent fevers, chills, cough, shortness of breath, abdominal pain, nausea, vomiting, diarrhea or dysuria. Patient states that her diarrhea is improving, roughly 4-5 bowel movements per day. 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 She lives at home with her and daughter. - Diagnosis (1) C. difficile diarrhea (2) Crohn disease Review of Systems All other systems reviewed negative except as stated in HPI PMFSH - History History Provided By: Patient - Medical History Medical History: Medical History (Last Reviewed 06/08/18 @ 14:27 by Shadia Posey MD) Hx of Clostridium difficile infection (Acute) Hx-TIA (transient ischemic attack) (Acute) Hx of Crohn's disease (Acute) Bunion of left foot (Acute) Arthritis delivery delivered Cholecystectomy planned Crohn's disease - Surgical History Surgical History: Surgical History (Last Reviewed 06/08/18 @ 14:28 by Shadia Posey MD) Hx of foot surgery (Acute) Hx of section (Acute) History of ERCP (Acute) Hx of cholecystectomy (Acute) Hx of tonsillectomy - Family History Family History: Family History (Last Reviewed 06/07/18 @ 17:56 by Penny Rhoades MD) Other Ulcerative colitis - Tobacco History Second Hand Smoke Exposure: Yes Tobacco Use In Past 30 Days: Yes Smoking Status: Former smoker Tobacco Type: Cigarettes - Alcohol History How Often Do You Have a Drink Containing Alcohol: Never - Substance Use History Substance History: No History of Abuse - Travel History Recent Travel in the [place] Within the Last 8 Weeks: No Recent Travel Out of the Country Within the Last 8 Weeks: No - Immunization History Tetanus Immunization: <5 Years Hx Influenza Vaccine This Season: No Medications and Allergies Active Medications: Active Medications Al Hydroxide/Mg Hydroxide (Milk Of Magnesia Liq) 30 ml PO Q12H PRN PRN Reason: Mild Constipation Bisacodyl (Dulcolax Supp) 10 mg RECTAL DAILY PRN PRN Reason: SEVERE CONSITIPATION Sodium Chloride (Ns Inj) 1,000 mls @ 100 mls/hr IV.CONT .Q10H [facility] Last Admin: 06/08/18 06:06 Dose: Not Given Lactulose (Lactulose Liq) 30 ml PO DAILY PRN PRN Reason: SEVERE CONSITIPATION Mesalamine (Pentasa Sr) 1,000 mg PO QID [facility] Metronidazole (Flagyl) 500 mg PO Q8HR [facility] Last Admin: 06/08/18 06:05 Dose: Not Given (Budesonide [ Entocort Ec] 3 Mg Cap 0 each PO TID [facility] Senna/Docusate Sodium (Licha-Colace) 1 tab PO BID [facility] Last Admin: 06/07/18 21:38 Dose: Not Given Sennosides (Senokot) 17.2 mg PO Q12H PRN PRN Reason: Moderate Constipation Temazepam (Restoril) 15 mg PO HS PRN PRN Reason: INSOMNIA Last Admin: 06/07/18 23:57 Dose: 15 mg Allergies Allergy/AdvReac Type Severity Reaction Status Date / Time guaifenesin Allergy Severe Nausea/Vomi Verified 06/07/18 16:39 ting ondansetron Allergy Severe Nausea/Vomi Verified 06/07/18 16:39 ting penicillin G Allergy Severe Anaphylaxis Verified 06/07/18 16:39 tramadol Allergy Severe Burning Verified 06/07/18 16:39 ciprofloxacin Allergy Intermediate Nausea/Vomi Verified 06/07/18 16:39 ting ibuprofen AdvReac Severe Bleeding Verified 06/07/18 16:39 Sulfa (Sulfonamide AdvReac Severe Bleeding Verified 06/07/18 16:39 Antibiotics) PROTONIX Allergy Severe Diarrhea Uncoded 06/07/18 16:39 RICOTTA CHEESE Allergy Severe Anaphylaxis Uncoded 06/07/18 16:39 Home Medications Medication Instructions Recorded Confirmed Type budesonide [Entocort EC] 9 mg PO DAILY 06/01/18 06/08/18 History hydrocodone-acetaminophen [[place]] 1 tab PO Q6H PRN 06/01/18 06/08/18 History mesalamine [Pentasa] 1,000 mg PO QID 06/01/18 06/08/18 History acetaminophen-codeine 1 tab PO Q4-6H PRN 06/07/18 06/07/18 History [Tylenol-Codeine #3] Exam Vital signs: Vital Signs 06/07/18 16:32 06/07/18 17:45 06/07/18 20:03 Temperature 99.4 F 98.9 F Pulse Rate 98 H 86 84 Respiratory Rate 16 18 18 Blood Pressure 112/63 106/65 110/62 Pulse Oximetry 97 96 97 06/07/18 22:30 06/07/18 22:39 Temperature 97.6 F Pulse Rate 83 82 Respiratory Rate 20 18 Blood Pressure 111/72 112/60 Pulse Oximetry 98 97 Intake & Output 06/07/18 06/08/18 06/08/18 18:59 06:59 18:59 Intake Total 720 / 720 Balance 720 / 720 Weight 72 kg 72 kg Intake: Oral 720 / 720 Other: Date of Last Bowel Movement 06/08/18 # Bowel Movements 3 Weight On Admission 71.5 kg Narrative: GENERAL: Well-developed, well-nourished patient in [facility]. SKIN: Warm and dry. Right forearm bolus area, erythema surrounding. Left middle digit swelling with erythema as well as mild erythema in bilateral lower extremity shins. HEAD: Normocephalic. Atraumatic. EYES: Pupils equal and round. No scleral icterus. No injection or drainage. ENT: No nasal bleeding or discharge. Mucous membranes pink and moist. NECK: Supple. Trachea midline. CARDIOVASCULAR: Regular rate and rhythm. S1, S2 noted. RESPIRATORY: No accessory muscle use. Clear to auscultation. Breath sounds equal bilaterally. GASTROINTESTINAL: Abdomen soft, non-tender, nondistended. Normoactive bowel sounds x4. MUSCULOSKELETAL: No obvious deformities. Extremities without clubbing, cyanosis. NEUROLOGICAL: Awake and alert. No obvious cranial nerve deficits. Motor grossly within normal limits. 5/5 muscle strength in bilateral upper and lower extremities. Normal speech. PSYCHIATRIC: Appropriate mood and affect; insight and judgment normal. Results - Labs CBC & Chem 7: 06/08/18 05:09 06/08/18 05:19 Labs: Laboratory Results - last 24 hr 06/07/18 06/07/18 06/07/18 17:15 17:15 17:15 CBC w Diff Slide review pending WBC 6.9 RBC 4.19 Hgb 8.6 L Hct 27.0 L MCV 64.5 L MCH 20.5 L MCHC 31.8 L RDW 25.2 H Plt Count 603 H MPV 6.6 L Neut % (Auto) 80.1 H Lymph % (Auto) 10.1 [place] % (Auto) 9.2 H Eos % (Auto) 0.5 Baso % (Auto) 0.1 Neut # (Auto) 5.6 Lymph # (Auto) 0.7 L [place] # (Auto) 0.6 Eos # (Auto) 0.0 Baso # (Auto) 0.0 WBC Differential Manual diff final Diff Scan Seg Neuts % (Manual) 67 Band Neuts % (Manual) 11 H Lymphocytes % (Manual) 12 Monocytes % (Manual) 10 H Abs Neuts (Manual) 5.4 Differential Comment . Platelet Estimate High H Platelet Morphology Normal Dimorphic RBCs Tear Drop Cells Ovalocytes 1+ H ESR 86 H Sodium 133 L Potassium 3.2 L Chloride 101 Carbon Dioxide 25.4 Anion Gap 7 BUN 9 Creatinine 0.49 L Estimated GFR Greater than 89 Random Glucose 123 H Calcium 8.3 L Total Bilirubin 0.2 AST 29 ALT 24 Alkaline Phosphatase 71 C-Reactive Protein 16.60 H Total Protein 7.2 Albumin 1.7 L 06/08/18 06/08/18 05:09 05:19 CBC w Diff Slide review pending WBC 6.2 RBC 4.29 Hgb 8.4 L Hct 28.0 L MCV 65.3 L MCH 19.6 L MCHC 30.1 L RDW 24.9 H Plt Count 640 H MPV 6.2 L Neut % (Auto) 65.5 Lymph % (Auto) 19.7 [place] % (Auto) 12.8 H Eos % (Auto) 0.9 Baso % (Auto) 1.1 Neut # (Auto) 4.0 Lymph # (Auto) 1.2 [place] # (Auto) 0.8 Eos # (Auto) 0.1 Baso # (Auto) 0.1 WBC Differential . Diff Scan Auto diff confirmed Seg Neuts % (Manual) Band Neuts % (Manual) Lymphocytes % (Manual) Monocytes % (Manual) Abs Neuts (Manual) Differential Comment . Platelet Estimate Platelet Morphology Dimorphic RBCs Present H Tear Drop Cells 1+ H Ovalocytes 1+ H ESR Sodium 135 L Potassium 3.0 L Chloride 102 Carbon Dioxide 25.0 Anion Gap 8 BUN 8 Creatinine 0.50 Estimated GFR Greater than 89 Random Glucose 96 Calcium 8.2 L Total Bilirubin 0.2 AST 21 ALT 20 Alkaline Phosphatase 67 C-Reactive Protein Total Protein 6.7 Albumin 1.6 L - Imaging Impressions Ankle X-Ray 06/08/18 00:00 CONCLUSION: Ankle X-Ray 06/08/18 00:00 CONCLUSION: Caprini VTE Risk Assessment Caprini VTE Risk Assessment: No/Low Risk (score <= 1) Caprini Risk Assessment Model: Point Value = 1 Point Value = 2 Point Value = 3 Point Value = 5 Age 41-60 Minor surgery BMI > 25 kg/m2 Swollen legs Varicose veins or History of unexplained or recurrent spontaneous Oral contraceptives or hormone replacement Sepsis (< 1 month) Serious lung disease, including pneumonia (< 1 month) Abnormal pulmonary function Acute myocardial infarction Congestive heart failure (< 1 month) History of inflammatory bowel disease Medical patient at bed rest Age 61-74 Arthroscopic surgery Major open surgery (> 45 min) Laparoscopic surgery (> 45 min) Malignancy Confined to bed (> 72 hours) Immobilizing plaster cast Central venous access Age >= 75 History of VTE Family history of VTE Factor V Leiden Prothrombin [id number] Lupus anticoagulant Anticardiolipin antibodies Elevated serum homocysteine Heparin-induced thrombocytopenia Other congenital or acquired thrombophilia Stroke (< 1 month) Elective arthroplasty Hip, pelvis, or leg fracture Acute spinal cord injury (< 1 month) Prophylaxis Regimen: Total Risk Factor Score Risk Level Prophylaxis Regimen 0-1 Low Early ambulation 2 Moderate Order ONE of the following: *Sequential Compression Device (SCD) *Heparin 5000 units SQ BID 3-4 Higher Order ONE of the following medications: *Heparin 5000 units SQ TID *Enoxaparin/Lovenox 40 mg SQ daily (WT < 150 kg, CrCl > 30 mL/min) *Enoxaparin/Lovenox 30 mg SQ daily (WT < 150 kg, CrCl > 10-29 mL/min) *Enoxaparin/Lovenox 30 mg SQ BID (WT < 150 kg, CrCl > 30 mL/min) AND/OR *Sequential Compression Device (SCD) 5 or more Highest Order ONE of the following medications: *Heparin 5000 units SQ TID (Preferred with Epidurals) *Enoxaparin/Lovenox 40 mg SQ daily (WT < 150 kg, CrCl > 30 mL/min) *Enoxaparin/Lovenox 30 mg SQ daily (WT < 150 kg, CrCl > 10-29 mL/min) *Enoxaparin/Lovenox 30 mg SQ BID (WT < 150 kg, CrCl > 30 mL/min) AND *Sequential Compression Device (SCD) Assessment and Plan - Assessment (1) C. difficile diarrhea Code(s): A04.72 - Enterocolitis due to Clostridium difficile, not specified as recurrent Status: Acute (2) Crohn disease Code(s): K50.90 - Crohn's disease, unspecified, without complications Status: Acute - Plan This is a 52-year-old female with history of Crohn's disease and clubfoot presents to the ER with complaints of right forearm skin bolus and redness. SIRS Right forearm infected bullous -Meets with tachycardia and fever, 101.9. Source unknown at this time, does have c diff, possibly secondary to skin infection. No leukocytosis at this time. -Right forearm bulla was aspirated and sent for culture. Follow. -ID following. Recommendations for Vancomycin IV. Add cefepime. Possible pseudogout flare -Left middle digit swelling and erythema as well as bilateral lower extremity with scattered erythema. Likely inflammatory in nature. -Treat with IV steroids. -Monitor. Recent C diff infection -It was initially thought that patient had a reaction to vancomycin p.o. this is unlikely. -ID consulted and seen patient, will place back on vancomycin p.o. -Monitor hydration, monitor bowel movements. Hypokalemia: K 3.0. Replaced. Will monitor. History of Crohn's disease -Crohn's disease is chronic. -Recent GI bleeding caused from constipation secondary to Tylenol 3. -GI bleeding resolved 1 week ago, was given 2 units PRBC. -Patient is established with . Continue home medications. 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
[2018-06-08] MEDS ORDERED: (Budesonide [Entocort Ec] 9 MG) PO SCH (09:00)
[2018-06-08] MEDS ORDERED: BUDESONIDE 3 MG PO SCH (09:00)
[2018-06-08] MEDS ORDERED: Mesalamine 250 MG Capsule ER PO SCH (09:00)
[2018-06-08] MEDS ORDERED: Acetaminophen/Codeine 300/30 MG Tablet PO PRN (10:05)
[2018-06-08] MEDS: Senna/Docusate Sodium 8.6/50 MG Tablet PO SCH ×2 (10:13→22:52)
[2018-06-08] MEDS: ENTOCORT 3 MG PO SCH (10:14)
[2018-06-08] MEDS ORDERED: Morphine Sulfate Inj 2 MG/ML Vial IV.PUSH PRN (11:54)
[2018-06-08] MEDS: PENTASA 500 MG PO SCH ×3 (12:15→23:38)
[2018-06-08] MEDS ORDERED: Vancomycin Consult Pharmacy 1 EACH OTHER SCH (14:00)
[2018-06-08] MEDS ORDERED: VANCOMYCIN TROUGH OTHER ONE (14:00)
[2018-06-08] MEDS: Vancomycin Inj 1,000 MG in Sodium Chlor 0.9% Inj 250 ML IV.SIG SCH (14:00)
--- NOTE | 2018-06-08 14:35 | P.CONID ---
History of Present Illness Service: Infectious disease Consult date: 06/08/18 Requesting Physician: Annel Kelly Reason for Consult: Evaluate patient with fever, R forearm lesion Primary Care Provider: UNKNOWN Family Provider: UNKNOWN Chief Complaint: Skin complaint History of Present Illness: Patient seen and examined. Records reviewed. Patient is a 52-year-old female presented to the hospital for further evaluation of painful lesion in her right forearm as well as multiple painful joints. Patient was recently hospitalized June 01 - June 03. She had a low hemoglobin at that time, and she received some transfusion and was discharged. She had diarrhea in the hospital, and stool for C. difficile came back positive. She was discharged on oral vancomycin. While in the hospital she apparently developed a painful red area in her right forearm. About 2 days after that the area developed a pustular lesion which looks like it is about 1 cm in size, and it progressively got worse and became a large bullous lesion that is about 1-1/2 inch in diameter. She felt chilly, and she stated that she had some low-grade temperatures. She also developed swelling and pain on multiple joints including the the third MCP joints of both hands, her right thumb, and both ankles. She still having frequent stool. No abdominal pain, no N /V. She is voiding ok. She denies any respiratory complaints. Since admission, she has jhad temp up to 101.5. WBC is normal, ESR 86, CRP 16.6. Infectious Disease consultation has been rrquested to evaluate her skin lesion and fevers. Review of Systems Constitutional: Reports chills, Reports fever(s) Eyes: Denies discharge, Denies pain Ears, Nose, Mouth, and Throat: Denies dry mouth, Denies ear pain, Denies facial pain, Denies mouth pain, Denies sore throat Cardiovascular: Denies chest pain, Denies shortness of breath Respiratory: Denies cough, Denies pain on inspiration, Denies shortness of breath Gastrointestinal: Reports loose stools, Denies abdominal pain, Denies nausea, Denies pain with swallowing, Denies vomiting Genitourinary: Denies blood in urine, Denies painful urination Musculoskeletal: Reports joint pain, Reports joint swelling Skin/Breast: Reports lesions Neurologic: Denies headache(s) PMFSH - History History Provided By: Patient - Medical History Medical History: Medical History (Last Reviewed 06/08/18 @ 14:27 by Shadia Posey MD) Hx of Clostridium difficile infection (Acute) Hx-TIA (transient ischemic attack) (Acute) Hx of Crohn's disease (Acute) Bunion of left foot (Acute) Arthritis delivery delivered Cholecystectomy planned Crohn's disease - Surgical History Surgical History: Surgical History (Last Reviewed 06/08/18 @ 14:28 by Shadia Posey MD) Hx of foot surgery (Acute) Hx of section (Acute) History of ERCP (Acute) Hx of cholecystectomy (Acute) Hx of tonsillectomy - Family History Family History: Family History (Last Reviewed 06/07/18 @ 17:56 by Penny Rhoades MD) Other Ulcerative colitis - Tobacco History Second Hand Smoke Exposure: Yes Tobacco Use In Past 30 Days: Yes Smoking Status: Former smoker Tobacco Type: Cigarettes - Alcohol History How Often Do You Have a Drink Containing Alcohol: Never - Substance Use History Substance History: No History of Abuse - Travel History Recent Travel in the [place] Within the Last 8 Weeks: No Recent Travel Out of the Country Within the Last 8 Weeks: No - Immunization History Tetanus Immunization: <5 Years Hx Influenza Vaccine This Season: No Medications and Allergies Active Medications: Active Medications Hydrocodone Bitart/Acetaminophen ([place] 5/325) 1 tab PO Q4H PRN PRN Reason: PAIN SCALE 1 TO 5 Hydrocodone Bitart/Acetaminophen ([place] 7.5/325) 1 tab PO Q4H PRN PRN Reason: PAIN SCALE 6 TO 10 Last Admin: 06/08/18 12:09 Dose: 1 tab Al Hydroxide/Mg Hydroxide (Milk Of Divina Liq) 30 ml PO Q12H PRN PRN Reason: Mild Constipation Bisacodyl (Dulcolax Supp) 10 mg RECTAL DAILY PRN PRN Reason: SEVERE CONSITIPATION Sodium Chloride (Ns Inj) 1,000 mls @ 100 mls/hr IV.CONT .Q10H TIARA Last Admin: 06/08/18 12:09 Dose: 100 mls/hr Pharmacy Profile Note (Vancomycin Consult Pharmacy) 0 mls @ 0 mls/hr OTHER UNSCH TIARA Vancomycin HCl 1,000 mg/ (Sodium Chloride) 250 mls @ 250 mls/hr IV.SIG Q12H TIARA Cefepime HCl 2,000 mg/ Sodium (Chloride) 100 mls @ 200 mls/hr IV.SIG Q12H TIARA Lactulose (Lactulose Liq) 30 ml PO DAILY PRN PRN Reason: SEVERE CONSITIPATION Methylprednisolone Sodium Succinate (Solumedrol Inj) 40 mg IV.PUSH Q12HR [facility] Morphine Sulfate (Morphine Inj) 2 mg IV.PUSH Q4H PRN PRN Reason: BREAKTHROUGH PAIN Pt Own: Entocort 3mg 0 each PO DAILY [facility] Last Admin: 06/08/18 10:14 Dose: 2 each Pt Own: Pentasa Er (500mg 2 Capsules) 0 each PO QID [facility] Last Admin: 06/08/18 12:15 Dose: 2 each Promethazine HCl (Phenergan) 12.5 mg PO Q4H PRN PRN Reason: NAUSEA OR VOMITING Senna/Docusate Sodium (Licha-Colace) 1 tab PO BID [facility] Last Admin: 06/08/18 10:13 Dose: Not Given Sennosides (Senokot) 17.2 mg PO Q12H PRN PRN Reason: Moderate Constipation Temazepam (Restoril) 15 mg PO HS PRN PRN Reason: INSOMNIA Last Admin: 06/07/18 23:57 Dose: 15 mg Vancomycin HCl (Vancomycin Po) 125 mg PO QID [facility] Allergies Allergy/AdvReac Type Severity Reaction Status Date / Time guaifenesin Allergy Severe Nausea/Vomi Verified 06/07/18 16:39 ting ondansetron Allergy Severe Nausea/Vomi Verified 06/07/18 16:39 ting penicillin G Allergy Severe Anaphylaxis Verified 06/07/18 16:39 tramadol Allergy Severe Burning Verified 06/07/18 16:39 ciprofloxacin Allergy Intermediate Nausea/Vomi Verified 06/07/18 16:39 ting ibuprofen AdvReac Severe Bleeding Verified 06/07/18 16:39 Sulfa (Sulfonamide AdvReac Severe Bleeding Verified 06/07/18 16:39 Antibiotics) PROTONIX Allergy Severe Diarrhea Uncoded 06/07/18 16:39 RICOTTA CHEESE Allergy Severe Anaphylaxis Uncoded 06/07/18 16:39 Home Medications Medication Instructions Recorded Confirmed Type budesonide [Entocort EC] 9 mg PO DAILY 06/01/18 06/08/18 History hydrocodone-acetaminophen [[place]] 1 tab PO Q6H PRN 06/01/18 06/08/18 History mesalamine [Pentasa] 1,000 mg PO QID 06/01/18 06/08/18 History acetaminophen-codeine 1 tab PO Q4-6H PRN 06/07/18 06/07/18 History [Tylenol-Codeine #3] Exam Vital signs: Vital Signs 06/07/18 16:32 06/07/18 17:45 06/07/18 20:03 Temperature 99.4 F 98.9 F Pulse Rate 98 H 86 84 Respiratory Rate 16 18 18 Blood Pressure 112/63 106/65 110/62 Pulse Oximetry 97 96 97 06/07/18 22:30 06/07/18 22:39 06/08/18 08:00 Temperature 97.6 F 100.3 F H Pulse Rate 83 82 95 H Respiratory Rate 20 18 17 Blood Pressure 111/72 112/60 115/62 Pulse Oximetry 98 97 99 06/08/18 11:50 06/08/18 12:00 Temperature 101.9 F H Pulse Rate 97 H Respiratory Rate 18 17 Blood Pressure 104/70 Pulse Oximetry 97 Intake & Output 06/07/18 06/08/18 06/08/18 18:59 06:59 18:59 Intake Total 720 / 720 1000 / 1000 Balance 720 / 720 1000 / 1000 Weight 72 kg 72 kg Intake: IV 1000 / 1000 NS Inj 1,000 ML @ 100 mls/hr IV 1000 / 1000 .CONT .Q10H TIARA Rx#:[id number] Oral 720 / 720 Other: Date of Last Bowel Movement 06/08/18 # Bowel Movements 3 Weight On Admission 71.5 kg Narrative: Physical Examination GENERAL: Patient is a well-nourished, well-developed female, awake and alert , not in respiratory distress. She does not look toxic appearing SKIN: Warm and dry. No generalized rash. She has a large bullous lesion in her forearm, I aspirated moore reddsih purulent fluid, which will be sent for G/S and C/S. HEAD: Atraumatic. Normocephalic. No temporal wasting, or tenderness. EYES: [place] conjunctiva. No petechia or hemorrhage. Pupils equal, round and reactive to light. Extraocular movements full and intact. No scleral icterus. No injection or drainage. EARS, NOSE AND THROAT: Nose without bleeding or purulent nasal discharge. No sinus tenderness. Slightly dry oral mucosa. NECK: Trachea midline. Supple and not tender, no meningeal signs CARDIOVASCULAR: Regular rate and rhythm. No murmurs, rubs or gallops heard RESPIRATORY: Clear to auscultation. Breath sounds equal bilaterally. No rales , wheezing or rhonchi ABDOMEN: Soft, non-tender, nondistended. Has pink abdominal striae sanders. Bowel sounds present and normoactive. No guarding. No rebound. No organomegaly. EXTREMITIES: No clubbing, cyanosis. Has swollen krishna 3rd MCP joints worse on L hand than R hand, some mild swelling and redness on ulnar aspect of her R wrist, swollen and red R thumb. Also with swelling and redness at L ankle, and mild in the R ankle. No calf tenderness. Well perfused and warm. NEUROLOGICAL: Awake and alert. Cranial nerves grossly intact. Motor grossly within normal limits. PSYCHIATRIC: Normal affect, calm and cooperative. LINE: No evidence of infection Results - Labs CBC & Chem 7: 06/08/18 05:09 06/08/18 05:19 Labs: Laboratory Results - last 24 hr 06/07/18 06/07/18 06/07/18 17:15 17:15 17:15 CBC w Diff Slide review pending WBC 6.9 RBC 4.19 Hgb 8.6 L Hct 27.0 L MCV 64.5 L MCH 20.5 L MCHC 31.8 L RDW 25.2 H Plt Count 603 H MPV 6.6 L Neut % (Auto) 80.1 H Lymph % (Auto) 10.1 [place] % (Auto) 9.2 H Eos % (Auto) 0.5 Baso % (Auto) 0.1 Neut # (Auto) 5.6 Lymph # (Auto) 0.7 L [place] # (Auto) 0.6 Eos # (Auto) 0.0 Baso # (Auto) 0.0 WBC Differential Manual diff final Diff Scan Seg Neuts % (Manual) 67 Band Neuts % (Manual) 11 H Lymphocytes % (Manual) 12 Monocytes % (Manual) 10 H Abs Neuts (Manual) 5.4 Differential Comment . Platelet Estimate High H Platelet Morphology Normal Dimorphic RBCs Tear Drop Cells Ovalocytes 1+ H ESR 86 H Sodium 133 L Potassium 3.2 L Chloride 101 Carbon Dioxide 25.4 Anion Gap 7 BUN 9 Creatinine 0.49 L Estimated GFR Greater than 89 Random Glucose 123 H Calcium 8.3 L Total Bilirubin 0.2 AST 29 ALT 24 Alkaline Phosphatase 71 C-Reactive Protein 16.60 H Total Protein 7.2 Albumin 1.7 L 06/08/18 06/08/18 05:09 05:19 CBC w Diff Slide review pending WBC 6.2 RBC 4.29 Hgb 8.4 L Hct 28.0 L MCV 65.3 L MCH 19.6 L MCHC 30.1 L RDW 24.9 H Plt Count 640 H MPV 6.2 L Neut % (Auto) 65.5 Lymph % (Auto) 19.7 [place] % (Auto) 12.8 H Eos % (Auto) 0.9 Baso % (Auto) 1.1 Neut # (Auto) 4.0 Lymph # (Auto) 1.2 [place] # (Auto) 0.8 Eos # (Auto) 0.1 Baso # (Auto) 0.1 WBC Differential . Diff Scan Auto diff confirmed Seg Neuts % (Manual) Band Neuts % (Manual) Lymphocytes % (Manual) Monocytes % (Manual) Abs Neuts (Manual) Differential Comment . Platelet Estimate Platelet Morphology Dimorphic RBCs Present H Tear Drop Cells 1+ H Ovalocytes 1+ H ESR Sodium 135 L Potassium 3.0 L Chloride 102 Carbon Dioxide 25.0 Anion Gap 8 BUN 8 Creatinine 0.50 Estimated GFR Greater than 89 Random Glucose 96 Calcium 8.2 L Total Bilirubin 0.2 AST 21 ALT 20 Alkaline Phosphatase 67 C-Reactive Protein Total Protein 6.7 Albumin 1.6 L - Imaging Impressions Ankle X-Ray 06/08/18 00:00 CONCLUSION: 1. Plantar calcaneal spurring. 2. Otherwise, unremarkable radiographs of the right ankle. Ankle X-Ray 06/08/18 00:00 CONCLUSION: 1. No acute abnormality. Assessment and Plan - Plan Impression Febrile illness, possible sepsis on presentation Has infected bullous lesion R forearm, etiology? Has polyarthritis usually seen in inflammatory process Recent C difficile colitis Hx Crohns disease Allergy to PCN, has tolerated Keflex in the past Recommendation Agree with checking BC Fluid from bullous lesion for G/S C/S Continue IV vanco for MRSA coverage Add GNR coverage and start Cefepime Restart oral Vanco for C diff and stop Flagyl IV steroid for polyarthritis Will cancel MRI RUE Follow temps Follow C/S I will make further recommendations once work-up available I will follow along with you Thank you for this consultation D/W Keisha FERMIN Spoke with family
[2018-06-08] MEDS: MethylPREDNISolone Sod Succinate Inj 40 MG/ML Vial IV.PUSH SCH (16:18)
[2018-06-09] MEDS: Sod Chloride 0.9% Inj 1,000 ML IV.CONT SCH ×4 (04:38→23:19)
[2018-06-09] MEDS: Vancomycin Inj 1,000 MG in Sodium Chlor 0.9% Inj 250 ML IV.SIG SCH ×2 (04:38→13:23)
[2018-06-09] MEDS: MethylPREDNISolone Sod Succinate Inj 40 MG/ML Vial IV.PUSH SCH ×2 (04:39→15:19)
[2018-06-09] MEDS: metroNIDAZOLE 500 MG Tablet PO SCH (06:58)
[2018-06-09] MEDS: Senna/Docusate Sodium 8.6/50 MG Tablet PO SCH ×2 (09:03→20:36)
[2018-06-09] MEDS: PENTASA 500 MG PO SCH ×4 (09:04→20:37)
[2018-06-09 09:43] LABS: Baso % (Auto) 0.1 % (0.0-2.0); Eos % (Auto) 0.1 % (0.0-4.0); Hematocrit 26.1 % (35.0-46.0); Hemoglobin 8.1 gm/dL (11.6-15.3); Lymph # (Auto) 0.6 th/mm3 (1.0-4.8); Lymph % (Auto) 15.7 % (9.0-44.0); Mean Corpuscular HGB Conc 31.2 % (32.0-36.0); Mean Corpuscular Hemoglobin 20.3 pg (27.0-34.0); Mean Corpuscular Volume 65.1 fL (80.0-100.0); Mean Platelet Volume 6.2 fL (7.0-11.0); Mono # (Auto) 0.1 th/mm3 (0.0-0.9); Mono % (Auto) 2.5 % (0.0-8.0); Neut # (Auto) 3.1 th/mm3 (1.8-7.7); Neut % (Auto) 81.6 % (16.0-70.0); Platelet Count 602 th/mm3 (150-450); Red Blood Count 4.02 mil/mm3 (4.00-5.30); Red Cell Distribution Width 24.1 % (11.6-17.2); White Blood Count 3.8 th/mm3 (4.0-11.0)
[2018-06-09 10:00] LABS: Chloride 107 meq/L (98-107); Sodium 140 meq/L (136-145)
[2018-06-09 10:01] LABS: Anion Gap 9 meq/L (5-15); Carbon Dioxide 24.1 meq/L (21.0-32.0); Glucose,Random 163 mg/dL (74-106)
[2018-06-09 10:05] LABS: Blood Urea Nitrogen 7 mg/dL (7-18); Glomerular Filtration Rate Greater Than 89 mL/min (>89)
[2018-06-09] MEDS: ENTOCORT 3 MG PO SCH (10:11)
[2018-06-09 11:03] LABS: Ovalocytes 1+; Rouleaux Present
[2018-06-09 11:04] LABS: Dimorphic RBC Present; Platelet Morphology Normal (Normal)
--- NOTE | 2018-06-09 11:44 | P.PN ---
Subjective Interval history: Follow-up sepsis, right forearm bullous, C. difficile infection. Patient seen and examined, lying in bed comfortably on phone. Denies any reports of any acute events overnight. Pain is well controlled. Doing well. Tolerating p.o. intake with no nausea or vomiting. Afebrile overnight. Awaiting blood cultures. ID following. Physical Exam Vital signs: Vital Signs 06/08/18 11:50 06/08/18 12:00 06/08/18 13:00 Temperature 101.9 F H Pulse Rate 97 H Respiratory Rate 18 17 18 Blood Pressure 104/70 Pulse Oximetry 97 06/08/18 16:00 06/08/18 20:00 06/09/18 00:00 Temperature 99.9 F H 97.9 F 97.8 F Pulse Rate 95 H 79 81 Respiratory Rate 18 16 18 Blood Pressure 104/78 114/69 110/66 Pulse Oximetry 97 97 97 06/09/18 08:00 Temperature 97.3 F L Pulse Rate 62 Respiratory Rate 20 Blood Pressure 120/76 Pulse Oximetry 96 Intake & Output 06/08/18 06/09/18 06/09/18 18:59 06:59 18:59 Intake Total 2310 / 2310 2580 / 2580 800 / 800 Balance 2310 / 2310 2580 / 2580 800 / 800 Weight 72.4 kg Intake: IV 1350 / 1350 1350 / 1350 800 / 800 NS Inj 1,000 ML @ 100 mls/hr IV 1000 / 1000 1000 / 1000 800 / 800 .CONT .Q10H TIARA Rx#:[id number] Maxipime Inj 2,000 MG In NS Inj 100 / 100 100 / 100 100 ML @ 200 mls/hr IV.SIG Q12H TIARA Rx#:[id number] Vancomycin Inj 1,000 MG In NS 250 / 250 250 / 250 Inj 250 ML @ 250 mls/hr IV.SIG Q12H TIARA Rx#:[id number] Oral 960 / 960 1230 / 1230 Other: # Voids 6 # Incontinent Voids 6 # Bowel Movements 6 # Incontinent Bowel Movements 6 Narrative: GENERAL: Well-developed, well-nourished patient in NAD. SKIN: Warm and dry. Right forearm bolus, erythema surrounding, has been aspirated. Dressing d/i. Left middle digit swelling with erythema as well as mild erythema in bilateral ankles. HEAD: Normocephalic. Atraumatic. EYES: Pupils equal and round. No scleral icterus. No injection or drainage. ENT: No nasal bleeding or discharge. Mucous membranes pink and moist. NECK: Supple. Trachea midline. CARDIOVASCULAR: Regular rate and rhythm. S1, S2 noted. RESPIRATORY: No accessory muscle use. Clear to auscultation. Breath sounds equal bilaterally. GASTROINTESTINAL: Abdomen soft, non-tender, nondistended. Normoactive bowel sounds x4. MUSCULOSKELETAL: No obvious deformities. Extremities without clubbing, cyanosis. NEUROLOGICAL: Awake and alert. No obvious cranial nerve deficits. Motor grossly within normal limits. 5/5 muscle strength in bilateral upper and lower extremities. Normal speech. PSYCHIATRIC: Appropriate mood and affect; insight and judgment normal. Results - Labs CBC & Chem 7: 06/09/18 09:15 06/09/18 09:15 Laboratory Results - last 24 hr 06/09/18 06/09/18 09:15 09:15 CBC w Diff Slide review pending WBC 3.8 L RBC 4.02 Hgb 8.1 L Hct 26.1 L MCV 65.1 L MCH 20.3 L MCHC 31.2 L RDW 24.1 H Plt Count 602 H MPV 6.2 L Neut % (Auto) 81.6 H Lymph % (Auto) 15.7 [place] % (Auto) 2.5 Eos % (Auto) 0.1 Baso % (Auto) 0.1 Neut # (Auto) 3.1 Lymph # (Auto) 0.6 L [place] # (Auto) 0.1 Eos # (Auto) 0.0 Baso # (Auto) 0.0 WBC Differential . Diff Scan Auto diff confirmed Differential Comment . Platelet Estimate High H Platelet Morphology Normal Dimorphic RBCs Present H Ovalocytes 1+ H Rouleaux Present H Sodium 140 Potassium 3.0 L Chloride 107 Carbon Dioxide 24.1 Anion Gap 9 BUN 7 Creatinine 0.56 Estimated GFR Greater than 89 Random Glucose 163 H Calcium 8.0 L Microbiology 06/08/18 18:00 Blood - Peripheral Aerobic Blood Culture - Preliminary No growth in 1 day 06/08/18 18:00 Blood - Peripheral Anaerobic Blood Culture - Preliminary No growth in 1 day 06/08/18 13:55 Blood - Peripheral Aerobic Blood Culture - Preliminary No growth in 1 day 06/08/18 13:55 Blood - Peripheral Anaerobic Blood Culture - Preliminary No growth in 1 day 06/08/18 14:30 Fluid - Other Gram Stain - Final - Imaging Impressions Ankle X-Ray 06/08/18 00:00 CONCLUSION: 1. Plantar calcaneal spurring. 2. Otherwise, unremarkable radiographs of the right ankle. Ankle X-Ray 06/08/18 00:00 CONCLUSION: 1. No acute abnormality. Assessment and Plan - Assessment (1) C. difficile diarrhea Code(s): A04.72 - Enterocolitis due to Clostridium difficile, not specified as recurrent Status: Acute (2) Crohn disease Code(s): K50.90 - Crohn's disease, unspecified, without complications Status: Acute - Plan This is a 52-year-old female with history of Crohn's disease and clubfoot presents to the ER with complaints of right forearm skin bolus and redness. SIRS Right forearm infected bullous -Meets with tachycardia and fever, 101.9. Source unknown at this time, does have c. diff, possibly secondary to skin infection. No leukocytosis at this time. -Right forearm bulla was aspirated and sent for culture. Follow. Still pending. -ID following. Recommendations for Vancomycin IV. Add cefepime. -Continue PO vanco for c diff. Possible pseudogout flare -Left middle digit swelling and erythema as well as bilateral lower extremity with scattered erythema. Likely inflammatory in nature. -Treat with IV steroids. Continue to monitor. Recent C diff infection -It was initially thought that patient had a reaction to vancomycin p.o., this is unlikely. -ID consulted and seen patient, will place back on vancomycin p.o. -Monitor hydration, monitor bowel movements. Hypokalemia: K 3.0. Replaced. Still 3.0 today, add replacement. Will monitor. History of Crohn's disease. Stable. -Crohn's disease is chronic. -Recent GI bleeding caused from constipation secondary to Tylenol 3. -GI bleeding resolved 1 week ago, was given 2 units PRBC. -Patient is established with . Continue home medications. 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 DVT prophylaxis: SCDs.
--- NOTE | 2018-06-09 12:54 | P.PNID ---
Subjective Remarks: Patient is a 52-year-old female presented to the hospital for further evaluation of painful lesion in her right forearm as well as multiple painful joints. Patient was recently hospitalized June 01 - June 03. She had a low hemoglobin at that time, and she received some transfusion and was discharged. She had diarrhea in the hospital, and stool for C. difficile came back positive. She was discharged on oral vancomycin. While in the hospital she apparently developed a painful red area in her right forearm. About 2 days after that the area developed a pustular lesion which looks like it is about 1 cm in size, and it progressively got worse and became a large bullous lesion that is about 1-1/2 inch in diameter. She felt chilly, and she stated that she had some low-grade temperatures. She also developed swelling and pain on multiple joints including the the third MCP joints of both hands, her right thumb, and both ankles. She still having frequent stool. No abdominal pain, no N /V. She is voiding ok. She denies any respiratory complaints. Since admission, she has [facility] temp up to 101.5. WBC is normal, ESR 86, CRP 16.6. Infectious Disease consultation has been rrquested to evaluate her skin lesion and fevers. Notes reviewed Temps better filter tank tender helper in her R forearm G/S many WBC, no organism seen C/S negative BC negative Antibiotics: Cefepime Vancomycin Lines: PIV no evidence of infection Past Medical History: Hx of Clostridium difficile infection (Acute) Hx-TIA (transient ischemic attack) (Acute) Hx of Crohn's disease (Acute) Bunion of left foot (Acute) Arthritis delivery delivered Cholecystectomy planned Crohn's disease Hx of foot surgery (Acute) Hx of section (Acute) History of ERCP (Acute) Hx of cholecystectomy (Acute) Hx of tonsillectomy Allergies/Adverse Reactions: Allergies guaifenesin Allergy (Severe, Verified 06/07/18 16:39) Nausea/Vomiting ondansetron Allergy (Severe, Verified 06/07/18 16:39) Nausea/Vomiting penicillin G Allergy (Severe, Verified 06/07/18 16:39) Anaphylaxis tramadol Allergy (Severe, Verified 06/07/18 16:39) Burning Leg burning ciprofloxacin Allergy (Intermediate, Verified 06/07/18 16:39) Nausea/Vomiting ibuprofen Adverse Reaction (Severe, Verified 06/07/18 16:39) Bleeding Sulfa (Sulfonamide Antibiotics) Adverse Reaction (Severe, Verified 06/07/18 16: 39) Bleeding PROTONIX Allergy (Severe, Uncoded 06/07/18 16:39) Diarrhea RICOTTA CHEESE Allergy (Severe, Uncoded 06/07/18 16:39) Anaphylaxis Objective Vital Signs 06/08/18 13:00 06/08/18 16:00 06/08/18 20:00 Temperature 99.9 F H 97.9 F Pulse Rate 95 H 79 Respiratory Rate 18 18 16 Blood Pressure 104/78 114/69 Pulse Oximetry 97 97 06/09/18 00:00 06/09/18 08:00 06/09/18 12:00 Temperature 97.8 F 97.3 F L 97.6 F Pulse Rate 81 62 67 Respiratory Rate 18 20 20 Blood Pressure 110/66 120/76 111/67 Pulse Oximetry 97 96 97 Intake & Output 06/08/18 06/09/18 06/09/18 18:59 06:59 18:59 Intake Total 2310 / 2310 2580 / 2580 800 / 800 Balance 2310 / 2310 2580 / 2580 800 / 800 Weight 72.4 kg Intake: IV 1350 / 1350 1350 / 1350 800 / 800 NS Inj 1,000 ML @ 100 mls/hr IV 1000 / 1000 1000 / 1000 800 / 800 .CONT .Q10H TIARA Rx#:[id number] Maxipime Inj 2,000 MG In NS Inj 100 / 100 100 / 100 100 ML @ 200 mls/hr IV.SIG Q12H TIARA Rx#:[id number] Vancomycin Inj 1,000 MG In NS 250 / 250 250 / 250 Inj 250 ML @ 250 mls/hr IV.SIG Q12H TIARA Rx#:[id number] Oral 960 / 960 1230 / 1230 Other: # Voids 6 # Incontinent Voids 6 # Bowel Movements 6 # Incontinent Bowel Movements 6 06/08/18 18:00 Blood - Peripheral Aerobic Blood Culture - Preliminary No growth in 1 day 06/08/18 18:00 Blood - Peripheral Anaerobic Blood Culture - Preliminary No growth in 1 day 06/08/18 13:55 Blood - Peripheral Aerobic Blood Culture - Preliminary No growth in 1 day 06/08/18 13:55 Blood - Peripheral Anaerobic Blood Culture - Preliminary No growth in 1 day 06/08/18 14:30 Fluid - Other Gram Stain - Final 06/08/18 14:30 Fluid - Other Body Fluid Culture - Pending Lab - Hematology Results 06/07/18 06/07/18 06/08/18 17:15 17:15 05:09 CBC w Diff Slide review pending Slide review pending WBC 6.9 6.2 RBC 4.19 4.29 Hgb 8.6 L 8.4 L Hct 27.0 L 28.0 L MCV 64.5 L 65.3 L MCH 20.5 L 19.6 L MCHC 31.8 L 30.1 L RDW 25.2 H 24.9 H Plt Count 603 H 640 H MPV 6.6 L 6.2 L Neut % (Auto) 80.1 H 65.5 Lymph % (Auto) 10.1 19.7 [place] % (Auto) 9.2 H 12.8 H Eos % (Auto) 0.5 0.9 Baso % (Auto) 0.1 1.1 Neut # (Auto) 5.6 4.0 Lymph # (Auto) 0.7 L 1.2 [place] # (Auto) 0.6 0.8 Eos # (Auto) 0.0 0.1 Baso # (Auto) 0.0 0.1 WBC Differential Manual diff final . Diff Scan Auto diff confirmed Seg Neuts % (Manual) 67 Band Neuts % (Manual) 11 H Lymphocytes % (Manual) 12 Monocytes % (Manual) 10 H Abs Neuts (Manual) 5.4 Differential Comment . . Platelet Estimate High H Platelet Morphology Normal Dimorphic RBCs Present H Tear Drop Cells 1+ H Ovalocytes 1+ H 1+ H Rouleaux ESR 86 H 06/09/18 09:15 CBC w Diff Slide review pending WBC 3.8 L RBC 4.02 Hgb 8.1 L Hct 26.1 L MCV 65.1 L MCH 20.3 L MCHC 31.2 L RDW 24.1 H Plt Count 602 H MPV 6.2 L Neut % (Auto) 81.6 H Lymph % (Auto) 15.7 [place] % (Auto) 2.5 Eos % (Auto) 0.1 Baso % (Auto) 0.1 Neut # (Auto) 3.1 Lymph # (Auto) 0.6 L [place] # (Auto) 0.1 Eos # (Auto) 0.0 Baso # (Auto) 0.0 WBC Differential . Diff Scan Auto diff confirmed Seg Neuts % (Manual) Band Neuts % (Manual) Lymphocytes % (Manual) Monocytes % (Manual) Abs Neuts (Manual) Differential Comment . Platelet Estimate High H Platelet Morphology Normal Dimorphic RBCs Present H Tear Drop Cells Ovalocytes 1+ H Rouleaux Present H ESR Lab - Chemistry Results 06/07/18 06/08/18 06/09/18 17:15 05:19 09:15 Sodium 133 L 135 L 140 Potassium 3.2 L 3.0 L 3.0 L Chloride 101 102 107 Carbon Dioxide 25.4 25.0 24.1 Anion Gap 7 8 9 BUN 9 8 7 Creatinine 0.49 L 0.50 0.56 Estimated GFR Greater than 89 Greater than 89 Greater than 89 Random Glucose 123 H 96 163 H Calcium 8.3 L 8.2 L 8.0 L Total Bilirubin 0.2 0.2 AST 29 21 ALT 24 20 Alkaline Phosphatase 71 67 C-Reactive Protein 16.60 H Total Protein 7.2 6.7 Albumin 1.7 L 1.6 L Imaging: ITS Impressions Ankle X-Ray 06/08/18 00:00 CONCLUSION: 1. Plantar calcaneal spurring. 2. Otherwise, unremarkable radiographs of the right ankle. Physical Exam: GENERAL: awake and alert, not in respiratory distress. She does not look toxic appearing SKIN: Warm and dry. No generalized rash. HEAD: Atraumatic. Normocephalic. No temporal wasting, or tenderness. EYES: [place] conjunctiva. No petechia or hemorrhage. Pupils equal, round and reactive to light. Extraocular movements full and intact. No scleral icterus. No injection or drainage. EARS, NOSE AND THROAT: Nose without bleeding or purulent nasal discharge. No sinus tenderness. Slightly dry oral mucosa. NECK: Trachea midline. Supple and not tender, no meningeal signs CARDIOVASCULAR: Regular rate and rhythm. No murmurs, rubs or gallops heard RESPIRATORY: Clear to auscultation. Breath sounds equal bilaterally. No rales , wheezing or rhonchi ABDOMEN: Soft, non-tender, nondistended. Has pink abdominal striae sanders. Bowel sounds present and normoactive. No guarding. No rebound. No organomegaly. EXTREMITIES: No clubbing, cyanosis. Swelling in L thumb and 3rd MCP, and both ankles are better. Still swollen L 3rd MCP but not as red. The bullous lesion R forearm, still with purulence, erythema better. No calf tenderness. NEUROLOGICAL: None focal PSCYH: calm and cooperative LINE: No evidence of infection Assessment and Plan - Plan Impression Febrile illness, possible sepsis on presentation Has infected bullous lesion R forearm, etiology? Has polyarthritis usually seen in inflammatory process - better Recent C difficile colitis Hx Crohns disease Allergy to PCN, has tolerated Keflex in the past Recommendation Follow C/S Continue IV vanco for MRSA coverage Continue GNR coverage with Cefepime Continue oral Vanco for C diff Continue IV steroid for polyarthritis Wound care Follow temps Monitor progress
[2018-06-09] MEDS: Collagenase Oint 30 GM Tube TOPICAL SCH (13:22)
[2018-06-10] MEDS: Vancomycin Inj 1,000 MG in Sodium Chlor 0.9% Inj 250 ML IV.SIG SCH (01:03)
[2018-06-10] MEDS: MethylPREDNISolone Sod Succinate Inj 40 MG/ML Vial IV.PUSH SCH (02:40)
[2018-06-10] MEDS: Collagenase Oint 30 GM Tube TOPICAL SCH (08:25)
[2018-06-10] MEDS: PENTASA 500 MG PO SCH ×2 (08:25→12:25)
[2018-06-10] MEDS: Senna/Docusate Sodium 8.6/50 MG Tablet PO SCH (08:25)
[2018-06-10] MEDS: Sod Chloride 0.9% Inj 1,000 ML IV.CONT SCH (08:26)
--- NOTE | 2018-06-10 08:34 | P.PN ---
Subjective Interval history: Follow-up sepsis, right forearm bullous, C. difficile infection. Patient seen and examined, lying in bed comfortably in [facility]. Denies any new acute events overnight. Pain controlled. Right forearm wound assessed today, improving, continued on santyl and daily dressing changes. Afebrile. VSS. Eating well, without any abdominal pain, nausea or vomiting. Physical Exam Vital signs: Vital Signs 06/09/18 12:00 06/09/18 15:05 06/09/18 20:00 Temperature 97.6 F 97.2 F L 97.1 F L Pulse Rate 67 70 68 Respiratory Rate 20 20 20 Blood Pressure 111/67 112/69 109/69 Pulse Oximetry 97 97 98 06/10/18 00:00 06/10/18 08:00 Temperature 97.5 F L 97.1 F L Pulse Rate 54 L 50 L Respiratory Rate 20 20 Blood Pressure 100/66 122/67 Pulse Oximetry 97 97 Intake & Output 06/09/18 06/10/18 06/10/18 18:59 06:59 18:59 Intake Total 1670 / 1670 2070 / 2070 950 / 950 Balance 1670 / 1670 2070 / 2070 950 / 950 Weight 72 kg Intake: IV 1150 / 1150 1350 / 1350 950 / 950 NS Inj 1,000 ML @ 100 mls/hr IV 800 / 800 1000 / 1000 950 / 950 .CONT .Q10H TIARA Rx#:[id number] Maxipime Inj 2,000 MG In NS Inj 100 / 100 100 / 100 100 ML @ 200 mls/hr IV.SIG Q12H TIARA Rx#:[id number] Vancomycin Inj 1,000 MG In NS 250 / 250 250 / 250 Inj 250 ML @ 250 mls/hr IV.SIG Q12H TIARA Rx#:[id number] Oral 520 / 520 720 / 720 Other: # Voids 3 # Urine Diapers 2 # Bowel Movements 3 2 Narrative: GENERAL: Well-developed, well-nourished patient in [facility]. SKIN: Warm and dry. Right forearm bolus, has been aspirate. Wound assessed today, erythema improving, pink in color. Small amount of brown drainage. Left middle digit swelling with erythema, has improved. Bilateral ankle erythema improved. HEAD: Normocephalic. Atraumatic. EYES: Pupils equal and round. No scleral icterus. No injection or drainage. ENT: No nasal bleeding or discharge. Mucous membranes pink and moist. NECK: Supple. Trachea midline. CARDIOVASCULAR: Regular rate and rhythm. S1, S2 noted. RESPIRATORY: No accessory muscle use. Clear to auscultation. Breath sounds equal bilaterally. GASTROINTESTINAL: Abdomen soft, non-tender, nondistended. Normoactive bowel sounds x4. MUSCULOSKELETAL: No obvious deformities. Extremities without clubbing, cyanosis. NEUROLOGICAL: Awake and alert. No obvious cranial nerve deficits. Motor grossly within normal limits. 5/5 muscle strength in bilateral upper and lower extremities. Normal speech. PSYCHIATRIC: Appropriate mood and affect; insight and judgment normal. Results - Labs CBC & Chem 7: 06/09/18 09:15 06/09/18 09:15 Laboratory Results - last 24 hr 06/09/18 06/09/18 09:15 09:15 CBC w Diff Slide review pending WBC 3.8 L RBC 4.02 Hgb 8.1 L Hct 26.1 L MCV 65.1 L MCH 20.3 L MCHC 31.2 L RDW 24.1 H Plt Count 602 H MPV 6.2 L Neut % (Auto) 81.6 H Lymph % (Auto) 15.7 [place] % (Auto) 2.5 Eos % (Auto) 0.1 Baso % (Auto) 0.1 Neut # (Auto) 3.1 Lymph # (Auto) 0.6 L [place] # (Auto) 0.1 Eos # (Auto) 0.0 Baso # (Auto) 0.0 WBC Differential . Diff Scan Auto diff confirmed Differential Comment . Platelet Estimate High H Platelet Morphology Normal Dimorphic RBCs Present H Ovalocytes 1+ H Rouleaux Present H Sodium 140 Potassium 3.0 L Chloride 107 Carbon Dioxide 24.1 Anion Gap 9 BUN 7 Creatinine 0.56 Estimated GFR Greater than 89 Random Glucose 163 H Calcium 8.0 L Microbiology 06/08/18 14:30 Fluid - Other Gram Stain - Final 06/08/18 14:30 Fluid - Other Body Fluid Culture - Preliminary No growth in 24 hours 06/08/18 18:00 Blood - Peripheral Aerobic Blood Culture - Preliminary No growth in 1 day 06/08/18 18:00 Blood - Peripheral Anaerobic Blood Culture - Preliminary No growth in 1 day 06/08/18 13:55 Blood - Peripheral Aerobic Blood Culture - Preliminary No growth in 1 day 06/08/18 13:55 Blood - Peripheral Anaerobic Blood Culture - Preliminary No growth in 1 day Assessment and Plan - Assessment (1) C. difficile diarrhea Code(s): A04.72 - Enterocolitis due to Clostridium difficile, not specified as recurrent Status: Acute (2) Crohn disease Code(s): K50.90 - Crohn's disease, unspecified, without complications Status: Acute - Plan This is a 52-year-old female with history of Crohn's disease and clubfoot presents to the ER with complaints of right forearm skin bolus and redness. SIRS Right forearm infected bullous, improving. -Met SIRS criteria with tachycardia and fever, 101.9. Source unknown at this time, does have c. diff, possibly secondary to skin infection. No leukocytosis at this time. Afebrile overnight. -Right forearm bulla was aspirated, culture no growth to date. Follow. -ID following. Recommendations for Vancomycin and Cefepime IV. Awaiting culture growth and further ID recs for ABX upon dc. Possible pseudogout flare -Left middle digit swelling and erythema as well as bilateral lower extremity with scattered erythema. Likely inflammatory in nature. -Treat with IV steroids. Improving. Continue to monitor. Recent C diff infection -It was initially thought that patient had a reaction to vancomycin p.o., this is unlikely. -ID consulted and seen patient, will place back on vancomycin p.o. -Monitor hydration, monitor bowel movements. Diarrhea improved. Hypokalemia: K 3.0. Replaced. Still 3.0, add replacement. Will monitor. History of Crohn's disease. Stable. -Crohn's disease is chronic. -Recent GI bleeding caused from constipation secondary to Tylenol 3. -GI bleeding resolved 1 week ago, was given 2 units PRBC. -Patient is established with . Continue home medications. 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 DVT prophylaxis: SCDs. Discharge Planning: Possible DC today. Awaiting BC and final ID recs.
[2018-06-10] MEDS ORDERED: ENTOCORT 3 MG PO SCH (10:00)
--- NOTE | 2018-06-10 10:08 | P.DCO ---
- Physical Therapy Order: Evaluate and treat, Improve ambulation, Strength and gait training Instructions: Resumption of [facility] PT - Home Health Nursing Order: Signs/symptoms of disease process, Medication education-adverse effect, Nursing assessment with vital signs Instructions: Resumption of [facility] RN - Certification I have seen patient Kelly Garsia on 06/10/18. My clinical findings support the need for the requested home health care services because: Limited ability to care for self I certify that my clinical findings support that this patient is homebound because: Unsteady gait/balance
[2018-06-10] MEDS ORDERED: VANCOMYCIN TROUGH OTHER ONE (13:45)
--- NOTE | 2018-06-10 13:49 | P.PNID ---
Subjective Remarks: Patient is a 52-year-old female presented to the hospital for further evaluation of painful lesion in her right forearm as well as multiple painful joints. Patient was recently hospitalized June 01 - June 03. She had a low hemoglobin at that time, and she received some transfusion and was discharged. She had diarrhea in the hospital, and stool for C. difficile came back positive. She was discharged on oral vancomycin. While in the hospital she apparently developed a painful red area in her right forearm. About 2 days after that the area developed a pustular lesion which looks like it is about 1 cm in size, and it progressively got worse and became a large bullous lesion that is about 1-1/2 inch in diameter. She felt chilly, and she stated that she had some low-grade temperatures. She also developed swelling and pain on multiple joints including the the third MCP joints of both hands, her right thumb, and both ankles. She still having frequent stool. No abdominal pain, no N /V. She is voiding ok. She denies any respiratory complaints. Since admission, she has [facility] temp up to 101.5. WBC is normal, ESR 86, CRP 16.6. Infectious Disease consultation has been rrquested to evaluate her skin lesion and fevers. Notes reviewed Temps ok Feels much improved Anxious to go home G/S many WBC, no organism seen C/S negative BC negative Joints much better Antibiotics: Cefepime Vancomycin IV and po Lines: PIV no evidence of infection Past Medical History: Hx of Clostridium difficile infection (Acute) Hx-TIA (transient ischemic attack) (Acute) Hx of Crohn's disease (Acute) Bunion of left foot (Acute) Arthritis delivery delivered Cholecystectomy planned Crohn's disease Hx of foot surgery (Acute) Hx of section (Acute) History of ERCP (Acute) Hx of cholecystectomy (Acute) Hx of tonsillectomy Allergies/Adverse Reactions: Allergies guaifenesin Allergy (Severe, Verified 06/07/18 16:39) Nausea/Vomiting ondansetron Allergy (Severe, Verified 06/07/18 16:39) Nausea/Vomiting penicillin G Allergy (Severe, Verified 06/07/18 16:39) Anaphylaxis tramadol Allergy (Severe, Verified 06/07/18 16:39) Burning Leg burning ciprofloxacin Allergy (Intermediate, Verified 06/07/18 16:39) Nausea/Vomiting ibuprofen Adverse Reaction (Severe, Verified 06/07/18 16:39) Bleeding Sulfa (Sulfonamide Antibiotics) Adverse Reaction (Severe, Verified 06/07/18 16: 39) Bleeding PROTONIX Allergy (Severe, Uncoded 06/07/18 16:39) Diarrhea RICOTTA CHEESE Allergy (Severe, Uncoded 06/07/18 16:39) Anaphylaxis Objective Vital Signs 06/09/18 15:05 06/09/18 20:00 06/10/18 00:00 Temperature 97.2 F L 97.1 F L 97.5 F L Pulse Rate 70 68 54 L Respiratory Rate 20 20 20 Blood Pressure 112/69 109/69 100/66 Pulse Oximetry 97 98 97 06/10/18 08:00 06/10/18 12:00 Temperature 97.1 F L 97.6 F Pulse Rate 50 L 54 L Respiratory Rate 20 20 Blood Pressure 122/67 117/67 Pulse Oximetry 97 96 Intake & Output 06/09/18 06/10/18 06/10/18 18:59 06:59 18:59 Intake Total 1670 / 1670 2070 / 2070 950 / 950 Balance 1670 / 1670 2070 / 2070 950 / 950 Weight 72 kg Intake: IV 1150 / 1150 1350 / 1350 950 / 950 NS Inj 1,000 ML @ 100 mls/hr IV 800 / 800 1000 / 1000 950 / 950 .CONT .Q10H TIARA Rx#:[id number] Maxipime Inj 2,000 MG In NS Inj 100 / 100 100 / 100 100 ML @ 200 mls/hr IV.SIG Q12H TIARA Rx#:[id number] Vancomycin Inj 1,000 MG In NS 250 / 250 250 / 250 Inj 250 ML @ 250 mls/hr IV.SIG Q12H TIARA Rx#:[id number] Oral 520 / 520 720 / 720 Other: # Voids 3 # Urine Diapers 2 Date of Last Bowel Movement 06/10/18 # Bowel Movements 3 2 06/08/18 18:00 Blood - Peripheral Aerobic Blood Culture - Preliminary No growth in 2 days 06/08/18 18:00 Blood - Peripheral Anaerobic Blood Culture - Preliminary No growth in 2 days 06/08/18 13:55 Blood - Peripheral Aerobic Blood Culture - Preliminary No growth in 2 days 06/08/18 13:55 Blood - Peripheral Anaerobic Blood Culture - Preliminary No growth in 2 days 06/08/18 14:30 Fluid - Other Gram Stain - Final 06/08/18 14:30 Fluid - Other Body Fluid Culture - Preliminary No growth in 48 hours Lab - Hematology Results 06/09/18 09:15 CBC w Diff Slide review pending WBC 3.8 L RBC 4.02 Hgb 8.1 L Hct 26.1 L MCV 65.1 L MCH 20.3 L MCHC 31.2 L RDW 24.1 H Plt Count 602 H MPV 6.2 L Neut % (Auto) 81.6 H Lymph % (Auto) 15.7 [place] % (Auto) 2.5 Eos % (Auto) 0.1 Baso % (Auto) 0.1 Neut # (Auto) 3.1 Lymph # (Auto) 0.6 L [place] # (Auto) 0.1 Eos # (Auto) 0.0 Baso # (Auto) 0.0 WBC Differential . Diff Scan Auto diff confirmed Differential Comment . Platelet Estimate High H Platelet Morphology Normal Dimorphic RBCs Present H Ovalocytes 1+ H Rouleaux Present H Lab - Chemistry Results 06/09/18 09:15 Sodium 140 Potassium 3.0 L Chloride 107 Carbon Dioxide 24.1 Anion Gap 9 BUN 7 Creatinine 0.56 Estimated GFR Greater than 89 Random Glucose 163 H Calcium 8.0 L Imaging: ITS Impressions Ankle X-Ray 06/08/18 00:00 CONCLUSION: 1. Plantar calcaneal spurring. 2. Otherwise, unremarkable radiographs of the right ankle. Physical Exam: GENERAL: awake and alert, not in respiratory distress. SKIN: Warm and dry. No generalized rash. HEAD: Atraumatic. Normocephalic. No temporal wasting, or tenderness. EYES: [place] conjunctiva. No petechia or hemorrhage. Pupils equal, round and reactive to light. Extraocular movements full and intact. No scleral icterus. No injection or drainage. EARS, NOSE AND THROAT: Nose without bleeding or purulent nasal discharge. No sinus tenderness. Slightly dry oral mucosa. NECK: Trachea midline. Supple and not tender, no meningeal signs CARDIOVASCULAR: Regular rate and rhythm. No murmurs, rubs or gallops heard RESPIRATORY: Clear to auscultation. Breath sounds equal bilaterally. No rales , wheezing or rhonchi ABDOMEN: Soft, non-tender, nondistended. Has pink abdominal striae sanders. Bowel sounds present and normoactive. No guarding. No rebound. No organomegaly. EXTREMITIES: No clubbing, cyanosis. Joint swelling all better. The bullous lesion R forearm, mostly unroofed, small amount of purulence, min periwound redness. No calf tenderness. NEUROLOGICAL: None focal PSCYH: calm and cooperative LINE: No evidence of infection Assessment and Plan - Plan Impression Febrile illness, possible sepsis on presentation, resolved Has infected bullous lesion R forearm, etiology? - C/S negative, ?anaerobes or fastidious Strep Has polyarthritis usually seen in inflammatory process - better Recent C difficile colitis Hx Crohns disease Allergy to PCN, has tolerated Keflex in the past Recommendation OK to D/C and give 7 days Ceftin 500 BID and Flagyl 500 TID Continue oral Vanco for C diff 14 more days after D/C Follow C/S Stop IV steroid D/W Keisha FERMIN
[2018-06-10] MEDS ORDERED: metroNIDAZOLE 500 MG Tablet PO SCH (14:00)
--- NOTE | 2018-06-21 17:29 | P.DS ---
Date of admission: 06/07/18 20:01 Primary care physician: UNKNOWN Brief History from admission: This is a 52-year-old female with history of Crohn's disease who presented to the ER with complaints of right forearm pain and redness. Patient was recently admitted to the hospital for anemia 06/01-06/03. She had GI bleeding with hemoglobin around 7. Was given 2 units of PRBC and sent home. Patient states that her right forearm started out in the hospital as a bug bite and became more red and swollen over the course of the last week. Patient also complains of multiple areas of erythema including her bilateral lower ankles as well as her left hand. It should be noted that patient was recently diagnosed with C. difficile, started on vancomycin p.o. and has taken it x 4 days. She denies any recent fevers, chills, cough, shortness of breath, abdominal pain, nausea, vomiting, diarrhea or dysuria. Patient states that her diarrhea is improving, roughly 4-5 bowel movements per day. 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 She lives at home with her and daughter. DS: Diagnosis - Discharge Diagnosis (1) C. difficile diarrhea Status: Acute (2) Crohn disease Status: Acute (3) Arthritis Status: Acute (4) Hx-TIA (transient ischemic attack) Status: Acute (5) Hx of foot surgery Status: Acute DS: Medications - Discharge Medications Prescriptions: collagenase clostridium histo. [Santyl] 1 applic TOPICAL DAILY #1 tube vancomycin 125 mg PO Q6HR 14 Days ea DS: Summary Hospital Course: This is a 52-year-old female with history of Crohn's disease and clubfoot presents to the ER with complaints of right forearm skin bolus and redness. Patient presented with right forearm infected bolus, met SIRS criteria with tachycardia, fever of 101.9. She did have C. difficile prior to hospitalization. Infectious disease was consulted, IV vancomycin and cefepime were given during hospitalizations. Patient was discharged home on p.o. antibiotics. The right forearm bulla was aspirated. The culture did not grow anything to date. Patient also had possible pseudogout flare, the left middle digit had swelling and erythema as well as bilateral lower extremity scattered erythema. Was treated with IV steroids as well as steroids outpatient upon discharge. Patient did have C. difficile infection, was placed back on vancomycin p.o. Bowel movements slowed down and diarrhea improved. Hypokalemia was treated and replacement ordered and stabilized upon discharge. Patient has a history of chronic per Crohn's disease, miserable stabilized during hospitalization. Patient was discharged home to follow-up with PCP and complete her antibiotics. - Time Spent with Patient Total time spent providing and/or coordinating discharge services: Greater than 30 minutes - Quality: VTE Deep Vein Thrombosis/Pulmonary Embolism Present on Admission: No Exam Narrative: GENERAL: Well-developed, well-nourished patient in NAD. SKIN: Warm and dry. Right forearm bolus, has been aspirated. Wound assessed today, erythema improving, pink in color. Left middle digit swelling with erythema, has improved. Bilateral ankle erythema improved. HEAD: Normocephalic. Atraumatic. EYES: Pupils equal and round. No scleral icterus. No injection or drainage. ENT: No nasal bleeding or discharge. Mucous membranes pink and moist. NECK: Supple. Trachea midline. CARDIOVASCULAR: Regular rate and rhythm. S1, S2 noted. RESPIRATORY: No accessory muscle use. Clear to auscultation. Breath sounds equal bilaterally. GASTROINTESTINAL: Abdomen soft, non-tender, nondistended. Normoactive bowel sounds x4. MUSCULOSKELETAL: No obvious deformities. Extremities without clubbing, cyanosis. NEUROLOGICAL: Awake and alert. No obvious cranial nerve deficits. Motor grossly within normal limits. 5/5 muscle strength in bilateral upper and lower extremities. Normal speech. PSYCHIATRIC: Appropriate mood and affect; insight and judgment normal. Results Procedures completed during hospitalization: Aspiration of right forearm bulla. - Impressions ITS Impressions Ankle X-Ray 06/08/18 00:00 CONCLUSION: 1. Plantar calcaneal spurring. 2. Otherwise, unremarkable radiographs of the right ankle. Discharge Plan - Discharge Disposition Patient Disposition: /Home Health Service - Discharge Condition Condition: Fair - Discharge Order Discharge Orders: Discharge Order (Routine); Ordered 06/10/18 Ordered By: Iva Castro - Discharge Details Anticipated Discharge Date: 06/10/18 - Physicians Team Primary Care Provider: UNKNOWN, Attending Provider: Annel Kelly Other Providers: Shadia Posey MD
== END 2018-06-10 17:15 | disposition home health service (06) ==
LOC: PHED 16:30 → PHEDA 16:30 → PH3 16:30
PROVIDERS: ADMIT Hospitalist; ATTEND Hospitalist

== ENCOUNTER 2018-09-08 06:12 | Inpatient (IN) ==
[2018-09-08] MEDS ORDERED: Sod Chloride 0.9% Inj 1,000 ML IV.SIG ONE (06:15)
--- NOTE | 2018-09-08 06:19 | ED ---
HPI General Chief Complaint: Abdominal Pain Stated Complaint: ABD Pain Time Seen by Provider: 09/08/18 06:15 Source: patient and EMS Mode of arrival: EMS Limitations: no limitations History of Present Illness HPI narrative: 53-year-old female patient with history of Crohn's disease, presents to the ER today because she states that she has had 3 days history of nausea, vomiting, poor p.o. intake, throat discomfort, and cannot take her medications, started having diarrhea and bloody stools as well. She denies any fevers, but states that she has had some ongoing abdominal cramping with diarrhea. She denies any other issues. Related Data Home Medications Medication Instructions Recorded Confirmed budesonide [Entocort EC] 9 mg PO DAILY 06/01/18 09/08/18 mesalamine [Pentasa] 1,000 mg PO QID 06/01/18 09/08/18 Allergies Allergy/AdvReac Type Severity Reaction Status Date / Time guaifenesin Allergy Severe Nausea/Vomi Verified 06/07/18 16:39 ting ondansetron Allergy Severe Nausea/Vomi Verified 06/07/18 16:39 ting penicillin G Allergy Severe Anaphylaxis Verified 06/07/18 16:39 tramadol Allergy Severe Burning Verified 06/07/18 16:39 ciprofloxacin Allergy Intermediate Nausea/Vomi Verified 06/07/18 16:39 ting ibuprofen AdvReac Severe Bleeding Verified 06/07/18 16:39 Sulfa (Sulfonamide AdvReac Severe Bleeding Verified 06/07/18 16:39 Antibiotics) PROTONIX Allergy Severe Diarrhea Uncoded 06/07/18 16:39 RICOTTA CHEESE Allergy Severe Anaphylaxis Uncoded 06/07/18 16:39 Review of Systems ROS: all other systems reviewed are negative PMFSH History History Provided By: Patient Medical History Medical History Hx of Clostridium difficile infection (Acute) Hx-TIA (transient ischemic attack) (Acute) Hx of Crohn's disease (Acute) Bunion of left foot (Acute) Arthritis (Acute) delivery delivered (Acute) Cholecystectomy planned (Acute) Crohn's disease (Acute) Surgical History Surgical History Hx of foot surgery (Acute) Hx of section (Acute) History of ERCP (Acute) Hx of cholecystectomy (Acute) Hx of tonsillectomy (Acute) Social History Social History Substance History: No History of Abuse Second Hand Smoke Exposure: Yes () Smoking Status: Never smoker Tobacco Type: Cigarettes How Often Do You Have a Drink Containing Alcohol: Never Recent Travel in [facility] within the Last 8 Weeks: No Recent Out of Country Travel within the Last 8 Weeks: No Exam Narrative Exam Narrative: GENERAL: Well-developed middle-age female patient currently in moderate distress. Awake and oriented x3. SKIN: Focused skin assessment warm/dry. HEAD: Atraumatic. Normocephalic. EYES: Pupils equal and round. No scleral icterus. No injection or drainage. ENT: No nasal bleeding or discharge. Dry mucous membrane. NECK: Trachea midline. No JVD. CARDIOVASCULAR: Regular rate and rhythm. No murmur appreciated. RESPIRATORY: No accessory muscle use. Clear to auscultation. Breath sounds equal bilaterally. GASTROINTESTINAL: Abdomen soft, non-tender, nondistended. Hepatic and splenic margins not palpable. RECTAL EXAM: No masses or tenderness, stool is reddish brown. Hemoccult positive. MUSCULOSKELETAL: No obvious deformities. No clubbing. No cyanosis. No edema. NEUROLOGICAL: Awake and alert. No obvious cranial nerve deficits. Motor grossly within normal limits. Normal speech. PSYCHIATRIC: Appropriate mood and affect; insight and judgment normal. Course Initial Documented Vital Signs Temperature 98.0 F 09/08/18 06:25 Pulse Rate 103 H 09/08/18 06:25 Respiratory Rate 17 09/08/18 06:25 Blood Pressure 89/67 L 09/08/18 06:25 Pulse Oximetry 100 09/08/18 06:25 Last Documented Vital Signs Temperature 98.0 F 09/08/18 16:00 Pulse Rate 77 09/08/18 16:00 Respiratory Rate 18 09/08/18 16:00 Blood Pressure 105/72 09/08/18 16:00 Pulse Oximetry 97 09/08/18 16:00 Medical Decision Making MDM Narrative Medical decision making narrative: 7:23 AM. Patient was seen by ED physician and signed out to me. Patient has history of Crohn's disease with persistent nausea vomiting for the past 3 days. Patient was on Pentasa and prednisone daily. Patient was given IV fluids and Phenergan IM. Patient has electrolyte abnormality. Patient has not been able to keep anything down for the past 3 days. Patient will be admitted for IV hydration and electrolyte replacement. Stool study ordered. KCl 20 mEq IV given. Normal saline solution with 20 KCl per liter at 125 cc an hour. Pepcid 20 mg IV given. Decadron 8 mg IV given. Medical Screen Exam Complete: Yes Emergency Medical Condition: Yes Differential Diagnosis Differential Diagnosis: Dehydration versus electrolyte abnormalities versus GI bleed versus significant anemia versus Crohn's exacerbation versus gastroenteritis Lab Data Lab results reviewed: Yes I reviewed the patient's lab results. Result diagrams: 09/08/18 06:40 09/08/18 06:40 Lab Results 09/08/18 09/08/18 09/08/18 Range/Units 06:40 06:40 06:40 CBC w Diff Slide review pending WBC 16.8 H (4.0-11.0) th/mm3 RBC 5.28 (4.00-5.30) mil/mm3 Hgb 9.7 L (11.6-15.3) gm/dL Hct 32.4 L (35.0-46.0) % MCV 61.4 L (80.0-100.0) fL MCH 18.3 L (27.0-34.0) pg MCHC 29.9 L (32.0-36.0) % RDW 18.1 H (11.6-17.2) % Plt Count 1064 H (150-450) th/mm3 MPV 6.3 L (7.0-11.0) fL Neut % (Auto) 78.4 H (16.0-70.0) % Lymph % (Auto) 13.9 (9.0-44.0) % Stephenson % (Auto) 7.3 (0.0-8.0) % Eos % (Auto) 0.1 (0.0-4.0) % Baso % (Auto) 0.3 (0.0-2.0) % Neut # (Auto) 13.2 H (1.8-7.7) th/mm3 Lymph # (Auto) 2.3 (1.0-4.8) th/mm3 Stephenson # (Auto) 1.2 H (0.0-0.9) th/mm3 Eos # (Auto) 0.0 (0.0-0.4) th/mm3 Baso # (Auto) 0.1 (0.0-0.2) th/mm3 WBC Differential Manual diff final Seg Neuts % (Manual) 60 (16-70) % Band Neuts % (Manual) 14 H (0-6) % Lymphocytes % (Manual) 18 (9-44) % Monocytes % (Manual) 8 (0-8) % Abs Neuts (Manual) 12.4 H (1.8-7.7) th/mm3 Differential Comment . Platelet Estimate High H (Normal) Platelet Morphology Normal (Normal) Basophilic Stippling Faint H (None) Ovalocytes 1+ H (None) Sodium 132 L (136-145) meq/L Potassium 3.2 L (3.5-5.1) meq/L Chloride 96 L (98-107) meq/L Carbon Dioxide 26.9 (21.0-32.0) meq/L Anion Gap 9 (5-15) meq/L BUN 18 (7-18) mg/dL Creatinine 1.10 H (0.50-1.00) mg/dL Estimated GFR 52 L (>89) mL/min Random Glucose 137 H (74-106) mg/dL Calcium 8.2 L (8.5-10.1) mg/dL Magnesium 2.0 (1.5-2.5) mg/dL Total Bilirubin 0.4 (0.2-1.0) mg/dL AST 22 (15-37) U/L ALT 10 (10-53) U/L Alkaline Phosphatase 120 H (45-117) U/L Total Protein 7.2 (6.4-8.2) g/dL Albumin 1.9 L (3.4-5.0) g/dL Lipase 130 (73-393) U/L Stl C.difficile DNA Amp (Negative) St C. diff Tox Epid 027 (Negative) Blood Type A Positive Antibody Screen Negative 09/08/18 Range/Units 08:00 CBC w Diff WBC (4.0-11.0) th/mm3 RBC (4.00-5.30) mil/mm3 Hgb (11.6-15.3) gm/dL Hct (35.0-46.0) % MCV (80.0-100.0) fL MCH (27.0-34.0) pg MCHC (32.0-36.0) % RDW (11.6-17.2) % Plt Count (150-450) th/mm3 MPV (7.0-11.0) fL Neut % (Auto) (16.0-70.0) % Lymph % (Auto) (9.0-44.0) % Stephenson % (Auto) (0.0-8.0) % Eos % (Auto) (0.0-4.0) % Baso % (Auto) (0.0-2.0) % Neut # (Auto) (1.8-7.7) th/mm3 Lymph # (Auto) (1.0-4.8) th/mm3 Stephenson # (Auto) (0.0-0.9) th/mm3 Eos # (Auto) (0.0-0.4) th/mm3 Baso # (Auto) (0.0-0.2) th/mm3 WBC Differential Seg Neuts % (Manual) (16-70) % Band Neuts % (Manual) (0-6) % Lymphocytes % (Manual) (9-44) % Monocytes % (Manual) (0-8) % Abs Neuts (Manual) (1.8-7.7) th/mm3 Differential Comment Platelet Estimate (Normal) Platelet Morphology (Normal) Basophilic Stippling (None) Ovalocytes (None) Sodium (136-145) meq/L Potassium (3.5-5.1) meq/L Chloride (98-107) meq/L Carbon Dioxide (21.0-32.0) meq/L Anion Gap (5-15) meq/L BUN (7-18) mg/dL Creatinine (0.50-1.00) mg/dL Estimated GFR (>89) mL/min Random Glucose (74-106) mg/dL Calcium (8.5-10.1) mg/dL Magnesium (1.5-2.5) mg/dL Total Bilirubin (0.2-1.0) mg/dL AST (15-37) U/L ALT (10-53) U/L Alkaline Phosphatase (45-117) U/L Total Protein (6.4-8.2) g/dL Albumin (3.4-5.0) g/dL Lipase (73-393) U/L Stl C.difficile DNA Amp Negative (Negative) St C. diff Tox Epid 027 Negative (Negative) Blood Type Antibody Screen Discharge Plan Discharge Disposition Patient Disposition: 30 Still Patient Discharge Details Diagnosis: Exacerbation of Crohn's disease, Acute hypokalemia Physicians Team ED Provider: Joyce Presley Primary Care Provider: Primary Care Kath Barajas Attending Provider: Maureen Coffey Other Providers: Yazan Esteban Status ED Status: Left Department Discharge Information Discharge Date/Time: 09/08/18 08:55
[2018-09-08 06:59] LABS: Baso # (Auto) 0.1 th/mm3 (0.0-0.2); Baso % (Auto) 0.3 % (0.0-2.0); Eos % (Auto) 0.1 % (0.0-4.0); Hematocrit 32.4 % (35.0-46.0); Hemoglobin 9.7 gm/dL (11.6-15.3); Lymph # (Auto) 2.3 th/mm3 (1.0-4.8); Lymph % (Auto) 13.9 % (9.0-44.0); Mean Corpuscular Hemoglobin 18.3 pg (27.0-34.0); Mean Corpuscular Volume 61.4 fL (80.0-100.0); Mean Platelet Volume 6.3 fL (7.0-11.0); Mono # (Auto) 1.2 th/mm3 (0.0-0.9); Mono % (Auto) 7.3 % (0.0-8.0); Neut # (Auto) 13.2 th/mm3 (1.8-7.7); Neut % (Auto) 78.4 % (16.0-70.0); Red Blood Count 5.28 mil/mm3 (4.00-5.30); Red Cell Distribution Width 18.1 % (11.6-17.2); White Blood Count 16.8 th/mm3 (4.0-11.0)
[2018-09-08 07:00] LABS: Chloride 96 meq/L (98-107); Potassium 3.2 meq/L (3.5-5.1); Sodium 132 meq/L (136-145)
[2018-09-08 07:01] LABS: Mean Corpuscular HGB Conc 29.9 % (32.0-36.0)
[2018-09-08 07:02] LABS: Platelet Count 1064 th/mm3 (150-450)
[2018-09-08 07:03] LABS: Calcium 8.2 mg/dL (8.5-10.1)
[2018-09-08 07:04] LABS: Albumin 1.9 g/dL (3.4-5.0); Anion Gap 9 meq/L (5-15); Blood Urea Nitrogen 18 mg/dL (7-18); Carbon Dioxide 26.9 meq/L (21.0-32.0); Glucose,Random 137 mg/dL (74-106); Lipase 130 U/L (73-393)
[2018-09-08 07:06] LABS: Alanine Aminotransferase 10 U/L (10-53); Aspartate Aminotransferase 22 U/L (15-37)
[2018-09-08 07:07] LABS: Glomerular Filtration Rate 52 mL/min (>89)
[2018-09-08 07:08] LABS: Total Protein 7.2 g/dL (6.4-8.2)
[2018-09-08 07:09] LABS: Alkaline Phosphatase 120 U/L (45-117)
[2018-09-08] MEDS ORDERED: Pantoprazole Inj 40 MG Vial IV.PUSH ONE (07:13)
[2018-09-08] MEDS ORDERED: Potassium Chlor 20 mEq Premix 20 MEQ/100 ML PIGGYBACK IV.SIG ONE (07:13)
[2018-09-08 07:15] LABS: Lymphocytes 18 % (9-44); Monocytes 8 % (0-8)
[2018-09-08 07:16] LABS: Ovalocytes 1+; Platelet Morphology Normal (Normal)
[2018-09-08] MEDS ORDERED: Famotidine PF Inj 20 MG/2 ML Vial IV.PUSH ONE (07:17)
--- NOTE | 2018-09-08 10:11 | P.HPIM ---
History of Present Illness Primary Care Physician: No Primary Care Physician Chief Complaint: abdominal pain History of Present Illness: patient is a 53 y/o female with history of Crohn's disease, TIA who presented to ER with abdominal pain and diarrhea. she says that she's had abdominal pain for three days. pain is more or less generalized. pain was associated with nausea, vomiting and bloody diarrhea. she denies any fever or chills. she says that she couldn't take her medications because of nausea. Inpatient Certification: I certify that the inpatient services were ordered in accordance with Medicare regulations governing the order. This includes certification that hospital inpatient services are reasonable and necessary and in the case of services not specified as inpatient-only under 42 CFR 419.22(n), that they are appropriately provided as inpatient services in accordance to with the 2-midnight benchmark under 43 CFR 412.3(e) Estimated Total Length of Stay (Days): 2 Plans for Post Hospital Care: Home Review of Systems All other systems reviewed negative except as stated in HPI PMFSH - History History Provided By: Patient - Medical History Medical History: Medical History (Last Reviewed 09/08/18 @ 10:07 by Maureen Coffey MD) Hx of Clostridium difficile infection (Acute) Hx-TIA (transient ischemic attack) (Acute) Hx of Crohn's disease (Acute) Bunion of left foot (Acute) Arthritis delivery delivered Cholecystectomy planned Crohn's disease - Surgical History Surgical History: Surgical History (Last Reviewed 09/08/18 @ 10:07 by Maureen Coffey MD) Hx of foot surgery (Acute) Hx of section (Acute) History of ERCP (Acute) Hx of cholecystectomy (Acute) Hx of tonsillectomy - Family History Family History: Family History (Last Reviewed 09/08/18 @ 10:07 by Maureen Coffey MD) Other Ulcerative colitis - Tobacco History Second Hand Smoke Exposure: Yes () Smoking Status: Never smoker Tobacco Type: Cigarettes - Alcohol History How Often Do You Have a Drink Containing Alcohol: Never - Substance Use History Substance History: No History of Abuse - Travel History Recent Travel in the [place] Within the Last 8 Weeks: No Recent Travel Out of the Country Within the Last 8 Weeks: No - Immunization History Tetanus Immunization: <5 Years Medications and Allergies Active Medications: Active Medications Potassium Chloride/Sodium Chloride (Ns + Kcl 20 Meq Inj) 1,000 mls @ 125 mls/ hr IV.CONT .Q8H TIARA Last Infusion: 09/08/18 09:03 Dose: 125 mls/hr Prochlorperazine Edisylate (Compazine Inj) 5 mg IV.PUSH Q8H PRN PRN Reason: nausea Sodium Chloride (Ns Flush) 2 ml IV.FLUSH PRN PRN PRN Reason: FLUSH AFTER USING IV ACCESS Allergies Allergy/AdvReac Type Severity Reaction Status Date / Time guaifenesin Allergy Severe Nausea/Vomi Verified 06/07/18 16:39 ting ondansetron Allergy Severe Nausea/Vomi Verified 06/07/18 16:39 ting penicillin G Allergy Severe Anaphylaxis Verified 06/07/18 16:39 tramadol Allergy Severe Burning Verified 06/07/18 16:39 ciprofloxacin Allergy Intermediate Nausea/Vomi Verified 06/07/18 16:39 ting ibuprofen AdvReac Severe Bleeding Verified 06/07/18 16:39 Sulfa (Sulfonamide AdvReac Severe Bleeding Verified 06/07/18 16:39 Antibiotics) PROTONIX Allergy Severe Diarrhea Uncoded 06/07/18 16:39 RICOTTA CHEESE Allergy Severe Anaphylaxis Uncoded 06/07/18 16:39 Home Medications Medication Instructions Recorded Confirmed Type budesonide [Entocort EC] 9 mg PO DAILY 06/01/18 09/08/18 History mesalamine [Pentasa] 1,000 mg PO QID 06/01/18 09/08/18 History Exam Vital signs: Vital Signs 09/08/18 06:25 09/08/18 07:05 09/08/18 08:40 Temperature 98.0 F 98.1 F Pulse Rate 103 H 97 H 95 H Respiratory Rate 17 18 18 Blood Pressure 89/67 L 106/71 96/74 L Pulse Oximetry 100 97 97 09/08/18 09:35 Temperature 97.1 F L Pulse Rate 98 H Respiratory Rate 18 Blood Pressure 98/63 L Pulse Oximetry 98 Intake & Output 09/07/18 09/08/18 09/08/18 18:59 06:59 18:59 Intake Total 1000 / 1000 Balance 1000 / 1000 Weight 64.54 kg Intake: IV 1000 / 1000 NS Inj 1,000 ML @ Wide Open IV. 1000 / 1000 SIG BOLUS ONE Rx#:[id number] - Constitutional no acute distress - Routine HEENT Exam Eye: Present: PERRL - Routine Neck Exam Present: supple - Routine Respiratory Exam Present: CTA bilaterally - Routine Cardiovascular Exam Present: RRR - Routine Abdominal Exam Present: soft, tenderness (mild generalized tenderness.) - Routine Extremities Exam Comments: no pedal edema. - Routine Neurological Exam Present: alert, oriented X3 Results - Labs CBC & Chem 7: 09/08/18 06:40 09/08/18 06:40 Labs: Short CBC 09/08/18 Range/Units 06:40 WBC 16.8 H (4.0-11.0) th/mm3 Hgb 9.7 L (11.6-15.3) gm/dL Hct 32.4 L (35.0-46.0) % Plt Count 1064 H (150-450) th/mm3 BMP 09/08/18 06:40 Sodium 132 L Potassium 3.2 L Chloride 96 L Carbon Dioxide 26.9 BUN 18 Creatinine 1.10 H Calcium 8.2 L Liver Function 09/08/18 Range/Units 06:40 Total Bilirubin 0.4 (0.2-1.0) mg/dL AST 22 (15-37) U/L ALT 10 (10-53) U/L Alkaline Phosphatase 120 H (45-117) U/L Albumin 1.9 L (3.4-5.0) g/dL Caprini VTE Risk Assessment Caprini VTE Risk Assessment: Moderate/High Risk (score >= 2) VTE Pharmacological Exception Reason: Active bleeding Caprini Risk Assessment Model: Point Value = 1 Point Value = 2 Point Value = 3 Point Value = 5 Age 41-60 Minor surgery BMI > 25 kg/m2 Swollen legs Varicose veins or History of unexplained or recurrent spontaneous Oral contraceptives or hormone replacement Sepsis (< 1 month) Serious lung disease, including pneumonia (< 1 month) Abnormal pulmonary function Acute myocardial infarction Congestive heart failure (< 1 month) History of inflammatory bowel disease Medical patient at bed rest Age 61-74 Arthroscopic surgery Major open surgery (> 45 min) Laparoscopic surgery (> 45 min) Malignancy Confined to bed (> 72 hours) Immobilizing plaster cast Central venous access Age >= 75 History of VTE Family history of VTE Factor V Leiden Prothrombin [id number] Lupus anticoagulant Anticardiolipin antibodies Elevated serum homocysteine Heparin-induced thrombocytopenia Other congenital or acquired thrombophilia Stroke (< 1 month) Elective arthroplasty Hip, pelvis, or leg fracture Acute spinal cord injury (< 1 month) Prophylaxis Regimen: Total Risk Factor Score Risk Level Prophylaxis Regimen 0-1 Low Early ambulation 2 Moderate Order ONE of the following: *Sequential Compression Device (SCD) *Heparin 5000 units SQ BID 3-4 Higher Order ONE of the following medications: *Heparin 5000 units SQ TID *Enoxaparin/Lovenox 40 mg SQ daily (WT < 150 kg, CrCl > 30 mL/min) *Enoxaparin/Lovenox 30 mg SQ daily (WT < 150 kg, CrCl > 10-29 mL/min) *Enoxaparin/Lovenox 30 mg SQ BID (WT < 150 kg, CrCl > 30 mL/min) AND/OR *Sequential Compression Device (SCD) 5 or more Highest Order ONE of the following medications: *Heparin 5000 units SQ TID (Preferred with Epidurals) *Enoxaparin/Lovenox 40 mg SQ daily (WT < 150 kg, CrCl > 30 mL/min) *Enoxaparin/Lovenox 30 mg SQ daily (WT < 150 kg, CrCl > 10-29 mL/min) *Enoxaparin/Lovenox 30 mg SQ BID (WT < 150 kg, CrCl > 30 mL/min) AND *Sequential Compression Device (SCD) Assessment and Plan - Plan A/P - Crohn's flare-up start on liquid diet. continue supportive care with IV fluid, pain management and antiemetics as needed. consulted GI; plan for colonoscopy on Monday. stool for C-diff pending. -thrombocytosis- reactive- will monitor; will consider Hematology evaluation if no improvement. -Hypokalemia; will replace and monitor. -consult PT Discussed Condition With: ER physician, the patient and .
--- NOTE | 2018-09-08 10:52 | MB ---
cc: Yazan Esteban MD DATE: 09/08/2018 REASON FOR REFERRAL: Abdominal pain, rectal bleeding, nausea and dyspepsia. HISTORY OF PRESENT ILLNESS: Thank you for the consultation. A pleasant 53-year-old lady who has a known history of Crohn disease, followed by Dr. Wilson. She saw him last a few months ago and she did not follow up with him. Since then, the patient on Entocort and Pentasa. She usually has been doing well for the Crohn disease. The patient came complaining of nausea, vomiting, poor oral intake for the last few days with throat discomfort. She feels sometimes that she cannot take her medication and it gets stuck. The patient also having bloody diarrhea as well in the last few days with some abdominal discomfort, generalized abdominal pain, and cramping. No fever, no chills, no hematemesis, no black stool, but some weight loss and deteriorating of her general health. MEDICATIONS: Reviewed in the chart. ALLERGIES: MULTIPLE INCLUDING PENICILLIN, ZOFRAN TRAMADOL, CIPRO, IBUPROFEN, SULFA, PROTONIX. REVIEW OF SYSTEMS: All 12 points negative except HPI. PAST MEDICAL HISTORY: Significant for history of C. difficile, TIA, Crohn disease, bunion removal, arthritis, section, cholecystectomy and ERCP, tonsillectomy. SOCIAL HISTORY: No tobacco. No alcohol. FAMILY HISTORY: Noncontributory. PHYSICAL EXAMINATION: GENERAL: Alert, oriented, no acute distress, lying in bed. Seems to be comfortable but weak. HEENT: Pupils round, reactive to light. NECK: Supple. CHEST: Clear to auscultation and percussion. CARDIAC: Regular rate and rhythm. ABDOMEN: Soft, mild diffuse tenderness, not distended. Positive bowel sounds. No hepatosplenomegaly. EXTREMITIES: No edema, clubbing or cyanosis. NEUROLOGIC: Intact. No focal abnormality. Psychologically appropriate. SKIN: Clear. No jaundice. RECTAL: Exam was performed by the ER, which was brown, heme-positive stool. LABORATORY DATA: White count 16.9, hemoglobin 9.7, platelets 1064. Sodium 132, potassium 3.2, BUN 18, creatinine 1.1. Liver function tests are normal. Lipase 30. C. difficile was pending. ASSESSMENT AND PLAN: 1. A 53-year-old lady who has nausea, some dyspepsia and dysphagia. The patient also had anemia and rectal bleeding with some diarrhea. Could be gastroenteritis, but cannot rule out exacerbation of Crohn disease, in the presence of the anemia and the dysphagia. I recommended an upper endoscopy and colonoscopy. I discussed with this patient the procedures and she will have those on Monday. Meanwhile, we will continue monitoring hemoglobin and hematocrit and give her packed RBCs as needed. 2. We will follow up with you tomorrow and will plan the colonoscopy and endoscopy on Monday. If C. difficile positive, will treat accordingly. MD TJ Truong/flo , 09:49 AM , 10:00 AM
[2018-09-08] MEDS: Morphine Inj 4 MG/ML Vial IV.PUSH PRN ×3 (12:54→22:57)
[2018-09-08] MEDS: Sod Chloride 0.9% Inj 1,000 ML IV.CONT SCH (14:58)
[2018-09-08] MEDS ORDERED: Potassium Chloride 20 MEQ Pwd Pkt PO ONE (15:00)
[2018-09-08 21:50] LABS: Bilirubin,Urine Negative (Negative); Clarity,Urine Clear (Clear); Color,Urine Yellow (Yellw/Straw); Glucose,Urine (UA) Negative (Negative); Leukocyte Esterase,Urine Large (Negative); Nitrite,Urine Negative (Negative); Urobilinogen,Urine 0.2 mg/dL (Less than 2)
[2018-09-08 22:04] LABS: Squamous Epithelial Cell,Urine 0-5 /hpf (0-5); WBC,Urine 51-189 /hpf (0-5)
[2018-09-08 22:05] LABS: Bacteria,Urine Moderate /hpf
[2018-09-09] MEDS: Sod Chloride 0.9% Inj 1,000 ML IV.CONT SCH ×2 (00:39→13:12)
[2018-09-09 07:52] LABS: Eos % (Auto) 0.2 % (0.0-4.0); Hematocrit 24.2 % (35.0-46.0); Lymph # (Auto) 2.9 th/mm3 (1.0-4.8); Lymph % (Auto) 19.2 % (9.0-44.0); Mean Corpuscular Hemoglobin 18.9 pg (27.0-34.0); Mean Corpuscular Volume 63.2 fL (80.0-100.0); Mean Platelet Volume 6.1 fL (7.0-11.0); Mono # (Auto) 1.2 th/mm3 (0.0-0.9); Mono % (Auto) 8.4 % (0.0-8.0); Neut # (Auto) 10.8 th/mm3 (1.8-7.7); Neut % (Auto) 72.2 % (16.0-70.0); Red Blood Count 3.83 mil/mm3 (4.00-5.30); Red Cell Distribution Width 17.4 % (11.6-17.2); White Blood Count 14.9 th/mm3 (4.0-11.0)
[2018-09-09 07:59] LABS: Mean Corpuscular HGB Conc 29.9 % (32.0-36.0)
[2018-09-09 08:00] LABS: Hemoglobin 7.2 gm/dL (11.6-15.3); Platelet Count 660 th/mm3 (150-450)
[2018-09-09 08:13] LABS: Lymphocytes 21 % (9-44); Monocytes 6 % (0-8)
[2018-09-09 08:14] LABS: Ovalocytes 1+; Rouleaux Present
[2018-09-09 08:15] LABS: Path Slide Review N
[2018-09-09 08:25] LABS: Anion Gap 8 meq/L (5-15); Blood Urea Nitrogen 9 mg/dL (7-18); Calcium 7.1 mg/dL (8.5-10.1); Carbon Dioxide 26.1 meq/L (21.0-32.0); Chloride 103 meq/L (98-107); Glomerular Filtration Rate Greater Than 89 mL/min (>89); Glucose,Random 95 mg/dL (74-106); Sodium 137 meq/L (136-145)
[2018-09-09] MEDS: Morphine Inj 4 MG/ML Vial IV.PUSH PRN ×3 (08:34→21:03)
[2018-09-09 08:38] LABS: Potassium 2.5 meq/L (3.5-5.1)
[2018-09-09 08:55] LABS: Total Protein 5.6 g/dL (6.4-8.2)
[2018-09-09] MEDS ORDERED: Sodium Chlor 0.9% Inj 250 ML IV.SIG SCH (09:00)
--- NOTE | 2018-09-09 09:49 | P.PNGI ---
Subjective Interval history: Patient drop her hemoglobin overnight, feel weak, patient also has hypokalemia, no sign of active bleeding some abdominal discomfort but no severe pain Physical Exam Vital signs: Vital Signs 09/08/18 12:00 09/08/18 16:00 09/08/18 20:00 Temperature 97.4 F L 98.0 F 96 F L Pulse Rate 101 H 77 80 Respiratory Rate 18 18 20 Blood Pressure 107/69 105/72 114/66 Pulse Oximetry 96 97 97 09/08/18 23:33 09/09/18 00:00 09/09/18 08:00 Temperature 96.4 F L 97.8 F Pulse Rate 73 82 Respiratory Rate 20 20 18 Blood Pressure 98/61 L 109/65 Pulse Oximetry 98 97 09/09/18 08:36 Temperature Pulse Rate Respiratory Rate 18 Blood Pressure Pulse Oximetry Intake & Output 09/08/18 09/09/18 09/09/18 18:59 06:59 18:59 Intake Total 1400 / 1400 1840 / 1840 900 / 900 Output Total 2 / 2 Balance 1400 / 1400 1838 / 1838 900 / 900 Weight 64.7 kg Intake: IV 1400 / 1400 1000 / 1000 900 / 900 NS + KCl 20 mEq Inj 1,000 ML @ 300 / 300 125 mls/hr IV.CONT .Q8H TIARA Rx# :[id number] NS Inj 1,000 ML @ 100 mls/hr IV 1000 / 1000 900 / 900 .CONT .Q10H TIARA Rx#:[id number] KCl 20 mEq Premix Inj 20 meq In 100 / 100 100 ml @ 50 mls/hr IV.SIG ONCE ONE Rx#:[id number] NS Inj 1,000 ML @ Wide Open IV. 1000 / 1000 SIG BOLUS ONE Rx#:[id number] Oral 840 / 840 Output: Urine/Stool Mix 2 / 2 Other: # Voids 2 # Urine Diapers 2 # Bowel Movements 2 - Constitutional no acute distress - Routine HEENT Exam Head: Present: normocephalic Eye: Present: EOMI, PERRL ENT: Present: mucous membranes moist - Routine Neck Exam Present: supple, full ROM - Routine Respiratory Exam Present: CTA bilaterally - Routine Cardiovascular Exam Present: RRR, S1, S2 - Routine Abdominal Exam Present: soft, normoactive bowel sounds - Routine Skin Exam Present: intact Results - Labs CBC & Chem 7: 09/09/18 07:30 09/09/18 07:30 Laboratory Results - last 24 hr 09/08/18 09/08/18 09/09/18 08:00 21:40 07:30 CBC w Diff Slide review pending WBC 14.9 H RBC 3.83 L Hgb 7.2 L D Hct 24.2 L MCV 63.2 L MCH 18.9 L MCHC 29.9 L RDW 17.4 H Plt Count 660 H D MPV 6.1 L Neut % (Auto) 72.2 H Lymph % (Auto) 19.2 [place] % (Auto) 8.4 H Eos % (Auto) 0.2 Baso % (Auto) 0.0 Neut # (Auto) 10.8 H Lymph # (Auto) 2.9 [place] # (Auto) 1.2 H Eos # (Auto) 0.0 Baso # (Auto) 0.0 WBC Differential Manual diff final Seg Neuts % (Manual) 52 Band Neuts % (Manual) 21 H Lymphocytes % (Manual) 21 Monocytes % (Manual) 6 Abs Neuts (Manual) 10.9 H Differential Comment . Platelet Morphology Hypogranular H Basophilic Stippling Faint H Ovalocytes 1+ H Rouleaux Present H Sodium Potassium Chloride Carbon Dioxide Anion Gap BUN Creatinine Estimated GFR Random Glucose Calcium Prot Corrected Calcium Total Protein Urine Color Yellow Urine Clarity Clear Urine pH 6.0 Ur Specific [place] 1.020 Urine Protein 30 H Urine Glucose (UA) Negative Urine Ketones Negative Urine Occult Blood Large H Urine Nitrate Negative Urine Bilirubin Negative Urine Urobilinogen 0.2 Ur Leukocyte Esterase Large H Urine RBC 4-15 H Urine WBC 51-189 H Urine WBC Clumps Moderate H Ur Squamous Epith Cells 0-5 Urine Bacteria Moderate H Micro UA Comment Culture indicated Ur Microscopic Review Microscopic reviewed Urine Culture Comments Culture indicated Stl C.difficile DNA Amp Negative St C. diff Tox Epid 027 Negative MTS Gel Crossmatch 09/09/18 09/09/18 07:30 08:11 CBC w Diff WBC RBC Hgb Hct MCV MCH MCHC RDW Plt Count MPV Neut % (Auto) Lymph % (Auto) [place] % (Auto) Eos % (Auto) Baso % (Auto) Neut # (Auto) Lymph # (Auto) [place] # (Auto) Eos # (Auto) Baso # (Auto) WBC Differential Seg Neuts % (Manual) Band Neuts % (Manual) Lymphocytes % (Manual) Monocytes % (Manual) Abs Neuts (Manual) Differential Comment Platelet Morphology Basophilic Stippling Ovalocytes Rouleaux Sodium 137 Potassium 2.5 L* Chloride 103 Carbon Dioxide 26.1 Anion Gap 8 BUN 9 Creatinine 0.57 Estimated GFR Greater than 89 Random Glucose 95 Calcium 7.1 L* D Prot Corrected Calcium 7.9 L Total Protein 5.6 L D Urine Color Urine Clarity Urine pH Ur Specific [place] Urine Protein Urine Glucose (UA) Urine Ketones Urine Occult Blood Urine Nitrate Urine Bilirubin Urine Urobilinogen Ur Leukocyte Esterase Urine RBC Urine WBC Urine WBC Clumps Ur Squamous Epith Cells Urine Bacteria Micro UA Comment Ur Microscopic Review Urine Culture Comments Stl C.difficile DNA Amp St C. diff Tox Epid 027 MTS Gel Crossmatch See Detail Assessment and Plan - Plan Anemia, hemoglobin dropped, we will plan on giving 1 unit of packed RBC, I discussed with the patient doing upper endoscopy and colonoscopy and will plan on doing that tomorrow Hypokalemia, potassium 2.5, will replace that today Discussed the case with the primary team
--- NOTE | 2018-09-09 12:22 | P.PNIM ---
Subjective Interval history: Patient seen and examined this morning. Afebrile vital signs stable. Blood pressure on the lower end at 93/66. Patient's potassium was critically low at 2.5. She was low yesterday but refused her potassium treatments. Discussed with her the importance of receiving her potassium today as she is continue to decrease and she agrees to obtain it. Patient's hemoglobin hematocrit is continued to decrease and today was 7.2/24.2 respectively. She will receive a unit of blood transfusion. Patient agrees to this as well. Patient is scheduled for endoscopy and colonoscopy tomorrow. Physical Exam Vital signs: Vital Signs 09/08/18 16:00 09/08/18 20:00 09/08/18 23:33 Temperature 98.0 F 96 F L Pulse Rate 77 80 Respiratory Rate 18 20 20 Blood Pressure 105/72 114/66 Pulse Oximetry 97 97 09/09/18 00:00 09/09/18 08:00 09/09/18 08:36 Temperature 96.4 F L 97.8 F Pulse Rate 73 82 Respiratory Rate 20 18 18 Blood Pressure 98/61 L 109/65 Pulse Oximetry 98 97 09/09/18 10:49 09/09/18 11:50 Temperature 98.3 F 98.4 F Pulse Rate 79 82 Respiratory Rate 18 18 Blood Pressure 92/57 L 93/66 L Pulse Oximetry 97 98 Intake & Output 09/08/18 09/09/18 09/09/18 18:59 06:59 18:59 Intake Total 1400 / 1400 1840 / 1840 910 / 910 Output Total 2 / 2 Balance 1400 / 1400 1838 / 1838 910 / 910 Weight 64.7 kg Intake: IV 1400 / 1400 1000 / 1000 910 / 910 NS + KCl 20 mEq Inj 1,000 ML @ 300 / 300 125 mls/hr IV.CONT .Q8H TIARA Rx# :[id number] NS Inj 1,000 ML @ 100 mls/hr IV 1000 / 1000 900 / 900 .CONT .Q10H TIARA Rx#:[id number] KCl 20 mEq Premix Inj 20 meq In 100 / 100 100 ml @ 50 mls/hr IV.SIG ONCE ONE Rx#:[id number] NS Inj 1,000 ML @ Wide Open IV. 1000 / 1000 SIG BOLUS ONE Rx#:[id number] NS Inj 250 ML @ 15 mls/hr IV. SIG ONCE TIARA Rx#:[id number] Oral 840 / 840 Intake (Blood Product) Amt 0 / 0 Rbc As-3 Leukoreduced Unit 0 0 [id number] Output: Urine/Stool Mix 2 / 2 Other: # Voids 2 # Urine Diapers 2 # Bowel Movements 2 Narrative: GEN: Well-developed, well-nourished thin female patient. No acute distress. CV: Regular rate and rhythm without obvious murmurs LUNGS: Clear to auscultation bilaterally. Normal respiratory effort. No wheezes , rales, rhonchi. GI: Soft, nontender, nondistended. No palpable masses. Bowel sounds WNL. EXT: No edema. NEURO/PSYCH: Afocal. Awake, alert, and oriented x3. Appropriate insight and judgment. Results - Labs CBC & Chem 7: 09/09/18 07:30 09/09/18 07:30 Laboratory Results - last 24 hr 09/08/18 09/08/18 09/09/18 08:00 21:40 07:30 CBC w Diff Slide review pending WBC 14.9 H RBC 3.83 L Hgb 7.2 L D Hct 24.2 L MCV 63.2 L MCH 18.9 L MCHC 29.9 L RDW 17.4 H Plt Count 660 H D MPV 6.1 L Neut % (Auto) 72.2 H Lymph % (Auto) 19.2 [place] % (Auto) 8.4 H Eos % (Auto) 0.2 Baso % (Auto) 0.0 Neut # (Auto) 10.8 H Lymph # (Auto) 2.9 [place] # (Auto) 1.2 H Eos # (Auto) 0.0 Baso # (Auto) 0.0 WBC Differential Manual diff final Seg Neuts % (Manual) 52 Band Neuts % (Manual) 21 H Lymphocytes % (Manual) 21 Monocytes % (Manual) 6 Abs Neuts (Manual) 10.9 H Differential Comment . Platelet Morphology Hypogranular H Basophilic Stippling Faint H Ovalocytes 1+ H Rouleaux Present H Sodium Potassium Chloride Carbon Dioxide Anion Gap BUN Creatinine Estimated GFR Random Glucose Calcium Prot Corrected Calcium Total Protein Urine Color Yellow Urine Clarity Clear Urine pH 6.0 Ur Specific [place] 1.020 Urine Protein 30 H Urine Glucose (UA) Negative Urine Ketones Negative Urine Occult Blood Large H Urine Nitrate Negative Urine Bilirubin Negative Urine Urobilinogen 0.2 Ur Leukocyte Esterase Large H Urine RBC 4-15 H Urine WBC 51-189 H Urine WBC Clumps Moderate H Ur Squamous Epith Cells 0-5 Urine Bacteria Moderate H Micro UA Comment Culture indicated Ur Microscopic Review Microscopic reviewed Urine Culture Comments Culture indicated Stl C.difficile DNA Amp Negative St C. diff Tox Epid 027 Negative MTS Gel Crossmatch 09/09/18 09/09/18 07:30 08:11 CBC w Diff WBC RBC Hgb Hct MCV MCH MCHC RDW Plt Count MPV Neut % (Auto) Lymph % (Auto) [place] % (Auto) Eos % (Auto) Baso % (Auto) Neut # (Auto) Lymph # (Auto) [place] # (Auto) Eos # (Auto) Baso # (Auto) WBC Differential Seg Neuts % (Manual) Band Neuts % (Manual) Lymphocytes % (Manual) Monocytes % (Manual) Abs Neuts (Manual) Differential Comment Platelet Morphology Basophilic Stippling Ovalocytes Rouleaux Sodium 137 Potassium 2.5 L* Chloride 103 Carbon Dioxide 26.1 Anion Gap 8 BUN 9 Creatinine 0.57 Estimated GFR Greater than 89 Random Glucose 95 Calcium 7.1 L* D Prot Corrected Calcium 7.9 L Total Protein 5.6 L D Urine Color Urine Clarity Urine pH Ur Specific [place] Urine Protein Urine Glucose (UA) Urine Ketones Urine Occult Blood Urine Nitrate Urine Bilirubin Urine Urobilinogen Ur Leukocyte Esterase Urine RBC Urine WBC Urine WBC Clumps Ur Squamous Epith Cells Urine Bacteria Micro UA Comment Ur Microscopic Review Urine Culture Comments Stl C.difficile DNA Amp St C. diff Tox Epid 027 MTS Gel Crossmatch See Detail Assessment and Plan - Assessment (1) Exacerbation of Crohn's disease Code(s): K50.90 - Crohn's disease, unspecified, without complications Status: Acute (2) Acute hypokalemia Code(s): E87.6 - Hypokalemia Status: Acute - Plan This a 53-year-old female admitted for exacerbation of her Crohn's - Crohn's flare-up start on liquid diet. continue supportive care with IV fluid, pain management and antiemetics as needed. consulted GI; plan for colonoscopy and endoscopy on Monday. stool for C-diff negative. -thrombocytosis- reactive- will monitor; will consider Hematology evaluation if no improvement. -Hypokalemia; will replace and monitor. Repeat BMP pending -Anemia questionable GI bleed: Receiving 1 unit of blood transfusion, Repeat CBC pending following transfusion -consult PT Code Status: Full code Discharge Planning: Pending further workup by GI (1) Exacerbation of Crohn's disease Qualifiers: Digestive disease complication type: with rectal bleeding Qualified Code(s): K50.911 - Crohn's disease, unspecified, with rectal bleeding
[2018-09-09] MEDS ORDERED: PEG 3350/E-Lyte Soln 4000 ML Bottle PO ONE (15:00)
[2018-09-09] MEDS ORDERED: Potassium Chloride 20 MEQ Pwd Pkt PO ONE (19:00)
[2018-09-09 19:18] LABS: Hematocrit 26.8 % (35.0-46.0); Hemoglobin 8.2 gm/dL (11.6-15.3); Mean Corpuscular Hemoglobin 21.1 pg (27.0-34.0); Mean Corpuscular Volume 68.9 fL (80.0-100.0); Mean Platelet Volume 6.2 fL (7.0-11.0); Platelet Count 361 th/mm3 (150-450); Red Blood Count 3.89 mil/mm3 (4.00-5.30); Red Cell Distribution Width 21.9 % (11.6-17.2); White Blood Count 12.4 th/mm3 (4.0-11.0)
[2018-09-09 19:19] LABS: Mean Corpuscular HGB Conc 30.6 % (32.0-36.0)
[2018-09-09 19:38] LABS: Anion Gap 7 meq/L (5-15); Blood Urea Nitrogen 8 mg/dL (7-18); Carbon Dioxide 23.6 meq/L (21.0-32.0); Chloride 105 meq/L (98-107); Glomerular Filtration Rate Greater Than 89 mL/min (>89); Glucose,Random 87 mg/dL (74-106); Sodium 136 meq/L (136-145)
[2018-09-09 19:40] LABS: Potassium 2.8 meq/L (3.5-5.1)
[2018-09-09 19:54] LABS: Total Protein 5.4 g/dL (6.4-8.2)
[2018-09-10] MEDS: Morphine Inj 4 MG/ML Vial IV.PUSH PRN ×4 (01:23→17:57)
[2018-09-10 07:10] LABS: Hematocrit 26.9 % (35.0-46.0); Hemoglobin 8.2 gm/dL (11.6-15.3); Mean Corpuscular Hemoglobin 20.6 pg (27.0-34.0); Mean Corpuscular Volume 67.8 fL (80.0-100.0); Mean Platelet Volume 6.3 fL (7.0-11.0); Platelet Count 501 th/mm3 (150-450); Red Blood Count 3.97 mil/mm3 (4.00-5.30); Red Cell Distribution Width 23.3 % (11.6-17.2); White Blood Count 9.8 th/mm3 (4.0-11.0)
[2018-09-10 07:15] LABS: Mean Corpuscular HGB Conc 30.4 % (32.0-36.0)
--- NOTE | 2018-09-10 07:37 | P.PCN ---
Date of procedure: 09/10/18 Pre-op diagnosis: Anemia Procedure: PROCEDURE PERFORMED EGD with biopsy The intention was to also proceed with a colonoscopy but the patient had refused the prep PROCEDURE: The procedure, risks and benefits were discussed with Patient/POA and informed consent was obtained. Anesthesia sedated Patient with Diprivan. Patient was placed in the left lateral decubitus position. EGD: The Pentax videoscope was introduced through the oropharynx and advanced to the second portion of the duodenum under direct visualization. Retroflexion was performed in the stomach. FINDINGS: The esophagus there was a whitish exudate noted in the esophagus consistent with a Sommer infection in addition to erythema and friability of the esophageal mucosa specifically the distal portion etiology unclear this was biopsied for further evaluation The stomach the gastric mucosa appeared to be unremarkable and within normal limits The duodenum this also appeared to be unremarkable and within normal limits ESTIMATED BLOOD LOSS: None SPECIMENS REMOVED: Esophageal biopsy COMPLICATIONS: None IMPRESSION: Sommer esophagitis Esophagitis PLAN: Await biopsies Diflucan 100 mg daily for 10 days Protonix 40 mg daily Follow-up with GI post discharge Patient will be needing a colonoscopy this can be done on outpatient basis Advance diet as tolerated Anesthesia: MAC Surgeon: Yonny Jacobs Condition: stable Disposition: floor
[2018-09-10 07:40] LABS: Alanine Aminotransferase 11 U/L (10-53); Albumin 1.6 g/dL (3.4-5.0); Alkaline Phosphatase 85 U/L (45-117); Anion Gap 7 meq/L (5-15); Aspartate Aminotransferase 14 U/L (15-37); Blood Urea Nitrogen 5 mg/dL (7-18); Carbon Dioxide 25.6 meq/L (21.0-32.0); Chloride 106 meq/L (98-107); Glomerular Filtration Rate Greater Than 89 mL/min (>89); Glucose,Random 74 mg/dL (74-106); Sodium 139 meq/L (136-145); Total Protein 5.2 g/dL (6.4-8.2)
[2018-09-10 07:49] LABS: Potassium 2.7 meq/L (3.5-5.1)
--- NOTE | 2018-09-10 08:13 | P.PNIM ---
Subjective Interval history: Pt seen and examined for f/u possible Crohn's exacerbation after presenting with abdominal pain, nausea, and diarrhea. Colonoscopy was not done this morning because patient's dysphagia precluded her from taking in the prep. EGD showed Sommer esophagitis and she was started on Diflucan. She feels that she is swallowing slightly better today and is tolerating sherbert and took her pills. She continues to have diarrhea and had about 4-5 episodes in the last 24 hours. She states this is because she abruptly stopped taking her mesalamine and Entocort about a week ago. She denies any further rectal bleeding, nausea, or vomiting. Physical Exam Vital signs: Vital Signs 09/09/18 08:36 09/09/18 10:49 09/09/18 11:50 Temperature 98.3 F 98.4 F Pulse Rate 79 82 Respiratory Rate 18 18 18 Blood Pressure 92/57 L 93/66 L Pulse Oximetry 97 98 09/09/18 12:00 09/09/18 15:43 09/09/18 20:00 Temperature 98.3 F 99.1 F 99.3 F Pulse Rate 79 80 76 Respiratory Rate 18 18 16 Blood Pressure 92/57 L 99/58 L 99/54 L Pulse Oximetry 97 97 98 09/09/18 21:22 09/10/18 00:00 09/10/18 01:54 Temperature 97.2 F L Pulse Rate 80 Respiratory Rate 16 16 16 Blood Pressure 93/52 L Pulse Oximetry 98 09/10/18 05:25 09/10/18 06:50 09/10/18 07:30 Temperature 98.7 F 98.5 F 98.9 F Pulse Rate 75 74 83 Respiratory Rate 16 24 18 Blood Pressure 96/53 L 92/55 L 91/58 L Pulse Oximetry 94 L 99 98 09/10/18 07:45 Temperature Pulse Rate 73 Respiratory Rate 18 Blood Pressure 92/61 L Pulse Oximetry Intake & Output 09/09/18 09/10/18 09/10/18 18:59 06:59 18:59 Intake Total 1310 / 1310 1210 / 1210 200 / 200 Balance 1310 / 1310 1210 / 1210 200 / 200 Weight 64.7 kg Intake: IV 910 / 910 1010 / 1010 NS + KCl 40 mEq Inj 1,000 ML @ 1000 / 1000 84 mls/hr IV.CONT .[id number] TIARA Rx#:[id number] NS Inj 1,000 ML @ 100 mls/hr IV 900 / 900 .CONT .Q10H TIARA Rx#:[id number] NS Inj 250 ML @ 15 mls/hr IV. SIG ONCE TIARA Rx#:[id number] Oral 200 / 200 Anesthesia Amount 200 / 200 Intake (Blood Product) Amt 400 / 400 Rbc As-3 Leukoreduced Unit 400 / 400 [id number] Other: # Voids 2 Date of Last Bowel Movement 09/10/18 # Bowel Movements 4 # Incontinent Bowel Movements 4 Narrative: GENERAL: WN, WD female sitting up in bed NAD. SKIN: Warm and dry. HEENT: AT/NC. Pupils equal and round. MMM. HEART: RRR no m/r/g. LUNGS: CTAB without wheezes or crackles. ABDOMEN: +BS, soft, NT, ND. EXTREMITIES: No LE edema. 2+ pedal pulses. NEURO: Awake and alert. Results - Labs CBC & Chem 7: 09/10/18 05:35 09/10/18 05:35 Laboratory Results - last 24 hr 09/08/18 09/09/18 09/09/18 21:40 07:30 07:30 WBC RBC Hgb Hct MCV MCH MCHC RDW Plt Count MPV WBC Differential Manual diff final Seg Neuts % (Manual) 52 Band Neuts % (Manual) 21 H Lymphocytes % (Manual) 21 Monocytes % (Manual) 6 Abs Neuts (Manual) 10.9 H Platelet Morphology Hypogranular H Basophilic Stippling Faint H Ovalocytes 1+ H Rouleaux Present H Sodium 137 Potassium 2.5 L* Chloride 103 Carbon Dioxide 26.1 Anion Gap 8 BUN 9 Creatinine 0.57 Estimated GFR Greater than 89 Random Glucose 95 Calcium 7.1 L* D Prot Corrected Calcium 7.9 L Total Bilirubin AST ALT Alkaline Phosphatase Total Protein 5.6 L D Albumin Urine Color Yellow Urine Clarity Clear Urine pH 6.0 Ur Specific [place] 1.020 Urine Protein 30 H Urine Glucose (UA) Negative Urine Ketones Negative Urine Occult Blood Large H Urine Nitrate Negative Urine Bilirubin Negative Urine Urobilinogen 0.2 Ur Leukocyte Esterase Large H Urine RBC 4-15 H Urine WBC 51-189 H Urine WBC Clumps Moderate H Ur Squamous Epith Cells 0-5 Urine Bacteria Moderate H Micro UA Comment Culture indicated Ur Microscopic Review Microscopic reviewed Urine Culture Comments Culture indicated MTS Gel Crossmatch 09/09/18 09/09/18 09/09/18 08:11 19:00 19:00 WBC 12.4 H RBC 3.89 L Hgb 8.2 L Hct 26.8 L MCV 68.9 L D MCH 21.1 L MCHC 30.6 L RDW 21.9 H D Plt Count 361 D MPV 6.2 L WBC Differential Seg Neuts % (Manual) Band Neuts % (Manual) Lymphocytes % (Manual) Monocytes % (Manual) Abs Neuts (Manual) Platelet Morphology Basophilic Stippling Ovalocytes Rouleaux Sodium 136 Potassium 2.8 L* Chloride 105 Carbon Dioxide 23.6 Anion Gap 7 BUN 8 Creatinine 0.50 Estimated GFR Greater than 89 Random Glucose 87 Calcium 7.0 L* Prot Corrected Calcium 7.9 L Total Bilirubin AST ALT Alkaline Phosphatase Total Protein 5.4 L Albumin Urine Color Urine Clarity Urine pH Ur Specific [place] Urine Protein Urine Glucose (UA) Urine Ketones Urine Occult Blood Urine Nitrate Urine Bilirubin Urine Urobilinogen Ur Leukocyte Esterase Urine RBC Urine WBC Urine WBC Clumps Ur Squamous Epith Cells Urine Bacteria Micro UA Comment Ur Microscopic Review Urine Culture Comments MTS Gel Crossmatch See Detail 09/10/18 09/10/18 05:35 05:35 WBC 9.8 RBC 3.97 L Hgb 8.2 L Hct 26.9 L MCV 67.8 L MCH 20.6 L MCHC 30.4 L RDW 23.3 H Plt Count 501 H D MPV 6.3 L WBC Differential Seg Neuts % (Manual) Band Neuts % (Manual) Lymphocytes % (Manual) Monocytes % (Manual) Abs Neuts (Manual) Platelet Morphology Basophilic Stippling Ovalocytes Rouleaux Sodium 139 Potassium 2.7 L* Chloride 106 Carbon Dioxide 25.6 Anion Gap 7 BUN 5 L Creatinine 0.37 L Estimated GFR Greater than 89 Random Glucose 74 Calcium 7.0 L* Prot Corrected Calcium 8.0 L Total Bilirubin 0.5 AST 14 L ALT 11 Alkaline Phosphatase 85 Total Protein 5.2 L Albumin 1.6 L Urine Color Urine Clarity Urine pH Ur Specific [place] Urine Protein Urine Glucose (UA) Urine Ketones Urine Occult Blood Urine Nitrate Urine Bilirubin Urine Urobilinogen Ur Leukocyte Esterase Urine RBC Urine WBC Urine WBC Clumps Ur Squamous Epith Cells Urine Bacteria Micro UA Comment Ur Microscopic Review Urine Culture Comments MTS Gel Crossmatch Microbiology 09/08/18 21:40 Clean Catch Urine Urine Culture - Preliminary gram negative rods Assessment and Plan - Assessment (1) Exacerbation of Crohn's disease Code(s): K50.90 - Crohn's disease, unspecified, without complications Status: Acute (2) Acute hypokalemia Code(s): E87.6 - Hypokalemia Status: Acute - Plan 53 year old female with history of Crohn's disease and TIA presenting on 09/08 with abdominal pain, diarrhea, and some rectal bleeding. She was admitted for possible Crohn's exacerbation. 1. Possible Crohn's exacerbation - GI consulted, recommended colonoscopy but patient refused the prep secondary to dysphagia therefore GI recommends colonoscopy as an outpatient - Stool studies pending - C. diff negative - Resume home mesalamine and Entocort - Morphine PRN - Antiemetics PRN - IV hydration 2. Sommer esophagitis - GI following - s/p EGD this AM - Diflucan x 10 days - ADAT 3. Anemia - Hb dropped from 9.8 to 7.2 within 24 hours - S/P transfusion 1 unit PRCB 09/09 with improvement of Hb up to 8.2 - Hb stable this morning 4. UTI - Urine culture growing Klebsiella and Citrobacter - Multiple abx allergies - Start Macrobid 5. Hypokalemia - Potassium 2.7 this AM - Replete with KCl 40 meq IV x 1 - Repeat potassium at 1600 along with magnesium DVT prophylaxis: chemical anticoagulation held secondary to possible GI bleeding Discharge Planning: Will see how she does another day after initiating treatment with Diflucan to see if she can tolerate PO okay to take her meds and eat (1) Exacerbation of Crohn's disease Qualifiers: Digestive disease complication type: with rectal bleeding Qualified Code(s): K50.911 - Crohn's disease, unspecified, with rectal bleeding
[2018-09-10] MEDS: Fluconazole 100 MG Tablet PO SCH (09:21)
[2018-09-10] MEDS: Nitrofurantoin Monohydrate-Macrocrystal 100 MG Capsule PO SCH ×2 (09:22→17:47)
[2018-09-10] MEDS ORDERED: Potassium Chlor 20 mEq Premix 20 MEQ/100 ML PIGGYBACK IV.SIG SCH (11:00)
[2018-09-10] MEDS: Mesalamine 250 MG Capsule ER PO SCH ×3 (13:52→22:34)
[2018-09-10 17:18] LABS: Magnesium 1.4 mg/dL (1.5-2.5)
[2018-09-10 17:23] LABS: Potassium 2.8 meq/L (3.5-5.1)
[2018-09-10] MEDS ORDERED: Magnesium Sulfate Inj 2 GM in Sodium Chlor 0.9% Inj 96 ML IV.SIG ONE (17:29)
[2018-09-10] MEDS: Mag Sulf 1 gm/100 ml Premix 100 ML IV.SIG SCH ×2 (17:56→19:05)
[2018-09-11] MEDS: Morphine Inj 4 MG/ML Vial IV.PUSH PRN ×2 (01:47→08:40)
[2018-09-11] MEDS: Nystatin/Diphenhydramine/Lidocaine Mouthwash (Adult) 120 ML Botttle SWISH-SWAL SCH ×5 (05:19→21:57)
[2018-09-11 07:35] LABS: Hematocrit 24.7 % (35.0-46.0); Hemoglobin 7.9 gm/dL (11.6-15.3); Mean Corpuscular Hemoglobin 21.5 pg (27.0-34.0); Mean Corpuscular Volume 66.9 fL (80.0-100.0); Mean Platelet Volume 6.3 fL (7.0-11.0); Platelet Count 421 th/mm3 (150-450); Red Blood Count 3.69 mil/mm3 (4.00-5.30); Red Cell Distribution Width 23.9 % (11.6-17.2)
[2018-09-11 08:00] LABS: Anion Gap 8 meq/L (5-15); Blood Urea Nitrogen 3 mg/dL (7-18); Calcium 6.8 mg/dL (8.5-10.1); Carbon Dioxide 26.3 meq/L (21.0-32.0); Chloride 103 meq/L (98-107); Glomerular Filtration Rate Greater Than 89 mL/min (>89); Glucose,Random 92 mg/dL (74-106); Sodium 137 meq/L (136-145)
[2018-09-11 08:09] LABS: Potassium 2.7 meq/L (3.5-5.1)
[2018-09-11 08:22] LABS: Total Protein 4.9 g/dL (6.4-8.2)
[2018-09-11] MEDS: Nitrofurantoin Monohydrate-Macrocrystal 100 MG Capsule PO SCH ×2 (08:35→17:12)
[2018-09-11] MEDS: Fluconazole 100 MG Tablet PO SCH (08:35)
[2018-09-11] MEDS: Mesalamine 250 MG Capsule ER PO SCH ×4 (08:37→21:57)
--- NOTE | 2018-09-11 09:44 | P.PNIM ---
Subjective Interval history: Patient seen and examined for follow-up of Sommer esophagitis. BP running on the lower side but this appears to be chronic for her. She reports she has been drooling but her swallow function seems to be improving. She is still not fully able to consume regular food and is focusing more on ice chips and sherbet. She has not had any diarrhea since yesterday in which she had about 3 episodes. She is leaning more towards going to rehab upon discharge. She states she is going to see how she does with PT today. She denies any chest pain, shortness of breath, abdominal pain, nausea, or vomiting. She describes a sensation that her tongue feels burned. Physical Exam Vital signs: Vital Signs 09/10/18 12:00 09/10/18 13:26 09/10/18 16:00 Temperature 97.2 F L 99.7 F H Pulse Rate 89 89 Respiratory Rate 20 20 20 Blood Pressure 99/60 L 91/54 L Pulse Oximetry 100 99 09/10/18 18:18 09/10/18 20:00 09/11/18 02:37 Temperature 97.4 F L 98.1 F Pulse Rate 76 83 Respiratory Rate 20 16 16 Blood Pressure 100/63 96/68 L Pulse Oximetry 96 96 Intake & Output 09/10/18 09/11/18 09/11/18 18:59 06:59 18:59 Intake Total 1680 / 1680 1999 Balance 1680 / 1680 1999 Weight 64.7 kg Intake: IV 1000 / 1000 1000 / 1000 NS + KCl 40 mEq Inj 1,000 ML @ 1000 / 1000 84 mls/hr IV.CONT .[id number] [facility] Rx#:[id number] Magnesium Sulfate 1 gm/D5W 100 200 / 200 ml Premix 100 ML @ 100 mls/hr IV.SIG Q1H [facility] Rx#:[id number] Oral 480 / 480 1000 / 1000 Anesthesia Amount 200 / 200 Other: # Voids 6 3 Date of Last Bowel Movement 09/10/18 09/11/18 # Bowel Movements 10 Narrative: GENERAL: WN, WD female sitting up in bed NAD. SKIN: Warm and dry. HEENT: AT/NC. Pupils equal and round. MMM. HEART: RRR no m/r/g. LUNGS: CTAB without wheezes or crackles. ABDOMEN: +BS, soft, NT, ND. EXTREMITIES: No LE edema. 2+ pedal pulses. NEURO: Awake and alert. Results - Labs CBC & Chem 7: 09/11/18 06:35 09/11/18 06:35 Laboratory Results - last 24 hr 09/10/18 09/11/18 09/11/18 16:16 06:35 06:35 WBC 8.0 RBC 3.69 L Hgb 7.9 L Hct 24.7 L MCV 66.9 L MCH 21.5 L MCHC 32.0 RDW 23.9 H Plt Count 421 MPV 6.3 L Sodium 137 Potassium 2.8 L* 2.7 L* Chloride 103 Carbon Dioxide 26.3 Anion Gap 8 BUN 3 L Creatinine 0.42 L Estimated GFR Greater than 89 Random Glucose 92 Calcium 6.8 L* Prot Corrected Calcium 7.9 L Magnesium 1.4 L 2.0 D Total Protein 4.9 L Microbiology 09/08/18 21:40 Clean Catch Urine Urine Culture - Final Klebsiella pneumoniae Citrobacter freundii 09/08/18 08:00 Stool Enteric Pathogens (PCR) - Final No enteric pathogens detected by PCR (No Salmonella sp., Shigella sp., Campylobacter sp., Yersinia enterocolitica, Vibrio sp., Norovirus, or EHEC (Shiga Toxin 1 or Shiga Toxin 2) detected. Assessment and Plan - Assessment (1) Exacerbation of Crohn's disease Code(s): K50.90 - Crohn's disease, unspecified, without complications Status: Acute (2) Acute hypokalemia Code(s): E87.6 - Hypokalemia Status: Acute - Plan 53 year old female with history of Crohn's disease and TIA presenting on 09/08 with abdominal pain, diarrhea, and some rectal bleeding. She was admitted for possible Crohn's exacerbation. 1. Diarrhea, possible early Crohn's exacerbation - Improving - GI consulted, recommended colonoscopy but patient refused the prep secondary to dysphagia therefore GI recommends colonoscopy as an outpatient - Stool studies negative - C. diff negative - Resume home mesalamine and Entocort - Morphine PRN - Antiemetics PRN 2. Sommer esophagitis - GI following - s/p EGD 09/10 - Biopsies pending - Diflucan x 10 days - ADAT 3. Acute blood loss anemia - Secondary to rectal bleeding - Hb dropped from 9.8 to 7.2 within 24 hours - S/P transfusion 1 unit PRCB 09/09 with improvement of Hb up to 8.2 - Hb slightly down to 7.9 this AM - Continue to monitor 4. UTI - Urine culture growing Klebsiella and Citrobacter - Multiple abx allergies - Continue Macrobid 5. Refractory hypokalemia - Potassium 2.7 this AM despite multiple doses of potassium - Mg was low at 1.4 which was repleted with 2 g MgSO4 - Phosphorous low this morning at 1.8 - Start K-Phos BID - Restart fluids with NS-KCl 40 meq at 84 ml/hr since patient doesn't tolerate IV KCl alone - Repeat potassium at 1600 DVT prophylaxis: chemical anticoagulation held secondary to possible GI bleeding , SCDs Discharge Planning: Hopefully D/C tomorrow if potassium improves. Anticipate going to rehab. Case management assisting (1) Exacerbation of Crohn's disease Qualifiers: Digestive disease complication type: with rectal bleeding Qualified Code(s): K50.911 - Crohn's disease, unspecified, with rectal bleeding
[2018-09-11] MEDS ORDERED: Potassium Chloride 10 MEQ ER Capsule PO SCH (10:00)
[2018-09-11] MEDS ORDERED: Potassium Phosphate 500 MG Soluble Tablet PO SCH (11:00)
[2018-09-11] MEDS ORDERED: Diatrizoate Meglum/Diatrizoate Sod Liq 9 ML UDC PO ONE (16:42)
--- NOTE | 2018-09-11 16:42 | P.PNGI ---
Subjective Interval history: Patient laying comfortably in bed denies any pain continues to complain of diarrhea she has had about 2 or 3 loose bowel movements today Physical Exam Vital signs: Vital Signs 09/10/18 18:18 09/10/18 20:00 09/11/18 02:37 Temperature 97.4 F L 98.1 F Pulse Rate 76 83 Respiratory Rate 20 16 16 Blood Pressure 100/63 96/68 L Pulse Oximetry 96 96 09/11/18 10:07 09/11/18 12:00 09/11/18 13:20 Temperature 98.6 F 98.2 F Pulse Rate 76 67 Respiratory Rate 16 16 Blood Pressure 89/45 L 90/60 L Pulse Oximetry 95 Intake & Output 09/10/18 09/11/18 09/11/18 18:59 06:59 18:59 Intake Total 1680 / 1680 1999 Balance 1680 / 1680 1999 Weight 64.7 kg Intake: IV 1000 / 1000 1000 / 1000 NS + KCl 40 mEq Inj 1,000 ML @ 1000 / 1000 84 mls/hr IV.CONT .[id number] [facility] Rx#:[id number] Magnesium Sulfate 1 gm/D5W 100 200 / 200 ml Premix 100 ML @ 100 mls/hr IV.SIG Q1H [facility] Rx#:[id number] Oral 480 / 480 1000 / 1000 Anesthesia Amount 200 / 200 Other: # Voids 6 3 Date of Last Bowel Movement 09/10/18 09/11/18 09/11/18 # Bowel Movements 10 - Constitutional no acute distress - Routine HEENT Exam Head: Present: normocephalic Eye: Present: EOMI ENT: Present: mucous membranes moist - Routine Neck Exam Present: supple - Routine Respiratory Exam Present: CTA bilaterally - Routine Cardiovascular Exam Present: RRR - Routine Abdominal Exam Present: soft. Absent: tenderness, distended, rebound - Routine Extremities Exam Absent: cyanosis, clubbing, edema Results - Labs CBC & Chem 7: 09/11/18 06:35 09/11/18 06:35 Laboratory Results - last 24 hr 09/10/18 09/11/18 09/11/18 16:16 06:35 06:35 WBC 8.0 RBC 3.69 L Hgb 7.9 L Hct 24.7 L MCV 66.9 L MCH 21.5 L MCHC 32.0 RDW 23.9 H Plt Count 421 MPV 6.3 L Sodium 137 Potassium 2.8 L* 2.7 L* Chloride 103 Carbon Dioxide 26.3 Anion Gap 8 BUN 3 L Creatinine 0.42 L Estimated GFR Greater than 89 Random Glucose 92 Calcium 6.8 L* Prot Corrected Calcium 7.9 L Phosphorus Magnesium 1.4 L 2.0 D Total Protein 4.9 L 09/11/18 06:35 WBC RBC Hgb Hct MCV MCH MCHC RDW Plt Count MPV Sodium Potassium Chloride Carbon Dioxide Anion Gap BUN Creatinine Estimated GFR Random Glucose Calcium Prot Corrected Calcium Phosphorus 1.8 L Magnesium Total Protein Microbiology 09/08/18 21:40 Clean Catch Urine Urine Culture - Final Klebsiella pneumoniae Citrobacter freundii 09/08/18 08:00 Stool Enteric Pathogens (PCR) - Final No enteric pathogens detected by PCR (No Salmonella sp., Shigella sp., Campylobacter sp., Yersinia enterocolitica, Vibrio sp., Norovirus, or EHEC (Shiga Toxin 1 or Shiga Toxin 2) detected. Assessment and Plan - Plan Anemia appears to be stable no evidence of any active or acute bleeding Hypokalemia etiology unclear possibly related to the diarrhea Diarrhea known history of Crohn's disease on Pentasa no recent imaging Esophagitis with Sommer noted on endoscopy yesterday treatment started and patient appears to be tolerating Patient had declined a colonoscopy Continue with current supportive care
[2018-09-11 17:21] LABS: Alanine Aminotransferase 13 U/L (10-53); Albumin 1.7 g/dL (3.4-5.0); Alkaline Phosphatase 101 U/L (45-117); Anion Gap 8 meq/L (5-15); Aspartate Aminotransferase 13 U/L (15-37); Blood Urea Nitrogen 4 mg/dL (7-18); Calcium 6.9 mg/dL (8.5-10.1); Carbon Dioxide 26.4 meq/L (21.0-32.0); Chloride 101 meq/L (98-107); Glomerular Filtration Rate Greater Than 89 mL/min (>89); Glucose,Random 99 mg/dL (74-106); Sodium 135 meq/L (136-145); Total Protein 5.7 g/dL (6.4-8.2)
[2018-09-11 17:25] LABS: Potassium 2.6 meq/L (3.5-5.1)
[2018-09-11 18:07] LABS: Hematocrit 28.1 % (35.0-46.0); Hemoglobin 8.6 gm/dL (11.6-15.3); Mean Corpuscular Hemoglobin 20.8 pg (27.0-34.0); Mean Platelet Volume 6.5 fL (7.0-11.0); Platelet Count 463 th/mm3 (150-450); Red Blood Count 4.13 mil/mm3 (4.00-5.30); Red Cell Distribution Width 23.6 % (11.6-17.2); White Blood Count 8.2 th/mm3 (4.0-11.0)
[2018-09-11 18:08] LABS: Mean Corpuscular HGB Conc 30.5 % (32.0-36.0)
--- NOTE | 2018-09-11 20:32 | P.PN ---
Subjective Interval history: NOT SEEN Physical Exam Vital signs: Vital Signs 09/11/18 02:37 09/11/18 10:07 09/11/18 12:00 Temperature 98.1 F 98.6 F 98.2 F Pulse Rate 83 76 67 Respiratory Rate 16 16 Blood Pressure 96/68 L 89/45 L 90/60 L Pulse Oximetry 96 95 09/11/18 13:20 09/11/18 17:36 Temperature 98.4 F Pulse Rate 82 Respiratory Rate 16 16 Blood Pressure 91/60 L Pulse Oximetry 97 Intake & Output 09/11/18 09/11/18 09/12/18 06:59 18:59 06:59 Intake Total 1999 / 1999 800 / 800 Balance 1999 / 1999 800 / 800 Weight 64.7 kg Intake: IV 1000 / 1000 Magnesium Sulfate 1 gm/D5W 100 200 / 200 ml Premix 100 ML @ 100 mls/hr IV.SIG Q1H [facility] Rx#:[id number] Oral 1000 / 1000 800 / 800 Other: # Voids 3 3 Date of Last Bowel Movement 09/11/18 09/11/18 Narrative: GENERAL: WN, WD female NAD. SKIN: Warm and dry. HEART: RRR no m/r/g. LUNGS: CTAB without wheezes or crackles. ABDOMEN: +BS, soft, NT, ND. EXTREMITIES: No LE edema. 2+ pedal pulses. NEURO: Awake and alert. Results - Labs CBC & Chem 7: 09/11/18 17:15 09/11/18 16:40 Laboratory Results - last 24 hr 09/11/18 09/11/18 09/11/18 06:35 06:35 06:35 WBC 8.0 RBC 3.69 L Hgb 7.9 L Hct 24.7 L MCV 66.9 L MCH 21.5 L MCHC 32.0 RDW 23.9 H Plt Count 421 MPV 6.3 L Sodium 137 Potassium 2.7 L* Chloride 103 Carbon Dioxide 26.3 Anion Gap 8 BUN 3 L Creatinine 0.42 L Estimated GFR Greater than 89 Random Glucose 92 Calcium 6.8 L* Prot Corrected Calcium 7.9 L Phosphorus 1.8 L Magnesium 2.0 D Total Bilirubin AST ALT Alkaline Phosphatase Total Protein 4.9 L Albumin 09/11/18 09/11/18 09/11/18 16:40 16:40 17:15 WBC 8.2 RBC 4.13 Hgb 8.6 L Hct 28.1 L MCV 68.0 L MCH 20.8 L MCHC 30.5 L RDW 23.6 H Plt Count 463 H MPV 6.5 L Sodium 135 L Potassium Cancelled 2.6 L* Chloride 101 Carbon Dioxide 26.4 Anion Gap 8 BUN 4 L Creatinine 0.48 L Estimated GFR Greater than 89 Random Glucose 99 Calcium 6.9 L* Prot Corrected Calcium 7.6 L Phosphorus Magnesium Total Bilirubin 0.2 AST 13 L ALT 13 Alkaline Phosphatase 101 Total Protein 5.7 L D Albumin 1.7 L Microbiology 09/08/18 21:40 Clean Catch Urine Urine Culture - Final Klebsiella pneumoniae Citrobacter freundii - Procedures EGD Assessment and Plan - Assessment (1) Exacerbation of Crohn's disease Code(s): K50.90 - Crohn's disease, unspecified, without complications Status: Acute (2) Acute hypokalemia Code(s): E87.6 - Hypokalemia Status: Acute - Plan 53 year old female with history of Crohn's disease and TIA presenting on 09/08 with abdominal pain, diarrhea, and some rectal bleeding. She was admitted for possible Crohn's exacerbation. 1. Diarrhea, possible early Crohn's exacerbation - Improving - GI consulted, recommended colonoscopy but patient refused the prep secondary to dysphagia therefore GI recommends colonoscopy as an outpatient - Stool studies negative - C. diff negative - Resume home mesalamine and Entocort - Morphine PRN - Antiemetics PRN 2. Sommer esophagitis - GI following - s/p EGD 09/10 - Biopsies pending - Diflucan x 10 days - ADAT 3. Acute blood loss anemia - Secondary to rectal bleeding - Hb dropped from 9.8 to 7.2 within 24 hours - S/P transfusion 1 unit PRCB 09/09 with improvement of Hb up to 8.2 - Hb slightly down to 7.9 this AM - Continue to monitor 4. UTI - Urine culture growing Klebsiella and Citrobacter - Multiple abx allergies - Continue Macrobid 5. Refractory hypokalemia - Potassium 2.7 this AM despite multiple doses of potassium - Mg was low at 1.4 which was repleted with 2 g MgSO4 - Phosphorous low this morning at 1.8 - Start K-Phos BID - Restart fluids with NS-KCl 40 meq at 84 ml/hr since patient doesn't tolerate IV KCl alone - Repeat potassium at 1600 DVT prophylaxis: chemical anticoagulation held secondary to possible GI bleeding , SCDs Discharge Planning: Hopefully D/C soon if potassium improves. Anticipate going to rehab. Case management assisting (1) Exacerbation of Crohn's disease Qualifiers: Digestive disease complication type: with rectal bleeding Qualified Code(s): K50.911 - Crohn's disease, unspecified, with rectal bleeding
[2018-09-11] MEDS: Potassium Chloride 10 MEQ ER Capsule PO SCH ×2 (21:00→21:55)
[2018-09-11] MEDS: Heparin - SQ 10,000 UNITS/ML Vial SQ SCH (21:54)
[2018-09-12] MEDS: Morphine Inj 4 MG/ML Vial IV.PUSH PRN ×2 (00:04→10:58)
[2018-09-12 07:33] LABS: Hematocrit 27.3 % (35.0-46.0); Hemoglobin 8.6 gm/dL (11.6-15.3); Mean Corpuscular HGB Conc 31.7 % (32.0-36.0); Mean Corpuscular Hemoglobin 21.5 pg (27.0-34.0); Mean Corpuscular Volume 67.7 fL (80.0-100.0); Mean Platelet Volume 6.6 fL (7.0-11.0); Platelet Count 400 th/mm3 (150-450); Red Blood Count 4.03 mil/mm3 (4.00-5.30); Red Cell Distribution Width 23.8 % (11.6-17.2)
[2018-09-12 07:43] LABS: Chloride 105 meq/L (98-107); Sodium 138 meq/L (136-145)
[2018-09-12 07:51] LABS: Anion Gap 10 meq/L (5-15); Blood Urea Nitrogen 4 mg/dL (7-18); Calcium 6.9 mg/dL (8.5-10.1); Carbon Dioxide 22.7 meq/L (21.0-32.0); Glomerular Filtration Rate Greater Than 89 mL/min (>89); Glucose,Random 107 mg/dL (74-106); Magnesium 1.6 mg/dL (1.5-2.5); Phosphorus 1.6 mg/dL (2.5-4.9)
[2018-09-12] MEDS ORDERED: Potassium Chloride 10 MEQ ER Capsule PO SCH (08:06)
[2018-09-12 08:07] LABS: Total Protein 5.2 g/dL (6.4-8.2)
--- NOTE | 2018-09-12 08:56 | P.PNGI ---
Subjective Interval history: Laying comfortably in bed states the diarrhea has slowed she only had 1 mushy bowel movement this morning Physical Exam Vital signs: Vital Signs 09/11/18 10:07 09/11/18 12:00 09/11/18 13:20 Temperature 98.6 F 98.2 F Pulse Rate 76 67 Respiratory Rate 16 16 Blood Pressure 89/45 L 90/60 L Pulse Oximetry 95 09/11/18 17:36 09/11/18 20:00 09/12/18 00:00 Temperature 98.4 F 99.2 F 94.5 F L Pulse Rate 82 73 77 Respiratory Rate 16 18 18 Blood Pressure 91/60 L 94/60 L 108/64 Pulse Oximetry 97 98 93 L Intake & Output 09/11/18 09/12/18 09/12/18 18:59 06:59 18:59 Intake Total 800 / 800 2350 / 2350 Output Total 3100 / 3100 Balance 800 / 800 -750 / -750 Weight 68.5 kg Intake: IV 600 / 600 NS + KCl 40 mEq Inj 1,000 ML @ 600 / 600 84 mls/hr IV.CONT .[id number] [facility] Rx#:[id number] Oral 800 / 800 750 / 750 Other 1000 / 1000 Output: Urine 600 / 600 Stool 2500 / 2500 Other: Other Intake Source Saline Solution # Voids 3 Date of Last Bowel Movement 09/11/18 09/12/18 - Constitutional no acute distress - Routine HEENT Exam Head: Present: normocephalic Eye: Present: EOMI ENT: Present: mucous membranes moist - Routine Neck Exam Present: supple - Routine Respiratory Exam Present: CTA bilaterally - Routine Cardiovascular Exam Present: RRR - Routine Abdominal Exam Present: soft. Absent: tenderness, distended - Routine Extremities Exam Absent: cyanosis, clubbing, edema Results - Labs CBC & Chem 7: 09/12/18 07:00 09/12/18 07:00 Laboratory Results - last 24 hr 09/11/18 09/11/18 09/11/18 06:35 16:40 16:40 WBC RBC Hgb Hct MCV MCH MCHC RDW Plt Count MPV Sodium 135 L Potassium Cancelled 2.6 L* Chloride 101 Carbon Dioxide 26.4 Anion Gap 8 BUN 4 L Creatinine 0.48 L Estimated GFR Greater than 89 Random Glucose 99 Calcium 6.9 L* Prot Corrected Calcium 7.6 L Phosphorus 1.8 L Magnesium Total Bilirubin 0.2 AST 13 L ALT 13 Alkaline Phosphatase 101 Total Protein 5.7 L D Albumin 1.7 L 09/11/18 09/12/18 09/12/18 17:15 07:00 07:00 WBC 8.2 8.0 RBC 4.13 4.03 Hgb 8.6 L 8.6 L Hct 28.1 L 27.3 L MCV 68.0 L 67.7 L MCH 20.8 L 21.5 L MCHC 30.5 L 31.7 L RDW 23.6 H 23.8 H Plt Count 463 H 400 MPV 6.5 L 6.6 L Sodium 138 Potassium 3.0 L Chloride 105 Carbon Dioxide 22.7 Anion Gap 10 BUN 4 L Creatinine 0.56 Estimated GFR Greater than 89 Random Glucose 107 H Calcium 6.9 L* Prot Corrected Calcium 7.9 L Phosphorus 1.6 L Magnesium 1.6 Total Bilirubin AST ALT Alkaline Phosphatase Total Protein 5.2 L Albumin Microbiology 09/08/18 21:40 Clean Catch Urine Urine Culture - Final Klebsiella pneumoniae Citrobacter freundii - Procedures EGD Assessment and Plan - Plan Anemia appears to be stable no evidence of any active or acute bleeding Hypokalemia etiology unclear possibly related to the diarrhea much improved Diarrhea patient has known history of Crohn's disease on Pentasa no recent imaging await CT of the abdomen Esophagitis with Sommer noted on endoscopy yesterday treatment started and patient appears to be tolerating Patient had declined a colonoscopy Continue with current supportive care Possible discharge later today if CT is unremarkable and the patient continues to do well
[2018-09-12] MEDS ORDERED: Potassium Phosphate Inj 30 MMOL in Sodium Chlor 0.9% Inj 250 ML IV.SIG ONE (09:00)
[2018-09-12] MEDS: Mesalamine 250 MG Capsule ER PO SCH ×4 (09:09→20:21)
[2018-09-12] MEDS: Nystatin/Diphenhydramine/Lidocaine Mouthwash (Adult) 120 ML Botttle SWISH-SWAL SCH ×4 (09:09→20:21)
[2018-09-12] MEDS: Nitrofurantoin Monohydrate-Macrocrystal 100 MG Capsule PO SCH ×2 (09:10→17:47)
[2018-09-12] MEDS: Fluconazole 100 MG Tablet PO SCH (09:10)
[2018-09-12] MEDS: Heparin - SQ 10,000 UNITS/ML Vial SQ SCH ×3 (09:11→20:22)
[2018-09-12] MEDS: Potassium Phos/Sodium Phos 250 MG Tablet PO SCH ×3 (09:31→17:47)
[2018-09-12] MEDS ORDERED: Naloxone Inj 0.4 MG/ML Vial IV.PUSH PRN (11:29)
--- NOTE | 2018-09-12 11:33 | P.PN ---
Subjective Interval history: Follow-up esophagitis and diarrhea. Tolerating diet. States she only had one small semi-formed stool this morning. Denies nausea and vomiting. Agrees to IV potassium and phosphorus. She has been refusing electrolyte replacement, she has been counseled. Physical Exam Vital signs: Vital Signs 09/11/18 12:00 09/11/18 13:20 09/11/18 17:36 Temperature 98.2 F 98.4 F Pulse Rate 67 82 Respiratory Rate 16 16 Blood Pressure 90/60 L 91/60 L Pulse Oximetry 95 97 09/11/18 20:00 09/12/18 00:00 09/12/18 08:00 Temperature 99.2 F 94.5 F L 98.2 F Pulse Rate 73 77 80 Respiratory Rate 18 18 18 Blood Pressure 94/60 L 108/64 102/62 Pulse Oximetry 98 93 L 98 Intake & Output 09/11/18 09/12/18 09/12/18 18:59 06:59 18:59 Intake Total 800 / 800 2350 / 2350 Output Total 3100 / 3100 Balance 800 / 800 -750 / -750 Weight 68.5 kg Intake: IV 600 / 600 NS + KCl 40 mEq Inj 1,000 ML @ 600 / 600 84 mls/hr IV.CONT .[id number] [facility] Rx#:[id number] Oral 800 / 800 750 / 750 Other 1000 / 1000 Output: Urine 600 / 600 Stool 2500 / 2500 Other: Other Intake Source Saline Solution # Voids 3 Date of Last Bowel Movement 09/11/18 09/12/18 Narrative: GENERAL: WN, WD female NAD. SKIN: Warm and dry. HEART: RRR no m/r/g. LUNGS: CTAB without wheezes or crackles. ABDOMEN: +BS, soft, NT, ND. EXTREMITIES: No LE edema. 2+ pedal pulses. NEURO: Awake and alert. Results - Labs CBC & Chem 7: 09/12/18 07:00 09/12/18 07:00 Laboratory Results - last 24 hr 09/11/18 09/11/18 09/11/18 16:40 16:40 17:15 WBC 8.2 RBC 4.13 Hgb 8.6 L Hct 28.1 L MCV 68.0 L MCH 20.8 L MCHC 30.5 L RDW 23.6 H Plt Count 463 H MPV 6.5 L Sodium 135 L Potassium Cancelled 2.6 L* Chloride 101 Carbon Dioxide 26.4 Anion Gap 8 BUN 4 L Creatinine 0.48 L Estimated GFR Greater than 89 Random Glucose 99 Calcium 6.9 L* Prot Corrected Calcium 7.6 L Phosphorus Magnesium Total Bilirubin 0.2 AST 13 L ALT 13 Alkaline Phosphatase 101 Total Protein 5.7 L D Albumin 1.7 L 09/12/18 09/12/18 07:00 07:00 WBC 8.0 RBC 4.03 Hgb 8.6 L Hct 27.3 L MCV 67.7 L MCH 21.5 L MCHC 31.7 L RDW 23.8 H Plt Count 400 MPV 6.6 L Sodium 138 Potassium 3.0 L Chloride 105 Carbon Dioxide 22.7 Anion Gap 10 BUN 4 L Creatinine 0.56 Estimated GFR Greater than 89 Random Glucose 107 H Calcium 6.9 L* Prot Corrected Calcium 7.9 L Phosphorus 1.6 L Magnesium 1.6 Total Bilirubin AST ALT Alkaline Phosphatase Total Protein 5.2 L Albumin Microbiology 09/08/18 21:40 Clean Catch Urine Urine Culture - Final Klebsiella pneumoniae Citrobacter freundii - Procedures EGD Assessment and Plan - Assessment (1) Exacerbation of Crohn's disease Code(s): K50.90 - Crohn's disease, unspecified, without complications Status: Acute (2) Acute hypokalemia Code(s): E87.6 - Hypokalemia Status: Acute - Plan 53 year old female with history of Crohn's disease and TIA presenting on 09/08 with abdominal pain, diarrhea, and some rectal bleeding. She was admitted for possible Crohn's exacerbation. 1. Diarrhea, possible early Crohn's exacerbation - Improving - GI consulted, recommended colonoscopy but patient refused the prep secondary to dysphagia therefore GI recommends colonoscopy as an outpatient. Follow-up abdominal CT - Stool studies negative - C. diff negative - Resume home mesalamine and Entocort - Morphine PRN - Antiemetics PRN 2. Sommer esophagitis - GI following - s/p EGD 09/10 - Biopsies pending - Diflucan x 10 days - ADAT 3. Acute blood loss anemia - Secondary to rectal bleeding - Hb dropped from 9.8 to 7.2 within 24 hours - S/P transfusion 1 unit PRCB 09/09 with improvement of Hb up to 8.2 - Hb slightly down to 7.9 this AM - Continue to monitor 4. UTI - Urine culture growing Klebsiella and Citrobacter - Multiple abx allergies - Continue Macrobid. Will give aztreonam while in-house based on sensitivities. 5. Refractory hypokalemia - Patient noncompliant refusing supplementation. She has been counseled. - Start K-Phos and p.o. potassium - Restart fluids with NS-KCl 40 meq at 84 ml/hr since patient doesn't tolerate IV KCl alone. Will discontinue IV fluid if no more diarrhea - Repeat labs in the morning if not discharged today DVT prophylaxis: chemical anticoagulation held secondary to possible GI bleeding , SCDs Discharge Planning: Hopefully D/C soon if potassium improves. Anticipate going to rehab. Case management assisting (1) Exacerbation of Crohn's disease Qualifiers: Digestive disease complication type: with rectal bleeding Qualified Code(s): K50.911 - Crohn's disease, unspecified, with rectal bleeding
--- NOTE | 2018-09-12 11:59 | P.DCO ---
- Diagnosis (1) Crohn disease Status: Acute (2) Arthritis Status: Acute - Physical Therapy Order: Evaluate and treat, Improve ambulation, Strength and gait training - Home Health Nursing Order: Medical education, Medication education-adverse effect, Nursing assessment with vital signs - Case Management Consult Yes - Certification I have seen patient Kelly Garsia on 09/12/18. My clinical findings support the need for the requested home health care services because: Deconditioned with increased weakness I certify that my clinical findings support that this patient is homebound because: Need for psychosocial assistance
[2018-09-13 06:54] LABS: Chloride 106 meq/L (98-107); Potassium 3.5 meq/L (3.5-5.1); Sodium 138 meq/L (136-145)
[2018-09-13 07:08] LABS: Anion Gap 9 meq/L (5-15); Blood Urea Nitrogen 4 mg/dL (7-18); Calcium 7.1 mg/dL (8.5-10.1); Carbon Dioxide 23.1 meq/L (21.0-32.0); Glomerular Filtration Rate Greater Than 89 mL/min (>89); Glucose,Random 89 mg/dL (74-106); Magnesium 1.6 mg/dL (1.5-2.5); Phosphorus 2.3 mg/dL (2.5-4.9)
[2018-09-13 07:21] LABS: Total Protein 4.9 g/dL (6.4-8.2)
[2018-09-13] MEDS: Potassium Phos/Sodium Phos 250 MG Tablet PO SCH ×3 (08:04→17:25)
[2018-09-13] MEDS: Fluconazole 100 MG Tablet PO SCH (08:05)
[2018-09-13] MEDS: Mesalamine 250 MG Capsule ER PO SCH ×4 (08:07→21:04)
[2018-09-13] MEDS: Nystatin/Diphenhydramine/Lidocaine Mouthwash (Adult) 120 ML Botttle SWISH-SWAL SCH ×4 (08:09→21:04)
[2018-09-13] MEDS: Heparin - SQ 10,000 UNITS/ML Vial SQ SCH ×2 (08:09→20:01)
--- NOTE | 2018-09-13 08:38 | P.PNGI ---
Subjective Interval history: Laying comfortably in bed but complaining of her tailbone pain and neuropathies and she is concerned about Lyme disease She claims she drank half a bottle of contrast yesterday but the CT scan was never done Physical Exam Vital signs: Vital Signs 09/12/18 12:00 09/12/18 16:00 09/12/18 20:00 Temperature 98.8 F 98.7 F 97.9 F Pulse Rate 93 H 82 82 Respiratory Rate 18 18 20 Blood Pressure 112/80 102/61 89/58 L Pulse Oximetry 98 97 98 09/13/18 00:00 09/13/18 04:00 Temperature 97.2 F L 97.1 F L Pulse Rate 77 74 Respiratory Rate 20 20 Blood Pressure 106/61 98/58 L Pulse Oximetry 99 98 Intake & Output 09/12/18 09/13/18 09/13/18 18:59 06:59 18:59 Intake Total 500 / 500 1670 / 1670 Balance 500 / 500 1670 / 1670 Weight 66.5 kg Intake: IV 500 / 500 710 / 710 NS + KCl 40 mEq Inj 1,000 ML @ 400 / 400 600 / 600 84 mls/hr IV.CONT .[id number] [facility] Rx#:[id number] Azactam Inj 1,000 MG In NS Inj 100 / 100 10 / 10 100 ML @ 200 mls/hr IV.SIG Q6H [facility] Rx#:[id number] Potassium Phosphate Inj 30 MMOL 100 / 100 In NS Inj 250 ML @ 43.333 mls/ hr IV.SIG ONCE ONE Rx#: [id number] Oral 960 / 960 Other: # Voids 4 3 # Urine Diapers 3 Date of Last Bowel Movement 09/12/18 # Bowel Movements 6 2 - Constitutional no acute distress - Routine HEENT Exam Head: Present: normocephalic Eye: Present: EOMI ENT: Present: mucous membranes moist - Routine Neck Exam Present: supple - Routine Cardiovascular Exam Present: RRR - Routine Abdominal Exam Present: soft, normoactive bowel sounds - Routine Extremities Exam Absent: cyanosis, clubbing, edema Results - Labs CBC & Chem 7: 09/12/18 07:00 09/13/18 06:12 Laboratory Results - last 24 hr 09/13/18 06:12 Sodium 138 Potassium 3.5 Chloride 106 Carbon Dioxide 23.1 Anion Gap 9 BUN 4 L Creatinine 0.43 L Estimated GFR Greater than 89 Random Glucose 89 Calcium 7.1 L* Prot Corrected Calcium 8.3 L Phosphorus 2.3 L Magnesium 1.6 Total Protein 4.9 L Assessment and Plan - Plan Anemia appears to be stable no evidence of any active or acute bleeding Hypokalemia etiology unclear possibly related to the diarrhea much improved Diarrhea patient has known history of Crohn's disease on Pentasa no recent imaging await CT of the abdomen Esophagitis with Sommer noted on endoscopy yesterday treatment started and patient appears to be tolerating Patient had declined a colonoscopy Continue with current supportive care Possible discharge later today if CT is unremarkable I did emphasize to the patient the need for oral contrast in order to get good imaging of the bowel
[2018-09-13] MEDS ORDERED: Diatrizoate Meglum/Diatrizoate Sod Liq 9 ML UDC PO ONE (09:00)
[2018-09-13] MEDS: Nitrofurantoin Monohydrate-Macrocrystal 100 MG Capsule PO SCH ×2 (09:05→17:24)
--- NOTE | 2018-09-13 10:46 | P.PN ---
Subjective Interval history: Follow-up diarrhea. States diarrhea is much improved. Refusing IV hydration. Discussed with GI, if unremarkable abdominal CT patient can be discharged. Patient does not want to go to rehab at this time Physical Exam Vital signs: Vital Signs 09/12/18 12:00 09/12/18 16:00 09/12/18 20:00 Temperature 98.8 F 98.7 F 97.9 F Pulse Rate 93 H 82 82 Respiratory Rate 18 18 20 Blood Pressure 112/80 102/61 89/58 L Pulse Oximetry 98 97 98 09/13/18 00:00 09/13/18 04:00 09/13/18 08:00 Temperature 97.2 F L 97.1 F L 97.6 F Pulse Rate 77 74 80 Respiratory Rate 20 20 18 Blood Pressure 106/61 98/58 L 107/62 Pulse Oximetry 99 98 100 Intake & Output 09/12/18 09/13/18 09/13/18 18:59 06:59 18:59 Intake Total 500 / 500 1670 / 1670 20 / 20 Balance 500 / 500 1670 / 1670 20 / 20 Weight 66.5 kg Intake: IV 500 / 500 710 / 710 20 / 20 NS + KCl 40 mEq Inj 1,000 ML @ 400 / 400 600 / 600 20 / 20 84 mls/hr IV.CONT .[id number] [facility] Rx#:[id number] Azactam Inj 1,000 MG In NS Inj 100 / 100 10 / 10 100 ML @ 200 mls/hr IV.SIG Q6H [facility] Rx#:[id number] Potassium Phosphate Inj 30 MMOL 100 / 100 In NS Inj 250 ML @ 43.333 mls/ hr IV.SIG ONCE ONE Rx#: [id number] Oral 960 / 960 Other: # Voids 4 3 # Urine Diapers 3 Date of Last Bowel Movement 09/12/18 # Bowel Movements 6 2 Narrative: GENERAL: WN, WD female NAD. SKIN: Warm and dry. HEART: RRR no m/r/g. LUNGS: CTAB without wheezes or crackles. ABDOMEN: +BS, soft, NT, ND. EXTREMITIES: No LE edema. 2+ pedal pulses. NEURO: Awake and alert. Results - Labs CBC & Chem 7: 09/12/18 07:00 09/13/18 06:12 Laboratory Results - last 24 hr 09/13/18 06:12 Sodium 138 Potassium 3.5 Chloride 106 Carbon Dioxide 23.1 Anion Gap 9 BUN 4 L Creatinine 0.43 L Estimated GFR Greater than 89 Random Glucose 89 Calcium 7.1 L* Prot Corrected Calcium 8.3 L Phosphorus 2.3 L Magnesium 1.6 Total Protein 4.9 L - Procedures EGD Assessment and Plan - Assessment (1) Crohn disease Code(s): K50.90 - Crohn's disease, unspecified, without complications Status: Acute (2) Arthritis Code(s): M19.90 - Unspecified osteoarthritis, unspecified site Status: Acute (3) Exacerbation of Crohn's disease Code(s): K50.90 - Crohn's disease, unspecified, without complications Status: Acute (4) Acute hypokalemia Code(s): E87.6 - Hypokalemia Status: Acute - Plan 53 year old female with history of Crohn's disease and TIA presenting on 09/08 with abdominal pain, diarrhea, and some rectal bleeding. She was admitted for possible Crohn's exacerbation. 1. Diarrhea, possible early Crohn's exacerbation - Improving - GI consulted, recommended colonoscopy but patient refused the prep secondary to dysphagia therefore GI recommends colonoscopy as an outpatient. Follow-up abdominal CT - Stool studies negative - C. diff negative - Resume home mesalamine and Entocort - Morphine PRN - Antiemetics PRN 2. Sommer esophagitis - GI following - s/p EGD 09/10 - Biopsy + Sommer - Diflucan x 10 days - ADAT 3. Acute blood loss anemia - Secondary to rectal bleeding - Hb dropped from 9.8 to 7.2 within 24 hours - S/P transfusion 1 unit PRCB 09/09 with improvement of Hb up to 8.2 - Hb slightly down to 7.9 this AM - Continue to monitor 4. UTI - Urine culture growing Klebsiella and Citrobacter - Multiple abx allergies - Continue Macrobid. Will give aztreonam while in-house based on sensitivities. 5. Refractory hypokalemia and hypophosphatemia. Improving - Patient noncompliant refusing supplementation. She has been counseled. - Continue K-Phos and p.o. potassium - Dc IV fluids, patient refusing - Repeat labs in the morning if not discharged today DVT prophylaxis: chemical anticoagulation held secondary to possible GI bleeding , SCDs Discharge Planning: Stable for discharge abdominal CT negative (3) Exacerbation of Crohn's disease Qualifiers: Digestive disease complication type: with rectal bleeding Qualified Code(s): K50.911 - Crohn's disease, unspecified, with rectal bleeding
--- NOTE | 2018-09-13 10:53 | P.DS ---
Date of admission: 09/08/18 07:30 Primary care physician: No Primary Care Physician Anticipated date of discharge: 09/14/18 Brief History from admission: patient is a 53 y/o female with history of Crohn's disease, TIA who presented to ER with abdominal pain and diarrhea. she says that she's had abdominal pain for three days. pain is more or less generalized. pain was associated with nausea, vomiting and bloody diarrhea. she denies any fever or chills. she says that she couldn't take her medications because of nausea. DS: Diagnosis - Discharge Diagnosis (1) Crohn disease Status: Acute (2) Arthritis Status: Acute (3) Exacerbation of Crohn's disease Status: Acute (4) Acute hypokalemia Status: Acute DS: Medications - Discharge Medications Prescriptions: potassium chloride [Klor-Con 10] 40 meq PO DAILY #2 tab prednisone 30 mg PO DAILY #42 tab sod phos di, mono-K phos mono [N-Hnkd-Srgymur] 250 mg PO TID #6 tab DS: Summary Hospital Course: 53 year old female with history of Crohn's disease and TIA presenting on 09/08 with abdominal pain, diarrhea, and some rectal bleeding. She was admitted for possible Crohn's exacerbation. 1. Diarrhea, possible early Crohn's exacerbation - Improving - GI consulted, recommended colonoscopy but patient refused the prep secondary to dysphagia therefore GI recommends colonoscopy as an outpatient. Follow-up abdominal CT colitis of the rectum, sigmoid colon and portions of the descending colon likely related to patient's inflammatory bowel disease - Stool studies negative - C. diff negative - Resume home mesalamine and Entocort. Prednisone started - Morphine PRN - Antiemetics PRN 2. Sommer esophagitis - GI following - s/p EGD 09/10 - Biopsy + Sommer - Diflucan x 10 days - ADAT 3. Acute blood loss anemia - Secondary to rectal bleeding - Hb dropped from 9.8 to 7.2 within 24 hours - S/P transfusion 1 unit PRCB 09/09 with improvement of Hb up to 8.2 - Hb slightly down to 7.9 this AM - Continue to monitor 4. UTI - Urine culture growing Klebsiella and Citrobacter - Multiple abx allergies - Continue Macrobid. Will give aztreonam while in-house based on sensitivities. 5. Refractory hypokalemia and hypophosphatemia. Improving - Patient noncompliant refusing supplementation. She has been counseled. - Continue K-Phos and p.o. potassium - Dc IV fluids, patient refusing - Repeat labs outpatient DVT prophylaxis: chemical anticoagulation held secondary to possible GI bleeding , SCDs Patient has been difficult to manage keep refusing treatment including colonoscopy - Time Spent with Patient Total time spent providing and/or coordinating discharge services: Greater than 30 minutes - Quality: VTE Deep Vein Thrombosis/Pulmonary Embolism Present on Admission: No Exam Vital signs: Vital Signs 09/12/18 12:00 09/12/18 16:00 09/12/18 20:00 Temperature 98.8 F 98.7 F 97.9 F Pulse Rate 93 H 82 82 Respiratory Rate 18 18 20 Blood Pressure 112/80 102/61 89/58 L Pulse Oximetry 98 97 98 09/13/18 00:00 09/13/18 04:00 09/13/18 08:00 Temperature 97.2 F L 97.1 F L 97.6 F Pulse Rate 77 74 80 Respiratory Rate 20 20 18 Blood Pressure 106/61 98/58 L 107/62 Pulse Oximetry 99 98 100 Intake & Output 09/12/18 09/13/18 09/13/18 18:59 06:59 18:59 Intake Total 500 / 500 1670 / 1670 20 / 20 Balance 500 / 500 1670 / 1670 20 / 20 Weight 66.5 kg Intake: IV 500 / 500 710 / 710 20 / 20 NS + KCl 40 mEq Inj 1,000 ML @ 400 / 400 600 / 600 20 / 20 84 mls/hr IV.CONT .[id number] [facility] Rx#:[id number] Azactam Inj 1,000 MG In NS Inj 100 / 100 10 / 10 100 ML @ 200 mls/hr IV.SIG Q6H [facility] Rx#:[id number] Potassium Phosphate Inj 30 MMOL 100 / 100 In NS Inj 250 ML @ 43.333 mls/ hr IV.SIG ONCE ONE Rx#: [id number] Oral 960 / 960 Other: # Voids 4 3 # Urine Diapers 3 Date of Last Bowel Movement 09/12/18 # Bowel Movements 6 2 Narrative: GENERAL: WN, WD female NAD. SKIN: Warm and dry. HEART: RRR no m/r/g. LUNGS: CTAB without wheezes or crackles. ABDOMEN: +BS, soft, NT, ND. EXTREMITIES: No LE edema. 2+ pedal pulses. NEURO: Awake and alert. Results Procedures completed during hospitalization: EGD Labs on day of discharge: Labs from last 24 hours 09/13/18 06:12 Sodium 138 Potassium 3.5 Chloride 106 Carbon Dioxide 23.1 Anion Gap 9 BUN 4 L Creatinine 0.43 L Estimated GFR Greater than 89 Random Glucose 89 Calcium 7.1 L* Prot Corrected Calcium 8.3 L Phosphorus 2.3 L Magnesium 1.6 Total Protein 4.9 L - Impressions ITS Impressions Abdomen/Pelvis CT 09/13/18 02:20 CONCLUSION: 1. Colitis of the rectum, sigmoid colon and portions of the descending colon likely related to patient's inflammatory bowel disease. 2. Bilateral renal cysts and renal calcifications. No obstruction. 3. Hepatic steatosis and previous cholecystectomy. Discharge Plan - Discharge Disposition Patient Disposition: W/Home Health Service - Discharge Condition Condition: Stable - Discharge Order Discharge Orders: Discharge Order (Routine); Ordered 09/14/18 Ordered By: Jorge Aguilar - Discharge Details Discharge Comment: dc if Abd CT negative and no recurrence of diarrhea - Physicians Team Primary Care Provider: Primary Care Duartei,Kath Attending Provider: Jorge Aguilar Other Providers: Yazan Esteban MD
--- NOTE | 2018-09-13 12:23 | CT ---
EXAM DATE: 09/13/2018 12:12 PM EDT AGE/SEX: 53 years / Female INDICATIONS: Diarrhea. Diffuse abdominal pain. History of Crohn's disease. CLINICAL DATA: This is the patient's initial encounter. Patient reports that signs and symptoms have been present for 4 - 6 days and indicates a pain score of 4/10. MEDICAL/SURGICAL HISTORY: Crohn's disease. Transient ischemic attack. Cholecystectomy. Angus an section. RADIATION DOSE: 10.55 CTDI (mGy) COMPARISON: [facility] [place], CT ABDOMEN & PELVIS W CONTRAST, 11/23/2017. . TECHNIQUE: Multiple contiguous axial images were obtained through the abdomen. Images were obtained using multiple row detector helical technique. Using automated exposure control and adjustment of the mA and/or kV according to patient size, radiation dose was kept as low as reasonably achievable to o btain optimal diagnostic quality images. DICOM format image data is available electronically for rev iew and comparison. FINDINGS: Lower Lungs: The visualized lower lungs are clear. Liver: The liver is decreased in density without space-occupying lesion. There is no dilation of the biliary tree. Cholecystectomy clips. Spleen: Homogeneous density without enlargement. Pancreas: Unremarkable without mass or calcification. Kidneys: Normal in size and shape. No evidence of mass or hydronephrosis. Bilateral renal cysts with some scattered nonobstructing calculi versus complex cyst containing calcifications bilaterally. No ureteral calculi. Adrenal Glands: Unremarkable. Aorta: The aorta and proximal iliac vessels are grossly unremarkable without aneurysmal dilation. Bowel/Mesentery: Diffuse wall thickening with slight inflammatory changes of the rectum and sigmoid colon and to lesser degree descending colon. Small bowel appears unremarkable. Abdominal Wall: Intact. Retroperitoneum: No evidence of adenopathy in the retrocrural, para-aortic, or deep pelvic regions. Bladder: Contours are smooth. Reproductive Organs: No abnormal masses or calcifications seen. Inguinal: The inguinal region is unremarkable without evidence of adenopathy. Bony Structures: Unremarkable. CONCLUSION: 1. Colitis of the rectum, sigmoid colon and portions of the descending colon likely related to patie nt's inflammatory bowel disease. 2. Bilateral renal cysts and renal calcifications. No obstruction. 3. Hepatic steatosis and previous cholecystectomy. Electronically signed by: Rayshanw Bazan MD 09/13/2018 12:22 PM EDT
[2018-09-13] MEDS ORDERED: Magnesium Citrate Liq 300 ML Bottle PO ONE ×3 (14:00→23:55)
[2018-09-13] MEDS: predniSONE 10 MG Tablet PO SCH ×2 (14:06→14:09)
[2018-09-14 07:12] LABS: Chloride 105 meq/L (98-107); Potassium 3.2 meq/L (3.5-5.1); Sodium 139 meq/L (136-145)
[2018-09-14 07:30] LABS: Anion Gap 10 meq/L (5-15); Blood Urea Nitrogen 4 mg/dL (7-18); Calcium 7.3 mg/dL (8.5-10.1); Carbon Dioxide 23.7 meq/L (21.0-32.0); Glomerular Filtration Rate Greater Than 89 mL/min (>89); Glucose,Random 79 mg/dL (74-106); Magnesium 1.7 mg/dL (1.5-2.5); Phosphorus 2.4 mg/dL (2.5-4.9)
[2018-09-14] MEDS: Fluconazole 100 MG Tablet PO SCH (09:36)
[2018-09-14] MEDS: Nitrofurantoin Monohydrate-Macrocrystal 100 MG Capsule PO SCH (09:36)
[2018-09-14] MEDS: Nystatin/Diphenhydramine/Lidocaine Mouthwash (Adult) 120 ML Botttle SWISH-SWAL SCH ×2 (09:37→12:28)
[2018-09-14] MEDS: Mesalamine 250 MG Capsule ER PO SCH ×2 (09:40→12:28)
[2018-09-14] MEDS: Potassium Phos/Sodium Phos 250 MG Tablet PO SCH ×2 (09:41→13:48)
[2018-09-14] MEDS: predniSONE 10 MG Tablet PO SCH (09:41)
[2018-09-14] MEDS: Heparin - SQ 10,000 UNITS/ML Vial SQ SCH (09:41)
== END 2018-09-14 13:30 | disposition home health service (06) ==
LOC: PHED 06:12 → PHEDA 07:30 → PH3 08:36
PROVIDERS: ADMIT Internal Medicine; ATTEND Internal Medicine